=== PATIENT | male | born 1960 | race Caucasian/White ===

== ENCOUNTER → 2019-11-27 18:15 | Outpatient (BNVA) | payer MEDICARE, MEDICAID, SELFPAY | PROVIDERS: PCP Family Medicine; Visit Provider Family Medicine | DX: I10 Essential (primary) hypertension (principal); E11.9 Type 2 diabetes mellitus without complications; E78.2 Mixed hyperlipidemia; I25.10 Atherosclerotic heart disease of native coronary artery without angina pectoris; J44.9 Chronic obstructive pulmonary disease, unspecified; F33.3 Major depressive disorder, recurrent, severe with psychotic symptoms; F41.9 Anxiety disorder, unspecified | CPT/HCPCS: 80053; 80061; 83036; 85025 ==

== ENCOUNTER → 2020-06-04 18:00 | Outpatient (BNVA) | payer MEDICARE, MEDICAID, SELFPAY | PROVIDERS: PCP Family Medicine; Visit Provider Family Medicine | DX: I10 Essential (primary) hypertension (principal); E11.9 Type 2 diabetes mellitus without complications; K21.9 Gastro-esophageal reflux disease without esophagitis; F33.3 Major depressive disorder, recurrent, severe with psychotic symptoms; I25.10 Atherosclerotic heart disease of native coronary artery without angina pectoris | CPT/HCPCS: 80053; 83036 ==

== ENCOUNTER → 2020-09-26 10:20 | Outpatient (BNVA) | payer MEDICARE, MEDICAID, SELFPAY | PROVIDERS: PCP Family Medicine; Visit Provider Internal Medicine Cardiovascular Disease | DX: E11.9 Type 2 diabetes mellitus without complications (principal); E78.2 Mixed hyperlipidemia; I10 Essential (primary) hypertension; R07.9 Chest pain, unspecified; I25.10 Atherosclerotic heart disease of native coronary artery without angina pectoris | CPT/HCPCS: 80053; 80061; 82306; 83721 ==

== ENCOUNTER 2020-10-31 17:38 | Observation (INO) | payer MEDICARE, MEDICAID, SELFPAY ==
[2020-10-31] VITALS (10 sets, daily range): BP systolic 121–161; BP diastolic 70–94; PULSE 58–83; RESP 15–18; TEMP 36.3; O2SAT 92–99; BMI 25.0
--- NOTE | 2020-10-31 18:45 | XR_ITS ---
WS: [id number] PORTABLE CHEST HISTORY: chest pain COMPARISON: 10/12/2018 Lungs are clear and well expanded. No pleural effusion or pneumothorax. Cardiac size: Normal. Mediastinum/Aorta: Normal mediastinum. No osseous abnormality seen. XR/XR chest 1V portable [id number] IMPRESSION: Unremarkable portable chest.
--- NOTE | 2020-10-31 18:45 | ECG_ITS ---
[facility] Test Date: 2020-10-31 Pat Name: Julius Correa Department: Room: Gender: Male Tile Classifier: : 1960 Requested By: Ariadna Armendariz I Order Number: [id number] Garcia MD: Mandy Henning M.D. Measurements Intervals [place] Rate: 65 P: 49 OR: 109 QRS: 23 QRSD: 92 T: 43 QT: 383 QTc: 401 Interpretive Statements SINUS RHYTHM WITH SHORT OR INTERVAL Compared to ECG 10/20/2019 11:50:43 Sinus bradycardia no longer present Electronically Signed On 10-31-2020 22:50:45 CHIMNEY CONSTRUCTION SUPERVISOR by Mandy Henning M.D. [email or web address] children's hospital for [id number]
--- NOTE | 2020-10-31 18:46 | W.ED.CHESTPA ---
HPI - Chest Pain General: Chief Complaint: Chest Pain Stated Complaint: CP Time Seen by Provider: 10/31/20 17:54 Source: patient Mode of arrival: ambulatory Limitations: no limitations History of Present Illness: HPI narrative: Patient is a 60-year-old male with a history of coronary artery disease who presents to the emergency department with a 4-day history of chest pain. He denies any radiation of the pain, diaphoresis, nausea or vomiting. He denies shortness of breath. On looking through his records he saw his supervisor body assembly last month and she would like him to have a stress test as soon as possible. MD complaint: chest pain Pertinent past history: coronary artery disease Onset (ago): day(s) (4) Timing of current episode: episodic Prior episodes: Yes Onset: during rest Pain location: subxiphoid Pain radiation: none Quality: aching Relieving factors: nothing Exacerbating factors: nothing Associated symptoms: Reports abdominal pain; Deny diaphoresis, dyspnea, fever(s), leg edema, nausea, palpitations, sense of impending doom, syncope or vomiting Treatment prior to arrival: nitroglycerin Review of Systems General: Reports: 10 or more systems reviewed and unremarkable except in HPI and below Const: Denies: fever(s) or diaphoresis Eyes: Denies: change in vision or blurry vision ENMT: Denies: throat pain, enlarged tonsils, odynophagia, hoarseness, mouth pain or swelling of lips/tongue Card: Denies: palpitations or syncope Resp: Denies: dyspnea GI: Reports: abdominal pain; Denies: nausea or vomiting : Denies: flank pain, dysuria, urinary frequency, urinary urgency or urinary hesitancy Musc: Denies: neck pain, back pain or extremity swelling Skin/Breast: Denies: rash, pruritus or erythema Neuro: Denies: headache(s), numbness in extremities or weakness in extremities Endo: Denies: polyuria, polydipsia or tired all the time PFS ED PFSH: Medical History (Reviewed 10/31/20 @ 20:49 by Ariadna Armendariz MD, [facility] [place] [facility] [place] Alcohol dependence, in remission Anxiety CAD (coronary artery disease) COPD (chronic obstructive pulmonary disease) Depression Diabetes mellitus type 2 in nonobese Enrolled in chronic care management Essential hypertension GERD (gastroesophageal reflux disease) Intervertebral disc disorders with radiculopathy, lumbosacral region Major depressive disorder, recurrent, severe with psychotic symptoms Mixed hyperlipidemia Surgical History (Reviewed 10/31/20 @ 20:49 by Ariadna Armendariz MD, [facility] [place] [facility] [place] S/P appendectomy S/P coronary angioplasty Family History (Reviewed 10/31/20 @ 20:49 by Ariadna Armendariz MD, [facility] [place] [place] Other Arthritis Asthma Cancer Social History (Reviewed 10/31/20 @ 20:49 by Ariadna Armendariz MD, [facility] [place] [facility] [place] Smoking and tobacco status: former smoker Quit status (tobacco): has quit using tobacco Year quit tobacco: DEC 2017 Second hand smoke exposure: Yes Alcohol intake: never Desire information about alcohol rehabilitation?: No Counseling given: No Desire information about substance/drug rehabilitation?: No Counseling given: No Lives independently: Yes Housing: House Marital status: service: No Current occupational status: unemployed and disabled Current gender identity: Male Physical Exam Const: COMMON NORMALS: no acute distress, average body habitus, patient oriented x3, no limitations, healthy appearing, alert and well nourished HENMT: COMMON NORMALS: normocephalic, atraumatic and moist oral mucous membranes HEAD & SCALP: normocephalic and atraumatic Neck/C-Spine: COMMON NORMALS: no meningeal signs and no JVD Chest: COMMONS NORMALS: normal inspection of the chest and normal palpation of entire chest wall Resp: COMMON NORMALS: normal respiratory effort, No retractions, No use of accessory muscles, clear to auscultation bilaterally and percussion normal AUSCULTATION: clear to auscultation bilaterally PERCUSSION: percussion normal Cardio: COMMON NORMALS: no JVD, regular rate, regular rhythm, S1 normal heart sound present, S2 normal heart sound present, No gallops present (Cardio), No clicks present (Cardio), No murmurs present (Cardio), No rub (Cardio) and Peripheral pulses 2+ throughout RATE: regular rate RHYTHM: regular rhythm HEART SOUNDS: S1 normal heart sound present and S2 normal heart sound present PERIPHERAL PULSES: Peripheral pulses 2+ throughout GI: COMMON NORMALS: Normal to inspection, nondistended, normoactive bowel sounds present, Soft to palpation, non-tender, No hepatosplenomegaly present, no masses and no bruits PALPATION: Yes Soft to palpation and Yes No hepatosplenomegaly present Extremity: COMMON NORMALS: normal to inspection, full ROM, capillary refill normal, no calf tenderness and no pedal edema Neuro: COMMON NORMALS: patient oriented x3 SENSORIUM/ORIENTATION: Yes alert MENINGEAL SIGNS: Yes no meningeal signs Skin: COMMON NORMALS: no rashes or lesions noted, no wounds, turgor normal, no jaundice, no petechiae and no mottling GENERAL SKIN EXAM: no rashes or lesions noted and turgor normal Course Reevaluation(s): Reevaluation #1: Discussed his lab and imaging findings with him. Also discussed the fact that his supervisor body assembly wants him to have a stress test OSMAN. I will therefore refer to admit him to the hospital [facility]. The patient voiced understanding and is in agreement with the plan Time: 20:44 Consultations: Consultation #1: Discussed the patient with Dr. Gilmore, hospitalist and he kindly accepted the patient to his service Time: 22:15 Vital Signs: Vital signs: Vital Signs Temperature 97.3 F L 10/31/20 17:45 Pulse Rate 58 L 10/31/20 22:00 Respiratory Rate 18 10/31/20 22:00 Blood Pressure 133/83 10/31/20 22:00 Pulse Oximetry 96 10/31/20 22:00 MDM - Chest Pain MDM Narrative: Medical decision making narrative: 60-year-old male who presents to the emergency department with chest pain. Initial high-sensitivity troponin was normal at 7. However his supervisor body assembly had routine in her notes from last month that she wants him to have a stress test as soon as possible. Because of this I figured it would be prudent to admit him tonight since he is having chest pain and obtain a stress test in the morning. He was also noted to be severely hyperglycemic and he was given a dose of subcutaneous insulin as well as IV fluids. Blood glucose improved after these. Medical Records: Attestation: I reviewed the patient's medical records. Lab Data: Attestation: I reviewed the patient's lab results. Labs: Lab Results 10/31/20 10/31/20 10/31/20 Range/Units 18:00 18:00 18:00 WBC 6.3 (4.0-10.0) 10^3/ uL RBC 5.15 (4.1-5.3) 10^6/u L Hgb 16.2 (11.7-16.6) g/dL Hct 47.9 (42.0-52.0) % MCV 93.0 (80-94) fL MCH 31.5 (28.0-34.0) pg MCHC 33.8 (30.0-36.0) g/dL RDW 12.3 (12.1-15.1) % Plt Count 278 (130-400) 10^3/c mm MPV 11.1 H (7.4-10.4) fL Neut % (Auto) 60.0 % Lymph % (Auto) 27.5 % Gillespie % (Auto) 9.1 % Eos % (Auto) 1.6 % Baso % (Auto) 1.0 % Neut # (Auto) 3.77 (1.8-7.7) 10^3/u L Lymph # (Auto) 1.7 (0.8-4.8) 10^3/u L Gillespie # (Auto) 0.6 (0.2-0.9) 10^3/u L Eos # (Auto) 0.1 (0.0-0.8) 10^3/u L Baso # (Auto) 0.1 (0.0-0.1) 10^3/u L Nucleated RBC % (a uto) 0 % Nucleated RBCs # 0.0 /100WBC Sodium 131 L (136-145) mmol/L Potassium 4.4 (3.5-5.1) mmol/L Chloride 96 L (98-107) mmol/L Carbon Dioxide 24 (22-29) mmol/L Anion Gap 15.4 (5-19) BUN 20 (8-23) mg/dL Creatinine 1.2 (0.7-1.2) mg/dL GFR Calculation 61.3 L (90-130) mL/min Glucose 591 H* (65-115) mg/dL POC Glucose (70-110) mg/dL Calculated Osmolal ity 302 H (285-295) mOsm/k g Calcium 10.1 (8.5-10.5) mg/dL Total Bilirubin 0.4 (0.15-1.2) mg/dL AST 32 (0-40) U/L ALT 61 H (0-41) U/L Alkaline Phosphata se 66 (40-130) IU/L Troponin T Baselin e 7 (0-15) ng/L Troponin T 120 Min iqugmiut (0-15) ng/L Delta Troponin T (0-10) ABS# Total Protein 6.9 (6.6-8.7) g/dL Albumin 4.5 (3.5-5.2) g/dL Globulin 2.4 (1.3-4.6) g/dL Lipase 69 H (13-60) U/L 10/31/20 10/31/20 Range/Units 20:08 21:18 WBC (4.0-10.0) 10^3/ uL RBC (4.1-5.3) 10^6/u L Hgb (11.7-16.6) g/dL Hct (42.0-52.0) % MCV (80-94) fL MCH (28.0-34.0) pg MCHC (30.0-36.0) g/dL RDW (12.1-15.1) % Plt Count (130-400) 10^3/c mm MPV (7.4-10.4) fL Neut % (Auto) % Lymph % (Auto) % Gillespie % (Auto) % Eos % (Auto) % Baso % (Auto) % Neut # (Auto) (1.8-7.7) 10^3/u L Lymph # (Auto) (0.8-4.8) 10^3/u L Gillespie # (Auto) (0.2-0.9) 10^3/u L Eos # (Auto) (0.0-0.8) 10^3/u L Baso # (Auto) (0.0-0.1) 10^3/u L Nucleated RBC % (a uto) % Nucleated RBCs # /100WBC Sodium (136-145) mmol/L Potassium (3.5-5.1) mmol/L Chloride (98-107) mmol/L Carbon Dioxide (22-29) mmol/L Anion Gap (5-19) BUN (8-23) mg/dL Creatinine (0.7-1.2) mg/dL GFR Calculation (90-130) mL/min Glucose (65-115) mg/dL POC Glucose 233 (70-110) mg/dL Calculated Osmolal ity (285-295) mOsm/k g Calcium (8.5-10.5) mg/dL Total Bilirubin (0.15-1.2) mg/dL AST (0-40) U/L ALT (0-41) U/L Alkaline Phosphata se (40-130) IU/L Troponin T Baselin e (0-15) ng/L Troponin T 120 Min iqugmiut 7.44 (0-15) ng/L Delta Troponin T 0.44 (0-10) ABS# Total Protein (6.6-8.7) g/dL Albumin (3.5-5.2) g/dL Globulin (1.3-4.6) g/dL Lipase (13-60) U/L EKG Data^: EKG 1: Attestation: I personally reviewed and interpreted this EKG as follows: EKG interpretation date: 10/31/20 EKG interpretation time: 17:51 Prior EKG tracings: not available for review Interpretation: Sinus rhythm with short OH interval. Heart rate [address] changes. Normal axis. EKG 2: Attestation: I personally reviewed and interpreted this EKG as follows: EKG interpretation date: 10/31/20 EKG interpretation time: 20:20 Prior EKG tracings: available for review Interpretation: Sinus rhythm with short OH interval. Heart rate [address] changes. Normal axis. Unchanged from earlier today Discharge Plan Discharge Patient Disposition: Placed in Observation Clinical Impression: Diabetes mellitus type 2 in nonobese Chest pain Qualifiers: Chest pain type: unspecified Qualified Code(s): R07.9 - Chest pain, unspecified CAD (coronary artery disease) Qualifiers: Coronary Disease-Associated Artery/Lesion type: unspecified vessel or lesion type [place] vs. transplanted heart: [place] heart Associated angina: with unspecified angina Qualified Code(s): I25.119 - Atherosclerotic heart disease of [place] coronary artery with unspecified angina pectoris Coding Level of Care Code ED Saw Cleaner for [facility] Fwd Exam Comprehensive
[2020-10-31] MEDS: nitroglycerin 1 gm/inch oint Pkt 1 INCH TOPICAL (18:55)
[2020-10-31] MEDS: aspirin 81 mg Chew Tablet 324 MG PO (18:55)
[2020-10-31 18:57] LABS: Basophils # 0.1 10^3/uL (0.0-0.1); Eosinophils # 0.1 10^3/uL (0.0-0.8); Eosinophils % 1.6 %; Hematocrit 47.9 % (42.0-52.0); Hemoglobin 16.2 g/dL (11.7-16.6); Lymphocytes # 1.7 10^3/uL (0.8-4.8); Lymphocytes % 27.5 %; Mean Corpuscular HGB Conc 33.8 g/dL (30.0-36.0); Mean Corpuscular Hemoglobin 31.5 pg (28.0-34.0); Mean Platelet Volume 11.1 fL (7.4-10.4); Monocytes # 0.6 10^3/uL (0.2-0.9); Monocytes % 9.1 %; Neutrophils # 3.77 10^3/uL (1.8-7.7); Nucleated Red Blood Cells % 0 %; Platelet Count 278 10^3/cmm (130-400); Red Blood Count 5.15 10^6/uL (4.1-5.3); Red Cell Distribution Width 12.3 % (12.1-15.1); White Blood Count 6.3 10^3/uL (4.0-10.0)
[2020-10-31 19:07] LABS: Alanine Aminotransferase 61 U/L (0-41); Albumin Level 4.5 g/dL (3.5-5.2); Alkaline Phosphatase 66 IU/L (40-130); Aspartate Amino Transferase 32 U/L (0-40); Blood Urea Nitrogen 20 mg/dL (8-23); Calcium 10.1 mg/dL (8.5-10.5); Carbon Dioxide 24 mmol/L (22-29); Chloride 96 mmol/L (98-107); Creatinine Clr Calc Pharmacy 64.0766; Globulin 2.4 g/dL (1.3-4.6); Glomerular Filtration Rate 61.3 mL/min (90-130); Lipase 69 U/L (13-60); Osmolality Calculated 302 mOsm/kg (285-295); Sodium 131 mmol/L (136-145); Total Bilirubin 0.4 mg/dL (0.15-1.2); Total Protein 6.9 g/dL (6.6-8.7)
[2020-10-31 19:08] LABS: Anion Gap 15.4 (5-19); Potassium 4.4 mmol/L (3.5-5.1)
[2020-10-31 19:09] LABS: Troponin(5th) Baseline 7 ng/L (0-15)
[2020-10-31 19:11] LABS: Glucose 591 mg/dL (65-115)
[2020-10-31] MEDS: sodium chloride 0.9% 1,000 ML 999 ML IV (20:39)
[2020-10-31 21:05] LABS: Troponin 5 2HR 7.44 ng/L (0-15); Troponin 5 2HR Delta 0.44 ABS# (0-10)
[2020-10-31 21:21] LABS: Glucose Point of Care 233 mg/dL (70-110)
--- NOTE | 2020-10-31 22:05 | P.HP_ITS ---
Providers/Chief Complaint Primary Care Provider: Romina Schofield MD Chief Complaint: CP History of Present Illness Julius Correa is a 60 year old male who presented today with chief complaint of chest pain. Patient has past medical history of coronary disease status post RCA stent, diabetes, hypertension, dyslipidemia, has recently seen Dr. Shay for recurrent angina for which he was scheduled for stress test but did not show up for the test twice. He is stating that for last few months he has been having on and off chest discomfort without any aggravating relieving factors, he describing pressure-like chest discomfort throughout his subcostal region extending from left to right, today it was getting worse slight movements which made him worried, he did not notice any orthopnea, PND, shortness of breath, fever, nausea, vomiting, diarrhea. Diagnosis in the ER revealed nonsignificant rising delta troponin, hemodynamically stable, EKG not showing any ischemic or ectopic changes, considering risk factors he was admitted for stress test in the morning. Hyperglycemia without signs of DKA Review of Systems Const: Denies: fever(s) or chills Eyes: Denies: change in vision Card: Reports: chest pain; Denies: dyspnea on exertion or orthopnea Resp: Denies: dyspnea GI: Denies: abdominal pain : Denies: flank pain Musc: Denies: neck pain Skin/Breast: Denies: rash Neuro: Denies: headache(s) Psych: Denies: anxiety Endo: Denies: cold intolerance Alonso/Lymph: Denies: easy bruising All/Imm: Denies: urticaria Medications/Allergies Home Medications Medication Instructions Recorded Confirmed Last Taken Type albuterol sulfate 90 mcg/actuation 2 inh INHALATION Q6H 11/25/19 10/31/20 Unknown History breath activated powder inhaler,sensor lancets See Rx Instructions .ROUTE 03/23/20 10/31/20 Unknown Rx .COMPLEX #100 unknown measurement unit code: each pen needle, diabetic 31 gauge x See Rx Instructions .ROUTE 03/23/20 10/31/20 Unknown Rx 5/16 .COMPLEX #100 unknown measurement unit code: not specified Remeron 7.5 mg PO BEDTIME@2200 10/31/20 10/31/20 10/29/20 History Trilipix 135 mg PO BEDTIME@2200 10/31/20 10/31/20 10/29/20 History acarbose 100 mg PO BID@0900,2200 10/31/20 10/31/20 10/29/20 History atorvastatin 40 mg PO DAILY@0900 10/31/20 10/31/20 10/29/20 History bupropion HCl 150 mg PO DAILY@0900 10/31/20 10/31/20 10/29/20 History clopidogrel 75 mg PO DAILY@0900 10/31/20 10/31/20 10/29/20 History doxepin 10 mg PO BID@0900,0 10/31/20 10/31/20 10/29/20 History duloxetine 60 mg PO DAILY@0900 10/31/20 10/31/20 10/31/20 History hydroxyzine pamoate 25 mg PO TID@ PRN 10/31/20 10/31/20 10/29/20 History insulin glargine [Lantus U-100 55 unit SUBCUT DAILY@0910/31/20 10/31/20 10/29/20 History Insulin] isosorbide mononitrate 10 mg PO DAILY@0900 10/31/20 10/31/20 Unknown History lisinopril 5 mg PO DAILY@0900 10/31/20 10/31/20 10/29/20 History metformin 1,000 mg PO BID@0900,219910/31/20 10/31/20 10/29/20 History metoprolol tartrate 25 mg PO DAILY@0900 10/31/20 10/31/20 10/29/20 History omega-3 acid ethyl esters 1 g PO TID@10/31/20 10/31/20 10/29/20 History pantoprazole 40 mg PO DAILY@0900 10/31/20 10/31/20 Unknown History quetiapine 100 mg PO DAILY@0900 10/31/20 10/31/20 10/29/20 History quetiapine 400 mg PO BEDTIME@219910/31/20 10/31/20 10/29/20 History sitagliptin 100 mg PO BEDTIME@22010/31/20 10/31/20 10/29/20 History Allergies Allergy/AdvReac Type Severity Reaction Status Date / Time No Known Allergies Allergy Verified 10/15/20 10:10 PFSH Acute PFSH: Medical History Alcohol dependence, in remission Anxiety CAD (coronary artery disease) COPD (chronic obstructive pulmonary disease) Depression Diabetes mellitus type 2 in nonobese Enrolled in chronic care management Essential hypertension GERD (gastroesophageal reflux disease) Intervertebral disc disorders with radiculopathy, lumbosacral region Major depressive disorder, recurrent, severe with psychotic symptoms Mixed hyperlipidemia Surgical History S/P appendectomy S/P coronary angioplasty Family History Other Arthritis Asthma Cancer Social History Smoking and tobacco status: former smoker Quit status (tobacco): has quit using tobacco Year quit tobacco: DEC 2017 Second hand smoke exposure: Yes Alcohol intake: never Desire information about alcohol rehabilitation?: No Counseling given: No Desire information about substance/drug rehabilitation?: No Counseling given: No Lives independently: Yes Housing: House Marital status: service: No Current occupational status: unemployed and disabled Current gender identity: Male Vitals/I&O/Wt Last Vital Signs Temp 97.3 F L 10/31/20 17:45 Pulse 58 L 10/31/20 22:00 Resp 18 10/31/20 22:00 BP 133/83 10/31/20 22:00 Pulse Ox 96 10/31/20 22:00 Weight last 48 hrs Weight 74.843 kg Physical Exam Narrative: EXAM NARRATIVE: Very pleasant middle-age man who appears more than stated age No active chest pain currently saturating well on room air He was playing flat without any shortness of breath Does not look fluid overloaded S1, S2 no murmur appreciated Abdomen soft nontender bowel sound present Bilateral breath sounds without any adventitious rhonchi or crackles Lower extremity without edema gangrene ulcer Clinically does not look fluid overloaded Awake alert oriented x3 GCS 15 No neurological deficit EOMI, PERRLA Data : 10/31/20 18:00 10/31/20 18:00 A&P Assessment and plan (1) Unstable angina: Recurrent unstable angina No active shortness of breath orthopnea PND No active ischemic infarct change on EKG, no serial troponin Considering significant risk factors for coronary disease we will get a stress test in the morning Hold metoprolol, n.p.o. after midnight Echo in the morning Status: Acute Additional A&P Information Hyperglycemia without DKA: Check hemoglobin A1c level I would reduce his Lantus dose as he will be n.p.o. keep him on sliding scale Hypertension: Hold metoprolol continue lisinopril 5 mg daily History of coronary disease: Continue Plavix and atorvastatin Full code N.p.o. after midnight, can start diet after stress test DVT prophylaxis Lovenox Attestations Medical Necessity Statement*: Anticipating discharge in less than 48 hours currently need cardiac stress testing for ruling out coronary ischemia chest discomfort Time Spent in Patient Care: (>than 50% of time spent in counselling and/or direct pt care on unit) . 50mins Coding Level of Care Code Acute Pocket Setter Lockstitch for Tyson Sanchez Diagnoses Unstable angina I20.0
[2020-10-31 23:48] LABS: Estmated Average Glucose 315; Hemoglobin A1C 12.6 % (4.0-6.0)
[2020-11-01] VITALS (10 sets, daily range): BP systolic 102–158; BP diastolic 60–78; PULSE 56–98; RESP 16–20; TEMP 36.3–36.9; O2SAT 92–98
--- NOTE | 2020-11-01 00:12 | PC.NURSE ---
report called to shaunna harper
[2020-11-01 00:35] LABS: Troponin 5 6HR 6.72 ng/L (0-15)
[2020-11-01 00:37] LABS: Troponin 5 6HR Delta -0.28 ng/L (0-12)
--- NOTE | 2020-11-01 00:45 | USCV_ITS ---
Julius Correa Age: 60 Gender: M : 1960 Exam Date: 11/01/2020 05:39 Ordering Phys: Jesus Gilmore MD Technologist: Ryann Camara [place] [facility] [place]: [place]GINA BP: 114 / 72 HR: 57 Rhythm: Sinus Technical Quality: Adequate MEASUREMENTS (Male / Female) Normal Values 2D ECHO LV Diastolic Diameter PLAX 4.9 cm 4.2 - 5.9 / 3.9 - 5.3 cm LV Systolic Diameter PLAX 2.8 cm LV Chamber Size 3.8 cm IVS Diastolic Thickness 1.2 cm 0.6 - 1.0 / 0.6 - 0.9 cm IVS Systolic Thickness 1.3 cm LVPW Diastolic Thickness 1.0 cm 0.6 - 1.0 / 0.6 - 0.9 cm LVPW Systolic Thickness 1.4 cm RV Chamber Size 2.9 cm LVOT Diameter 2.1 cm LV Ejection Fraction 2D Teich 73.9 % LV Ejection Fraction MOD 2C 79.2 % LV Ejection Fraction 2C AL 79.7 % LA Diameter 3.3 cm LA Width 3.0 cm LA Height 3.4 cm RA Width 2.5 cm RA Height 4.1 cm Aorta at Sinotubular Diameter 3.1 cm M-MODE LV Diastolic Diameter MM 3.9 cm 4.2 - 5.9 / 3.9 - 5.3 cm LV Systolic Diameter MM 2.7 cm LV Ejection Fraction MM Teich 58.3 % IVS Diastolic Thickness MM 1.4 cm 0.6 - 1.0 / 0.6 - 0.9 cm IVS Systolic Thickness MM 1.5 cm LVPW Diastolic Thickness MM 1.0 cm 0.6 - 1.0 / 0.6 - 0.9 cm LVPW Systolic Thickness MM 1.3 cm RV Diastolic Diameter MM 1.1 cm Aortic Annulus Diameter 3.3 cm LA Ao Ratio MM 1.1 MV E Point Septal Separation 0.3 cm DOPPLER AV Peak Velocity 134.0 cm/s LVOT Peak Velocity 109.0 cm/s AV Area Cont Eq vti 2.8 cm squared AV Area Cont Eq pk 2.8 cm squared MV Area PHT 4.5 cm squared Mitral E to A Ratio 0.9 MV E' Velocity 40.5 cm/s Mitral E to MV E' Ratio 8.0 Mitral E to LV E' Lateral Ratio 7.7 Mitral E to LV E' Septal Ratio 8.5 TR Peak Velocity 165.9 cm/s TR Peak Gradient 11.0 mmHg TR Mean Velocity 131.2 cm/s TR Mean Gradient 8.4 mmHg TR Velocity Time Integral 40.4 cm TV Peak E Velocity 74.0 cm/s Right Atrial Pressure 3.0 mmHg Pulmonary Artery Systolic Pressu 14.0 mmHg PV Peak Velocity 57.0 cm/s RV Acceleration Time 0.1 s RV Ejection Time 0.4 s RV AcT/ET 0.3 FINDINGS Left Ventricle Normal left ventricular size, systolic function and wall thickness, with no regional wall motion abnormalities. Left ventricular ejection fraction is estimated at 65 %. Normal diastolic function. Right Ventricle Normal right ventricular size and systolic function. Right ventricular systolic pressure 14 mmHg. Right Atrium Normal right atrial size. Right atrial pressure estimated at 3 mmHg. Left Atrium Normal left atrial size. Mitral Valve Structurally normal mitral valve. No mitral valve stenosis. Mild mitral valve regurgitation. Aortic Valve Structurally normal trileaflet aortic valve. No aortic valve stenosis. No aortic valve regurgitation. Tricuspid Valve Structurally normal tricuspid valve. No tricuspid valve stenosis. Trace tricuspid valve regurgitation. Pulmonic Valve Structurally normal pulmonic valve. No pulmonary valve stenosis. No significant pulmonary valve regurgitation. Pericardium No pericardial effusion. Aorta Normal-sized aortic root. Normal-sized inferior vena cava with more than 50% respiratory variation. CONCLUSIONS 1. Normal left ventricular size, systolic function and wall thickness, with no regional wall motion abnormalities. Left ventricular ejection fraction is estimated at 65 %. Normal diastolic function. 2. Normal right ventricular size and systolic function. 3. No significant valvular abnormality. 4. Normal pulmonary artery pressure. 5. When compared to old study dated 12/17/2013, there may not have been any significant change. Jacqui Shay MD (Electronically Signed) Final Date: 01 November 2020 13:10 S
--- NOTE | 2020-11-01 00:45 | ECG_ITS ---
[facility] Test Date: 2020-11-01 Pat Name: Julius Correa Department: Room: 277 Gender: Male Poultry Trimmer: Maricarmen Garibay : 1960 Requested By: Jesus Gilmore Order Number: [id number] Reading MD: Jacqui Shay M.D. Interpretive Statements NAME OF STUDY: LEXISCAN SESTAMIBI STRESS TEST INDICATION: Chest Pressure PROCEDURE: At the baseline, the blood pressure was 136/69 mmHg with a heart rate of 63 bpm. The electrocardiogram showed normal sinus rhythm, normal axis with possible old anteroseptal infarct. Nonspecific ST depression. The Lexiscan was infused over a period of 20 seconds. A total of 0.4 milligrams of Lexiscan was infused. The stress phase was continued for a total of 5 minutes. Heart rate at the end of the stress phase was 68 bpm with a blood pressure 139/77 mmHg. The EKG at the peak infusion revealed sinus rhythm at 68 bpm with no significant ST-T wave changes. Sestamibi was injected 20 seconds after the Lexiscan infusion. Blood pressure at the end of the recovery phase was 144/80 mmHg with a heart rate of 69 beats per minute. CONCLUSION: 1. No significant EKG changes with the LexiScan infusion. 2. No LexiScan induced chest pain or cardiac arrhythmia. 3. Normal blood pressure and heart rate response. 4. Sestamibi/sestamibi perfusion scan pending; see separate report. Electronically Signed On 11-01-2020 13:14:53 ASSISTED LIVING NURSING DIRECTOR by Jacqui Shay M.D. [email or web address]
--- NOTE | 2020-11-01 00:45 | NMCV_ITS ---
NM gordo perf SPECT r/s* [id number] Julius Correa Age: 60 Gender: M : 1960 Exam Date: 11/01/2020 07:09 Ordering Phys: Jesus Gilmore MD Technologist: DAKSHA Bailey Exam Location: [facility] Indications: CHEST PAIN STRESS TEST Please see separate stress test report in [facility] for full findings IMAGE PROTOCOL Rest/Stress 1 Lexiscan Day Radiopharmaceutical Dose (mCi) Administration Site Administered by Rest: Tc-99m 10.9 IV DAKSHA Davison Sestamibi Stress:Tc-99m 32.9 IV DAKSHA Davison Sestamibi Rest: 01-Nov-2020 60 Discovery 630 Stress: 01-Nov-2020 30 Discovery 630 0.4mg Lexiscan. Images obtained in supine and prone position. SPECT RESULTS Technical Quality: Excellent Raw Data Analysis: Normal Image Corrections: No attenuation or motion correction applied Summed Stress Score: 3 Summed Rest Score: 2 Summed Difference Score: 1 PERFUSION FINDINGS Small size perfusion abnormality of mild severity of mid anterior and apical lateral wall on rest images with mild reversibility on supine stress images. There is improved tracer uptake in mid anterior and apical lateral sandhu on prone stress images. This is suggestive of attenuation artifact. FUNCTIONAL RESULTS (calculated via Gated SPECT) Stress Image LV EF (%): 69 Stress EDV (mL):72 TID: 0.88 Stress ESV (mL):22 FUNCTIONAL FINDINGS: The left ventricle is normal in size. Transient Ischemia Dilatation of 0.88. There is normal left ventricular systolic function. The left ventricular ejection fraction is normal with a value of 69%. There is normal left ventricular wall thickening. No regional wall motion abnormality. Normal end-diastolic and end-systolic volumes. IMPRESSIONS 1. Small sized perfusion abnormality of mild severity of mid anterior and apical lateral wall on rest images with mild reversibility on supine stress images. There is improved tracer uptake in mid anterior and apical lateral sandhu on prone stress images. 2. This may represent attenuation artifact. However small area of ischemia in left anterior descending artery territory cannot be completely ruled out. 3. Overall left ventricular systolic function is normal without regional wall motion abnormalities. 4. The left ventricular ejection fraction is normal with a value of 69%. There is normal left ventricular wall thickening. 5. No prior similar studies to compare. Jacqui Shay MD (Electronically Signed) Final Date: 01 November 2020 13:11 Amended: 01 November 2020 13:19 C
--- NOTE | 2020-11-01 00:45 | ECG_ITS ---
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 Measurements Intervals [place] Rate: 63 P: 76 OK: 137 QRS: 36 QRSD: 104 T: 51 QT: 399 QTc: 410 Interpretive Statements SINUS RHYTHM Compared to ECG 10/31/2020 20:19:56 Short OK interval no longer present Electronically Signed On 11-01-2020 18:39:08 FLEXOGRAPHIC PRESS HELPER by Mandy Henning M.D. [id number]
[2020-11-01] MEDS: sodium chloride 0.9% 1,000 ML 100 ML IV ×2 (01:30→14:54)
[2020-11-01] MEDS: enoxaparin 40 mg/0.4 mL Syringe SUBCUT (01:31)
[2020-11-01 01:34] LABS: Glucose Point of Care 417 mg/dL (70-110)
[2020-11-01] MEDS: insulin glargine 100 units/1 mL 30 UNIT SUBCUT (01:57)
[2020-11-01 05:42] LABS: Basophils # 0.1 10^3/uL (0.0-0.1); Basophils % 0.8 %; Eosinophils # 0.2 10^3/uL (0.0-0.8); Eosinophils % 2.2 %; Hematocrit 43.8 % (42.0-52.0); Lymphocytes # 2.5 10^3/uL (0.8-4.8); Lymphocytes % 33.8 %; Mean Corpuscular HGB Conc 34.2 g/dL (30.0-36.0); Mean Corpuscular Hemoglobin 31.8 pg (28.0-34.0); Monocytes # 0.6 10^3/uL (0.2-0.9); Neutrophils # 3.96 10^3/uL (1.8-7.7); Neutrophils % 54.5 %; Nucleated Red Blood Cells % 0 %; Platelet Count 250 10^3/cmm (130-400); Red Blood Count 4.71 10^6/uL (4.1-5.3); Red Cell Distribution Width 12.2 % (12.1-15.1); White Blood Count 7.3 10^3/uL (4.0-10.0)
[2020-11-01 06:06] LABS: Anion Gap 15.1 (5-19); Blood Urea Nitrogen 15 mg/dL (8-23); Carbon Dioxide 24 mmol/L (22-29); Chloride 102 mmol/L (98-107); Glomerular Filtration Rate 75.7 mL/min (90-130); Glucose 345 mg/dL (65-115); Osmolality Calculated 299 mOsm/kg (285-295); Potassium 4.1 mmol/L (3.5-5.1); Sodium 137 mmol/L (136-145)
[2020-11-01 06:40] LABS: Glucose Point of Care 288 mg/dL (70-110)
[2020-11-01] MEDS: regadenoson 0.4 Mg/5 ml Syringe IVP (07:54)
--- NOTE | 2020-11-01 09:52 | PC.CHAP ---
Pastoral Care Encounter/Spiritual Assessment Type of Contact [] Declined assistant real estate manager visit [] Patient/Family/Request visit [] Outpatient visit [] Follow-up visit [] Physician referral [] Code/Alert [x] Routine visit [] Staff referral [] Actively dying [] Patient sleeping [] Family support [] [] Out of room [] Palliative care [] [] Receiving care in room [] Pre-surgical visit [] Trauma [] Long length of stay [] ICU visit [] Other: Relational/Emotional Strength [x] Patient feels connected with others/family/visitors/staff [] Distress [] Loneliness/isolation [] Abandonment Spirituality of Patient [x] Person of Sis [] Attends Presybeterian of their Sis [] Believes in Prayer [] Reads Bible or Taoist materials [] There are Spiritual issues to be addressed Civil Attorney Interventions xx] Prayer [x] Active listening [] Non-anxious presence [] Spiritual/emotional support [] Crisis/trauma care [] Spiritual counseling [] Bereavement support [] Provided bereavement packet [] Provided Bible/devotional materials [] Provided toy/stuffed animal, coloring book to patient or family member [] Provided Communion [] Anointing/Nicolaus [] Salvation [x] Completed spiritual assessment [] Other: Impact on Illness or Injury [] Angry [] Fearful [] Anxious [] Often cries [] Exhaustion [] Unable to work [] Unable to attend sikhism [] Unable to walk/stand [] Unable to read [] Unable to drive [] Unable to eat/drink [] Unable to sleep [] Unable to be with family [] Patient intubated [] Other: Summary hps to go home today Time spent with patient 15 min
[2020-11-01] MEDS: isosorbide mononitrate 20 mg Tablet 10 MG PO (10:40)
[2020-11-01] MEDS: buPROPion XL (24 HR) 150 mg Tablet PO (10:40)
[2020-11-01] MEDS: atorvastatin 40 mg Tablet PO (10:41)
[2020-11-01] MEDS: clopidogrel 75 mg Tablet PO (10:41)
[2020-11-01] MEDS: doxepin 10 mg Capsule PO ×2 (10:41→21:46)
[2020-11-01] MEDS: pantoprazole DR 40 mg Tablet PO (10:41)
[2020-11-01] MEDS: lisinopril 5 mg Tablet PO (10:41)
[2020-11-01 10:50] LABS: Glucose Point of Care 291 mg/dL (70-110)
[2020-11-01] MEDS: acetaminophen 325 mg Tablet 650 MG PO (11:31)
--- NOTE | 2020-11-01 14:16 | P.CONIM_ITS ---
Providers/Reason For Consult Consulting Physican/Specialty*: Dr. Shay, cardiology Reason for Consult*: Chest pain, abnormal nuclear stress test Attending Physician: Jalil Chavez MD Primary Care Provider: Romina Schofield MD History of Present Illness History of Present Illness Julius Correa is a 60 year old male PMHx of CAD s/p RCA stent after abnormal stress test on 27 January 2040, poorly controlled diabetes mellitus, hypertension, dyslipidemia. He is well-known to me as an outpatient. I had scheduled him for stress test twice however he was no show for it. He is unaware of his medications and admits to difficulty in remembering things. He was admitted on 31 October with complaints of chest discomfort. He continues to have intermittent episodes of chest pain described as pressure-like in lower part of his chest and upper abdominal both on right and left side and sometimes just on the right side. He has been having these chest pains for some time but for the last 5 days they were happening more frequently and hence he decided to come to the hospital for further evaluation. He does not have any significant EKG changes or troponin elevation. He underwent Lexiscan myocardial perfusion imaging today which showed possible ischemia in mid LAD and apical lateral w alls. Normal left ventricular wall thickening with no regional wall motion abnormality and normal left ventricular ejection fraction. At the time of evaluation patient is chest pain-free but states that after his stress test he had chest discomfort that lasted for up to 10 to 15 minutes. No URI or UTI-like symptoms. No orthopnea paroxysmal nocturnal dyspnea or leg swelling. Blood pressure low normal. He does admit that he forgets to take his medications at home. He lives by himself and his daughter is 50 miles away. He seems to have poor social support and has been really forgetful. He has difficulty managing his medications. He also tends to have frequent falls at home. Review of Systems General: Reports: 10 or more systems reviewed and unremarkable except in HPI and below Const: Denies: fever(s) or chills Eyes: Denies: change in vision ENMT: Denies: throat pain or epistaxis Card: Reports: chest pain; Denies: dyspnea on exertion or orthopnea Resp: Denies: dyspnea GI: Denies: abdominal pain, hematochezia or melena : Denies: flank pain or hematuria Musc: Denies: neck pain or extremity swelling Skin/Breast: Denies: rash Neuro: Reports: numbness in extremities and frequent falls; Denies: headache(s) or Slurred speech present Psych: Reports: memory loss; Denies: anxiety or depression Endo: Denies: cold intolerance Alonso/Lymph: Denies: easy bruising All/Imm: Denies: urticaria Meds/Allergies Home Medications and Allergies Home Medications Medication Instructions Recorded Confirmed Last Taken Type albuterol sulfate 90 mcg/actuation 2 inh INHALATION Q6H 11/25/19 10/31/20 Unknown History breath activated powder inhaler,sensor lancets See Rx Instructions .ROUTE 03/23/20 10/31/20 Unknown Rx .COMPLEX #100 unknown measurement unit code: each pen needle, diabetic 31 gauge x See Rx Instructions .ROUTE 03/23/20 10/31/20 Unknown Rx 5/16 .COMPLEX #100 unknown measurement unit code: not specified Remeron 7.5 mg PO BEDTIME@2200 10/31/20 10/31/20 10/29/20 History Trilipix 135 mg PO BEDTIME@2200 10/31/20 10/31/20 10/29/20 History acarbose 100 mg PO BID@0900,0 10/31/20 10/31/20 10/29/20 History atorvastatin 40 mg PO DAILY@0900 10/31/20 10/31/20 10/29/20 History bupropion HCl 150 mg PO DAILY@0900 10/31/20 10/31/20 10/29/20 History clopidogrel 75 mg PO DAILY@0900 10/31/20 10/31/20 10/29/20 History doxepin 10 mg PO BID@0900,2200 10/31/20 10/31/20 10/29/20 History duloxetine 60 mg PO DAILY@0900 10/31/20 10/31/20 10/31/20 History hydroxyzine pamoate 25 mg PO TID@ PRN 10/31/20 10/31/20 10/29/20 History insulin glargine [Lantus U-100 55 unit SUBCUT DAILY@0900 10/31/20 10/31/20 10/29/20 History Insulin] isosorbide mononitrate 10 mg PO DAILY@0900 10/31/20 10/31/20 Unknown History lisinopril 5 mg PO DAILY@0910/31/20 10/31/20 10/29/20 History metformin 1,000 mg PO BID@899,219910/31/20 10/31/20 10/29/20 History metoprolol tartrate 25 mg PO DAILY@0910/31/20 10/31/20 10/29/20 History omega-3 acid ethyl esters 1 g PO TID@10/31/20 10/31/20 10/29/20 History pantoprazole 40 mg PO DAILY@0910/31/20 10/31/20 Unknown History quetiapine 100 mg PO DAILY@89910/31/20 10/31/20 10/29/20 History quetiapine 400 mg PO BEDTIME@219910/31/20 10/31/20 10/29/20 History sitagliptin 100 mg PO BEDTIME@219910/31/20 10/31/20 10/29/20 History Allergies Allergy/AdvReac Type Severity Reaction Status Date / Time No Known Allergies Allergy Verified 10/15/20 10:10 Current Medications Current Medications Generic Name Dose Route Start Last Admin Trade Name Freq PRN Reason Stop Dose Admin Acetaminophen 650 mg 11/01/20 10:45 11/01/20 11:31 Acetaminophen 325 Mg Tablet PO 650 mg Q4H PRN Administration MILD PAIN OR INCREASE TEMP Atorvastatin Calcium 40 mg 11/01/20 09:00 11/01/20 10:41 Atorvastatin 40 Mg Tablet PO 40 mg DAILY@0900 JACKIE Administration Bupropion HCl 150 mg 11/01/20 09:00 11/01/20 10:40 Bupropion Xl (24 Hr) 150 Mg Tablet PO 150 mg DAILY@0900 JACKIE Administration Clopidogrel Bisulfate 75 mg 11/01/20 09:00 11/01/20 10:41 Clopidogrel 75 Mg Tablet PO 75 mg DAILY@0900 JACKIE Administration Doxepin HCl 10 mg 11/01/20 09:00 11/01/20 10:41 Doxepin 10 Mg Capsule PO 10 mg BID@0900,2200 JACKIE Administration Enoxaparin Sodium 40 mg 11/01/20 01:00 11/01/20 01:31 Enoxaparin 40 Mg/0.4 Ml Syringe SUBCUT 40 mg Q24H JACKIE Administration Sodium Chloride 1,000 mls @ 100 mls/hr 11/01/20 00:45 11/01/20 01:30 Sodium Chloride 0.9% IV 100 mls/hr .Q10H JACKIE Administration Insulin Aspart 0 unit 11/01/20 08:00 11/01/20 12:31 Insulin Aspart 100 Unit/1 Ml SUBCUT 8 unit WM&BEDTIME JACKIE Administration Protocol Insulin Glargine 30 unit 11/01/20 09:00 11/01/20 10:42 Insulin Glargine 100 Units/1 Ml SUBCUT Not Given DAILY@0900 [facility] Isosorbide Mononitrate 10 mg 11/01/20 09:00 11/01/20 10:40 Isosorbide Mononitrate 20 Mg Tablet PO 10 mg DAILY@0900 [facility] Administration Lisinopril 5 mg 11/01/20 09:00 11/01/20 10:41 Lisinopril 5 Mg Tablet PO 5 mg DAILY@0900 [facility] Administration Pantoprazole Sodium 40 mg 11/01/20 09:00 11/01/20 10:[address] 40 Mg Tablet PO 40 mg DAILY@0900 [facility] Administration PFSH Acute PFSH: Medical History Alcohol dependence, in remission Anxiety CAD (coronary artery disease) COPD (chronic obstructive pulmonary disease) Depression Diabetes mellitus type 2 in nonobese Enrolled in chronic care management Essential hypertension GERD (gastroesophageal reflux disease) Intervertebral disc disorders with radiculopathy, lumbosacral region Major depressive disorder, recurrent, severe with psychotic symptoms Mixed hyperlipidemia Surgical History S/P appendectomy S/P coronary angioplasty Family History Other Arthritis Asthma Cancer Social History Smoking and tobacco status: former smoker Quit status (tobacco): has quit using tobacco Year quit tobacco: DEC 2017 Second hand smoke exposure: Yes Alcohol intake: never Desire information about alcohol rehabilitation?: No Counseling given: No Desire information about substance/drug rehabilitation?: No Counseling given: No Lives independently: Yes Housing: House Marital status: service: No Current occupational status: unemployed and disabled Current gender identity: Male Vitals/I&O/Wt Last Vital Signs Temp 97.3 F L 11/01/20 11:54 Pulse 98 11/01/20 12:47 Resp 18 11/01/20 12:47 BP 102/67 11/01/20 11:54 Pulse Ox 94 11/01/20 12:47 10/31/20 11/01/20 11/01/20 22:59 06:59 14:59 Intake Total 240 / 240 Output Total 625 / 625 Balance -625 / -625 240 / 240 Weight last 48 hrs Weight 165 lb Physical Exam Const: COMMON NORMALS: no acute distress, average body habitus, patient oriented x3, alert and well nourished GENERAL APPEARANCE: cooperative, comfortable, well kempt and well developed ORIENTATION/CONSCIOUSNESS: Yes oriented to person, Yes oriented to place and Yes oriented to time HENMT: COMMON NORMALS: normocephalic, atraumatic, hearing grossly normal bilaterally, external ears normal, Normal external nose present and oropharynx normal HEAD & SCALP: normocephalic and atraumatic FACE & SINUS: face symmetric NOSE: Normal external nose present EXTERNAL EAR: Yes external ears normal Eye: COMMON NORMALS: Equal, round and reactive pupils present, EOMs intact bilaterally and conjunctivae normal ALIGNMENT: Yes alignment normal CONJUNCTIVA: Yes conjunctivae normal SCLERA: sclerae normal PUPIL: Yes Equal, round and reactive pupils present Neck/C-Spine: COMMON NORMALS: no lymphadenopathy, supple, no JVD and Thyroid normal; negative for No carotid bruits GENERAL: Yes trachea midline THYROID: Thyroid normal Lymph: LYMPHATIC: No no lymphadenopathy noted Chest: COMMONS NORMALS: normal inspection of the chest CHEST: Yes Symmetrical chest wall rise and No tenderness Resp: COMMON NORMALS: normal respiratory effort, No use of accessory muscles and clear to auscultation bilaterally EFFORT & INSPECTION: Yes able to speak in complete sentences and No tachypneic AUSCULTATION: clear to auscultation bilaterally, no crackles, no rales, no rhonchi and no wheezes Cardio: COMMON NORMALS: no JVD, regular rate, regular rhythm, S1 normal heart sound present, S2 normal heart sound present and Peripheral pulses 2+ thr oughout; negative for No gallops present (Cardio) and negative for No clicks present (Cardio) JUGULAR VENOUS DISTENTION: no JVD PALPATION: normal PMI, no heave, no palpable S3, no palpable S4 and no thrill RATE: regular rate RHYTHM: regular rhythm HEART SOUNDS: S1 normal heart sound present, S2 normal heart sound present, no gallops and no murmurs BRUITS: no abdominal aortic bruits and no carotid bruits PERIPHERAL PULSES: Peripheral pulses 2+ throughout GI: COMMON NORMALS: Normal to inspection, nondistended, normoactive bowel sounds present, Soft to palpation, non-tender and No hepatosplenomegaly present PALPATION: Yes Soft to palpation and Yes No hepatosplenomegaly present PERCUSSION: tympanic to percussion RECTAL EXAM: Yes deferred Back/Pelvis: LUMBAR SPINE/LOWER BACK: Yes normal to inspection Neuro: COMMON NORMALS: patient oriented x3, no focal motor deficits and gait normal SENSORIUM/ORIENTATION: Yes alert, Yes oriented to person, Yes oriented to place and Yes oriented to time CRANIAL NERVES: Yes CN normal except as noted Psych: COMMON NORMALS: Normal thought process present APPEARANCE: Yes well kempt MOOD & AFFECT: Yes euthymic mood THOUGHT PROCESS: Normal thought process present THOUGHT CONTENT: Yes Normal thought content present ATTENTION/CONCENTRATION: Yes attention grossly intact MEMORY/COGNITION: Yes memory grossly intact INSIGHT: Good insight present (Psych) JUDGEMENT: Good judgement present (Psych) Skin: COMMON NORMALS: no rashes or lesions noted GENERAL SKIN EXAM: no rashes or lesions noted Data 2 Labs: Other Labs: Hemoglobin A1c of 12.6, total bilirubin 0.4, AST 32, ALT 61, alkaline phosphatase 66. Baseline troponin T of 7, troponin T at 1 6:40 0.4 and at 6 hours of 6.7. Total protein 6.9 and albumin 4.5 globulin 2.4. Lipid panel 26 September 2020 with total cholesterol 239, triglyceride 457 direct LDL 170 and HDL 23. 25 hydroxy vitamin D level of 28 Other Data: Attestation for Other Data: I personally reviewed and interpreted the following: Other data: #Lexiscan myocardial perfusion imaging 01 November 2020 CONCLUSION: 1. No significant EKG changes with the LexiScan infusion. 2. No LexiScan induced chest pain or cardiac arrhythmia. 3. Normal blood pressure and heart rate response. 4. Sestamibi/sestamibi perfusion scan pending; see separate report. IMPRESSIONS 1. Small sized perfusion abnormality of mild severity of mid anterior and apical lateral wall on rest images with mild reversibility on supine stress images. There is improved tracer uptake in mid anterior and apical lateral sandhu on prone stress images. 2. This may represent attenuation artifact. However small area of ischemia in left anterior descending artery territory cannot be completely ruled out. 3. Overall left ventricular systolic function is normal without regional wall motion abnormalities. 4. The left ventricular ejection fraction is normal with a value of 69%. There is normal left ventricular wall thickening. 5. No prior similar studies to compare. #Transthoracic echo November 03 CONCLUSIONS 1. Normal left ventricular size, systolic function and wall thickness, with no regional wall motion abnormalities. Left ventricular ejection fraction is estimated at 65 %. Normal diastolic function. 2. Normal right ventricular size and systolic function. 3. No significant valvular abnormality. 4. Normal pulmonary artery pressure. 5. When compared to old study dated 12/17/2013, there may not have been any significant change. #Echocardiogram 12/2013- CONCLUSIONS Normal LV size and ejection fraction of 65 %. No gross wall motion abnormalities. Mild mitral and trace of tricuspid valve regurgitation. Mildly thickened mitral valve. There are no intracardiac masses. There is no pericardial effusion. No previous study is available for comparison. #LMM STRESS 07/30/15 1. Myocardial perfusion imaging revealed moderate area of persistent decreased tracer uptake in the basal and mid septal regions,suggestive of myocardial scarring versus attenuation artifacts. Very small area of slightly decreased tracer uptake in the mid and apical anterior wall region, with no significant reversibility 2. Left ventricular wall motion analysis revealed no significant wall motion abnormalities 3. Left ventricular ejection fraction was estimated to be within normal limits,71%. 4. Left ventricular volume was within normal limits. 1. Normal EKG response to LexiScan infusion 2. No LexiScan induced chest pain or cardiac arrhythmia 3. Normal blood pressure and heart rate response 4. Sestamibi/sestamibi perfusion scan pending; see separate report Cardiac catheterization done on 01/26/14.-normal left main, 30-50% in mid and distal LAD, 50-60% narrowing around the takeoff of first OM branch in circumflex and some intimal irregularities in distal vessel, chronic subtotal occlusion of mid RCA (stented). - BS EMERGE MR [id number]. Diameter: 2.5 mm. Length: 15 mm. 1 inflation(s) to a max pressure of: 12 richard. - BS PROMUS NITHYA US MR STENT [id number]. 1 inflation(s) to a max pressure of: 13 richard. Moderate ostial narrowing of small caliber ramus. Good collateral flow from first septal and distal LAD to right PDA #Chest x-ray with no acute cardiopulmonary changes #Old EKG EKG showed NSR and non specific T wave abnormality. EKG from 01 November 2020 at 2:38 AM showed sinus rhythm with normal axis and possible left atrial enlargement. EKG from 31 October at 8:19 PM showed sinus rhythm with normal axis with a short IN interval at 109 ms A&P Assessment and plan (1) Chest pain: Recurrent episodes of chest pain in setting of mildly abnormal stress test. -I do not have much scope of uptitrating his antianginal medications with his blood pressure being soft. -Given his poorly controlled diabetes, I think it is prudent at this point to perform coronary angiogram to evaluate his mild to moderate LAD and circumflex lesions as well as previously placed stent. -The case was discussed with Dr. Quijano and plan is to proceed with coronary angiogram tomorrow morning. -Add aspirin 81 mg, continue Plavix, statin, low-dose isosorbide mononitrate and sublingual nitroglycerin. -Risks and benefits were discussed with the patients. Alternate management options were discussed with the patient as well. Possible complications were reviewed with the patient as well. Plan is to proceed for the procedure at the earliest. Given his poor social support and forgetfulness I believe he would also benefit from social service evaluation for home health aide/nurse visit. Status: Acute Qualifiers: Chest pain type: unspecified Qualified Code(s): R07.9 - Chest pain, unspecified (2) Diabetes mellitus type 2 in nonobese: Status: Acute (3) Mixed hyperlipidemia: Status: Acute (4) Essential hypertension: Status: Acute (5) CAD (coronary artery disease): Status: Acute Qualifiers: Associated angina: with unspecified angina Coronary Disease-Associated Artery/Lesion type: unspecified vessel or lesion type [place] vs. transplanted heart: douglas heart Qualified Code(s): I25.119 - Atherosclerotic heart disease of douglas coronary artery with unspecified angina pectoris (6) Depression: Status: Acute Qualifiers: Active/Remission status: currently active Depression Type: major depressive disorder Major depression episode severity: severe Major depression recurrence: recurrent Psychotic features: with psychotic features Qualified Code(s): F33.3 - Major depressive disorder, recurrent, severe with psychotic symptoms Additional A&P Information Forgetfulness History of frequent falls Noncompliance Former smoker Thank you for allowing me to participate in patient's care. Please feel free to call with questions or concerns. Consult Attestations Medical Necessity Statement: Needs hospital stay for management of chest pain and poorly controlled diabetes Time Spent in Patient Care: Greater than 35 minutes (>than 50% of time spent in counselling and/or direct pt care on unit) . Explaining test results, further management options including risks and benefits and alternate management options for coronary angiogram. Coding Level of Care Code New Pt Acute Provider Relations Coordinator for Chg Fwd Patient Type New History Comprehensive Exam Comprehensive Medical Decision Making High Complexity Diagnoses Chest pain R07.9 Chest pain type: unspecified Diabetes mellitus type 2 in nonobese E11.9 Mixed hyperlipidemia E78.2 Essential hypertension I10 CAD (coronary artery disease) I25.119 Associated angina: with unspecified angina Coronary Disease-Associated Artery/Lesion type: unspecified vessel or lesion type [place] vs. transplanted heart: douglas heart Depression F33.3 Active/Remission status: currently active Depression Type: major depressive disorder Major depression episode severity: severe Major depression recurrence: recurrent Psychotic features: with psychotic features Time Spent (min) 45
--- NOTE | 2020-11-01 14:35 | PC.RESP ---
Pulmonary Rehab information sent to patient.
[2020-11-01] MEDS: aspirin 81 mg Chew Tablet PO (14:54)
--- NOTE | 2020-11-01 16:28 | P.PN_ITS ---
Subjective Subjective: Interval history: Patient underwent stress test in the morning. Stress test he was complaining of chest pain which lasted about 10 to 15 minutes. Vitals/I&O/Wt Last Vital Signs Temp 97.3 F L 11/01/20 11:54 Pulse 98 11/01/20 12:47 Resp 18 11/01/20 12:47 BP 102/67 11/01/20 11:54 Pulse Ox 94 11/01/20 12:47 11/01/20 11/01/20 11/01/20 06:59 14:59 22:59 Intake Total 1240 / 1240 Output Total 625 / 625 800 / 800 Balance -625 / -625 1240 / 1240 -800 / 440 Weight last 48 hrs Weight 74.843 kg Physical Exam Const: COMMON NORMALS: patient oriented x3 HENMT: COMMON NORMALS: normocephalic and atraumatic HEAD & SCALP: normocephalic and atraumatic Chest: COMMONS NORMALS: normal inspection of the chest CHEST: Yes Symmetrical chest wall rise Resp: COMMON NORMALS: normal respiratory effort and clear to auscultation bilaterally EFFORT & INSPECTION: Yes symmetric chest movement AUSCULTATION: clear to auscultation bilaterally Cardio: COMMON NORMALS: regular rate, regular rhythm, S1 normal heart sound present, S2 normal heart sound present, No gallops present (Cardio), No murmurs present (Cardio), No rub (Cardio) and Peripheral pulses 2+ throughout RATE: regular rate RHYTHM: regular rhythm HEART SOUNDS: S1 normal heart sound present and S2 normal heart sound present PERIPHERAL PULSES: Peripheral pulses 2+ throughout GI: COMMON NORMALS: Normal to inspection, nondistended, normoactive bowel sounds present, Soft to palpation, non-tender, No hepatosplenomegaly present and no masses AUSCULTATION: Yes normoactive bowel sounds PALPATION: Yes Soft to palpation and Yes No hepatosplenomegaly present RECTAL EXAM: Yes deferred Extremity: COMMON NORMALS: no clubbing, cyanosis or edema and no pedal edema Neuro: COMMON NORMALS: patient oriented x3 Data : 11/01/20 04:10 11/01/20 04:10 A&P Assessment and plan (1) Chest pain: Patient has recurrent chest pain, which is typical of cardiac chest pain, given his significant history of coronary artery disease and prior stent, with additional risk factor which includes uncontrolled diabetes, medication noncompliance, and inability to uptitrate the antianginal medication, given borderline low blood pressure, cardiology has decided to proceed with coronary angiogram. Currently patient is n.p.o.. Continue aspirin 324 MG ORAL daily Continue Plavix 75 mg oral daily Continue Lipitor 40 mg oral daily Continue imdur 10 mg oral daily Continue lisinopril 5 mg oral day Continue sublingual nitrate as needed Status: Acute Qualifiers: Chest pain type: unspecified Qualified Code(s): R07.9 - Chest pain, unspecified (2) Diabetes mellitus type 2 in nonobese: Continue Lantus 30 units subcutaneous at night Low-dose sliding scale insulin Fingerstick glucose Status: Acute (3) Essential hypertension: Currently blood pressure is well controlled. Monitor blood pressure for now. Status: Acute (4) CAD (coronary artery disease): Status: Acute Qualifiers: Coronary Disease-Associated Artery/Lesion type: unspecified vessel or lesion type [place] vs. transplanted heart: [place] heart Associated angina: with unspecified angina Qualified Code(s): I25.119 - Atherosclerotic heart disease of [place] coronary artery with unspecified angina pectoris (5) Major depressive disorder, recurrent, severe with psychotic symptoms: Status: Acute (6) GERD (gastroesophageal reflux disease): Continue pantoprazole 40 mg p.o. daily Status: Acute Qualifiers: Esophagitis presence: without esophagitis Qualified Code(s): K21.9 - Gastro-esophageal reflux disease without esophagitis Additional A&P Information CODE STATUS: Full code DVT prophylaxis: On Lovenox Disposition: Home Anticipated discharge 11/03. Attestations Medical Necessity Statement*: She needs to be in hospital for management of chest pain and possible interventions. 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 transplanted heart: [place] heart Associated angina: with unspecified angina Major depressive disorder, recurrent, severe with psychotic symptoms F33.3 GERD (gastroesophageal reflux disease) K21.9 Esophagitis presence: without esophagitis
[2020-11-01 17:11] LABS: Glucose Point of Care 204 mg/dL (70-110)
[2020-11-01 18:52] LABS: SARS Covid-2 Antigen Negative (Negative)
[2020-11-01 20:44] LABS: Glucose Point of Care 262 mg/dL (70-110)
[2020-11-01] MEDS: dextrose 5%-sod chloride 0.45% 1,000 ML 75 ML IV (21:44)
[2020-11-01] MEDS: sitagliptin 100 mg Tablet PO (21:46)
[2020-11-01] MEDS: mirtazapine 15 mg Tablet 7.5 MG PO (21:46)
[2020-11-02] VITALS (7 sets, daily range): BP systolic 129–164; BP diastolic 74–85; PULSE 65–90; RESP 16–20; TEMP 36.4–36.7; O2SAT 92–94
[2020-11-02] MEDS: enoxaparin 40 mg/0.4 mL Syringe SUBCUT (02:06)
[2020-11-02] MEDS: diphenhydrAMINE 50 mg Capsule PO (06:37)
[2020-11-02] MEDS: sodium chloride 0.9% 1,000 ML 50 ML IV (06:38)
[2020-11-02 07:07] LABS: Glucose Point of Care 271 mg/dL (70-110)
--- NOTE | 2020-11-02 07:11 | XACV_ITS ---
Exam Room: [facility] Ht: 173 cm Wt: 75 kg BSA: 1.90 m2 Gender: Male : 1960 Exam Priority: Routine Procedure(s): Procedure Description: Diagnostic procedure Procedure Description: Left Heart Catheterization Diagnostic Cath Status: Urgent Diagnostic Findings * No significant disease noted in the Left Main, LAD, Circumflex, or RCA coronary arteries. * Coronary angiography shows right dominance. Conclusions 1. No significant disease noted in the Left Main, LAD, Circumflex, or RCA coronary arteries. Patent previously placed mid RCA stent. 2. Indication for left heart cath: 3. Persistent chest pain despite of 4. optimal medical management in a patient with history of 5. prior stents 6. .. Recommendations * Continue current medical management and risk factor modification. Diagnostic RX Recommendation: medical therapy and/or counseling Clinical Evaluation EBL: 5mL-10mL Procedural Details Procedure Consent Obtained. Current Diagnosis : Chest Pain. Pre-Procedure Time Out. Identified patient by full name and date of as verbalized by the patient/guarantor. Does the consent match the physician's order: Yes. Accurate & Complete Informed Consent: Yes. Inpatient/Outpatient History & Physical on Chart: Yes. If H&P is completed, is and addenduem needed: N/A; If yes, is the addendum complete: N/A. Visualize and Verify Site with Patient/Guarantor: N/A. Relevant Radiology Images available: Yes. Pre-op teaching completed and patient verbalized understanding. The risks, benefits, and alternatives of sedation and/or procedure were discussed by physician. The patient agrees to continue. RT Alessandro(R) was relieved by RT Hortencia as monitoring person. Admit Source: In Patient. Procedure started. Correct patient, site and procedure confirmed by cath team. PERRLA. Strong, equal hand director heart bilaterally. Lungs clear x 5 lobes. IV Site on Arrival: 20 gauge in the left anticubital. Oxygen started at 2liters/min via nasal canula. bilateral groins was prepped with chloroprep then draped in the usual sterile fashion. right radial was prepped with chloroprep then draped in the usual sterile fashion. Baseline sample Acquired. HR: 85 BPM. Physician notified. Physician arrived. Physician scrubbed in. Immediate Pre-Procedure Time Out. Correct Patient: Yes; Correct Procedure: Yes; Correct Site: Yes; Correct Patient Position: Yes; Correct Supplies: Yes; Dried Flammable Prep: Yes; Blood Products Available: N/A;. Lidocaine 1% infiltrated to the right radial. Unable to obtain radial access. MD attempting to gain access in the Femoral artery. Lidocaine 1% infiltrated to the right groin. Arterial access obtained with micropuncture set. A 5 american JL4 catheter in over wire. Multiple views taken of left coronary artery. Catheter out. A 5 american JR4 catheter in over wire. Multiple views taken of right coronary artery. Catheter out. Sheath(s) sutured into position with 2-0 silk and sterile 4x4's and Op-site applied over the site. No oozing or signs and symptoms of hematoma noted. Post Procedure: Pulses reassessed and unchanged. PERRLA. Strong, equal hand director heart bilaterally. No VTE prophylaxis required. A Suture was successful obtaining hemostatsis at the Right Femoral artery insertion site. Medication's Wasted: Nitro = 50 mg. Medication's Wasted: Heparin = 4000 units. Contrast type used: Omnipaque 300 mgI/mL, 500 mL bottle. Omnipaque 78mL. Complications: none. [facility] Clinical Fraility Score: 3: Managing Well. 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 Chest Pain Symptom Assessment: Atypical Angina. Cardiovascular Instability: No. Post-op diagnosis: no significant stenosis. Estimated blood loss: 5mL-10mL. Procedure completed. Patient transferred by bed to 1st floor. Vital chart was stopped. Access Site Site: Right Femoral artery Sheath Size: 6 Fr Hemostasis Method: Suture Hemostasis Success: Successful Procedure Medications Start: 1:56 PM Stop: 1:56 PM Medication: Versed Amount: 1 mg Route: I.V. Start: 1:56 PM Stop: 1:56 PM Medication: Fentanyl Amount: 50 mcg Route: I.V. Start: 2:08 PM Stop: 2:08 PM Medication: Versed Amount: 1 mg Route: I.V. Start: 2:08 PM Stop: 2:08 PM Medication: Fentanyl Amount: 50 mcg Route: I.V. Start: 2:22 PM Stop: 2:22 PM Medication: Versed Amount: 1 mg Route: I.V. Start: 2:31 PM Stop: 2:31 PM Medication: Versed Amount: 1 mg Route: I.V. I, the attending physician, have reviewed and verified all procedure medications. Yes, all medications given per verbal order History/Risk Factors Hypertension: Yes Dyslipidemia: Yes Peripheral Arterial Disease (PAD): No Myocardial Infarction (NC): No Obesity: No Renal Disease: No Tobacco Use: Former Prior Interventions PCI: Yes CABG: No Valve Surgery: No Date of PCI: 01/15/2014 Report Signatures Finalized by Jesus Quijano MD on 11/04/2020 07:58 PM
[2020-11-02] MEDS: albuterol 8 gm MDI 2 PUFF INHALATION (09:24)
[2020-11-02 10:38] LABS: Anion Gap 13.1 (5-19); Blood Urea Nitrogen 15 mg/dL (8-23); Calcium 9.2 mg/dL (8.5-10.5); Carbon Dioxide 23 mmol/L (22-29); Chloride 106 mmol/L (98-107); Creatinine Clr Calc Pharmacy 64.0766; Glomerular Filtration Rate 61.3 mL/min (90-130); Glucose 344 mg/dL (65-115); Osmolality Calculated 300 mOsm/kg (285-295); Potassium 4.1 mmol/L (3.5-5.1); Sodium 138 mmol/L (136-145)
[2020-11-02 10:58] LABS: Glucose Point of Care 260 mg/dL (70-110)
[2020-11-02 11:00] LABS: INR 1.02 (0.8-1.2)
--- NOTE | 2020-11-02 13:35 | PC.NURSE ---
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
--- NOTE | 2020-11-02 13:45 | P.PN_ITS ---
Subjective Subjective: Interval history: Patient underwent coronary angiogram via right femoral access today. Patent stents and no severely stenotic lesions noted. Medications: Reviewed: Yes Medication Review Details: Current Medications Acetaminophen (Acetaminophen 325 Mg Tablet) 650 mg PO Q4H PRN PRN Reason: MILD PAIN OR INCREASE TEMP Last Admin: 11/01/20 11:31 Dose: 650 mg Documented by: Al Hydrox/Mg Hydrox/Simethicone (Jbmp-Waj-Esrrtdaxs-Romi 30 Ml Udc) 30 ml PO Q15M PRN PRN Reason: INDIGESTION Albuterol Sulfate (Albuterol 8 Gm Mdi) 2 puff INHALATION Q6H.RESPIRATORY [facility] Last Admin: 11/02/20 09:24 Dose: 2 puff Documented by: Alprazolam (Alprazolam 0.25 Mg Tablet) 0.25 mg PO TID PRN PRN Reason: ANXIETY Aspirin (Aspirin 81 Mg Chew Tablet) 324 mg PO DAILY [facility] Last Admin: 11/02/20 09:20 Dose: Not Given Documented by: Atorvastatin Calcium (Atorvastatin 40 Mg Tablet) 40 mg PO DAILY@0900 [facility] Last Admin: 11/02/20 09:20 Dose: Not Given Documented by: Atropine Sulfate (Atropine 1 Mg/Ml Sdv 1 Ml) 0.5 mg IVP PRN PRN PRN Reason: Symptomatic bradycardia Bupropion HCl (Bupropion Xl (24 Hr) 150 Mg Tablet) 150 mg PO DAILY@0900 [facility] Last Admin: 11/02/20 09:20 Dose: Not Given Documented by: Clopidogrel Bisulfate (Clopidogrel 75 Mg Tablet) 75 mg PO DAILY@0900 [facility] Last Admin: 11/02/20 09:20 Dose: Not Given Documented by: Dextrose (Dextrose 50% Syringe 50 Ml) 25 ml IVP ONCE PRN; Protocol PRN Reason: hypoglycemia protocol Dextrose (Dextrose 50% Syringe 50 Ml) 50 ml IVP PRN PRN; Protocol PRN Reason: hypoglycemia protocol Doxepin HCl (Doxepin 10 Mg Capsule) 10 mg PO BID@0900,2200 [facility] Last Admin: 11/02/20 09:21 Dose: Not Given Documented by: Enoxaparin Sodium (Enoxaparin 40 Mg/0.4 Ml Syringe) 40 mg SUBCUT Q24H [facility] Last Admin: 11/02/20 02:06 Dose: 40 mg Documented by: Fentanyl (Fentanyl 50 Mcg/Ml Inj 2ml) 50 mcg IVP PRN PRN PRN Reason: PAIN Glucagon (Glucagon 1 Mg/Ml Inj 1 Ml) 1 mg IM ONCE PRN; Protocol PRN Reason: Adult Acute Hypoglycemia Prot. Dextrose (D5w) 500 mls @ 100 mls/hr IV ONCE PRN; Protocol PRN Reason: Adult Acute Hypoglycemia Prot Sodium Chloride (Sodium Chloride 0.9%) 1,000 mls @ 100 mls/hr IV .Q10H [facility] Last Admin: 11/02/20 00:01 Dose: Not Given Documented by: Sodium Chloride (Sodium Chloride 0.9%) 1,000 mls @ 50 mls/hr IV .Q20H ONE Stop: 11/03/20 01:59 Last Admin: 11/02/20 06:38 Dose: 50 mls/hr Documented by: Dextrose/Sodium Chloride (Dextrose 5%-Sod Chloride 0.45%) 1,000 mls @ 75 mls/hr IV .[id number] [facility] Last Admin: 11/02/20 09:21 Dose: Not Given Documented by: Insulin Aspart (Insulin Aspart 100 Unit/1 Ml) 0 unit SUBCUT WM&BEDTIME [facility]; Protocol Last Admin: 11/02/20 12:24 Dose: Not Given Documented by: Insulin Glargine (Insulin Glargine 100 Units/1 Ml) 30 unit SUBCUT DAILY@0900 [facility] Last Admin: 11/02/20 09:21 Dose: Not Given Documented by: Isosorbide Mononitrate (Isosorbide Mononitrate 20 Mg Tablet) 10 mg PO DAILY@0900 [facility] Last Admin: 11/02/20 09:21 Dose: Not Given Documented by: Lisinopril (Lisinopril 5 Mg Tablet) 5 mg PO DAILY@0900 [facility] Last Admin: 11/01/20 10:41 Dose: 5 mg Documented by: Magnesium Hydroxide (Magnesium Hydroxide 30 Ml Udc) 30 ml PO DAILY PRN PRN Reason: CONSTIPATION Mirtazapine (Mirtazapine 15 Mg Tablet) 7.5 mg PO BEDTIME@2200 [facility] Last Admin: 11/01/20 21:46 Dose: 7.5 mg Documented by: Naloxone HCl (Naloxone 0.4 Mg/Ml Sdv) 0.1 mg IVP Q2M PRN PRN Reason: RESPIRATORY RATE < 8/MIN Nitroglycerin (Nitroglycerin 0.4 Mg Sublingual Tablet) 0.4 mg SUBLINGUAL Q5M PRN PRN Reason: CHEST PAIN Ondansetron HCl (Ondansetron 2 Mg/Ml Sdv 2 Ml) 4 mg IVP Q2M PRN PRN Reason: NAUSEA Pantoprazole Sodium (Pantoprazole Dr 40 Mg Tablet) 40 mg PO DAILY@0900 [facility] Last Admin: 11/02/20 09:21 Dose: Not Given Documented by: Sitagliptin Phosphate (Sitagliptin 100 Mg Tablet) 100 mg PO BEDTIME@2200 [facility] Last Admin: 11/01/20 21:46 Dose: 100 mg Documented by: Temazepam (Temazepam 15 Mg Capsule) 15 mg PO BEDTIME PRN PRN Reason: INSOMNIA Vitals/I&O/Wt Last Vital Signs Temp 97.6 F 11/02/20 11:37 Pulse 83 11/02/20 11:37 Resp 16 11/02/20 11:37 BP 129/77 11/02/20 11:37 Pulse Ox 93 11/02/20 11:37 11/01/20 11/02/20 11/02/20 22:59 06:59 14:59 Intake Total 240 / 1480 400 / 1880 Output Total 800 / 800 625 / 1425 950 / 950 Balance -560 / 680 -225 / 455 -950 / -950 Weight last 48 hrs Weight 165 lb Physical Exam Const: COMMON NORMALS: no acute distress, average body habitus, patient oriented x3, alert and well nourished GENERAL APPEARANCE: cooperative, comfortable, well kempt and well developed ORIENTATION/CONSCIOUSNESS: Yes oriented to person, Yes oriented to place and Yes oriented to time HENMT: COMMON NORMALS: normocephalic, atraumatic, hearing grossly normal bilaterally, external ears normal and oropharynx normal HEAD & SCALP: normocephalic and atraumatic FACE & SINUS: face symmetric EXTERNAL EAR: Yes external ears normal Eye: COMMON NORMALS: Equal, round and reactive pupils present, EOMs intact bilaterally and conjunctivae normal ALIGNMENT: Yes alignment normal CONJUNCTIVA: Yes conjunctivae normal SCLERA: sclerae normal PUPIL: Yes Equal, round and reactive pupils present Neck/C-Spine: COMMON NORMALS: no lymphadenopathy, supple, no JVD and Thyroid normal; negative for No carotid bruits GENERAL: Yes trachea midline THYROID: Thyroid normal Lymph: LYMPHATIC: No no lymphadenopathy noted Chest: COMMONS NORMALS: normal inspection of the chest CHEST: Yes Symmetrical chest wall rise and No tenderness Resp: COMMON NORMALS: normal respiratory effort, No use of accessory muscles and clear to auscultation bilaterally AUSCULTATION: clear to auscultation bilaterally, no crackles, no rales, no rhonchi and no wheezes Cardio: COMMON NORMALS: no JVD, regular rate, regular rhythm, S1 normal heart sound present, S2 normal heart sound present and Peripheral pulses 2+ throu ghout; negative for No gallops present (Cardio) and negative for No clicks present (Cardio) JUGULAR VENOUS DISTENTION: no JVD PALPATION: normal PMI, no heave, no palpable S3, no palpable S4 and no thrill RATE: regular rate RHYTHM: regular rhythm HEART SOUNDS: S1 normal heart sound present, S2 normal heart sound present, no gallops and no murmurs BRUITS: no abdominal aortic bruits and no carotid bruits PERIPHERAL PULSES: Peripheral pulses 2+ throughout GI: COMMON NORMALS: Normal to inspection, nondistended, normoactive bowel sounds present, Soft to palpation, non-tender and No hepatosplenomegaly present PALPATION: Yes Soft to palpation and Yes No hepatosplenomegaly present PERCUSSION: tympanic to percussion RECTAL EXAM: Yes deferred Neuro: COMMON NORMALS: patient oriented x3, no focal motor deficits and gait normal SENSORIUM/ORIENTATION: Yes alert, Yes oriented to person, Yes oriented to place and Yes oriented to time CRANIAL NERVES: Yes CN normal except as noted Psych: COMMON NORMALS: Normal thought process present APPEARANCE: Yes well kempt MOOD & AFFECT: Yes euthymic mood THOUGHT PROCESS: Normal thought process present THOUGHT CONTENT: Yes Normal thought content present ATTENTION/CONCENTRATION: Yes attention grossly intact MEMORY/COGNITION: Yes memory grossly intact INSIGHT: Good insight present (Psych) JUDGEMENT: Good judgement present (Psych) Skin: COMMON NORMALS: no rashes or lesions noted GENERAL SKIN EXAM: no rashes or lesions noted Data : 11/01/20 04:10 11/02/20 09:39 A&P Assessment and plan (1) Chest pain: Recurrent episodes of chest pain in setting of mildly abnormal stress test. -I do not have much scope of uptitrating his antianginal medications with his blood pressure being soft. -Given his poorly controlled diabetes, I think it is prudent at this point to perform coronary angiogram to evaluate his mild to moderate LAD and circumflex lesions as well as previously placed stent. -The case was discussed with Dr. Quijano and she had coronary angiogram this morning. - continue ASA,Plavix, statin, low-dose isosorbide mononitrate and sublingual nitroglycerin. -No stenotic lesions on coronary angiogram Given his poor social support and forgetfulness I believe he would also benefit from social service evaluation for home health aide/nurse visit. Status: Acute Qualifiers: Chest pain type: unspecified Qualified Code(s): R07.9 - Chest pain, unspecified (2) Diabetes mellitus type 2 in nonobese: Status: Acute (3) Mixed hyperlipidemia: Status: Acute (4) Essential hypertension: Status: Acute (5) CAD (coronary artery disease): Status: Acute Qualifiers: Coronary Disease-Associated Artery/Lesion type: unspecified vessel or lesion type [place] vs. transplanted heart: [place] heart Associated angina: with unspecified angina Qualified Code(s): I25.119 - Atherosclerotic heart disease of [place] coronary artery with unspecified angina pectoris (6) Depression: Status: Acute Qualifiers: Depression Type: major depressive disorder Major depression recurrence: recurrent Active/Remission status: currently active Major depression episode severity: severe Psychotic features: with psychotic features Qualified Code(s): F33.3 - Major depressive disorder, recurrent, severe with psychotic symptoms Additional A&P Information Forgetfulness History of frequent falls Noncompliance Former smoker Thank you for allowing me to participate in patient's care. Please feel free to call with questions or concerns. Attestations Medical Necessity Statement*: Patient needs to be in hospital for the management of post cath care. 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 transplanted heart: [place] heart Associated angina: with unspecified angina Depression F33.3 Depression Type: major depressive disorder Major depression recurrence: recurrent Active/Remission status: currently active Major depression episode severity: severe Psychotic features: with psychotic features
--- NOTE | 2020-11-02 14:03 | W.PM.OPSUD ---
Surgery/Procedure H&P Update DATE OF PROCEDURE: November 02, 2020 DATE H&P PERFORMED: 11/01/20 H&P UPDATE INFORMATION: I have examined patient prior to procedure, No changes to prior documentation, Changes to prior documentation as noted here and H&P to be scanned into chart PREOP DIAGNOSIS: Worsening of chest pain suspicious of angina PATIENT REASSESSED PRIOR TO SEDATION, WITH NO CHANGE NOTED: Yes PHYSICAL EXAM: alert, oriented x 3 and clear to auscultation bilaterally AIRWAY EVAL/ANESTHESIA PLAN: ASA II, Risks, benefits & alternatives of sedation and/or procedure discussed and Patient agrees to continue as planned
--- NOTE | 2020-11-02 14:09 | PC.NURSE ---
Report I called rachel Vanegas RN in [facility]. All belongings were taken to the patients new room of 105.
--- NOTE | 2020-11-02 15:24 | P.PN_ITS ---
Subjective Subjective: Interval history: S/p coronary angiogram. Post-cath patient is doing fine. Diet has been resumed. We will continue to monitor the ACCESS femoral site. Currently he is not complaining of any chest pain. Vitals and labs have remained stable. Medications: Reviewed: Yes Vitals/I&O/Wt Last Vital Signs Temp 97.6 F 11/02/20 11:37 Pulse 83 11/02/20 11:37 Resp 16 11/02/20 11:37 BP 129/77 11/02/20 11:37 Pulse Ox 93 11/02/20 11:37 11/02/20 11/02/20 11/02/20 06:59 14:59 22:59 Intake Total 400 / 1880 Output Total 625 / 1425 950 / 950 Balance -225 / 455 -950 / -950 Weight last 48 hrs Weight 74.843 kg Physical Exam Const: COMMON NORMALS: patient oriented x3 HENMT: COMMON NORMALS: normocephalic and atraumatic HEAD & SCALP: normocephalic and atraumatic Chest: COMMONS NORMALS: normal inspection of the chest CHEST: Yes Symmetrical chest wall rise Resp: COMMON NORMALS: normal respiratory effort, No retractions and clear to auscultation bilaterally EFFORT & INSPECTION: Yes symmetric chest movement AUSCULTATION: clear to auscultation bilaterally Cardio: COMMON NORMALS: regular rate, regular rhythm, S1 normal heart sound present, S2 normal heart sound present, No gallops present (Cardio), No murmurs present (Cardio), No rub (Cardio) and Peripheral pulses 2+ throughout RATE: regular rate RHYTHM: regular rhythm HEART SOUNDS: S1 normal heart sound present and S2 normal heart sound present PERIPHERAL PULSES: Peripheral pulses 2+ throughout GI: COMMON NORMALS: Normal to inspection, nondistended, normoactive bowel sounds present, Soft to palpation, non-tender, No hepatosplenomegaly present and no masses AUSCULTATION: Yes normoactive bowel sounds PALPATION: Yes Soft to palpation and Yes No hepatosplenomegaly present RECTAL EXAM: Yes deferred Extremity: COMMON NORMALS: no clubbing, cyanosis or edema and no pedal edema Neuro: COMMON NORMALS: patient oriented x3 Data : 11/01/20 04:10 11/02/20 09:39 A&P Assessment and plan (1) Chest pain: Patient has recurrent chest pain, which is typical of cardiac chest pain, given his significant history of coronary artery disease and prior stent, with additional risk factor which includes uncontrolled diabetes, medication noncompliance, and inability to uptitrate the antianginal medication, given borderline low blood pressure, cardiology has decided to proceed with coronary angiogram. Continue aspirin 324 MG ORAL daily Continue Plavix 75 mg oral daily Continue Lipitor 40 mg oral daily Continue imdur 10 mg oral daily Continue lisinopril 5 mg oral day Continue sublingual nitrate as needed Status: Acute Qualifiers: Chest pain type: unspecified Qualified Code(s): R07.9 - Chest pain, unspecified (2) Diabetes mellitus type 2 in nonobese: Continue Lantus 30 units subcutaneous at night Low-dose sliding scale insulin Fingerstick glucose Status: Acute (3) Essential hypertension: Currently blood pressure is well controlled. Monitor blood pressure for now. Status: Acute (4) CAD (coronary artery disease): Status: Acute Qualifiers: Coronary Disease-Associated Artery/Lesion type: unspecified vessel or lesion type [place] vs. transplanted heart: [place] heart Associated angina: with unspecified angina Qualified Code(s): I25.119 - Atherosclerotic heart disease of [place] coronary artery with unspecified angina pectoris (5) Major depressive disorder, recurrent, severe with psychotic symptoms: Status: Acute (6) GERD (gastroesophageal reflux disease): Continue pantoprazole 40 mg p.o. daily Status: Acute Qualifiers: Esophagitis presence: without esophagitis Qualified Code(s): K21.9 - Gastro-esophageal reflux disease without esophagitis Additional A&P Information Atypical chest pain: We will have to rule out other etiology of noncardiac chest pain.Coronary angiogram: Has failed to show any significant obstructive coronary artery disease. Will need outpatient work-up for noncardiac chest pain. CODE STATUS: Full code DVT prophylaxis: On Lovenox Disposition: Home Anticipated discharge 11/03. Attestations Medical Necessity Statement*: Patient needs to be in hospital for the management of post cath care. 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 transplanted heart: [place] heart Associated angina: with unspecified angina Major depressive disorder, recurrent, severe with psychotic symptoms F33.3 GERD (gastroesophageal reflux disease) K21.9 Esophagitis presence: without esophagitis
[2020-11-02 16:59] LABS: Glucose Point of Care 207 mg/dL (70-110)
[2020-11-02 20:30] LABS: Glucose Point of Care 301 mg/dL (70-110)
--- NOTE | 2020-11-02 22:11 | PC.NURSE ---
PT IS RESTING IN BED. PT DENIES PAIN AT THIS TIME. SITE TO RIGHT GROIN IS C/D/I. NO HEMATOMA PRESENT. PEDAL PULSE IS PALPABLE. DEV RN DAYSHIFT PULLED SHEATH AT 1600. PT TOLERATED WELL. WILL CONTINUE TO MONITOR.
[2020-11-03 00:03] VITALS: BP 162/85; PULSE 66; RESP 21
--- NOTE | 2020-11-03 00:20 | PC.NURSE ---
PT AMBULATED TO BATHROOM AND BACK. SITE IS C/D/I. NO HEMATOMA PRESENT. PT EDUCATED ABOUT REPORTABLE SIGN/SYMPTOMS. WILL CONTINUE TO MONITOR.
[2020-11-03 04:05] VITALS: BP 147/89; PULSE 67; RESP 20; TEMP 36.5; O2SAT 95
--- NOTE | 2020-11-03 05:04 | PC.NURSE ---
PT HAD AN UNEVENTFUL NIGHT. DRESSING C/D/I. PT DENIES PAIN. PT STATES THE HE IS READY TO GO HOME. WILL CONTINUE TO MONITOR.
[2020-11-03 05:44] VITALS: PULSE 60
[2020-11-03 06:34] LABS: Glucose Point of Care 228 mg/dL (70-110)
[2020-11-03 07:30] VITALS: BP 146/83; PULSE 65; RESP 21; TEMP 36.1; O2SAT 98
--- NOTE | 2020-11-03 07:40 | PC.RESP ---
Medication on hold, unable to administer at this time.
--- NOTE | 2020-11-03 08:08 | P.PN_ITS ---
Subjective Subjective: Interval history: He denies any complaints. He is ready to go home. Medications: Reviewed: Yes Medication Review Details: Current Medications Acetaminophen (Acetaminophen 325 Mg Tablet) 650 mg PO Q4H PRN PRN Reason: MILD PAIN OR INCREASE TEMP Last Admin: 11/01/20 11:31 Dose: 650 mg Documented by: Al Hydrox/Mg Hydrox/Simethicone (Tzht-Aak-Bhasdmxcl-Romi 30 Ml Udc) 30 ml PO Q15M PRN PRN Reason: INDIGESTION Albuterol Sulfate (Albuterol 8 Gm Mdi) 2 puff INHALATION Q6H.RESPIRATORY [facility] Last Admin: 11/02/20 09:24 Dose: 2 puff Documented by: Alprazolam (Alprazolam 0.25 Mg Tablet) 0.25 mg PO TID PRN PRN Reason: ANXIETY Aspirin (Aspirin 81 Mg Chew Tablet) 324 mg PO DAILY [facility] Last Admin: 11/02/20 09:20 Dose: Not Given Documented by: Atorvastatin Calcium (Atorvastatin 40 Mg Tablet) 40 mg PO DAILY@0900 [facility] Last Admin: 11/02/20 09:20 Dose: Not Given Documented by: Atropine Sulfate (Atropine 1 Mg/Ml Sdv 1 Ml) 0.5 mg IVP PRN PRN PRN Reason: Symptomatic bradycardia Bupropion HCl (Bupropion Xl (24 Hr) 150 Mg Tablet) 150 mg PO DAILY@0900 [facility] Last Admin: 11/02/20 09:20 Dose: Not Given Documented by: Clopidogrel Bisulfate (Clopidogrel 75 Mg Tablet) 75 mg PO DAILY@0900 [facility] Last Admin: 11/02/20 09:20 Dose: Not Given Documented by: Dextrose (Dextrose 50% Syringe 50 Ml) 25 ml IVP ONCE PRN; Protocol PRN Reason: hypoglycemia protocol Dextrose (Dextrose 50% Syringe 50 Ml) 50 ml IVP PRN PRN; Protocol PRN Reason: hypoglycemia protocol Doxepin HCl (Doxepin 10 Mg Capsule) 10 mg PO BID@0900,2200 [facility] Last Admin: 11/02/20 09:21 Dose: Not Given Documented by: Enoxaparin Sodium (Enoxaparin 40 Mg/0.4 Ml Syringe) 40 mg SUBCUT Q24H [facility] Last Admin: 11/02/20 02:06 Dose: 40 mg Documented by: Fentanyl (Fentanyl 50 Mcg/Ml Inj 2ml) 50 mcg IVP PRN PRN PRN Reason: PAIN Glucagon (Glucagon 1 Mg/Ml Inj 1 Ml) 1 mg IM ONCE PRN; Protocol PRN Reason: Adult Acute Hypoglycemia Prot. Dextrose (D5w) 500 mls @ 100 mls/hr IV ONCE PRN; Protocol PRN Reason: Adult Acute Hypoglycemia Prot Sodium Chloride (Sodium Chloride 0.9%) 1,000 mls @ 100 mls/hr IV .Q10H [facility] Last Admin: 11/02/20 00:01 Dose: Not Given Documented by: Dextrose/Sodium Chloride (Dextrose 5%-Sod Chloride 0.45%) 1,000 mls @ 75 mls/hr IV .[id number] [facility] Last Admin: 11/02/20 09:21 Dose: Not Given Documented by: Insulin Aspart (Insulin Aspart 100 Unit/1 Ml) 0 unit SUBCUT WM&BEDTIME [facility]; Protocol Last Admin: 11/02/20 12:24 Dose: Not Given Documented by: Insulin Glargine (Insulin Glargine 100 Units/1 Ml) 30 unit SUBCUT DAILY@0900 [facility] Last Admin: 11/02/20 09:21 Dose: Not Given Documented by: Isosorbide Mononitrate (Isosorbide Mononitrate 20 Mg Tablet) 10 mg PO DAILY@0900 [facility] Last Admin: 11/02/20 09:21 Dose: Not Given Documented by: Lisinopril (Lisinopril 5 Mg Tablet) 5 mg PO DAILY@0900 [facility] Last Admin: 11/03/20 09:26 Dose: 5 mg Documented by: Magnesium Hydroxide (Magnesium Hydroxide 30 Ml Udc) 30 ml PO DAILY PRN PRN Reason: CONSTIPATION Mirtazapine (Mirtazapine 15 Mg Tablet) 7.5 mg PO BEDTIME@2200 [facility] Last Admin: 11/01/20 21:46 Dose: 7.5 mg Documented by: Naloxone HCl (Naloxone 0.4 Mg/Ml Sdv) 0.1 mg IVP Q2M PRN PRN Reason: RESPIRATORY RATE < 8/MIN Nitroglycerin (Nitroglycerin 0.4 Mg Sublingual Tablet) 0.4 mg SUBLINGUAL Q5M PRN PRN Reason: CHEST PAIN Ondansetron HCl (Ondansetron 2 Mg/Ml Sdv 2 Ml) 4 mg IVP Q2M PRN PRN Reason: NAUSEA Pantoprazole Sodium (Pantoprazole Dr 40 Mg Tablet) 40 mg PO DAILY@0900 [facility] Last Admin: 11/02/20 09:21 Dose: Not Given Documented by: Sitagliptin Phosphate (Sitagliptin 100 Mg Tablet) 100 mg PO BEDTIME@2200 [facility] Last Admin: 11/01/20 21:46 Dose: 100 mg Documented by: Temazepam (Temazepam 15 Mg Capsule) 15 mg PO BEDTIME PRN PRN Reason: INSOMNIA Vitals/I&O/Wt Last Vital Signs Temp 97.0 F L 11/03/20 07:30 Pulse 65 11/03/20 07:30 Resp 21 H 11/03/20 07:30 BP 146/83 11/03/20 07:30 Pulse Ox 98 11/03/20 07:30 11/02/20 11/03/20 11/03/20 22:59 06:59 14:59 Intake Total 360 / 360 Output Total 400 / 1350 Balance -40 / -990 Physical Exam Const: COMMON NORMALS: no acute distress, average body habitus, patient oriented x3, alert and well nourished GENERAL APPEARANCE: cooperative, comfortable, well kempt and well developed ORIENTATION/CONSCIOUSNESS: Yes oriented to person, Yes oriented to place and Yes oriented to time HENMT: COMMON NORMALS: normocephalic, atraumatic, hearing grossly normal bilaterally and external ears normal HEAD & SCALP: normocephalic and atraumatic FACE & SINUS: face symmetric EXTERNAL EAR: Yes external ears normal Eye: COMMON NORMALS: Equal, round and reactive pupils present, EOMs intact bilaterally and conjunctivae normal ALIGNMENT: Yes alignment normal CONJUNCTIVA: Yes conjunctivae normal SCLERA: sclerae normal PUPIL: Yes Equal, round and reactive pupils present Neck/C-Spine: COMMON NORMALS: no lymphadenopathy, supple, no JVD and Thyroid normal; negative for No carotid bruits GENERAL: Yes trachea midline THYROID: Thyroid normal Lymph: LYMPHATIC: No no lymphadenopathy noted Chest: COMMONS NORMALS: normal inspection of the chest CHEST: Yes Symmetrical chest wall rise and No tenderness Resp: COMMON NORMALS: normal respiratory effort, No use of accessory muscles and clear to auscultation bilaterally AUSCULTATION: clear to auscultation bilaterally, no crackles, no rales, no rhonchi and no wheezes Cardio: COMMON NORMALS: no JVD, regular rate, regular rhythm, S1 normal heart sound present, S2 normal heart sound present and Peripheral pulses 2+ throughout; negative for No gallops present (Cardio) and negative for No clicks present (Cardio) JUGULAR VENOUS DISTENTION: no JVD PALPATION: normal PMI, no heave, no palpable S3, no palpable S4 and no thrill RATE: regular rate RHYTHM: regular rhythm HEART SOUNDS: S1 normal heart sound present, S2 normal heart sound present, no gallops and no murmurs BRUITS: no abdominal aortic bruits and no carotid bruits PERIPHERAL PULSES: Peripheral pulses 2+ throughout Extremity: COMMON NORMALS: no clubbing, cyanosis or edema NARRATIVE EXTREMITY EXAM: Right femoral access site without any bruising or hematoma. Right radial access site with mild bruising. Neuro: COMMON NORMALS: patient oriented x3, no focal motor deficits and gait normal SENSORIUM/ORIENTATION: Yes alert, Yes oriented to person, Yes oriented to place and Yes oriented to time CRANIAL NERVES: Yes CN normal except as noted Psych: COMMON NORMALS: Normal thought process present APPEARANCE: Yes well kempt MOOD & AFFECT: Yes euthymic mood THOUGHT PROCESS: Normal thought process present THOUGHT CONTENT: Yes Normal thought content present ATT ENTION/CONCENTRATION: Yes attention grossly intact MEMORY/COGNITION: Yes memory grossly intact INSIGHT: Good insight present (Psych) JUDGEMENT: Good judgement present (Psych) Skin: COMMON NORMALS: no rashes or lesions noted GENERAL SKIN EXAM: no rashes or lesions noted Data : 11/03/20 08:45 11/03/20 08:45 A&P Assessment and plan (1) Chest pain: Recurrent episodes of chest pain in setting of mildly abnormal stress test. -I do not have much scope of uptitrating his antianginal medications with his blood pressure being soft. -Given his poorly controlled diabetes, I think it is prudent at this point to perform coronary angiogram to evaluate his mild to moderate LAD and circumflex lesions as well as previously placed stent. -The case was discussed with Dr. Quijano and she had coronary angiogram this morning. - continue ASA,Plavix, statin, low-dose isosorbide mononitrate and sublingual n itroglycerin. -No stenotic lesions on coronary angiogram Given his poor social support and forgetfulness I believe he would also benefit from social service evaluation for home health aide/nurse visit. -stable to be discharged gome. -increase ISMN to 10 mg BID. -Follow up with Ms. Roy in 1 week and with me in [place] in 4-6 weeks. -Do not lift anything more than 10 lbs for 1 week. Keep the site dry and clean Take medications as prescribed and follow up as scheduled. Status: Acute Qualifiers: Chest pain type: unspecified Qualified Code(s): R07.9 - Chest pain, unspecified (2) Diabetes mellitus type 2 in nonobese: Status: Acute (3) Mixed hyperlipidemia: Status: Acute (4) Essential hypertension: Status: Acute (5) CAD (coronary artery disease): Status: Acute Qualifiers: Associated angina: with unspecified angina Coronary Disease-Associated Artery/Lesion type: unspecified vessel or lesion type [place] vs. transplanted heart: [place] heart Qualified Code(s): I25.119 - Atherosclerotic heart disease of [place] coronary artery with unspecified angina pectoris (6) Depression: Status: Acute Qualifiers: Active/Remission status: currently active Depression Type: major depressive disorder Major depression episode severity: severe Major depression recurrence: recurrent Psychotic features: with psychotic features Qualified Code(s): F33.3 - Major depressive disorder, recurrent, severe with psychotic symptoms Additional A&P Information Forgetfulness History of frequent falls Noncompliance Former smoker Thank you for allowing me to participate in patient's care. Please feel free to call with questions or concerns. Attestations Medical Necessity Statement*: Stable to be discahrged home. Time Spent in Patient Care: Greater than 35 minutes (>than 50% of time spent in counselling and/or direct pt care on unit) . Coding Level of Care Code Acute Spot Worker for [facility] Fwd Exam Comprehensive Diagnoses Chest pain R07.9 Chest pain type: unspecified Diabetes mellitus type 2 in nonobese E11.9 Mixed hyperlipidemia E78.2 Essential hypertension I10 CAD (coronary artery disease) I25.119 Associated angina: with unspecified angina Coronary Disease-Associated Artery/Lesion type: unspecified vessel or lesion type [place] vs. transplanted heart: [place] heart Depression F33.3 Active/Remission status: currently active Depression Type: major depressive disorder Major depression episode severity: severe Major depression recurrence: recurrent Psychotic features: with psychotic features Time Spent (min) 30
[2020-11-03] MEDS: lisinopril 5 mg Tablet PO (09:26)
[2020-11-03 09:40] LABS: Basophils # 0.1 10^3/uL (0.0-0.1); Basophils % 0.8 %; Eosinophils # 0.2 10^3/uL (0.0-0.8); Eosinophils % 2.8 %; Hemoglobin 16.3 g/dL (11.7-16.6); Lymphocytes # 1.6 10^3/uL (0.8-4.8); Lymphocytes % 21.3 %; Mean Corpuscular Hemoglobin 31.8 pg (28.0-34.0); Mean Corpuscular Volume 93.6 fL (80-94); Mean Platelet Volume 10.5 fL (7.4-10.4); Monocytes # 0.7 10^3/uL (0.2-0.9); Neutrophils # 4.86 10^3/uL (1.8-7.7); Neutrophils % 65.6 %; Nucleated Red Blood Cells % 0 %; Platelet Count 257 10^3/cmm (130-400); Red Blood Count 5.13 10^6/uL (4.1-5.3); Red Cell Distribution Width 12.5 % (12.1-15.1); White Blood Count 7.4 10^3/uL (4.0-10.0)
[2020-11-03 09:48] LABS: Anion Gap 16.1 (5-19); Blood Urea Nitrogen 16 mg/dL (8-23); Calcium 9.2 mg/dL (8.5-10.5); Carbon Dioxide 21 mmol/L (22-29); Chloride 103 mmol/L (98-107); Glomerular Filtration Rate 75.7 mL/min (90-130); Glucose 375 mg/dL (65-115); Osmolality Calculated 299 mOsm/kg (285-295); Potassium 4.1 mmol/L (3.5-5.1); Sodium 136 mmol/L (136-145)
--- NOTE | 2020-11-03 10:51 | PM.DCS ---
Discharge Providers Date of Admission: 11/01/20 00:45 Date of Discharge: November 03, 2020 Attending Provider at Admission: Jesus Gilmore MD Attending Provider at Discharge: Jalil Chavez MD Primary Care Provider: Romina Schofield MD Diagnoses at Discharge Discharge Diagnosis (1) Chest pain: Status: Resolved Qualifiers: Chest pain type: unspecified Qualified Code(s): R07.9 - Chest pain, unspecified (2) Diabetes mellitus type 2 in nonobese: Status: Chronic (3) Mixed hyperlipidemia: Status: Chronic (4) Essential hypertension: Status: Chronic (5) CAD (coronary artery disease): Status: Chronic Qualifiers: Associated angina: with unspecified angina Coronary Disease-Associated Artery/Lesion type: unspecified vessel or lesion type [place] vs. transplanted heart: zuni heart Qualified Code(s): I25.119 - Atherosclerotic heart disease of zuni coronary artery with unspecified angina pectoris (6) Depression: Status: Acute Qualifiers: Active/Remission status: currently active Depression Type: major depressive disorder Major depression episode severity: severe Major depression recurrence: recurrent Psychotic features: with psychotic features Qualified Code(s): F33.3 - Major depressive disorder, recurrent, severe with psychotic symptoms Reason for Visit Reason for Visit: CP Hospital Course Hospital Course 60-year-old male past medical history of hypertension diabetes dyslipidemia,CAD status post stent to RCA, came in with chief complaint of on and off chest discomfort without any aggravating relieving factors, he described it as pressure-like chest discomfort throughout his subcostal region extending from left to right, going on for the past few months.He has recently seen Dr. Shay for recurrent angina for which he was scheduled for stress test but did not show up for the test twice.During this hospital stay he was evaluated for recurrent chest pain, in the setting of prior coronary artery disease. ER work up revealed nonsignificant rising delta troponin, EKG not showing any ischemic or ectopic changes. He underwent stress test as well as CAG. Stress test : Small sized perfusion abnormality of mild severity of mid anterior and apical lateral wall on rest images with mild reversibility on supine stress images.There is improved tracer uptake in mid anterior and apical lateral sandhu on prone stress images. This may represent attenuation artifact. However small area of ischemia in left anterior descending artery territory cannot be completely ruled out. Overall left ventricular systolic function is normal without regional wall motion abnormalities.The left ventricular ejection fraction is normal with a value of 69%. There is normal left ventricular wall thickening. CAG: Prelim coronary angiogram report: Patent RCA stent, no severely stenotic lesion in any other coronary arteries. 2D Echo : Normal left ventricular size, systolic function and wall thickness, with no regional wall motion abnormalities. Left ventricular ejection fraction is estimated at 65 %. Normal diastolic function. Normal right ventricular size and systolic function. No significant valvular abnormality. Normal pulmonary artery pressure.When compared to old study dated 12/17/2013, there may not have been any significant change. We have increased his IMDUR From 10 mg oral daily to 10 mg oral q12 h daily. He will continue to follow cardiology as an Outpatient, will as he also will continue to follow his PCP as outpatient to work him up for any other possible causes of non cardiac chest pain. Patient was discharged in stable condition. Physical Exam Const: COMMON NORMALS: patient oriented x3 HENMT: COMMON NORMALS: normocephalic and atraumatic HEAD & SCALP: normocephalic and atraumatic Chest: CHEST: Yes Symmetrical chest wall rise Resp: COMMON NORMALS: normal respiratory effort and clear to auscultation bilaterally EFFORT & INSPECTION: Yes symmetric chest movement AUSCULTATION: clear to auscultation bilaterally Cardio: COMMON NORMALS: regular rate, regular rhythm, S1 normal heart sound present, S2 normal heart sound present, No gallops present (Cardio), No murmurs present (Cardio), No rub (Cardio) and Peripheral pulses 2+ throughout RATE: regular rate RHYTHM: regular rhythm HEART SOUNDS: S1 normal heart sound present and S2 normal heart sound present PERIPHERAL PULSES: Peripheral pulses 2+ throughout GI: COMMON NORMALS: Normal to inspection, nondistended, normoactive bowel sounds present, Soft to palpation, non-tender, No hepatosplenomegaly present and no masses AUSCULTATION: Yes normoactive bowel sounds PALPATION: Yes Soft to palpation and Yes No hepatosplenomegaly present RECTAL EXAM: Yes deferred Extremity: COMMON NORMALS: no clubbing, cyanosis or edema and no pedal edema Neuro: COMMON NORMALS: patient oriented x3 Discharge Data Data Completed and Pending: Completed Studies During Hospitalization Category Date Time Status Sestamibi Stress Test Request Routi ne Exams 11/01/20 00:45 Completed XR chest 1V sveta ble [id number] Stat Exams 12/17/20 18:45 Completed NM gordo perf SPECT r/s* [id number] Routin e Nuc Med 11/01/20 00:45 Completed CV echo complete* [id number] Routine Ultrasound 11/01/20 00:45 Completed Pending at discharge Category Date Time 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 Routin e Exams 11/02/20 07:11 Taken Labs from last 24 hours 11/03/20 11/03/20 11/03/20 08:45 08:45 06:19 WBC 7.4 RBC 5.13 Hgb 16.3 Hct 48.0 MCV 93.6 MCH 31.8 MCHC 34.0 RDW 12.5 Plt Count 257 MPV 10.5 H Neut % (Auto) 65.6 Lymph % (Auto) 21.3 Traverse % (Auto) 9.0 Eos % (Auto) 2.8 Baso % (Auto) 0.8 Neut # (Auto) 4.86 Lymph # (Auto) 1.6 Traverse # (Auto) 0.7 Eos # (Auto) 0.2 Baso # (Auto) 0.1 Nucleated RBC % (a uto) 0 Nucleated RBCs # 0.0 PT INR Sodium 136 Potassium 4.1 Chloride 103 Carbon Dioxide 21 L Anion Gap 16.1 BUN 16 Creatinine 1.0 GFR Calculation 75.7 L Glucose 375 H POC Glucose 228 H Calculated Osmolal ity 299 H Calcium 9.2 11/02/20 11/02/20 11/02/20 20:24 16:41 10:49 WBC RBC Hgb Hct MCV MCH MCHC RDW Plt Count MPV Neut % (Auto) Lymph % (Auto) Traverse % (Auto) Eos % (Auto) Baso % (Auto) Neut # (Auto) Lymph # (Auto) Traverse # (Auto) Eos # (Auto) Baso # (Auto) Nucleated RBC % (a uto) Nucleated RBCs # PT INR Sodium Potassium Chloride Carbon Dioxide Anion Gap BUN Creatinine GFR Calculation Glucose POC Glucose 301 H 207 H 260 H Calculated Osmolal ity Calcium 11/02/20 11/02/20 09:39 09:39 WBC RBC Hgb Hct MCV MCH MCHC RDW Plt Count MPV Neut % (Auto) Lymph % (Auto) Traverse % (Auto) Eos % (Auto) Baso % (Auto) Neut # (Auto) Lymph # (Auto) Traverse # (Auto) Eos # (Auto) Baso # (Auto) Nucleated RBC % (a uto) Nucleated RBCs # PT 13.70 INR 1.02 Sodium Potassium Chloride Carbon Dioxide Anion Gap BUN Creatinine GFR Calculation 61.3 L Glucose 344 H POC Glucose Calculated Osmolal ity 300 H Calcium Vitals: Last Vital Signs Temp 97.0 F L 11/03/20 07:30 Pulse 65 11/03/20 07:30 Resp 21 H 11/03/20 07:30 BP 146/83 11/03/20 07:30 Pulse Ox 98 11/03/20 07:30 Discharge Plan Discharge Patient Disposition: Home Condition: Stable Prescriptions: Continued albuterol sulfate 90 mcg/actuation aero powdr breath act w/sensor 2 inh INHALATION Q6H RF: 0 pen needle, diabetic [TechLITE Pen Needle] 31 gauge x 5/16 needle See Rx Instructions .ROUTE .COMPLEX Qty: 100 RF: 12 lancets [Accu-Chek Softclix Lancets] Misc See Rx Instructions .ROUTE .COMPLEX Qty: 100 RF: 0 doxepin 10 mg capsule 10 mg PO BID@899,2199 RF: 0 acarbose 100 mg tablet 100 mg PO BID@899,2199 RF: 0 metoprolol tartrate 25 mg tablet 25 mg PO DAILY@899 RF: 0 omega-3 acid ethyl esters 1 gram capsule 1 g PO TID@ RF: 0 atorvastatin 40 mg tablet 40 mg PO DAILY@899 RF: 0 Lantus U-100 Insulin 100 unit/mL solution 55 unit SUBCUT DAILY@899 RF: 0 clopidogrel 75 mg tablet 75 mg PO DAILY@899 RF: 0 quetiapine 100 mg tablet 100 mg PO DAILY@899 RF: 0 pantoprazole 40 mg tablet,delayed release (DR/EC) 40 mg PO DAILY@09 RF: 0 metformin 1,000 mg tablet 1,000 mg PO BID@899,2199 RF: 0 lisinopril 5 mg tablet 5 mg PO DAILY@899 RF: 0 Remeron 15 mg tablet 7.5 mg PO BEDTIME@2199 RF: 0 hydroxyzine pamoate 25 mg capsule 25 mg PO TID@ PRN (Reason: itching, allergies, anxiety, or insomnia) RF: 0 bupropion HCl 150 mg tablet extended release 24 hr 150 mg PO DAILY@09 RF: 0 duloxetine 60 mg capsule,delayed release(DR/EC) 60 mg PO DAILY@0900 RF: 0 quetiapine 400 mg tablet 400 mg PO BEDTIME@2200 RF: 0 sitagliptin 100 mg tablet 100 mg PO BEDTIME@2200 RF: 0 Trilipix 135 mg capsule,delayed release(DR/EC) 135 mg PO BEDTIME@2200 RF: 0 Changed isosorbide mononitrate 10 mg tablet 10 mg PO Q12H Qty: 0 RF: 0 Discharge Orders: Discharge Order (Routine); Ordered 11/03/20 Ordered By: Jalil Chavez Referrals: [facility] [place] [facility] ([facility]) [Outside] (Your information has been sent to [facility] [place] [facility] to help with getting In Home Services setup for you. If you have any questions call Eusebio at this number provided. ) Val Roy FNP [Nurse Practitioner] - 1 week ([facility] will be calling to schedule a post procedure followup to be seen in approximately 1 week. If you don't hear from them by Wednesday, please give them a call. Thank you) Jacqui Shay MD [Physician] - 6 Weeks (At [place]) Romina Schofield MD [Primary Care Provider] - ([facility] will be calling to schedule a hospital followup with Dr. Schofield. If you don't hear from them by Wednesday, please give them a call. Thank you) Discharge Diet: Diabetic Discharge Activity: Resume usual activity Patient Instructions: Diabetes and Diet, Hypertension, Post Angiogram Home Care Instructions Discharge Attestations Time Spent in Discharge Care*: greater than 30 min Specific Discharge Activities: educating patient, discussing with pcp/other providers, discussing with correctional casework specialist/social workers/dc planners, documenting/other paperwork and evaluating patient/reviewing data Status at Discharge: Cognitive status at discharge: cognitively intact, Behavioral status at discharge: cooperative, Functional status at discharge: independent ambulation Overall status at discharge: patient is back to baseline Quality Metrics Clinical Quality Measures During this hospital stay, did patient experience: None Coding Level of Care Code Acute [employer]ater for [facility] Fwd Exam Detailed Diagnoses Chest pain R07.9 Chest pain type: unspecified Diabetes mellitus type 2 in nonobese E11.9 Mixed hyperlipidemia E78.2 Essential hypertension I10 CAD (coronary artery disease) I25.119 Associated angina: with unspecified angina Coronary Disease-Associated Artery/Lesion type: unspecified vessel or lesion type [place] vs. transplanted heart: zuni heart Depression F33.3 Active/Remission status: currently active Depression Type: major depressive disorder Major depression episode severity: severe Major depression recurrence: recurrent Psychotic features: with psychotic features
[2020-11-03 11:51] LABS: Glucose Point of Care 339 mg/dL (70-110)
[2020-11-03 12:27] VITALS: BP 147/84; PULSE 83; RESP 20; O2SAT 97
[2020-11-03 12:29] VITALS: BP 147/84; PULSE 83; RESP 20; O2SAT 97
--- NOTE | 2020-11-03 12:53 | PC.NURSE ---
Patient discharge home to be followed by home health; patient provided with discharge instructions and follow up care. patient verbalized understanding of all instructions including post procedure restrictions. IV discontinued cath intact min bleeding noted. patient assisted to wheel chair with all belongings and discharge instructions in hand; accompanied patient to private vehicle patient alert oriented and in stable condition upon departure.
== END 2020-11-03 12:50 | disposition home or self-care (01) ==
LOC: ER 22:40 → MEDSURG 11-01 00:28 → CSU 11-02 14:14
PROVIDERS: Internal Medicine Cardiovascular Disease; Admitting Provider Internal Medicine; Emergency Provider Family Medicine; PCP Family Medicine; Visit Provider Internal Medicine
DX: I25.119 Atherosclerotic heart disease of native coronary artery with unspecified angina pectoris (principal); E11.9 Type 2 diabetes mellitus without complications; I10 Essential (primary) hypertension; J44.9 Chronic obstructive pulmonary disease, unspecified; Z79.4 Long term (current) use of insulin; E78.2 Mixed hyperlipidemia; Z87.891 Personal history of nicotine dependence; R07.9 Chest pain, unspecified; F33.3 Major depressive disorder, recurrent, severe with psychotic symptoms; Z91.81 History of falling; Z91.19 Patient's noncompliance with other medical treatment and regimen; Z95.5 Presence of coronary angioplasty implant and graft
CPT/HCPCS: 12345; 36415; 36416; 71045; 78452; 80048; 80053; 82962; 83036; 83690; 84484; 85025; 85610; 87426; 93005; 93017; 93306; 93454; 94640; 96361; 96372; 96374; 96375; 99283; 99285; A9500; C1769; C1887; C1894; G0378; J1644; J1650; J1815 ×2; J2250; J2785; J3010; J3490; J3535; J7030; J7799; Q0163; Q9967

== ENCOUNTER → 2020-11-13 15:19 | Outpatient (BNVA) | payer MEDICARE, MEDICAID, SELFPAY | PROVIDERS: PCP Family Medicine; Visit Provider Nurse Practitioner Family | DX: I25.119 Atherosclerotic heart disease of native coronary artery with unspecified angina pectoris (principal) | CPT/HCPCS: 80048 ==

== ENCOUNTER → 2021-07-09 14:20 | Outpatient (BNVA) | payer MEDICARE, MEDICAID, SELFPAY | PROVIDERS: PCP Family Medicine; Visit Provider Family Medicine | DX: E78.2 Mixed hyperlipidemia (principal); E11.9 Type 2 diabetes mellitus without complications; I10 Essential (primary) hypertension; J44.9 Chronic obstructive pulmonary disease, unspecified | CPT/HCPCS: 80053; 80061; 83036; 85025 ==

== ENCOUNTER 2021-07-24 20:00 | Outpatient (CLI) | payer MEDICARE, MEDICAID, SELFPAY | END 2021-07-25 09:34 | disposition home or self-care (01) | LOC: SLEEP 07-31 14:06 | PROVIDERS: PCP Family Medicine; Visit Provider Registered Nurse | DX: G47.10 Hypersomnia, unspecified (principal); R06.83 Snoring; R53.83 Other fatigue; G47.33 Obstructive sleep apnea (adult) (pediatric) | CPT/HCPCS: 95810 ==

== ENCOUNTER → 2021-09-25 09:47 | Outpatient (BNVA) | payer MEDICARE, MEDICAID, SELFPAY | PROVIDERS: PCP Family Medicine; Visit Provider Emergency Medicine | DX: Z20.822 Contact with and (suspected) exposure to COVID-19 (principal); R68.89 Other general symptoms and signs | CPT/HCPCS: 87400; 87635 ==

== ENCOUNTER 2021-09-29 15:00 | Inpatient (IN) | payer MEDICARE, MEDICAID, SELFPAY ==
--- NOTE | 2021-09-29 15:04 | W.ED.COVID ---
HPI - COVID General: Chief Complaint: COVID symptoms Stated Complaint: low O2 in 70's during infusion Time Seen by Provider: 09/29/21 15:02 History of Present Illness: HPI Narrative: 61-year-old male presents emergency room complaining of low O2 sats. He was diagnosed with coronavirus on 09/25/2020 when he came back today for monoclonal antibody infusion. While in the infusion center his saturations decreased to 70% he was referred to the ER. MD complaint: known COVID positive Prior covid testing: yes, results known Prior testing date: 09/25/21 COVID 19 common symptoms: positive fever(s), chills, cough, non-productive cough, dyspnea, fatigue, body aches, loss of sense of smell and/or taste, throat pain, nasal congestion and diarrhea; negative nausea, vomiting or chest tightness COVID 19 other sytmptoms: positive requiring oxygen; negative chest pain Onset (ago): day(s) Severity: moderate Pertinent comorbid conditions: diabetes, hypertension and heart disease Treatment prior to arrival: acetaminophen COVID Results: SARS-CoV-2 Antigen (Rapid) Negative (Negative) 11/01/20 18:13 11/01/20 Nasal/Oral Coronavirus 2019 PCR Detected H 09/25/21 09:47 09/25/21 Review of Systems Const: Reports: fever(s), chills, body aches and fatigue ENMT: Reports: throat pain and nasal congestion Card: Denies: chest pain, edema, dyspnea on exertion or orthopnea Resp: Reports: dyspnea and non-productive cough GI: Reports: diarrhea; Denies: nausea or vomiting : Denies: flank pain, dysuria, urinary frequency or urinary urgency Skin/Breast: Denies: rash or pruritus PFSH ED PFSH: Medical History Alcohol dependence, in remission Anxiety CAD (coronary artery disease) Chest pain COPD (chronic obstructive pulmonary disease) Diabetes mellitus type 2 in nonobese Enrolled in chronic care management Essential hypertension GERD (gastroesophageal reflux disease) Hypersomnia Intervertebral disc disorders with radiculopathy, lumbosacral region Major depressive disorder, recurrent, severe with psychotic symptoms Mixed hyperlipidemia Psychiatric care Unstable angina Surgical History S/P appendectomy S/P coronary angioplasty Family History Other Arthritis Asthma Cancer Social History Smoking and tobacco status: former smoker Quit status (tobacco): has quit using tobacco Year quit tobacco: DEC 2017 Second hand smoke exposure: Yes Alcohol intake: never Desire information about alcohol rehabilitation?: No Counseling given: No Desire information about substance/drug rehabilitation?: No Counseling given: No Lives independently: Yes Housing: House Marital status: service: No Current occupational status: unemployed and disabled Current gender identity: Male Physical Exam Const: COMMON NORMALS: no acute distress GENERAL APPEARANCE: cooperative and comfortable ORIENTATION/CONSCIOUSNESS: Yes awake, Yes oriented to person, Yes oriented to place and Yes oriented to time HENMT: COMMON NORMALS: normocephalic and atraumatic HEAD & SCALP: normocephalic and atraumatic Neck/C-Spine: COMMON NORMALS: no JVD Resp: AUSCULTATION: rhonchi and wheezes Cardio: COMMON NORMALS: no JVD, regular rate, regular rhythm and No murmurs present (Cardio) RATE: regular rate RHYTHM: regular rhythm GI: COMMON NORMALS: Soft to palpation and No hepatosplenomegaly present AUSCULTATION: Yes normoactive bowel sounds PALPATION: Yes Soft to palpation, No Tenderness to palpation present (GI), No Guarding due to palpation present (GI) and Yes No hepatosplenomegaly present Extremity: COMMON NORMALS: normal to inspection, capillary refill normal, no clubbing, cyanosis or edema, no calf tenderness and no pedal edema Neuro: SENSORIUM/ORIENTATION: Yes oriented to person, Yes oriented to place and Yes oriented to time Skin: COMMON NORMALS: no rashes or lesions noted GENERAL SKIN EXAM: no rashes or lesions noted Course Vital Signs: Vital signs: Vital Signs Temperature 97.8 F 10/02/21 04:00 Pulse Rate 82 10/02/21 04:30 Respiratory Rate 20 H 10/01/21 17:11 Blood Pressure 120/69 10/02/21 04:30 Pulse Oximetry 97 10/02/21 04:30 MDM - COVID MDM Narrative: Medical decision making narrative: Labs and imaging reviewed. Patient is developed significant COVID-19 pneumonitis given his other comorbidities will require admission. Remdesivir and dexamethasone initiated discussed the hospitalist orders written. Lab Data: Labs: Lab Results 09/29/21 09/29/21 09/29/21 15:13 15:13 15:30 D-Dimer 0.65 ug/mIFEU H u g/mIFEU (0-0.59) Specimen Type Arterial Sample Site Brachial, right ABG pH 7.41 (7.35-7.45) ABG pCO2 36.0 mmHg mmHg (35-45) ABG pO2 68.5 mmHg L mmHg (80.0-100.0) ABG HCO3 22.6 mmol/L mmol/ L (22-26) ABG Base Excess -1.5 mmol/L mmol/ L (-2.0-2.0) Roger Test N/a Hematocrit 52.5 % H % (42-52) O2 Delivery Device Nc O2 Liters/Min 6.0 % % FiO2 44.0 % % Community Relations Specialist ID Gd Sodium 130 mmol/L L mmol /L (136-145) Potassium 4.9 mmol/L mmol/L (3.5-5.1) Chloride 95 mmol/L L mmol/ L (98-107) Carbon Dioxide 18 mmol/L L mmol/ L (22-29) Anion Gap 21.9 H (5-19) BUN 25 mg/dL H mg/dL (8-23) Creatinine 1.0 mg/dL mg/dL (0.7-1.2) GFR Calculation 75.5 mL/min L mL/ min (90-130) Glucose 248 mg/dL H mg/dL (65-115) Calculated Osmolal ity 283 mOsm/kg L mOs m/kg (285-295) Calcium 8.1 mg/dL L mg/dL (8.5-10.5) Total Bilirubin 0.7 mg/dL mg/dL (0.15-1.2) AST 26 U/L U/L (0-40) ALT 17 U/L U/L (0-41) Alkaline Phosphata se 49 IU/L IU/L (40-130) Creatine Kinase 47 U/L U/L (39-308) C-Reactive Protein 104.1 mg/L H mg/L (0.0-4.9) Total Protein 7.2 g/dL g/dL (6.6-8.7) Albumin 3.9 g/dL g/dL (3.5-5.2) Globulin 3.3 g/dL g/dL (1.3-4.6) Procalcitonin 0.07 ng/mL ng/mL (0-0.5) COVID Results: SARS-CoV-2 Antigen (Rapid) Negative (Negative) 11/01/20 18:13 11/01/20 Nasal/Oral Coronavirus 2019 PCR Detected H 09/25/21 09:47 09/25/21 Discharge Plan Discharge Patient Disposition: Admitted As Inpatient Admit Provider: Jesus Gilmore Clinical Impression: COVID-19, COPD exacerbation, Diabetes mellitus type 2 in nonobese, CAD (coronary artery disease), Essential hypertension, COPD (chronic obstructive pulmonary disease) Condition: Stable Coding Level of Care Code ED [employer] for [employer] Fwd Exam Comprehensive
[2021-09-29 15:05] VITALS: BP 144/83; PULSE 89; RESP 24; TEMP 37.2; O2SAT 93; BMI 24.7
--- NOTE | 2021-09-29 15:15 | XR_ITS ---
WS: [id number] Exam: XR chest 1V portable [id number] Date/Time of Exam: 09/29/2021 3:22 PM Reason For Exam: COVID Comparison 10/31/2020. The lungs are fully inflated and clear. Normal cardiomediastinal silhouette. No pleural effusions. Re gional bony elements are intact. XR/XR chest 1V portable [id number] IMPRESSION: 1. No acute cardiopulmonary finding.
[2021-09-29 15:46] VITALS: O2SAT 95
[2021-09-29 15:46] LABS: ABG PH Result 7.41 (7.35-7.45); Arterial Blood Gas Hematocrit 52.5 % (42-52); Base Excess ABG -1.5 mmol/L (-2.0-2.0); Blood Gas Operator Identificat GD; Blood Gas Sample Site Brachial, right; Blood Gas Sample Type Arterial; HCO3 ABG 22.6 mmol/L (22-26); Oxygen Device NC; PO2 ABG 68.5 mmHg (80.0-100.0)
[2021-09-29 15:47] LABS: Alanine Aminotransferase 17 U/L (0-41); Albumin Level 3.9 g/dL (3.5-5.2); Alkaline Phosphatase 49 IU/L (40-130); Anion Gap 21.9 (5-19); Aspartate Amino Transferase 26 U/L (0-40); Blood Urea Nitrogen 25 mg/dL (8-23); C Reactive Protein 104.1 mg/L (0.0-4.9); Calcium 8.1 mg/dL (8.5-10.5); Carbon Dioxide 18 mmol/L (22-29); Chloride 95 mmol/L (98-107); Creatine Phosphokinase 47 U/L (39-308); Globulin 3.3 g/dL (1.3-4.6); Glomerular Filtration Rate 75.5 mL/min (90-130); Glucose 248 mg/dL (65-115); Osmolality Calculated 283 mOsm/kg (285-295); Potassium 4.9 mmol/L (3.5-5.1); Sodium 130 mmol/L (136-145); Total Bilirubin 0.7 mg/dL (0.15-1.2); Total Protein 7.2 g/dL (6.6-8.7)
[2021-09-29 15:48] VITALS: BP 144/83; PULSE 86; O2SAT 96
[2021-09-29 15:48] LABS: D Dimer 0.65 ug/mIFEU (0-0.59)
[2021-09-29] MEDS: dexamethasone 4 mg/mL INJ 6 MG IVP (15:50)
[2021-09-29 15:54] LABS: Procalcitonin 0.07 ng/mL (0-0.5)
[2021-09-29] MEDS: remdesivir 200 MG in sodium chloride 0.9% (100 ml) 60 ML 100 MG IV (15:56)
[2021-09-29 15:58] VITALS: BP 144/83; PULSE 86; O2SAT 93
--- NOTE | 2021-09-29 17:59 | P.HP_ITS ---
Providers/Chief Complaint Primary Care Provider: Romina Schofield MD Chief Complaint: low O2 in 70's during infusion History of Present Illness Julius Correa is a 61 year old male with history of COPD, does not use oxygen on daily basis presented today with worsening shortness of breath and hypoxia during monoclonal antibody infusion today. Patient is stating that his symptoms started roughly 7 to 8 days ago with shortness of breath, chills fatigue and lethargy, he does not smoke or drink alcohol. Today he was at [facility] his O2 saturation was down to 77% on room air. He was sent to the ER for further evaluation. He was given remdesivir and Decadron. Sodium 130 CRP 104, is also requirement went up from 6 L to 12 L, nonrebreather mask, will give him 1 dose of Actemra, requested D-dimer which was 0.6 less likely to have any thromboembolic phenomenon Patient main complaint was fatigue and lethargy. He did not experience any chest pain, productive cough, fever. Review of Systems Const: Reports: chills, body aches and fatigue Eyes: Denies: change in vision ENMT: Denies: throat pain Card: Reports: dyspnea on exertion Resp: Reports: dyspnea GI: Denies: abdominal pain : Denies: flank pain Musc: Denies: neck pain Skin/Breast: Denies: rash Neuro: Denies: headache(s) Psych: Denies: anxiety Endo: Denies: polyuria Alonso/Lymph: Denies: easy bruising All/Imm: Denies: urticaria Medications/Allergies Home Medications Medication Instructions Recorded Confirmed Last Taken Type hydroxyzine pamoate 25 mg PO TID@ PRN 10/31/20 09/29/21 10/29/20 History fenofibric acid (choline) 135 mg 135 mg PO DAILY 30 Days #30 cap 05/02/21 09/29/21 Unknown Rx capsule,delayed release metoprolol tartrate 25 mg tablet 12.5 mg PO BID 30 Days #30 tab 05/02/21 09/29/21 Unknown Rx aripiprazole 400 mg intramuscular 400 mg IM Q28D #1 ea 06/25/21 09/29/21 Unknown Rx suspension,extended release albuterol sulfate 90 mcg/actuation 2 puff INHALATION Q6H PRN #18 g 08/03/21 09/29/21 Unknown Rx aerosol inhaler atorvastatin 40 mg tablet 40 mg PO DAILY 30 Days #30 tab 08/03/21 09/29/21 Unknown Rx blood sugar diagnostic #100 ea 08/03/21 09/29/21 Unknown Rx clopidogrel 75 mg tablet 75 mg PO DAILY 30 Days #30 tab 08/03/21 09/29/21 Unknown Rx insulin glargine 100 unit/mL 55 unit SUBCUT DAILY 30 Days #20 ml 08/03/21 09/29/21 Unknown Rx subcutaneous solution lancets See Rx Instructions .ROUTE 08/03/21 09/29/21 Unknown Rx .COMPLEX #100 unknown measurement unit code: each lisinopril 5 mg tablet 5 mg PO DAILY 30 Days #30 tab 08/03/21 09/29/21 Unknown Rx loratadine 10 mg tablet 10 mg PO DAILY PRN 30 Days #30 tab 08/03/21 09/29/21 Unknown Rx metformin 1,000 mg tablet See Rx Instructions .ROUTE 08/03/21 09/29/21 Unknown Rx .COMPLEX #30 tab pantoprazole 40 mg tablet,delayed 40 mg PO DAILY 30 Days #30 tab 08/03/21 09/29/21 Unknown Rx release pen needle, diabetic 31 gauge x See Rx Instructions .ROUTE 08/03/21 09/29/21 Unknown Rx 5/16 .COMPLEX #100 unknown measurement unit code: not specified sitagliptin 100 mg tablet 100 mg PO DAILY 30 Days #30 tab 08/03/21 09/29/21 Unknown Rx acarbose 100 mg tablet 100 mg PO BID 30 Days #60 tab 08/05/21 09/29/21 Unknown Rx omega-3 acid ethyl esters 1 gram See Rx Instructions .ROUTE 08/05/21 09/29/21 Unknown Rx capsule .COMPLEX #90 cap bupropion HCl 300 mg 24 hr tablet, 300 mg PO QAM #30 tab 08/07/21 09/29/21 Unknown Rx extended release duloxetine 30 mg capsule,delayed 30 mg PO DAILY #30 cap 08/07/21 09/29/21 Unknown Rx release duloxetine 60 mg capsule,delayed 60 mg PO DAILY@0900 #30 cap 08/07/21 09/29/21 Unknown Rx release quetiapine 100 mg tablet See Rx Instructions .ROUTE 08/07/21 09/29/21 Unknown Rx .COMPLEX #90 tab quetiapine 400 mg tablet 400 mg PO BEDTIME@2200 #30 tab 08/07/21 09/29/21 Unknown Rx blood glucose control, low #1 ea 08/11/21 09/29/21 Unknown Rx blood-glucose meter #1 ea 08/11/21 09/29/21 Unknown Rx isosorbide mononitrate 10 mg tablet 10 mg PO .COMPLEX #60 tab 08/28/21 09/29/21 Unknown Rx azithromycin 250 mg tablet See Rx Instructions PO .COMPLEX #6 09/25/21 09/29/21 Unknown Rx tab shcqjfkaimxinmq-pjoindxthmfmuof-OF 5 ml PO Q6H PRN #118 ml 09/25/21 09/29/21 Unknown Rx 2 mg-30 mg-10 mg/5 mL oral syrup dexamethasone 2 mg tablet 6 mg PO DAILY 5 Days #15 tab 09/25/21 09/29/21 Unknown Rx Allergies Allergy/AdvReac Type Severity Reaction Status Date / Time No Known Allergies Allergy Verified 09/25/21 11:22 PFSH Acute PFSH: Medical History Alcohol dependence, in remission Anxiety CAD (coronary artery disease) Chest pain COPD (chronic obstructive pulmonary disease) Diabetes mellitus type 2 in nonobese Enrolled in chronic care management Essential hypertension GERD (gastroesophageal reflux disease) Hypersomnia Intervertebral disc disorders with radiculopathy, lumbosacral region Major depressive disorder, recurrent, severe with psychotic symptoms Mixed hyperlipidemia Psychiatric care Unstable angina Surgical History S/P appendectomy S/P coronary angioplasty Family History Other Arthritis Asthma Cancer Social History Smoking and tobacco status: former smoker Quit status (tobacco): has quit using tobacco Year quit tobacco: DEC 2017 Second hand smoke exposure: Yes Alcohol intake: never Desire information about alcohol rehabilitation?: No Counseling given: No Desire information about substance/drug rehabilitation?: No Counseling given: No Lives independently: Yes Housing: House Marital status: service: No Current occupational status: unemployed and disabled Current gender identity: Male Vitals/I&O/Wt Last Vital Signs Temp 98.9 F 09/29/21 15:05 Pulse 86 09/29/21 15:58 Resp 24 H 09/29/21 15:05 BP 144/83 09/29/21 15:58 Pulse Ox 93 09/29/21 15:58 Weight last 48 hrs Weight 73.936 kg Physical Exam Narrative: EXAM NARRATIVE: elderly male Does not look fluid overloaded Euvolemic Cooperative and pleasant during my evaluation 12 L nonrebreather mask Heart rate 80-90 sinus rhythm S1, S2 Abdomen soft Bilateral breath sounds with rhonchi at the bases No acute use of accessory respiratory muscles Nonfocal neuro exam Awake alert into x3 GCS 15 Data : 09/29/21 15:13 A&P Assessment and plan (1) Acute respiratory failure with hypoxia: Status: Acute (2) COPD exacerbation: Status: Acute (3) COVID-19: Status: Acute (4) Anxiety: Status: Acute (5) GERD (gastroesophageal reflux disease): Status: Acute Qualifiers: Esophagitis presence: without esophagitis Qualified Code(s): K21.9 - Gastro-esophageal reflux disease without esophagitis (6) Major depressive disorder, recurrent, severe with psychotic symptoms: Status: Acute Additional A&P Information COVID-19 infection Acute hypoxia AFebrile, requiring 12L NRB, high CRP will give Actemra dose Start remdesivir and Decadron Start multivitamins Check inflammatory markers every 48 hours Procalcitonin 0.07 His symptoms started roughly 7 to 8 days ago, tested +09/25 In case of worsening of hyponatremia might benefit from gentle fluid hydration Cardiac consistent carb diet type 2 diabetes sliding scale with Lantus DVT prophylaxis will keep him on Eliquis for now Full code Attestations Medical Necessity Statement*: More than 2 midnights anticipated because of COVID-19 Time Spent in Patient Care: Greater than 35 minutes Coding Level of Care Code Acute Instrument Lens Generator for [facility] Fwd Diagnoses Acute respiratory failure with hypoxia J96.01 COPD exacerbation J44.1 COVID-19 U07.1 Anxiety F41.9 GERD (gastroesophageal reflux disease) K21.9 Esophagitis presence: without esophagitis Major depressive disorder, recurrent, severe with psychotic symptoms F33.3
[2021-09-29 18:29] VITALS: BP 133/87; PULSE 92; O2SAT 92
[2021-09-29 19:15] VITALS: BP 141/75; PULSE 95; O2SAT 91
[2021-09-29 21:09] LABS: Glucose Point of Care 268 mg/dL (70-110)
[2021-09-29] MEDS: acetaminophen 325 mg Tablet 650 MG PO (22:31)
[2021-09-29] MEDS: quetiapine 300 mg Tablet PO (22:31)
[2021-09-29] MEDS: apixaban 5 mg Tablet 2.5 MG PO (22:32)
[2021-09-29] MEDS: metoprolol tartrate 25 mg Tablet 12.5 MG PO (22:35)
[2021-09-30] VITALS (12 sets, daily range): BP systolic 86–116; BP diastolic 49–76; PULSE 57–69; RESP 16–24; TEMP 36.3–37.1; O2SAT 84–98
[2021-09-30] MEDS: quetiapine 100 mg Tablet 400 MG PO ×2 (01:54→20:30)
[2021-09-30 06:16] LABS: Hematocrit 48.4 % (42.0-52.0); Hemoglobin 16.2 g/dL (11.7-16.6); Lymphocytes # 0.5 10^3/uL (0.8-4.8); Lymphocytes % 11.2 %; Mean Corpuscular HGB Conc 33.5 g/dL (30.0-36.0); Mean Corpuscular Volume 92.5 fl (80-94); Monocytes # 0.4 10^3/uL (0.2-0.9); Monocytes % 8.4 %; Neutrophils # 3.69 10^3/uL (1.8-7.7); Neutrophils % 79.8 %; Nucleated Red Blood Cells % 0 %; Platelet Count 146 10^3/cmm (130-400); Red Blood Count 5.23 10^6/uL (4.1-5.3); Red Cell Distribution Width 13.2 % (12.1-15.1); White Blood Count 4.6 10^3/uL (4.0-10.0)
[2021-09-30 06:29] LABS: D Dimer 0.35 ug/mIFEU (0-0.59)
[2021-09-30 06:41] LABS: Alanine Aminotransferase 15 U/L (0-41); Albumin Level 3.6 g/dL (3.5-5.2); Alkaline Phosphatase 44 IU/L (40-130); Anion Gap 18.9 (5-19); Aspartate Amino Transferase 23 U/L (0-40); Blood Urea Nitrogen 30 mg/dL (8-23); C Reactive Protein 107.3 mg/L (0.0-4.9); Calcium 8.6 mg/dL (8.5-10.5); Carbon Dioxide 23 mmol/L (22-29); Chloride 97 mmol/L (98-107); Creatine Phosphokinase 36 U/L (39-308); Globulin 3.2 g/dL (1.3-4.6); Glomerular Filtration Rate 61.1 mL/min (90-130); Glucose 200 mg/dL (65-115); Lactate Dehydrogenase 482 U/L (135-225); Magnesium 2.4 mg/dL (1.7-2.3); Osmolality Calculated 290 mOsm/kg (285-295); Potassium 4.9 mmol/L (3.5-5.1); Procalcitonin 0.07 ng/mL (0-0.5); Sodium 134 mmol/L (136-145); Total Bilirubin 0.6 mg/dL (0.15-1.2); Total Protein 6.8 g/dL (6.6-8.7)
[2021-09-30 06:55] LABS: Glucose Point of Care 194 mg/dL (70-110)
[2021-09-30] MEDS: buPROPion XL (24 HR) 300 mg Tablet PO (06:57)
[2021-09-30 08:03] LABS: Lactic Sepsis W/Reflex 1.8 mmol/L (0.5-2.2)
[2021-09-30] MEDS: ascorbic acid 500 mg Tablet 1000 MG PO ×2 (08:52→17:21)
[2021-09-30] MEDS: duloxetine 60 mg Capsule PO (08:52)
[2021-09-30] MEDS: quetiapine 100 mg Tablet 200 MG PO (08:55)
[2021-09-30] MEDS: insulin glargine 100 units/1 mL 50 UNIT SUBCUT (08:55)
[2021-09-30] MEDS: apixaban 5 mg Tablet 2.5 MG PO ×2 (08:57→20:30)
[2021-09-30] MEDS: zinc gluconate 50 mg Tablet PO (08:57)
[2021-09-30] MEDS: clopidogrel 75 mg Tablet PO (08:57)
[2021-09-30] MEDS: pantoprazole DR 40 mg Tablet PO (08:58)
[2021-09-30] MEDS: metoprolol tartrate 25 mg Tablet 12.5 MG PO (08:58)
[2021-09-30] MEDS: insulin lispro 100 unit/1 mL SUBCUT ×3 (08:59→17:21)
[2021-09-30] MEDS: lisinopril 10 mg Tablet PO (08:59)
[2021-09-30] MEDS: SODIUM CHLORIDE 0.9% IV (10:01)
[2021-09-30] MEDS: TOCILIZUMAB IV (10:01)
--- NOTE | 2021-09-30 11:31 | PM.PN ---
Subjective Subjective: Interval history: Patient was seen and examined this morning he was off oxygen eating breakfast He is endorsing feeling better Brother updated Afebrile CRP above 100 we will give him 1 dose of Actemra Vitals/I&O/Wt Last Vital Signs Temp 97.6 F 09/30/21 07:58 Pulse 57 L 09/30/21 07:58 Resp 16 09/30/21 07:58 BP 97/63 09/30/21 07:58 Pulse Ox 94 09/30/21 07:58 09/29/21 09/30/21 09/30/21 22:59 06:59 14:59 Intake Total 180 / 180 120 / 120 Output Total 200 / 200 Balance 180 / 180 -200 / -20 120 / 120 Weight last 48 hrs Weight 68.039 kg Weight 73.936 kg Physical Exam Narrative: EXAM NARRATIVE: Afebrile Patient was eating breakfast when entered the room Endorsing better S1, S2 Bilateral breath sounds with mild rhonchi Abdomen soft EOMI, PERRLA Nonfocal neuro exam Data : 09/30/21 05:54 09/30/21 05:54 Micro: Microbiology 09/30/21 05:54 Blood Culture - Preliminary Blood SPECIMEN COLLECTED A&P Assessment and plan (1) COVID-19: Status: Acute (2) COPD exacerbation: Status: Acute (3) Acute respiratory failure with hypoxia: Status: Acute Additional A&P Information COVID-19 pneumonia Continue multivitamins Continue IV Decadron and remdesivir Give 1 dose of Actemra 09/30 Afebrile CRP above 100 Wean off oxygen Full code Consistent carb diet with sliding scale Hypotension: We will give 500 mL bolus hold metoprolol and lisinopril DVT 2.5 mg twice daily, Attestations Medical Necessity Statement*: Anticipating discharge in next 48 hours Time Spent in Patient Care: less than 15 minutes Coding Level of Care Code 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
[2021-09-30] MEDS: lactated ringers 500 ML 999 ML IV (12:08)
[2021-09-30 12:12] LABS: Glucose Point of Care 233 mg/dL (70-110)
[2021-09-30] MEDS: dexamethasone 10 mg/mL INJ 6 MG IVP (15:04)
[2021-09-30 16:53] LABS: Glucose Point of Care 175 mg/dL (70-110)
[2021-09-30] MEDS: lactated ringers 1,000 ML 999 ML IV (17:21)
[2021-09-30] MEDS: remdesivir 100 MG in sodium chloride 0.9% (100 ml) 80 ML IV (17:22)
[2021-09-30 17:36] LABS: ABG PCO2 40.6 mmHg (35-45); ABG PH Result 7.41 (7.35-7.45); Alveolar-Arterial Oxygen Gradi 6.2 mmHg (5-10); Arterial Blood Gas Hematocrit 47.4 % (42-52); Blood Gas Operator Identificat AMH; Blood Gas Sample Site Brachial, right; Blood Gas Sample Type Arterial; Carboxyhemoglobin 0.7 %THgb (0.4-20.1); HCO3 ABG 25.7 mmol/L (22-26); HGB O2 Sat 83.2 % (95-100); Ionized Calcium Level - ABG 1.3 mmol/L (1.1-1.4); Methemoglobin 0.9 % (0.4-1.5); Oxygen Device NC; Oxygen Saturation ABG 84.6; PO2 ABG 51.3 mmHg (80.0-100.0); Potassium Level - ABG 4.6 mmol/L (3.5-5.0); Total Hemoglobin 15.5 g/dL (14-18)
[2021-09-30] MEDS: midodrine 5 mg TABLET 10 MG PO (18:03)
[2021-09-30] MEDS: acetaminophen 325 mg Tablet 650 MG PO (18:05)
[2021-09-30 18:18] LABS: Thyroid Stimulating Hormone 1.32 uIU/mL (0.27-4.20)
[2021-09-30 19:23] LABS: Cortisol Random 3.83 ug/dL (2.47-19.5)
[2021-09-30] MEDS: quetiapine 300 mg Tablet PO (20:30)
[2021-09-30 20:52] LABS: Glucose Point of Care 252 mg/dL (70-110)
[2021-10-01] VITALS (19 sets, daily range): BP systolic 94–136; BP diastolic 52–95; PULSE 54–78; RESP 18–20; TEMP 36.4–36.9; O2SAT 87–100
[2021-10-01] MEDS: buPROPion XL (24 HR) 300 mg Tablet PO (05:43)
[2021-10-01 06:25] LABS: Basophils % 0.2 %; Hematocrit 45.8 % (42.0-52.0); Hemoglobin 15.3 g/dL (11.7-16.6); Lymphocytes # 0.6 10^3/uL (0.8-4.8); Mean Corpuscular HGB Conc 33.4 g/dL (30.0-36.0); Mean Corpuscular Volume 92.7 fl (80-94); Mean Platelet Volume 10.4 fL (7.4-10.4); Monocytes # 0.3 10^3/uL (0.2-0.9); Monocytes % 7.3 %; Neutrophils # 3.59 10^3/uL (1.8-7.7); Neutrophils % 79.1 %; Nucleated Red Blood Cells % 0 %; Platelet Count 156 10^3/cmm (130-400); Red Blood Count 4.94 10^6/uL (4.1-5.3); Red Cell Distribution Width 13.2 % (12.1-15.1); White Blood Count 4.5 10^3/uL (4.0-10.0)
[2021-10-01 06:31] LABS: Glucose Point of Care 154 mg/dL (70-110)
[2021-10-01 06:40] LABS: Anion Gap 18.4 (5-19); Blood Urea Nitrogen 29 mg/dL (8-23); C Reactive Protein 52.7 mg/L (0.0-4.9); Calcium 8.5 mg/dL (8.5-10.5); Carbon Dioxide 21 mmol/L (22-29); Chloride 98 mmol/L (98-107); Glomerular Filtration Rate 85.2 mL/min (90-130); Glucose 168 mg/dL (65-115); Osmolality Calculated 286 mOsm/kg (285-295); Potassium 4.4 mmol/L (3.5-5.1); Sodium 133 mmol/L (136-145)
[2021-10-01] MEDS: clopidogrel 75 mg Tablet PO (08:37)
[2021-10-01] MEDS: insulin glargine 100 units/1 mL 50 UNIT SUBCUT (08:37)
[2021-10-01] MEDS: apixaban 5 mg Tablet 2.5 MG PO ×2 (08:37→20:18)
[2021-10-01] MEDS: insulin lispro 100 unit/1 mL SUBCUT ×3 (08:37→17:11)
[2021-10-01] MEDS: pantoprazole DR 40 mg Tablet PO (08:37)
[2021-10-01] MEDS: ascorbic acid 500 mg Tablet 1000 MG PO ×2 (08:37→17:11)
[2021-10-01] MEDS: duloxetine 60 mg Capsule PO (08:37)
[2021-10-01] MEDS: zinc gluconate 50 mg Tablet PO (08:37)
[2021-10-01] MEDS: acetaminophen 325 mg Tablet 650 MG PO (09:22)
[2021-10-01 09:50] LABS: ABG PCO2 37.1 mmHg (35-45); ABG PH Result 7.42 (7.35-7.45); Base Excess ABG -0.2 mmol/L (-2.0-2.0); Blood Gas Operator Identificat AMH; Blood Gas Sample Site Brachial, right; Blood Gas Sample Type Arterial; Oxygen Device NC; PO2 ABG 46.7 mmHg (80.0-100.0)
[2021-10-01 11:36] LABS: Glucose Point of Care 194 mg/dL (70-110)
--- NOTE | 2021-10-01 12:15 | P.PN_ITS ---
Subjective Subjective: Interval history: Patient was seen and examined this morning currently he is on heated high flow 50 L, 80% patient does not complain about any shortness of breath or chest pain, he stating that he is not a complainer, I have asked his nurse to keep an eye on him in case of any worsening we should transfer him to ICU for closer monitoring Brother was updated Patient was also given option to do FaceTime with his brother, he declined at this point Repeat ABG showing worsening of hypoxia PO2 46, FiO2 80%, 50 L Vitals/I&O/Wt Last Vital Signs Temp 97.8 F 10/01/21 08:00 Pulse 68 10/01/21 08:22 Resp 20 H 10/01/21 08:22 BP 107/59 10/01/21 08:00 Pulse Ox 92 10/01/21 08:22 09/30/21 10/01/21 10/01/21 22:59 06:59 14:59 Intake Total 1460 / 2067 530 / 2597 400 / 400 Output Total 600 / 600 Balance 1460 / 2067 530 / 2597 -200 / -200 Weight last 48 hrs Weight 68.039 kg Weight 73.936 kg Physical Exam Narrative: EXAM NARRATIVE: Patient was in his bed No acute respite distress however PO2 seems worsening Heated high flow S1, S2 Abdomen soft He ate his breakfast this morning Awake alert 20x3 GCS 15 Does have conversational dyspnea Dry cough Bilateral breath sounds with rhonchi at the bases Data : 10/01/21 05:50 10/01/21 05:50 Micro: Microbiology 09/30/21 05:54 Blood Culture - Preliminary Blood NEGATIVE TO DATE 09/30/21 13:00 Blood Culture - Preliminary Blood SPECIMEN COLLECTED A&P Assessment and plan (1) COVID-19: Status: Acute (2) COPD exacerbation: Status: Acute (3) Acute respiratory failure with hypoxia: Status: Acute (4) Hypotension: Status: Acute (5) COPD (chronic obstructive pulmonary disease): Status: Acute Qualifiers: COPD type: chronic bronchitis Chronic bronchitis type: simple Qualified Code(s): J41.0 - Simple chronic bronchitis (6) Diabetes mellitus type 2 in nonobese: Status: Acute (7) Essential hypertension: Status: Acute (8) Alcohol dependence, in remission: Status: Acute Additional A&P Information Worsening hypoxia related to COVID-19 Currently on heated high flow We will transfer him to ICU Required 1 L bolus yesterday for hypotension D-dimer unremarkable, does not look fluid overloaded no signs of cardiogenic shock, slightly dehydrated on clinical exam PE less likely, not septic at this point He was given lisinopril at the time of admission, vasoplegic shock? COPD exacerbation related to COVID-19 Type 2 diabetes: We will use higher intensity of sliding scale, hemoglobin A1c 7.8, will add Lantus Full code Consistent carb diet DVT prophylaxis currently on Eliquis Attestations Medical Necessity Statement*: Transfer to ICU Time Spent in Patient Care: 16 - 35 minutes Coding Level of Care Code Acute Asset Management Analyst for [facility] Fwd Diagnoses COVID-19 U07.1 COPD exacerbation J44.1 Acute respiratory failure with hypoxia J96.01 Hypotension I95.9 COPD (chronic obstructive pulmonary disease) J41.0 COPD type: chronic bronchitis Chronic bronchitis type: simple Diabetes mellitus type 2 in nonobese E11.9 Essential hypertension I10 Alcohol dependence, in remission F10.21
[2021-10-01 12:25] LABS: Glucose Point of Care 196 mg/dL (70-110)
[2021-10-01 14:36] LABS: ABG PCO2 35.6 mmHg (35-45); ABG PH Result 7.44 (7.35-7.45); Arterial Blood Gas Hematocrit 47.3 % (42-52); Base Excess ABG 0.1 mmol/L (-2.0-2.0); Blood Gas Operator Identificat AMH; Blood Gas Sample Site Brachial, right; Blood Gas Sample Type Arterial; HCO3 ABG 23.9 mmol/L (22-26); Oxygen Device NC; PO2 ABG 59.6 mmHg (80.0-100.0)
[2021-10-01] MEDS: dexamethasone 10 mg/mL INJ 6 MG IVP (16:18)
[2021-10-01] MEDS: remdesivir 100 MG in sodium chloride 0.9% (100 ml) 80 ML IV (17:11)
[2021-10-01 17:43] LABS: Glucose Point of Care 176 mg/dL (70-110)
[2021-10-01] MEDS: quetiapine 300 mg Tablet PO (20:18)
[2021-10-01 21:47] LABS: Glucose Point of Care 245 mg/dL (70-110)
[2021-10-02] VITALS (37 sets, daily range): BP systolic 98–143; BP diastolic 58–81; PULSE 62–87; RESP 17–35; TEMP 36.4–37.1; O2SAT 88–100
[2021-10-02 04:57] LABS: ABG PCO2 38.4 mmHg (35-45); ABG PH Result 7.41 (7.35-7.45); Arterial Blood Gas Hematocrit 49.7 % (42-52); Blood Gas Allen Test Pos; Blood Gas Sample Type Arterial; HCO3 ABG 24.4 mmol/L (22-26)
[2021-10-02 04:58] LABS: Blood Gas Sample Site Radial, left; Oxygen Device HAG
[2021-10-02 05:28] LABS: Hematocrit 46.7 % (42.0-52.0); Hemoglobin 15.7 g/dL (11.7-16.6); Lymphocytes # 0.5 10^3/uL (0.8-4.8); Lymphocytes % 11.6 %; Mean Corpuscular HGB Conc 33.6 g/dL (30.0-36.0); Mean Corpuscular Hemoglobin 31.3 pg (28.0-34.0); Mean Corpuscular Volume 93.2 fl (80-94); Mean Platelet Volume 10.3 fL (7.4-10.4); Monocytes # 0.3 10^3/uL (0.2-0.9); Monocytes % 6.4 %; Neutrophils # 3.55 10^3/uL (1.8-7.7); Neutrophils % 81.1 %; Nucleated Red Blood Cells % 0 %; Platelet Count 168 10^3/cmm (130-400); Red Blood Count 5.01 10^6/uL (4.1-5.3); Red Cell Distribution Width 13.2 % (12.1-15.1); White Blood Count 4.4 10^3/uL (4.0-10.0)
[2021-10-02 05:54] LABS: Anion Gap 17.5 (5-19); Blood Urea Nitrogen 24 mg/dL (8-23); Calcium 8.4 mg/dL (8.5-10.5); Carbon Dioxide 24 mmol/L (22-29); Chloride 97 mmol/L (98-107); Glomerular Filtration Rate 75.5 mL/min (90-130); Glucose 182 mg/dL (65-115); Osmolality Calculated 287 mOsm/kg (285-295); Potassium 4.5 mmol/L (3.5-5.1); Sodium 134 mmol/L (136-145)
[2021-10-02] MEDS: buPROPion XL (24 HR) 300 mg Tablet PO (06:31)
[2021-10-02 07:41] LABS: Glucose Point of Care 160 mg/dL (70-110)
[2021-10-02] MEDS: apixaban 5 mg Tablet 2.5 MG PO ×2 (08:11→21:45)
[2021-10-02] MEDS: zinc gluconate 50 mg Tablet PO (08:12)
[2021-10-02] MEDS: duloxetine 60 mg Capsule PO (08:12)
[2021-10-02] MEDS: ascorbic acid 500 mg Tablet 1000 MG PO ×2 (08:12→17:17)
[2021-10-02] MEDS: pantoprazole DR 40 mg Tablet PO (08:12)
[2021-10-02] MEDS: clopidogrel 75 mg Tablet PO (08:12)
[2021-10-02] MEDS: insulin glargine 100 units/1 mL 50 UNIT SUBCUT (08:13)
[2021-10-02] MEDS: insulin lispro 100 unit/1 mL SUBCUT ×3 (08:13→17:17)
--- NOTE | 2021-10-02 11:09 | PC.SOCIAL ---
IMM update IMM updated with patient. Verbalized an understanding. Initialled, dated ,timed, and placed in chart.
[2021-10-02 11:31] LABS: Glucose Point of Care 157 mg/dL (70-110)
--- NOTE | 2021-10-02 13:23 | PM.PN ---
Subjective Subjective: Interval history: Patient was seen and examined this morning, he was saturating well on 50 L 85%, asked respiratory therapist to wean his oxygen down, patient is endorsing feeling better as well he was eating breakfast Very pleasant and cooperative during my evaluation Afebrile no worsening of leukocytosis, Transfer to [facility]SU Vitals/I&O/Wt Last Vital Signs Temp 97.5 F L 10/02/21 12:00 Pulse 74 10/02/21 12:00 Resp 26 H 10/02/21 12:00 BP 137/80 10/02/21 12:00 Pulse Ox 93 10/02/21 12:00 10/01/21 10/02/21 10/02/21 22:59 06:59 14:59 Intake Total 460 / 1100 611 / 611 Output Total 900 / 1500 Balance 460 / 500 -900 / -400 611 / 611 Weight last 48 hrs Weight 67.217 kg Physical Exam Narrative: EXAM NARRATIVE: Patient was eating breakfast On heated high flow 50 L 85% Saturating well S1, S2 variable Abdomen soft Looks euvolemic No abdominal pain Bilateral breath sound without adventitious rhonchi crackles or wheezing Nonfocal neuro exam Awake alert oriented x3 GCS 15 Data : 10/02/21 05:07 10/02/21 05:07 Micro: Microbiology 09/30/21 13:00 Blood Culture - Preliminary Blood NEGATIVE TO DATE A&P Assessment and plan (1) Hypotension: Status: Acute (2) COVID-19: Status: Acute (3) COPD exacerbation: Status: Acute (4) Acute respiratory failure with hypoxia: Status: Acute (5) Diabetes mellitus type 2 in nonobese: Status: Acute (6) Essential hypertension: Status: Acute (7) COPD (chronic obstructive pulmonary disease): Status: Acute (8) Alcohol dependence, in remission: Status: Acute Additional A&P Information Hypotension Patient hypotension improved with fluid resuscitation He does not have any signs of sepsis, septic shock, cardiogenic shock or autonomic dysfunction D-dimer unremarkable Patient looks euvolemic blood pressure is better now current blood pressure 137/80 mmHg Hold antihypertensive regimen for now Persistent hypoxia related to COVID-19 Currently on heated high flow plan to wean him off oxygen on heated high flow 85% down to 70% today repeat blood gas in the morning Afebrile no worsening of leukocytosis We will repeat inflammatory markers In case of worsening hypoxia would repeat D-dimer We will look for LTAC/select patient is agreeable Eating well Adequate urine output No signs of bacterial pneumonia, afebrile no worse leukocytosis Status post Actemra Finish IV steroids and remdesivir regimen Type 2 diabetes: Euglycemic COPD exacerbation acute secondary to COVID-19 Full code Consistent carbohydrate diet DVT prophylaxis: Jeff Thomason Medical Necessity Statement*: Transfer out of ICU to CSU screening for LTAC Time Spent in Patient Care: less than 15 minutes Coding Level of Care Code Acute Supervisor Model Making for [facility] Fwd Diagnoses Hypotension I95.9 COVID-19 U07.1 COPD exacerbation J44.1 Acute respiratory failure with hypoxia J96.01 Diabetes mellitus type 2 in nonobese E11.9 Essential hypertension I10 COPD (chronic obstructive pulmonary disease) J44.9 Alcohol dependence, in remission F10.21
--- NOTE | 2021-10-02 14:25 | PC.NURSE ---
Patient up to chair around 1400. Patient gets up to commode with minimum assist.
--- NOTE | 2021-10-02 14:37 | PC.NURSE ---
Patient ambulated around bed. Patient oxygen went from 99% to 94%. After a couple minutes the oxygen went back to 99%. Patient stated that he felt a bit out of breath. Patient ambulated independently with nurse beside the patient.
[2021-10-02] MEDS: dexamethasone 10 mg/mL INJ 6 MG IVP (15:31)
[2021-10-02 17:14] LABS: Glucose Point of Care 160 mg/dL (70-110)
--- NOTE | 2021-10-02 18:04 | PC.NURSE ---
Transfer Note Patient transferred to [place] [id number] from ICU 10 via wheelchair. Report given to Cally. Patient oriented to environment and equipment. Covering service notified. Orders reviewed. Family notified. Patient ambulated around room today. Patient did incentive spectrometry and flutter valve. Patient states that he does not like the food provided. Patient ate around 25% of dinner. Nurse offered a sandwich and patient refused. Nurse brought pudding and jello for patient to eat. Patient was up in chair toady.
[2021-10-02] MEDS: remdesivir 100 MG in sodium chloride 0.9% (100 ml) 80 ML IV (18:55)
[2021-10-02 20:46] LABS: Glucose Point of Care 246 mg/dL (70-110)
[2021-10-02] MEDS: quetiapine 300 mg Tablet PO (21:45)
[2021-10-03] VITALS (10 sets, daily range): BP systolic 112–136; BP diastolic 62–78; PULSE 70–96; RESP 17–24; TEMP 36.6–36.8; O2SAT 88–95
[2021-10-03 05:38] LABS: ABG PCO2 35.8 mmHg (35-45); ABG PH Result 7.46 (7.35-7.45); Arterial Blood Gas Hematocrit 50.9 % (42-52); Base Excess ABG 1.9 mmol/L (-2.0-2.0); Blood Gas Allen Test Pos; Blood Gas Sample Type Arterial; HCO3 ABG 25.5 mmol/L (22-26); PO2 ABG 53.2 mmHg (80.0-100.0)
[2021-10-03 05:39] LABS: Blood Gas Sample Site Radial, left; Oxygen Device CAG
[2021-10-03] MEDS: buPROPion XL (24 HR) 300 mg Tablet PO (06:09)
[2021-10-03 06:30] LABS: Glucose Point of Care 150 mg/dL (70-110)
[2021-10-03 07:24] LABS: Procalcitonin 0.03 ng/mL (0-0.5)
[2021-10-03 07:35] LABS: C Reactive Protein 12.2 mg/L (0.0-4.9)
[2021-10-03] MEDS: ascorbic acid 500 mg Tablet 1000 MG PO ×2 (08:30→17:17)
[2021-10-03] MEDS: apixaban 5 mg Tablet 2.5 MG PO ×2 (08:30→21:19)
[2021-10-03] MEDS: clopidogrel 75 mg Tablet PO (08:30)
[2021-10-03] MEDS: duloxetine 60 mg Capsule PO (08:30)
[2021-10-03] MEDS: insulin lispro 100 unit/1 mL SUBCUT ×3 (08:30→17:17)
[2021-10-03] MEDS: insulin glargine 100 units/1 mL 50 UNIT SUBCUT (08:30)
[2021-10-03] MEDS: zinc gluconate 50 mg Tablet PO (08:31)
[2021-10-03] MEDS: pantoprazole DR 40 mg Tablet PO (08:31)
--- NOTE | 2021-10-03 11:26 | P.PN_ITS ---
Subjective Subjective: Interval history: ABG reviewed This morning ABG reviewed, inflammatory markers trending down Afebrile Heated high flow 65% 45 L patient is endorsing dry cough and dyspnea on exertion Nurse at the bedside Screening for LTAC Vitals/I&O/Wt Last Vital Signs Temp 98.3 F 10/03/21 11:08 Pulse 87 10/03/21 11:08 Resp 17 10/03/21 11:08 BP 115/72 10/03/21 11:08 Pulse Ox 94 10/03/21 11:08 10/02/21 10/03/21 10/03/21 22:59 06:59 14:59 Intake Total 520 / 1131 120 / 120 Output Total 480 / 480 800 / 1280 Balance 40 / 651 -800 / -149 120 / 120 Weight last 48 hrs Weight 67.217 kg Physical Exam Narrative: EXAM NARRATIVE: Patient was sitting in his breakfast tray at the bedside EOMI, PERRLA Nonfocal neuro exam S1, S2 Bilateral breath sound without adventitious rhonchi or crackles Abdomen soft Bowel sound present Legs without edema Patient does experience dry cough on deep breathing Data : 10/02/21 05:07 10/02/21 05:07 A&P Assessment and plan (1) COVID-19: Status: Acute (2) Hypotension: Status: Acute (3) COPD exacerbation: Status: Acute (4) Acute respiratory failure with hypoxia: Status: Acute (5) CAD (coronary artery disease): Status: Acute (6) Diabetes mellitus type 2 in nonobese: Status: Acute (7) Essential hypertension: Status: Acute Additional A&P Information Hypotension: Improved with fluid resuscitation COVID-19 related persistent hypoxia: Currently on heated high flow PO2 53 patient is currently on 65% 45 L Encourage patient to prone Continue IV steroids and remdesivir Status post Actemra Inflammatory markers trending down Screen for LTAC Dry cough, shortness of breath and dyspnea on minimal activity Encourage patient to get out of bed and use a walker COPD exacerbation due to COVID-19 Type 2 diabetes: Blood sugar within normal range Consistent carb diet Full code DVT prophylaxis currently on Eliquis Attestations Medical Necessity Statement*: Continue medical management Time Spent in Patient Care: less than 15 minutes Coding Level of Care Code Acute Manufacturers Representative for [facility] Fwd Diagnoses COVID-19 U07.1 Hypotension I95.9 COPD exacerbation J44.1 Acute respiratory failure with hypoxia J96.01 CAD (coronary artery disease) I25.10 Diabetes mellitus type 2 in nonobese E11.9 Essential hypertension I10
[2021-10-03 11:55] LABS: Glucose Point of Care 152 mg/dL (70-110)
--- NOTE | 2021-10-03 13:20 | PC.CHAP ---
Pastoral Care Encounter/Spiritual Assessment Type of Contact [] Declined finish mixer visit [] Patient/Family/Request visit [] Outpatient visit [xx] Follow-up visit [] Physician referral [] Code/Alert [] Routine visit [] Staff referral [] Actively dying [] Patient sleeping [] Family support [] [] Out of room [] Palliative care [] [] Receiving care in room [] Pre-surgical visit [] Trauma [xx] Long length of stay [] ICU visit [xx] Other: ISOLATION Relational/Emotional Strength [] Patient feels connected with others/family/visitors/staff [] Distress [] Loneliness/isolation [] Abandonment Spirituality of Patient [] Person of Sis [] Attends Hoahaoism of their Sis [] Believes in Prayer [] Reads Bible or Pentecostalism materials [] There are Spiritual issues to be addressed Composition Mixer Interventions [] Prayer [] Active listening [] Non-anxious presence [] Spiritual/emotional support [] Crisis/trauma care [] Spiritual counseling [] Bereavement support [] Provided bereavement packet [] Provided Bible/devotional materials [] Provided toy/stuffed animal, coloring book to patient or family member [] Provided Communion [] Anointing/[place] [] Salvation [] Completed spiritual assessment [] Other: Impact on Illness or Injury [] Angry [] Fearful [] Anxious [] Often cries [] Exhaustion [] Unable to work [] Unable to attend hinduism [] Unable to walk/stand [] Unable to read [] Unable to drive [] Unable to eat/drink [] Unable to sleep [] Unable to be with family [] Patient intubated [] Other: Summary Time spent with patient
[2021-10-03] MEDS: dexamethasone 10 mg/mL INJ 6 MG IVP (16:02)
[2021-10-03 16:51] LABS: Glucose Point of Care 146 mg/dL (70-110)
[2021-10-03] MEDS: remdesivir 100 MG in sodium chloride 0.9% (100 ml) 80 ML IV (17:17)
[2021-10-03] MEDS: quetiapine 300 mg Tablet PO (21:19)
[2021-10-03 21:30] LABS: Glucose Point of Care 252 mg/dL (70-110)
[2021-10-04] VITALS (12 sets, daily range): BP systolic 118–134; BP diastolic 62–79; PULSE 17–92; RESP 16–20; TEMP 36.4–36.9; O2SAT 87–94
[2021-10-04] MEDS: buPROPion XL (24 HR) 300 mg Tablet PO (05:16)
[2021-10-04 05:18] LABS: ABG PCO2 32.6 mmHg (35-45); Arterial Blood Gas Hematocrit 52.5 % (42-52); Base Excess ABG 2.7 mmol/L (-2.0-2.0); Blood Gas Allen Test Pos; Blood Gas Sample Type Arterial; HCO3 ABG 25.2 mmol/L (22-26); PO2 ABG 41.7 mmHg (80.0-100.0)
[2021-10-04 05:19] LABS: Blood Gas Sample Site Radial, left; Oxygen Device CAG
[2021-10-04 06:58] LABS: Glucose Point of Care 107 mg/dL (70-110)
[2021-10-04] MEDS: ascorbic acid 500 mg Tablet 1000 MG PO ×2 (08:48→18:32)
[2021-10-04] MEDS: duloxetine 60 mg Capsule PO (08:48)
[2021-10-04] MEDS: clopidogrel 75 mg Tablet PO (08:48)
[2021-10-04] MEDS: zinc gluconate 50 mg Tablet PO (08:48)
[2021-10-04] MEDS: pantoprazole DR 40 mg Tablet PO (08:48)
[2021-10-04] MEDS: acetaminophen 325 mg Tablet 650 MG PO (08:59)
--- NOTE | 2021-10-04 10:19 | PC.SOCIAL ---
IMM update IMM updated with patient. Verbalized an understanding. Initialled, dated ,timed, and placed in chart.
[2021-10-04] MEDS: apixaban 5 mg Tablet 2.5 MG PO ×2 (10:20→22:06)
[2021-10-04] MEDS: insulin glargine 100 units/1 mL 50 UNIT SUBCUT (10:23)
[2021-10-04 11:04] LABS: Glucose Point of Care 394 mg/dL (70-110)
[2021-10-04 11:50] LABS: ABG PCO2 34.1 mmHg (35-45); ABG PH Result 7.45 (7.35-7.45); Arterial Blood Gas Hematocrit 52.8 % (42-52); Base Excess ABG 0.3 mmol/L (-2.0-2.0); Blood Gas Allen Test Pos; Blood Gas Sample Site Radial, right; Blood Gas Sample Type Arterial; HCO3 ABG 23.6 mmol/L (22-26); Oxygen Device HAG; PO2 ABG 48.2 mmHg (80.0-100.0)
[2021-10-04] MEDS: insulin lispro 100 unit/1 mL SUBCUT ×2 (12:02→18:32)
--- NOTE | 2021-10-04 15:24 | PM.PN ---
Subjective Subjective: Interval history: And examined this morning, for persistent hypoxia I have asked respiratory therapist to increase perivascular settings, repeat blood gas did show persistent hypoxia, increase heated high flow settings to 55 L and 80% Patient does not endorse any chest pain or diarrhea, he does feel short of breath on ambulation experiencing dry cough agreeable to go to LTAC He was counseled on prone positioning Vitals/I&O/Wt Last Vital Signs Temp 98.4 F 10/04/21 11:07 Pulse 81 10/04/21 11:07 Resp 20 H 10/04/21 11:07 BP 122/72 10/04/21 11:07 Pulse Ox 90 10/04/21 11:07 10/04/21 10/04/21 10/04/21 06:59 14:59 22:59 Intake Total 240 / 1060 360 / 360 Balance 240 / 1060 360 / 360 Physical Exam Narrative: EXAM NARRATIVE: Patient laying in his bed Saturating 90% on 70% 50 L, heated high flow settings increased No active chest pain S1, S2 Clinical looks dehydrated EOMI, PERRLA Nonfocal neuro exam Bilateral breath sound without crackles rhonchi or crepitations Soft abdomen Low extremity no edema Data : 10/02/21 05:07 10/02/21 05:07 A&P Assessment and plan (1) Hypotension: Status: Acute (2) COVID-19: Status: Acute (3) Acute respiratory failure with hypoxia: Status: Acute (4) Diabetes mellitus type 2 in nonobese: Status: Acute (5) CAD (coronary artery disease): Status: Acute (6) GERD (gastroesophageal reflux disease): Status: Acute Qualifiers: Esophagitis presence: without esophagitis Qualified Code(s): K21.9 - Gastro-esophageal reflux disease without esophagitis (7) COPD exacerbation: Status: Acute Additional A&P Information Persistent hypoxia related to COVID-19 pneumonia Increase heated high flow settings to 55 L and 80% Persistent hypoxia Continue IV Decadron and remdesivir Status post Actemra Patient is getting screened for LTAC placement No signs of active bacterial pneumonia We will repeat procalcitonin and D-dimer Full code Consistent carb diet DVT prophylaxis: Jeff Thomason Medical Necessity Statement*: Continue medical management Time Spent in Patient Care: 16 - 35 minutes Coding Level of Care Code Acute Technical Sales Support Manager for [facility] Fwd Diagnoses Hypotension I95.9 COVID-19 U07.1 Acute respiratory failure with hypoxia J96.01 Diabetes mellitus type 2 in nonobese E11.9 CAD (coronary artery disease) I25.10 GERD (gastroesophageal reflux disease) K21.9 Esophagitis presence: without esophagitis COPD exacerbation J44.1
--- NOTE | 2021-10-04 15:31 | XRR_ITS ---
PROCEDURE INFORMATION: Exam: XR Chest Exam date and time: 10/04/2021 3:31 PM Age: 61 years old Clinical indication: Shortness of breath; Patient HX: Covid+; Additional info: Hypoxia TECHNIQUE: Imaging protocol: XR of the chest. Views: 1 view. COMPARISON: CR (CHEST, ) 09/29/2021 3:26 PM FINDINGS: Lungs: Ground-glass opacities are improved in the left lung base but increased in the left upper lobe. Mild chronic interstitial changes in both lungs. Pleural spaces: Unremarkable. No pleural effusion. No pneumothorax. Heart/Mediastinum: Unremarkable. No cardiomegaly. Bones/joints: Unremarkable. XR/XR chest 1V portable [id number] IMPRESSION: Increased ground-glass opacity in the left upper lobe, suspicious for pneumonia. Radiation Dose CTDIVOL = (mGy): DLP = (mGy-cm)
[2021-10-04] MEDS: dexamethasone 10 mg/mL INJ 6 MG IVP (15:56)
[2021-10-04 17:14] LABS: Glucose Point of Care 149 mg/dL (70-110)
--- NOTE | 2021-10-04 19:01 | PC.NURSE ---
Report to Brittney COCHRAN at this time.
[2021-10-04 21:17] LABS: Glucose Point of Care 248 mg/dL (70-110)
[2021-10-04] MEDS: quetiapine 300 mg Tablet PO (22:06)
[2021-10-05] VITALS (30 sets, daily range): BP systolic 108–146; BP diastolic 69–92; PULSE 75–105; RESP 15–27; TEMP 36–36.9; O2SAT 88–95
[2021-10-05 03:24] LABS: ABG PH Result 7.46 (7.35-7.45); Arterial Blood Gas Hematocrit 54.1 % (42-52); Base Excess ABG 1.5 mmol/L (-2.0-2.0); Blood Gas Allen Test Pos; Blood Gas Sample Site Radial, left; Blood Gas Sample Type Arterial; HCO3 ABG 24.9 mmol/L (22-26); Oxygen Device VENTURI; PO2 ABG 45.6 mmHg (80.0-100.0)
[2021-10-05] MEDS: buPROPion XL (24 HR) 300 mg Tablet PO (05:08)
[2021-10-05 06:20] LABS: Basophils % 0.5 %; Eosinophils # 0.1 10^3/uL (0.0-0.8); Eosinophils % 1.4 %; Hematocrit 49.9 % (42.0-52.0); Lymphocytes # 0.4 10^3/uL (0.8-4.8); Lymphocytes % 6.9 %; Mean Corpuscular HGB Conc 34.1 g/dL (30.0-36.0); Mean Corpuscular Hemoglobin 30.8 pg (28.0-34.0); Mean Corpuscular Volume 90.4 fl (80-94); Monocytes # 0.2 10^3/uL (0.2-0.9); Monocytes % 2.7 %; Neutrophils # 5.01 10^3/uL (1.8-7.7); Neutrophils % 85.9 %; Nucleated Red Blood Cells % 0 %; Platelet Count 233 10^3/cmm (130-400); Red Blood Count 5.52 10^6/uL (4.1-5.3); Red Cell Distribution Width 13.2 % (12.1-15.1); White Blood Count 5.8 10^3/uL (4.0-10.0)
[2021-10-05 07:08] LABS: Glucose Point of Care 139 mg/dL (70-110)
[2021-10-05 07:14] LABS: D Dimer 2.52 ug/mIFEU (0-0.59)
[2021-10-05 08:31] LABS: Anion Gap 15.3 (5-19); Blood Urea Nitrogen 16 mg/dL (8-23); C Reactive Protein 3.7 mg/L (0.0-4.9); Calcium 8.7 mg/dL (8.5-10.5); Carbon Dioxide 25 mmol/L (22-29); Chloride 97 mmol/L (98-107); Glomerular Filtration Rate 97.6 mL/min (90-130); Glucose 137 mg/dL (65-115); Osmolality Calculated 279 mOsm/kg (285-295); Potassium 4.3 mmol/L (3.5-5.1); Sodium 133 mmol/L (136-145)
--- NOTE | 2021-10-05 08:32 | USCV_ITS ---
Julius Correa Age: 61 Gender: M : 1960 Exam Date: 10/05/2021 09:15 Ordering Phys: Jesus Gilmore MD Technologist: Abigail Irvin [place] [facility] [place] Indication: DVT PROCEDURES: Comparison: none available. Venous duplex imaging was performed in bilateral lower extremities. The following venous structures were evaluated: common femoral vein, profunda vein, proximal portion of the greater saphenous vein, superficial femoral vein, and the popliteal vein. In addition, the posterior tibial and peroneal trunk were evaluated. Grayscale and doppler images were obtained. Reflux maneuvers were performed with patient in the standing position. FINDINGS: No evidence of DVT seen in any vessel visualized at this time. The veins were found to be easily compressible with spontaneous blood flow. Non pulsatile flow pattern. CONCLUSIONS No evidence of DVT in the above-mentioned identifiable veins. Dr Mandy Henning MD [facility] (Electronically Signed) Final Date: 05 October 2021 14:10 S
[2021-10-05] MEDS: duloxetine 60 mg Capsule PO (08:36)
[2021-10-05] MEDS: ascorbic acid 500 mg Tablet 1000 MG PO ×2 (08:36→17:39)
[2021-10-05] MEDS: clopidogrel 75 mg Tablet PO (08:36)
[2021-10-05] MEDS: zinc gluconate 50 mg Tablet PO (08:36)
[2021-10-05] MEDS: pantoprazole DR 40 mg Tablet PO (08:36)
[2021-10-05] MEDS: apixaban 5 mg Tablet 2.5 MG PO (08:36)
[2021-10-05] MEDS: insulin glargine 100 units/1 mL 55 UNIT SUBCUT (08:37)
[2021-10-05 08:38] LABS: Procalcitonin 0.06 ng/mL (0-0.5)
[2021-10-05 11:21] LABS: Glucose Point of Care 295 mg/dL (70-110)
[2021-10-05] MEDS: insulin lispro 100 unit/1 mL SUBCUT ×2 (12:56→17:39)
[2021-10-05] MEDS: morphine 4 mg/mL SDV 1 mL 2 MG IVP ×3 (12:56→23:10)
[2021-10-05] MEDS: levoFLOXacin 750 mg Tablet PO (12:57)
--- NOTE | 2021-10-05 13:43 | P.PN_ITS ---
Subjective Subjective: Interval history: Patient was seen and examined, he became more hypoxic and short of breath overnight, this morning persistent hypoxia requested CTA secondary to increasing D-dimer, will add empirical coverage for bacterial pneumonia We will start BiPAP, I will repeat blood gas after 2 to 3 hours on BiPAP In case of worsening he should be transferred to ICU, nurse and RT updated High risk for intubation Status post Actemra, I would not repeat Actemra dose as literature supports more superimposed infection with second dose Vitals/I&O/Wt Last Vital Signs Temp 98.4 F 10/05/21 07:44 Pulse 103 H 10/05/21 13:25 Resp 26 H 10/05/21 12:56 BP 123/85 10/05/21 11:23 Pulse Ox 93 10/05/21 13:25 10/04/21 10/05/21 10/05/21 22:59 06:59 14:59 Intake Total 480 / 1080 120 / 1200 120 / 120 Output Total 250 / 250 Balance 230 / 830 120 / 950 120 / 120 Physical Exam Narrative: EXAM NARRATIVE: Patient was in his bed saturating 89% on 55 L, I have increased FiO2 to 100% for CTA chest We will use BiPAP afterwards EOMI, PERRLA Fatigue and lethargic Bilateral breath sound no active rhonchi or crackles S1, S2 EOMI, PERRLA Nonfocal neuro exam Looks dehydrated Data : 10/05/21 06:03 10/05/21 06:03 Micro: Microbiology 09/30/21 13:00 Blood Culture - Final Blood NO GROWTH AFTER 5 DAYS 10/04/21 20:00 Legionella Urinary Antigen - Final Urine,Voided Bacterial Antigens - Final 09/30/21 05:54 Blood Culture - Final Blood NO GROWTH AFTER 5 DAYS A&P Assessment and plan (1) Hypotension: Status: Acute (2) COVID-19: Status: Acute (3) COPD exacerbation: Status: Acute (4) Acute respiratory failure with hypoxia: Status: Acute (5) GERD (gastroesophageal reflux disease): Status: Acute Qualifiers: Esophagitis presence: without esophagitis Qualified Code(s): K21.9 - Gastro-esophageal reflux disease without esophagitis (6) Alcohol dependence, in remission: Status: Acute (7) Anxiety: Status: Acute (8) Diabetes mellitus type 2 in nonobese: Status: Acute (9) Essential hypertension: Status: Acute (10) Major depressive disorder, recurrent, severe with psychotic symptoms: Status: Acute Additional A&P Information Hypotension: Improved with IV fluid hydration At that time remarkable, no signs of cardiogenic or sepsis shock, blood pressure improved with IV fluid hydration His p.o. intake has decreased Persistent hypoxia COVID-19 Worsening hypoxia Transitioned from nasal cannula to heated high flow Status post Actemra Start BiPAP therapy repeat blood gas in few hours In case of further worsening he should be transferred to ICU High risk for intubation Brother updated Requested CTA chest today, venous Dopplers for high D-dimer I have increased his FiO2 to 100% and 55 L not to get CTA and after CTA he will be put on BiPAP Started on empirical bacterial pneumonia coverage procalcitonin unremarkable, check MRSA PCR, urine antigens Panic attacks: Would use morphine, put fan in the room Xanax for as needed basis Polycythemia secondary to dehydration We will give him a small bolus of 250 cc Clinically looks dehydrated Consistent carb diet Full code Currently on Eliquis for DVT prophylaxis Attestations Medical Necessity Statement*: High risk for intubation Time Spent in Patient Care: 16 - 35 minutes Coding Level of Care Code Acute 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
[2021-10-05] MEDS: dexamethasone 10 mg/mL INJ 6 MG IVP (14:14)
[2021-10-05 15:18] LABS: ABG PCO2 37.3 mmHg (35-45); ABG PH Result 7.42 (7.35-7.45); Arterial Blood Gas Hematocrit 56.2 % (42-52); Base Excess ABG 0.1 mmol/L (-2.0-2.0); Blood Gas Operator Identificat AMH; Blood Gas Sample Site Brachial, left; Blood Gas Sample Type Arterial; Carboxyhemoglobin 0.6 %THgb (0.4-20.1); HCO3 ABG 24.3 mmol/L (22-26); HGB O2 Sat 84.8 % (95-100); Ionized Calcium Level - ABG 1.2 mmol/L (1.1-1.4); Methemoglobin 0.7 % (0.4-1.5); Oxygen Device BIPAP; Oxygen Saturation ABG 85.9; Potassium Level - ABG 4.5 mmol/L (3.5-5.0); Total Hemoglobin 18.3 g/dL (14-18)
[2021-10-05 17:23] LABS: Glucose Point of Care 175 mg/dL (70-110)
--- NOTE | 2021-10-05 17:37 | P.MISC_ITS ---
Miscellaneous Note Note: Patient was examined multiple times today At the time of my evaluation in the evening around 5 PM he was not using his respiratory sensory muscles, he was watching television He was saturating 95% on BiPAP settings 14 and 8 tidal volume above 900 respiratory rate 25-[address] Ibrahim Plan is to transfer him to ICU Keep him on BiPAP settings 12 and 6 to decrease tidal volume to avoid volume trauma Keep him on Precedex in case of any worsening threshold is low for intubation [employer] Tech will see him tomorrow morning before his clinic Repeat x-ray in the morning At this point patient is not using his respiratory accessory muscles He saturating 95% on BiPAP settings 12/6 FiO2 100%, respiratory 25-30, minute ventilation down to 700-800 with decrease in IPAP Brother updated Patient does not want to get in touch with his daughter at all(he did not give me permission to talk with his daughter)
--- NOTE | 2021-10-05 17:59 | PC.NURSE ---
Patient transferred to ICU at this time. Throughout shift patient went from heated high flow 55L/100%. Patient then placed on Bipap /8 at 100%. Anxiety noted throughout shift, patient notified of anxiety. Morphine 2mg given x2.
[2021-10-05] MEDS: dexmedetomidine 400 MCG in sodium chloride 0.9% (100 ml) 100 ML IV (18:14)
--- NOTE | 2021-10-05 18:22 | PC.NURSE ---
Shift Note Frequent safety and comfort rounds continue. Orders and/or nursing care completed as indicated. Patient monitored for response to intervention and treatment(s). Report received from Elizabeth at 1724. Patient transferred by bed from Med Surg to ICU 9 around 1750. Patient had Precedex running at 0.169 mcg/kg/hr. Patient oriented to room. Patient expressed anxiety and asked frequent questions about anxiety medications being given on time when he feels anxiety. Nurse explained that the patient had Precedex running in his IV for anxiety. The nurse gave the patient the call light. Patient in bed and refused the television to be turned on.
--- NOTE | 2021-10-05 19:05 | CTR_ITS ---
PROCEDURE INFORMATION: Exam: CTA Chest With Contrast Exam date and time: 10/05/2021 7:05 PM Age: 61 years old Clinical indication: Dyspnea; Patient HX: Covid+ w hypoxia; Additional info: Covid hypoxia TECHNIQUE: Imaging protocol: Computed tomographic angiography of the chest with contrast. 3D rendering (Not supervised by radiologist): MIP and/or 3D reconstructed images were created by the technologist. Radiation optimization: All CT scans at this facility use at least one of these dose optimization techniques: automated exposure control; mA and/or kV adjustment per patient size (includes targeted exams where dose is matched to clinical indication); or iterative reconstruction. Contrast material: OMNI 350; Contrast volume: 72 ml; Contrast route: INTRAVENOUS (IV); COMPARISON: CT chest w con* [id number] 10/12/2018 2:46 PM RADIATION DOSE METRICS: Total DLP (mGy-cm): 563.44 FINDINGS: Pulmonary arteries: There is no pulmonary embolus. Aorta: Unremarkable. No aortic aneurysm. No aortic dissection. Lungs: There are severe emphysematous changes. There is diffuse ground-glass/airspace density, which may represent pneumonia, pulmonary edema, or inflammatory pneumonitis such as ARDS. Pleural spaces: Unremarkable. No pneumothorax. No pleural effusion. Heart: The heart is enlarged. Lymph nodes: There is mediastinal adenopathy including the 1.8 cm short axis subcarinal lymph node. There is a 1.4 cm short axis left hilar lymph node and a 1.2 cm short axis right hilar lymph node. Diaphragm: A small hiatal hernia is present. Liver: Several liver cysts are noted. Spleen: There is a large smoothly marginated calcification in the spleen compatible with old granulomatous changes or calcified cyst. Adrenal glands: The adrenal glands are normal. Bones/joints: Unremarkable. No acute fracture. Soft tissues: Unremarkable. CT/CT angio chest PE protcl [id number] IMPRESSION: 1. There is no pulmonary embolus. 2. There is diffuse ground-glass/airspace density, which may represent pneumonia, pulmonary edema, or inflammatory pneumonitis such as ARDS. Radiation Dose CTDIVOL = (mGy): DLP = 563.44 (mGy-cm)
[2021-10-05] MEDS: budesonide 0.5 mg/2 mL Neb 0.25 MG INHALATION (19:42)
[2021-10-05] MEDS: iohexol 350 mg/mL 100 mL Btl IV (20:01)
[2021-10-05] MEDS: apixaban 5 mg Tablet PO (21:19)
[2021-10-06] VITALS (52 sets, daily range): BP systolic 80–139; BP diastolic 54–82; PULSE 53–92; RESP 10–27; TEMP 35.6–37.1; O2SAT 71–99; BMI 22.7
[2021-10-06 03:22] LABS: ABG PCO2 40.2 mmHg (35-45); ABG PH Result 7.41 (7.35-7.45); Base Excess ABG 0.6 mmol/L (-2.0-2.0); Blood Gas Allen Test Pos; Blood Gas Sample Site Radial, left; Blood Gas Sample Type Arterial; HCO3 ABG 25.3 mmol/L (22-26); Oxygen Device BIPAP; PO2 ABG 58.6 mmHg (80.0-100.0)
--- NOTE | 2021-10-06 04:00 | XRR_ITS ---
PROCEDURE INFORMATION: Exam: XR Chest Exam date and time: 10/06/2021 4:00 AM Age: 61 years old Clinical indication: Dyspnea; Additional info: Bipap covid TECHNIQUE: Imaging protocol: XR of the chest. Views: 1 view. COMPARISON: CR XR chest 1V portable [id number] 10/04/2021 3:57 PM FINDINGS: Lungs: Persistently increased interstitial markings, left greater than right, which can be seen with pulmonary edema or pneumonia. Pleural spaces: Unremarkable. No pleural effusion. No pneumothorax. Heart/Mediastinum: Stable cardiomediastinal silhouette. Bones/joints: Unremarkable. XR/XR chest 1V portable [id number] IMPRESSION: Nonspecific imaging findings, which can be seen with pulmonary edema or pneumonia. Clinical correlation is recommended. Radiation Dose CTDIVOL = (mGy): DLP = (mGy-cm)
[2021-10-06 05:04] LABS: Basophils % 0.4 %; Eosinophils # 0.1 10^3/uL (0.0-0.8); Eosinophils % 2.3 %; Hematocrit 50.3 % (42.0-52.0); Hemoglobin 17.2 g/dL (11.7-16.6); Lymphocytes # 0.5 10^3/uL (0.8-4.8); Lymphocytes % 9.3 %; Mean Corpuscular HGB Conc 34.2 g/dL (30.0-36.0); Mean Corpuscular Hemoglobin 31.7 pg (28.0-34.0); Mean Corpuscular Volume 92.6 fl (80-94); Mean Platelet Volume 10.4 fL (7.4-10.4); Monocytes # 0.2 10^3/uL (0.2-0.9); Monocytes % 3.7 %; Neutrophils # 3.84 10^3/uL (1.8-7.7); Neutrophils % 79.5 %; Nucleated Red Blood Cells % 0 %; Platelet Count 281 10^3/cmm (130-400); Red Blood Count 5.43 10^6/uL (4.1-5.3); Red Cell Distribution Width 13.5 % (12.1-15.1); White Blood Count 4.8 10^3/uL (4.0-10.0)
[2021-10-06 05:20] LABS: D Dimer 3.27 ug/mIFEU (0-0.59)
[2021-10-06] MEDS: levoFLOXacin 750 mg Tablet PO (05:36)
[2021-10-06] MEDS: dexmedetomidine 400 MCG in sodium chloride 0.9% (100 ml) 100 ML 8.74 MCG IV (05:36)
[2021-10-06 05:37] LABS: Procalcitonin 0.05 ng/mL (0-0.5)
--- NOTE | 2021-10-06 05:44 | PC.NURSE ---
Shift Note Frequent safety and comfort rounds continue. Orders and/or nursing care completed as indicated. Patient monitored for response to intervention and treatment(s). Education provided includes Precedex. Patient verbalizes understanding of teaching. Patient is alert and oriented x4, no wounds or skin issues noted at this time. He has difficulty urinating using urinal and also reported anxiety throughout the shift. Precedex drip titrated per protocol. Patient remains on BIPAP 100% FiO2. Will continue to monitor.
[2021-10-06 05:50] LABS: Anion Gap 17.8 (5-19); Blood Urea Nitrogen 20 mg/dL (8-23); C Reactive Protein 4.4 mg/L (0.0-4.9); Calcium 8.6 mg/dL (8.5-10.5); Carbon Dioxide 25 mmol/L (22-29); Chloride 97 mmol/L (98-107); Glomerular Filtration Rate 85.2 mL/min (90-130); Glucose 110 mg/dL (65-115); Lactate Dehydrogenase 672 U/L (135-225); Osmolality Calculated 283 mOsm/kg (285-295); Potassium 4.8 mmol/L (3.5-5.1); Sodium 135 mmol/L (136-145)
[2021-10-06 07:52] LABS: Glucose Point of Care 121 mg/dL (70-110)
[2021-10-06] MEDS: budesonide 0.5 mg/2 mL Neb 0.25 MG INHALATION ×2 (07:58→19:57)
[2021-10-06] MEDS: ascorbic acid 500 mg Tablet 1000 MG PO ×2 (08:38→17:39)
[2021-10-06] MEDS: pantoprazole DR 40 mg Tablet PO (08:38)
[2021-10-06] MEDS: zinc gluconate 50 mg Tablet PO (08:38)
[2021-10-06] MEDS: apixaban 5 mg Tablet PO (08:38)
[2021-10-06] MEDS: insulin glargine 100 units/1 mL 55 UNIT SUBCUT (08:55)
--- NOTE | 2021-10-06 08:57 | P.CONIM_ITS ---
Providers/Reason For Consult Consulting Physician/Specialty*: Gaudencio Ibrahim MD / Pulmonary Critical Care Medicine Reason for Consult*: Acute hypoxic respiratory failure secondary to COVID 19 pneumonia Requesting Physician: Jesus Gilmore MD Attending Physician: Jesus Gilmore MD Primary Care Provider: Romina Schofield MD History of Present Illness History of Present Illness Julius Correa is a 61 year old male with past medical history of ex-smoker with COPD, CAD, diabetes, dyslipidemia, GERD, hypertension does not use oxygen on a daily basis, came to ER on 09/29/2021 for hypoxia during monoclonal antibody infusion. His Covid PCR + 09/25/2021. Patient is stating that his symptoms started roughly 7 to 8 days prior to admission with shortness of breath, chills fatigue and lethargy, he does not smoke or drink alcohol. Patient was admitted for acute hypoxia secondary to ARDS due to COVID-19 pneumonia-during his hospitalization he received remdesivir and Decadron since admission, 1 dose Actemra but his oxygen requirements have steadily kept increasing. Yesterday he was placed on BiPAP 12/8 and FiO2 100% and saturating 93%. He was transferred to ICU for close monitoring given increasing oxygen requirements. Pulmonary critical care consulted for the same reason -Patient seen at bedside today - Sitting out of bed to chair on BiPAP 12/8 FiO2 90% and saturating 100% -Denied any complaints and does not appear to be in respiratory distress -Other labs and imaging reviewed Review of Systems General: Reports: 10 or more systems reviewed and unremarkable except in HPI and below Meds/Allergies Home Medications and Allergies Home Medications Medication Instructions Recorded Confirmed Last Taken Type hydroxyzine pamoate 25 mg PO TID@ PRN 10/31/20 09/30/21 10/29/20 History metoprolol tartrate 25 mg tablet 12.5 mg PO BID 30 Days #30 tab 05/02/21 09/30/21 Unknown Rx aripiprazole 400 mg intramuscular 400 mg IM Q28D #1 ea 06/25/21 09/30/21 Unknown Rx suspension,extended release albuterol sulfate 90 mcg/actuation 2 puff INHALATION Q6H PRN #18 g 08/03/21 09/30/21 Unknown Rx aerosol inhaler atorvastatin 40 mg tablet 40 mg PO DAILY 30 Days #30 tab 08/03/21 09/30/21 Unknown Rx blood sugar diagnostic #100 ea 08/03/21 09/30/21 Unknown Rx clopidogrel 75 mg tablet 75 mg PO DAILY 30 Days #30 tab 08/03/21 09/30/21 Unknown Rx insulin glargine 100 unit/mL 55 unit SUBCUT DAILY 30 Days #20 ml 08/03/21 09/30/21 Unknown Rx subcutaneous solution lisinopril 5 mg tablet 5 mg PO DAILY 30 Days #30 tab 08/03/21 09/30/21 Unknown Rx loratadine 10 mg tablet 10 mg PO DAILY PRN 30 Days #30 tab 08/03/21 09/30/21 Unknown Rx metformin 1,000 mg tablet See Rx Instructions .ROUTE 08/03/21 09/30/21 Unknown Rx .COMPLEX #30 tab pantoprazole 40 mg tablet,delayed 40 mg PO DAILY 30 Days #30 tab 08/03/21 09/30/21 Unknown Rx release sitagliptin 100 mg tablet 100 mg PO DAILY 30 Days #30 tab 08/03/21 09/30/21 Unknown Rx acarbose 100 mg tablet 100 mg PO BID 30 Days #60 tab 08/05/21 09/30/21 Unknown Rx omega-3 acid ethyl esters 1 gram See Rx Instructions .ROUTE 08/05/21 09/30/21 Unknown Rx capsule .COMPLEX #90 cap bupropion HCl 300 mg 24 hr tablet, 300 mg PO QAM #30 tab 08/07/21 09/30/21 Unknown Rx extended release duloxetine 30 mg capsule,delayed 30 mg PO DAILY #30 cap 08/07/21 09/30/21 Unknown Rx release duloxetine 60 mg capsule,delayed 60 mg PO DAILY@0900 #30 cap 08/07/21 09/30/21 Unknown Rx release quetiapine 100 mg tablet See Rx Instructions .ROUTE 08/07/21 09/30/21 Unknown Rx .COMPLEX #90 tab quetiapine 400 mg tablet 400 mg PO BEDTIME@2200 #30 tab 08/07/21 09/30/21 Unknown Rx blood glucose control, low #1 ea 08/11/21 09/30/21 Unknown Rx blood-glucose meter #1 ea 08/11/21 09/30/21 Unknown Rx isosorbide mononitrate 10 mg tablet 10 mg PO .COMPLEX #60 tab 08/28/21 09/30/21 Unknown Rx twlzowbfdesxohe-lpldlqjtkxarhen-HI 5 ml PO Q6H PRN #118 ml 09/25/21 09/30/21 Unknown Rx 2 mg-30 mg-10 mg/5 mL oral syrup aripiprazole [Abilify] 5 mg PO DAILY 09/30/21 09/30/21 Unknown History mirtazapine 7.5 mg PO DAILY 09/30/21 09/30/21 Unknown History Allergies Allergy/AdvReac Type Severity Reaction Status Date / Time No Known Allergies Allergy Verified 09/25/21 11:22 Current Medications Current Medications Generic Name Dose Route Start Last Admin Trade Name Freq PRN Reason Stop Dose Admin Acetaminophen 650 mg 09/29/21 20:29 10/04/21 08:59 Acetaminophen 325 Mg Tablet PO 650 mg Q6H PRN Administration Mild/Mod Pain Or Temp >/= 101 Apixaban 5 mg 10/05/21 21:00 10/06/21 08:38 Apixaban 5 Mg Tablet PO 5 mg BID@0900,2100 JACKIE Administration Ascorbic Acid 1,000 mg 09/30/21 09:00 10/06/21 08:38 Ascorbic Acid 500 Mg Tablet PO 1,000 mg BID JACKIE Administration Baricitinib 4 mg 10/05/21 18:30 10/05/21 19:20 Baricitinib 2 Mg Tablet PO 10/18/21 18:31 4 mg Q24H JACKIE Administration Budesonide 0.25 mg 10/05/21 19:25 10/06/21 07:58 Budesonide 0.5 Mg/2 Ml Neb INHALATION 0.25 mg BID.RESPIRATORY JACKIE Administration Clopidogrel Bisulfate 75 mg 09/30/21 09:00 10/05/21 08:36 Clopidogrel 75 Mg Tablet PO 75 mg DAILY JACKIE Administration Dexamethasone 6 mg 09/30/21 15:00 10/05/21 14:14 Dexamethasone 10 Mg/Ml Inj IVP 6 mg Q24H JACKIE Administration Duloxetine HCl 60 mg 09/30/21 09:00 10/05/21 08:36 Duloxetine 60 Mg Capsule PO 60 mg DAILY@0900 JACKIE Administration Dexmedetomidine HCl 400 mcg/ 104 mls @ 0 mls/hr 10/05/21 17:15 10/06/21 07:07 Sodium Chloride IV 0.7 mcg/kg/hr .Q0M JACKIE 12.23 mls/hr Titration Protocol Per Protocol Insulin Glargine 55 unit 10/05/21 09:00 10/05/21 08:37 Insulin Glargine 100 Units/1 Ml SUBCUT 55 unit DAILY JACKIE Administration Insulin Human Lispro 0 unit 10/01/21 18:00 10/06/21 07:51 Insulin Lispro 100 Unit/1 Ml SUBCUT Not Given TIDWM [facility] Protocol Levofloxacin 750 mg 10/05/21 08:35 10/06/21 05:36 Levofloxacin 750 Mg Tablet PO 750 mg DAILY@0600 JACKIE Administration Protocol Lisinopril 10 mg 09/30/21 09:00 09/30/21 08:59 Lisinopril 10 Mg Tablet PO 10 mg DAILY JACKIE Administration Metoprolol Tartrate 12.5 mg 09/29/21 21:00 09/30/21 08:58 Metoprolol Tartrate 25 Mg Tablet PO 12.5 mg BID@0900,2100 JACKIE Administration Morphine Sulfate 2 mg 10/05/21 14:14 10/05/21 23:10 Morphine 4 Mg/Ml Sdv 1 Ml IVP 2 mg Q4H PRN Administration SEVERE PAIN Pantoprazole Sodium 40 mg 09/30/21 09:00 10/06/21 08:[address] 40 Mg Tablet PO 40 mg DAILY JACKIE Administration Quetiapine Fumarate 300 mg 09/29/21 21:00 10/04/21 22:06 Quetiapine 300 Mg Tablet PO 300 mg BEDTIME JACKIE Administration Zinc Gluconate 50 mg 09/30/21 09:00 10/06/21 08:38 Zinc Gluconate 50 Mg Tablet PO 50 mg DAILY JACKIE Administration PFSH Acute PFSH: Medical History Alcohol dependence, in remission Anxiety CAD (coronary artery disease) Chest pain COPD (chronic obstructive pulmonary disease) Diabetes mellitus type 2 in nonobese Enrolled in chronic care management Essential hypertension GERD (gastroesophageal reflux disease) Hypersomnia Intervertebral disc disorders with radiculopathy, lumbosacral region Major depressive disorder, recurrent, severe with psychotic symptoms Mixed hyperlipidemia Psychiatric care Unstable angina Surgical History S/P appendectomy S/P coronary angioplasty Family History Other Arthritis Asthma Cancer Social History Smoking and tobacco status: former smoker Quit status (tobacco): has quit using tobacco Year quit tobacco: DEC 2017 Second hand smoke exposure: Yes Alcohol intake: never Desire information about alcohol rehabilitation?: No Counseling given: No Desire information about substance/drug rehabilitation?: No Counseling given: No Lives independently: Yes Housing: House Marital status: service: No Current occupational status: unemployed and disabled Current gender identity: Male Vitals/I&O/Wt Last Vital Signs Temp 98.7 F 10/06/21 07:30 Pulse 65 10/06/21 08:17 Resp 24 H 10/06/21 08:17 BP 104/75 10/06/21 08:00 Pulse Ox 98 10/06/21 08:17 10/05/21 10/06/21 10/06/21 22:59 06:59 14:59 Intake Total 18.502 / 138.502 185.498 / 324.000 13.256 / 13.256 Balance 18.502 / 138.502 185.498 / 324.000 13.256 / 13.256 Weight last 48 hrs Weight 149 lb 6 oz Physical Exam Narrative: EXAM NARRATIVE: General: alert, sitting comfortably in chair and watching television, on BiPAP HEENT: conj clear, EOMI, PERRL, mmm, Neck: supple, no meningismus Heme: no cervical LAP Pulmonary: CTAB, no wheezing, rhonchi, crackles Cardiovascular: rrr, nl s1s2, no mrg Abdomen: soft, nt, nd, no r/g, bs+ Extremities: pulses +, no edema, no c/c : no CVA tenderness Skin: intact, no rash MSK: no back or neck pain Neurologic: grossly intact Data Labs: Other Labs: Laboratory Results WBC 4.8 10^3/uL (4.0- 10.0) 10/06/21 04:09 RBC 5.43 10^6/uL (4.1 -5.3) H 10/06/21 04:09 Hgb 17.2 g/dL (11.7-1 6.6) H 10/06/21 04:09 Hct 50.3 % (42.0-52.0 ) 10/06/21 04:09 MCV 92.6 fl (80-94) 10/06/21 04:09 MCH 31.7 pg (28.0-34. 0) 10/06/21 04:09 MCHC 34.2 g/dL (30.0-3 6.0) 10/06/21 04:09 RDW 13.5 % (12.1-15.1 ) 10/06/21 04:09 Plt Count 281 10^3/cmm (130 -400) 10/06/21 04:09 MPV 10.4 fL (7.4-10.4 ) 10/06/21 04:09 Neut % (Auto) 79.5 % 10/06/21 04:09 Lymph % (Auto) 9.3 % 10/06/21 04:09 [place] % (Auto) 3.7 % 10/06/21 04:09 Eos % (Auto) 2.3 % 10/06/21 04:09 Baso % (Auto) 0.4 % 10/06/21 04:09 Neut # (Auto) 3.84 10^3/uL (1.8 -7.7) 10/06/21 04:09 Lymph # (Auto) 0.5 10^3/uL (0.8- 4.8) L 10/06/21 04:09 [place] # (Auto) 0.2 10^3/uL (0.2- 0.9) 10/06/21 04:09 Eos # (Auto) 0.1 10^3/uL (0.0- 0.8) 10/06/21 04:09 Baso # (Auto) 0.0 10^3/uL (0.0- 0.1) 10/06/21 04:09 Nucleated RBC % (a uto) 0 % 10/06/21 04:09 Nucleated RBCs # 0.0 /100WBC 10/06/21 04:09 D-Dimer 3.27 ug/mIFEU (0- 0.59) H 10/06/21 04:09 Specimen Type Arterial 10/06/21 03:20 Sample Site Radial, left 10/06/21 03:20 ABG pH 7.41 (7.35-7.45) 10/06/21 03:20 ABG pCO2 40.2 mmHg (35-45) 10/06/21 03:20 ABG pO2 58.6 mmHg (80.0-1 00.0) L 10/06/21 03:20 ABG HCO3 25.3 mmol/L (22-2 6) 10/06/21 03:20 ABG O2 Saturation 85.9 10/05/21 15:05 ABG Base Excess 0.6 mmol/L (-2.0- 2.0) 10/06/21 03:20 Roger Test Pos 10/06/21 03:20 A-a O2 Gradient 80.0 mmHg (5-10) H 10/05/21 15:05 Hematocrit 54.0 % (42-52) H 10/06/21 03:20 Hgb O2 Saturation 84.8 % (95-100) L 10/05/21 15:05 Carboxyhemoglobin 0.6 %THgb (0.4-20 .1) 10/05/21 15:05 Methemoglobin 0.7 % (0.4-1.5) 10/05/21 15:05 Total Hemoglobin 18.3 g/dL (14-18) H 10/05/21 15:05 Sodium 131.0 mmol/L (131 -143) 10/05/21 15:05 Potassium 4.5 mmol/L (3.5-5 .0) 10/05/21 15:05 Glucose 213.0 mg/dL (70-1 15) H 10/05/21 15:05 Ionized Calcium 1.2 mmol/L (1.1-1 .4) 10/05/21 15:05 O2 Delivery Device Bipap 10/06/21 03:20 O2 Liters/Min 55.0 % 10/05/21 03:13 FiO2 100.0 % 10/06/21 03:20 On Site Property Manager ID [email or web address] 10/06/21 03:20 Sodium 135 mmol/L (136-1 45) L 10/06/21 04:09 Potassium 4.8 mmol/L (3.5-5 .1) 10/06/21 04:09 Chloride 97 mmol/L (98-107 ) L 10/06/21 04:09 Carbon Dioxide 25 mmol/L (22-29) 10/06/21 04:09 Anion Gap 17.8 (5-19) 10/06/21 04:09 BUN 20 mg/dL (8-23) 10/06/21 04:09 Creatinine 0.9 mg/dL (0.7-1. 2) 10/06/21 04:09 GFR Calculation 85.2 mL/min (90-1 30) L 10/06/21 04:09 Glucose 110 mg/dL (65-115 ) 10/06/21 04:09 POC Glucose 121 mg/dL (70-110 ) H 10/06/21 07:49 Calculated Osmolal ity 283 mOsm/kg (285- 295) L 10/06/21 04:09 Lactic Acid 1.8 mmol/L (0.5-2 .2) 09/30/21 05:55 Calcium 8.6 mg/dL (8.5-10 .5) 10/06/21 04:09 Magnesium 2.4 mg/dL (1.7-2. 3) H 09/30/21 05:54 Total Bilirubin 0.6 mg/dL (0.15-1 .2) 09/30/21 05:54 AST 23 U/L (0-40) 09/30/21 05:54 ALT 15 U/L (0-41) 09/30/21 05:54 Alkaline Phosphata se 44 IU/L (40-130) 09/30/21 05:54 Lactate Dehydrogen ase 672 U/L (135-225) H 10/06/21 04:09 Creatine Kinase 36 U/L (39-308) L 09/30/21 05:54 C-Reactive Protein 4.4 mg/L (0.0-4.9 ) 10/06/21 04:09 Total Protein 6.8 g/dL (6.6-8.7 ) 09/30/21 05:54 Albumin 3.6 g/dL (3.5-5.2 ) 09/30/21 05:54 Globulin 3.2 g/dL (1.3-4.6 ) 09/30/21 05:54 Procalcitonin 0.05 ng/mL (0-0.5 ) 10/06/21 04:09 TSH 1.32 uIU/mL (0.27 -4.20) 09/30/21 05:55 Random Cortisol 3.83 ug/dL (2.47- 19.5) 09/30/21 05:55 Impressions Chest CTA 10/05/21 19:05 IMPRESSION: 1. There is no pulmonary embolus. 2. There is diffuse ground-glass/airspace density, which may represent pneumonia, pulmonary edema, or inflammatory pneumonitis such as ARDS. Radiation Dose CTDIVOL = (mGy): DLP = 563.44 (mGy-cm) Chest X-Ray 10/06/21 04:00 IMPRESSION: Nonspecific imaging findings, which can be seen with pulmonary edema or pneumonia. Clinical correlation is recommended. Radiation Dose CTDIVOL = (mGy): DLP = (mGy-cm) Micro: Micro: Microbiology 09/30/21 13:00 Blood Culture - Fi nal Blood NO GROWTH AFTER 5 DAYS 10/04/21 20:00 Legionella Urinary Antigen - Final Urine,Voided Bacterial Antigens - Final 09/30/21 05:54 Blood Culture - Fi nal Blood NO GROWTH AFTER 5 DAYS A&P Assessment and plan (1) Acute respiratory failure with hypoxia: Status: Acute (2) ARDS (adult respiratory distress syndrome): Status: Acute (3) COVID-19: Status: Acute (4) COPD (chronic obstructive pulmonary disease): Status: Acute Qualifiers: COPD type: emphysema Emphysema type: centrilobular Qualified Code(s): J43.2 - Centrilobular emphysema (5) Diabetes mellitus type 2 in nonobese: Status: Acute (6) Essential hypertension: Status: Acute #Acute hypoxic respiratory failure secondary to ARDS due to COVID-19 pneumonia #Underlying COPD emphysema #[id number] 2017 #History of CAD #Diabetes controlled #Hypertension-controlled -Alert oriented and answers all questions-does not appear to be in respiratory distress -COVID-19 PCR + 09/25/2021-symptoms started 09/20/2021 -S/p 1 dose Actemra, completed 5-day course of remdesivir -Currently on dexamethasone 6 mg IVP daily started 09/29/2021 -Also started on baricitinib yesterday 10/05/2021 -Currently on BiPAP 10/22 FiO2 90% and saturating 100% on monitor; ABG with the settings today morning 7.4 //25 -Titrated down FiO2 to 80% and informed RT to change to high flow nasal cannula today and monitor -CTA 10/05/2021: Showed no evidence of PE. Diffuse GGO/airspace density -Venous Doppler 10/05/2021: No evidence of DVT -LDH 672, CRP 4.4, D-dimer 3. 2 7, procalcitonin 0.05 -Urine bacterial antigens and Legionella urine antigen-negative, blood cultures negative so far -We will send for MRSA PCR -Currently on levofloxacin 750 mg p.o. daily -Held metoprolol/lisinopril in view of hypotension during early part of hospitalization -Not sure why Plavix was held-we will recommend to continue -Currently patient on Lantus 55 units daily and lispro scale-sugars controlled -Currently on pantoprazole 40 mg p.o. daily for GERD -DVT prophylaxis: apixaban 5 mg p.o. twice daily-we will change to Heparin sc -Full code -Guarded prognosis -Need close monitoring in ICU for possible respiratory failure and low threshold for intubation-patient understands the risk and would want to avoid intubation if possible; but agrees if needed Recommendations conveyed to hospitalist, RN, RT taking care of the patient Consult Attestations Medical Necessity Statement: Acute hypoxic respiratory failure-need close ICU monitoring for possible respiratory failure and low threshold for intubation Time Spent in Patient Care: Greater than 35 minutes (>than 50% of time spent in counselling and/or direct pt care on unit) . Critical Care Time: The high probability of a clinically significant, sudden or life threatening deterioration of the patient's [pulmonary, endocrine] system(s) required my full and direct attention, intervention and personal management. The critical care time is as shown. This time is in addition to time spent performing any reported procedures but includes the following: [x] Data and vital sign review and interpretation [x] Patient assessment, examination and intervention [x] Documentation [x] Medication orders and management Critical Care Time (min): 45 Coding Level of Care Code New Pt Acute Cabin Furnishings Installer for Chg Fwd Patient Type New History Comprehensive Exam Comprehensive Medical Decision Making High Complexity Diagnoses Acute respiratory failure with hypoxia J96.01 ARDS (adult respiratory distress syndrome) J80 COVID-19 U07.1 COPD (chronic obstructive pulmonary disease) J43.2 COPD type: emphysema Emphysema type: centrilobular Diabetes mellitus type 2 in nonobese E11.9 Essential hypertension I10 Time Spent (min) 45
--- NOTE | 2021-10-06 09:27 | PC.CHAP ---
Pastoral Care Encounter/Spiritual Assessment Type of Contact [] Declined hadoop engineer visit [] Patient/Family/Request visit [] Outpatient visit [] Follow-up visit [] Physician referral [] Code/Alert [x] Routine visit [] Staff referral [] Actively dying [] Patient sleeping [] Family support [] [] Out of room [] Palliative care [] [] Receiving care in room [] Pre-surgical visit [] Trauma [] Long length of stay [x]ICU visit [x] Other: setting up Relational/Emotional Strength [] Patient feels connected with others/family/visitors/staff [] Distress [] Loneliness/isolation [] Abandonment Spirituality of Patient [] Person of Sis [] Attends Holiness of their Sis [] Believes in Prayer [] Reads Bible or Rastafarian materials [] There are Spiritual issues to be addressed Soil And Plant Scientist Interventions [x] Prayer [] Active listening [] Non-anxious presence [] Spiritual/emotional support [] Crisis/trauma care [] Spiritual counseling [] Bereavement support [] Provided bereavement packet [] Provided Bible/devotional materials [] Provided toy/stuffed animal, coloring book to patient or family member [] Provided Communion [] Anointing/[place] [] Salvation [x] Completed spiritual assessment [] Other: Impact on Illness or Injury [] Angry [] Fearful [] Anxious [] Often cries [] Exhaustion [] Unable to work [] Unable to attend episcopal [] Unable to walk/stand [] Unable to read [] Unable to drive [] Unable to eat/drink [] Unable to sleep [] Unable to be with family [] Patient intubated [] Other: Summary Time spent with patient
[2021-10-06 11:23] LABS: Glucose Point of Care 194 mg/dL (70-110)
--- NOTE | 2021-10-06 11:24 | PC.SOCIAL ---
IMM Update pg 2 of IMM updated and reviewed w/ patient. Copy provided.
[2021-10-06] MEDS: insulin lispro 100 unit/1 mL SUBCUT (11:37)
[2021-10-06] MEDS: heparin 5,000 unit/mL INJ 1 mL 5000 UNIT SUBCUT ×2 (11:52→19:35)
[2021-10-06] MEDS: ALPRAZolam 0.5 mg Tablet PO ×3 (12:14→23:34)
[2021-10-06] MEDS: acetaminophen 325 mg Tablet 650 MG PO (12:18)
[2021-10-06] MEDS: dexmedetomidine 400 MCG in sodium chloride 0.9% (100 ml) 100 ML 12.23 MCG IV ×2 (14:04→20:45)
[2021-10-06] MEDS: dexamethasone 10 mg/mL INJ 6 MG IVP (14:57)
--- NOTE | 2021-10-06 15:45 | PC.NURSE ---
1535 Patient able to speak with his brother via ICU I pad. Family phoned and given updates on condition and current plan of care via telephone, prior to I pad visit, verbalized understanding and did not have further questions at this time.
--- NOTE | 2021-10-06 15:53 | P.PN_ITS ---
Subjective Subjective: Interval history: Seen this AM. Patient appears very comfortable. He does not offer any complaints but does state that he feels a little better compared to yesterday. Vitals/I&O/Wt Last Vital Signs Temp 98.7 F 10/06/21 07:30 Pulse 53 L 10/06/21 14:00 Resp 18 10/06/21 12:01 BP 112/75 10/06/21 12:01 Pulse Ox 93 10/06/21 13:33 10/06/21 10/06/21 10/06/21 06:59 14:59 22:59 Intake Total 185.498 / 324.000 818.255 / 818.255 Balance 185.498 / 324.000 818.255 / 818.255 Weight last 48 hrs Weight 67.755 kg Physical Exam Narrative: EXAM NARRATIVE: General: alert, sitting comfortably in chair on high flow. Pulmonary: CTAB, no wheezing, rhonchi, crackles Cardiovascular: rrr, nl s1s2, no mrg Abdomen: soft, nt, nd, no r/g, bs+ Extremities: pulses +, no edema, no c/c : no CVA tenderness Skin: intact, no rash MSK: no back or neck pain Neurologic: grossly intact Urinary Catheter Management^: Paul: Cath Placed During This Visit: yes Urinary Catheter Date of Insertion: 10/06/21 Urinary Catheter Time of Insertion: 13:33 Data : 10/06/21 04:09 10/06/21 04:09 Micro: Microbiology 09/30/21 13:00 Blood Culture - Final Blood NO GROWTH AFTER 5 DAYS A&P Additional A&P Information #Acute hypoxic respiratory failure secondary to ARDS due to COVID-19 pneumonia #Underlying COPD emphysema #[id number] 2017 #History of CAD #Diabetes controlled #Hypertension-controlled -Alert oriented and answers all questions-does not appear to be in respiratory distress -COVID-19 PCR + 09/25/2021-symptoms started 09/20/2021 -S/p 1 dose Actemra, completed 5-day course of remdesivir -Currently on dexamethasone 6 mg IVP daily started 09/29/2021 -Start on baricitinib yesterday 10/05/2021 -Currently on BiPAP 10/22 FiO2 90% and saturating 100% on monitor; ABG with the settings today morning 7.4 1/40// -Titrated down FiO2 to 80% and informed RT to change to high flow nasal cannula today and monitor -CTA 10/05/2021: Showed no evidence of PE. Diffuse GGO/airspace density -Venous Doppler 10/05/2021: No evidence of DVT -LDH 672, CRP 4.4, D-dimer 3. 2 7, procalcitonin 0.05 -Urine bacterial antigens and Legionella urine antigen-negative, blood cultures negative so far -We will send for MRSA PCR -Currently on levofloxacin 750 mg p.o. daily -Held metoprolol/lisinopril in view of hypotension during early part of hospitalization -Continue plavix. -Currently patient on Lantus 55 units daily and lispro scale-sugars controlled -Currently on pantoprazole 40 mg p.o. daily for GERD Panic attacks: Would use morphine, put fan in the room Xanax for as needed basis Polycythemia secondary to dehydration We will give him a small bolus of 250 cc Clinically looks dehydrated Consistent carb diet Full code DVT PPX: heparin sub c Attestations Medical Necessity Statement*: > 48 hour stay. Keep in ICU for now for pending respiratory failure/worsening. Coding Level of Care Code Acute Chemical Unit Operator for Tyson Sanchez
[2021-10-06 17:35] LABS: Glucose Point of Care 84 mg/dL (70-110)
--- NOTE | 2021-10-06 18:17 | PC.NURSE ---
Shift Note Frequent safety and comfort rounds continue. Orders and/or nursing care completed as indicated. Patient monitored for response to intervention and treatment(s). Education provided includes medication education at administration, oxygen education, breathing techniques, current care plan, importance of ambulating, IS and flutter valve use. Patient verbalized understanding. Patient chief complaint this shift is of anxiety, relieved by TID PRN xanax. Patient has remained in the low 90% oxygen saturation and drops to the low 80's with exertion. Patient also reports feeling urgency to urinate despite Paul catheter. He transferred with minimal assistance to bedside chair and remained for approximately four hours, before requesting to return to bed. Family, Brother, updated at 0920 and again at 1530 when he used PAYMEY on the ICU Ipad. Precedix at 1.0. HHF 80%
[2021-10-07] VITALS (57 sets, daily range): BP systolic 93–155; BP diastolic 59–118; PULSE 55–74; RESP 16–32; TEMP 36.6–37.1; O2SAT 77–96; BMI 23.0
[2021-10-07] MEDS: dexmedetomidine 400 MCG in sodium chloride 0.9% (100 ml) 100 ML 17.48 MCG IV ×3 (03:20→17:30)
[2021-10-07 04:45] LABS: Basophils % 0.4 %; Eosinophils # 0.2 10^3/uL (0.0-0.8); Hematocrit 49.1 % (42.0-52.0); Lymphocytes # 0.8 10^3/uL (0.8-4.8); Lymphocytes % 11.9 %; Mean Corpuscular HGB Conc 34.6 g/dL (30.0-36.0); Mean Corpuscular Hemoglobin 31.1 pg (28.0-34.0); Mean Corpuscular Volume 89.8 fl (80-94); Mean Platelet Volume 10.1 fL (7.4-10.4); Monocytes # 0.2 10^3/uL (0.2-0.9); Monocytes % 3.4 %; Neutrophils # 5.26 10^3/uL (1.8-7.7); Neutrophils % 78.2 %; Nucleated Red Blood Cells % 0 %; Platelet Count 352 10^3/cmm (130-400); Red Blood Count 5.47 10^6/uL (4.1-5.3); Red Cell Distribution Width 13.2 % (12.1-15.1); White Blood Count 6.7 10^3/uL (4.0-10.0)
[2021-10-07] MEDS: heparin 5,000 unit/mL INJ 1 mL 5000 UNIT SUBCUT ×3 (04:55→20:20)
[2021-10-07] MEDS: levoFLOXacin 750 mg Tablet PO (04:56)
[2021-10-07 05:25] LABS: Anion Gap 16.3 (5-19); Blood Urea Nitrogen 27 mg/dL (8-23); Calcium 8.3 mg/dL (8.5-10.5); Carbon Dioxide 25 mmol/L (22-29); Chloride 97 mmol/L (98-107); Glomerular Filtration Rate 85.2 mL/min (90-130); Glucose 41 mg/dL (65-115); Osmolality Calculated 280 mOsm/kg (285-295); Potassium 4.3 mmol/L (3.5-5.1); Sodium 134 mmol/L (136-145)
[2021-10-07 05:33] LABS: Alveolar-Arterial Oxygen Gradi 59.4 mmHg (5-10); Arterial Blood Gas Hematocrit 53.8 % (42-52); Base Excess ABG 0.7 mmol/L (-2.0-2.0); Blood Gas Allen Test Pos; Blood Gas Operator Identificat JB; Blood Gas Sample Site Radial, right; Blood Gas Sample Type Arterial; Carboxyhemoglobin 0.6 %THgb (0.4-20.1); HCO3 ABG 25.8 mmol/L (22-26); HGB O2 Sat 90.9 % (95-100); Ionized Calcium Level - ABG 1.2 mmol/L (1.1-1.4); Methemoglobin 0.7 % (0.4-1.5); Oxygen Device BIPAP; Oxygen Saturation ABG 92.1; PO2 ABG 65.6 mmHg (80.0-100.0); Potassium Level - ABG 4.2 mmol/L (3.5-5.0); Total Hemoglobin 17.5 g/dL (14-18)
[2021-10-07 06:34] LABS: Glucose Point of Care 58 mg/dL (70-110)
--- NOTE | 2021-10-07 06:48 | PC.NURSE ---
Shift Note Frequent safety and comfort rounds continue. Orders and/or nursing care completed as indicated. Patient monitored for response to intervention and treatment(s). Education provided includes Precedex. Patient verbalizes understanding of teaching. Paul catheter drained 380 mls of dark yellow urine overnight. Patient is alert/oriented x4 and has no wounds or skin issues noted at this time. He was on BIPAP 80% FiO2 overnight and then transferred to [facility] 50L and 80% FiO2 this morning. Will continue to monitor.
[2021-10-07 07:16] LABS: Glucose Point of Care 109 mg/dL (70-110)
[2021-10-07] MEDS: zinc gluconate 50 mg Tablet PO (07:53)
[2021-10-07] MEDS: pantoprazole DR 40 mg Tablet PO (07:53)
[2021-10-07] MEDS: ascorbic acid 500 mg Tablet 1000 MG PO ×2 (07:53→18:23)
[2021-10-07] MEDS: ALPRAZolam 0.5 mg Tablet PO ×2 (07:53→13:42)
[2021-10-07] MEDS: clopidogrel 75 mg Tablet PO (07:53)
[2021-10-07] MEDS: insulin glargine 100 units/1 mL 55 UNIT SUBCUT (07:54)
[2021-10-07] MEDS: budesonide 0.5 mg/2 mL Neb 0.25 MG INHALATION ×2 (08:51→19:46)
[2021-10-07 11:20] LABS: Glucose Point of Care 64 mg/dL (70-110)
[2021-10-07] MEDS: morphine 4 mg/mL SDV 1 mL 2 MG IVP (14:35)
[2021-10-07] MEDS: dexamethasone 10 mg/mL INJ 6 MG IVP (14:52)
--- NOTE | 2021-10-07 15:53 | PM.PN ---
Subjective Subjective: Interval history: Seen this morning. Patient states he feels a lot better compared to before. He is on 80% FiO2. He feels better subjectively. He does does not like the feeling of the high flow but states he is willing to wear it. Vitals/I&O/Wt Last Vital Signs Temp 97.9 F 10/07/21 04:00 Pulse 61 10/07/21 15:09 Resp 22 H 10/07/21 14:35 BP 104/75 10/07/21 12:00 Pulse Ox 89 L 10/07/21 14:35 10/07/21 10/07/21 10/07/21 06:59 14:59 22:59 Intake Total 187.837 / 1606.255 652.935 / 652.935 Output Total 380 / 1230 350 / 350 Balance -192.163 / 376.255 652.935 / 652.935 -350 / 302.935 Weight last 48 hrs Weight 68.719 kg Weight 67.755 kg Physical Exam Narrative: EXAM NARRATIVE: General: alert, sitting comfortably in chair on high flow. Pulmonary: CTAB, no wheezing, rhonchi, crackles Cardiovascular: rrr, nl s1s2, no mrg Abdomen: soft, nt, nd, no r/g, bs+ Extremities: pulses +, no edema, no c/c Urinary Catheter Management^: Paul: Cath Placed During This Visit: yes Reason for Continuing Indwelling Catheter: Accurate Measurement of Urinary Output in Critically Ill Patients Urinary Catheter Date of Insertion: 10/06/21 Urinary Catheter Time of Insertion: 13:33 Data : 10/07/21 03:58 10/07/21 03:58 A&P Assessment and plan (1) Hypotension: Status: Acute (2) COVID-19: Status: Acute (3) COPD exacerbation: Status: Acute (4) Acute respiratory failure with hypoxia: Status: Acute (5) GERD (gastroesophageal reflux disease): Status: Acute Qualifiers: Esophagitis presence: without esophagitis Qualified Code(s): K21.9 - Gastro-esophageal reflux disease without esophagitis (6) Alcohol dependence, in remission: Status: Acute (7) Anxiety: Status: Acute (8) Diabetes mellitus type 2 in nonobese: Status: Acute (9) Essential hypertension: Status: Acute (10) Major depressive disorder, recurrent, severe with psychotic symptoms: Status: Acute Additional A&P Information #Acute hypoxic respiratory failure secondary to ARDS due to COVID-19 pneumonia #Underlying COPD emphysema #[id number] 2017 #History of CAD #Diabetes controlled #Hypertension-controlled -Alert oriented and answers all questions-does not appear to be in respiratory distress -COVID-19 PCR + 09/25/2021-symptoms started 09/20/2021 -S/p 1 dose Actemra, completed 5-day course of remdesivir -Currently on dexamethasone 6 mg IVP daily started 09/29/2021 -Start on baricitinib yesterday 10/05/2021 -Currently on BiPAP 10/22 FiO2 90% and saturating 100% on monitor; ABG with the settings today morning 7.4 / -Titrated down FiO2 to 80% and informed RT to change to high flow nasal cannula today and monitor -CTA 10/05/2021: Showed no evidence of PE. Diffuse GGO/airspace density -Venous Doppler 10/05/2021: No evidence of DVT -LDH 672, CRP 4.4, D-dimer 3. 2 7, procalcitonin 0.05 -Urine bacterial antigens and Legionella urine antigen-negative, blood cultures negative so far -We will send for MRSA PCR -Currently on levofloxacin 750 mg p.o. daily -Held metoprolol/lisinopril in view of hypotension during early part of hospitalization -Continue plavix. -Currently patient on Lantus 55 units daily and lispro scale-sugars controlled -Currently on pantoprazole 40 mg p.o. daily for GERD -Continue current management for now. Titrate down FiO2. Will consider sending to LTAC once FiO2 requirements come down. Discussed with Dr. Coulter, continue to monitor in ICU for now. Panic attacks: Would use morphine, put fan in the room Xanax for as needed basis Polycythemia secondary to dehydration Patient got to 50 cc fluid bolus. Still polycythemic. He is able to drink by mouth. I have encouraged him to drink more fluids. Consistent carb diet Full code DVT PPX: heparin sub c Attestations Medical Necessity Statement*: > 48 hours Coding Level of Care Code Acute Strategic Account Executive for Chg Fwd Diagnoses Hypotension I95.9 COVID-19 U07.1 COPD exacerbation J44.1 Acute respiratory failure with hypoxia J96.01 GERD (gastroesophageal reflux disease) K21.9 Esophagitis presence: without esophagitis Alcohol dependence, in remission F10.21 Anxiety F41.9 Diabetes mellitus type 2 in nonobese E11.9 Essential hypertension I10 Major depressive disorder, recurrent, severe with psychotic symptoms F33.3
[2021-10-07 17:17] LABS: Glucose Point of Care 68 mg/dL (70-110)
[2021-10-07] MEDS: ALPRAZolam 0.5 mg Tablet 0.75 MG PO ×2 (18:24→23:30)
--- NOTE | 2021-10-07 19:11 | PC.NURSE ---
Patient found at 78%, on heated high flow, patient tachypnic but does not have labored breaths or using accessory muscles. Patient also placed on nonrebreather at 15L over heated high flow. Respiratory informed and will place on bipap
[2021-10-07 21:36] LABS: Glucose Point of Care 108 mg/dL (70-110)
[2021-10-08] VITALS (62 sets, daily range): BP systolic 80–190; BP diastolic 53–104; PULSE 47–123; RESP 17–57; TEMP 36.5–37.7; O2SAT 72–99
[2021-10-08] MEDS: dexmedetomidine 400 MCG in sodium chloride 0.9% (100 ml) 100 ML 17.48 MCG IV ×2 (00:54→07:39)
[2021-10-08] MEDS: morphine 4 mg/mL SDV 1 mL 2 MG IVP ×2 (03:55→04:26)
[2021-10-08] MEDS: heparin 5,000 unit/mL INJ 1 mL 5000 UNIT SUBCUT ×3 (03:55→20:03)
[2021-10-08 04:14] LABS: Basophils % 0.6 %; Eosinophils # 0.2 10^3/uL (0.0-0.8); Eosinophils % 4.5 %; Hematocrit 49.9 % (42.0-52.0); Hemoglobin 16.7 g/dL (11.7-16.6); Lymphocytes # 0.2 10^3/uL (0.8-4.8); Lymphocytes % 6.2 %; Mean Corpuscular HGB Conc 33.5 g/dL (30.0-36.0); Mean Corpuscular Hemoglobin 31.5 pg (28.0-34.0); Mean Corpuscular Volume 94.2 fl (80-94); Mean Platelet Volume 9.9 fL (7.4-10.4); Monocytes # 0.1 10^3/uL (0.2-0.9); Monocytes % 2.8 %; Neutrophils # 3.02 10^3/uL (1.8-7.7); Neutrophils % 84.8 %; Nucleated Red Blood Cells % 0 %; Platelet Count 250 10^3/cmm (130-400); Red Cell Distribution Width 13.6 % (12.1-15.1); White Blood Count 3.6 10^3/uL (4.0-10.0)
[2021-10-08 04:36] LABS: Anion Gap 14.9 (5-19); Blood Urea Nitrogen 20 mg/dL (8-23); Calcium 7.8 mg/dL (8.5-10.5); Carbon Dioxide 25 mmol/L (22-29); Chloride 94 mmol/L (98-107); Creatinine Clr Calc Pharmacy 81.4294; Glomerular Filtration Rate 85.2 mL/min (90-130); Glucose 53 mg/dL (65-115); Magnesium 2.2 mg/dL (1.7-2.3); Osmolality Calculated 268 mOsm/kg (285-295); Potassium 4.9 mmol/L (3.5-5.1); Sodium 129 mmol/L (136-145)
[2021-10-08] MEDS: levoFLOXacin 750 mg Tablet PO (05:52)
--- NOTE | 2021-10-08 06:20 | NUR.SHIFT ---
Shift Summary: Patient oxygen sat drop mid 70-low 80s with activity. Patient tolerated bipap overnight, back on heated high flow this AM 40L/100% with nonrebreather 15L sat 85-87%. Patient has nonlabored breathing at this time. No signs of distress at this time.
--- NOTE | 2021-10-08 06:23 | NUR.SHIFT ---
Shift Summary: On arrival patient oxygen level 77%, immediately added 15L NRB over heated high flow. Respiratory placed patient on bipap at 90% FiO2. Patient did well for a couple of hours, see charting for when we increased to 95% FiO2. Patient tolerated bipap with PRNs administered per MD orders and precedex gtt. Patient currently on bipap at 95% FiO2, nonlabored breathing. No signs of distress at this time.
[2021-10-08] MEDS: zinc gluconate 50 mg Tablet PO (07:36)
[2021-10-08] MEDS: ascorbic acid 500 mg Tablet 1000 MG PO ×2 (07:36→17:54)
[2021-10-08] MEDS: pantoprazole DR 40 mg Tablet PO (07:36)
[2021-10-08] MEDS: clopidogrel 75 mg Tablet PO (07:36)
[2021-10-08] MEDS: ALPRAZolam 0.5 mg Tablet 0.75 MG PO (07:39)
[2021-10-08] MEDS: budesonide 0.5 mg/2 mL Neb 0.25 MG INHALATION ×2 (08:08→21:14)
--- NOTE | 2021-10-08 08:22 | PM.PN ---
Subjective Subjective: Interval history: Seen this morning in presence of ground water technician. Patient appears quite anxious and states is getting harder and harder. He is on 100% FiO2. He states he is worried about his anxiety. He is worried that he is not getting better. Discussion was done with patient on possibility of potential intubation. Vitals/I&O/Wt Last Vital Signs Temp 97.7 F 10/08/21 12:00 Pulse 109 H 10/08/21 14:00 Resp 20 H 10/08/21 15:58 BP 100/75 10/08/21 12:00 Pulse Ox 92 10/08/21 15:58 10/08/21 10/08/21 10/08/21 06:59 14:59 22:59 Intake Total 448 / 1804.935 345.481 / 345.481 54.002 / 399.483 Output Total 550 / 1500 Balance -102 / 304.935 345.481 / 345.481 54.002 / 399.483 Weight last 48 hrs Weight 31.865 kg Weight 68.719 kg Physical Exam Narrative: EXAM NARRATIVE: General: alert, sitting comfortably in chair on high flow. 100% FiO2, saturating 80%. Appears anxious. Pulmonary: CTAB, no wheezing, rhonchi, crackles Cardiovascular: rrr, nl s1s2, no mrg Abdomen: soft, nt, nd, no r/g, bs+ Extremities: pulses +, no edema, no c/c Paul catheter in place. Urinary Catheter Management^: Paul: Cath Placed During This Visit: yes Reason for Continuing Indwelling Catheter: Accurate Measurement of Urinary Output in Critically Ill Patients Urinary Catheter Date of Insertion: 10/06/21 Urinary Catheter Time of Insertion: 13:33 Data : 10/08/21 03:35 10/08/21 03:35 Micro: Microbiology 10/06/21 12:00 MRSA Culture - Final Nose A&P Assessment and plan (1) Hypotension: Status: Acute (2) COVID-19: Status: Acute (3) COPD exacerbation: Status: Acute (4) Acute respiratory failure with hypoxia: Status: Acute (5) GERD (gastroesophageal reflux disease): Status: Acute Qualifiers: Esophagitis presence: without esophagitis Qualified Code(s): K21.9 - Gastro-esophageal reflux disease without esophagitis (6) Alcohol dependence, in remission: Status: Acute (7) Anxiety: Status: Acute (8) Diabetes mellitus type 2 in nonobese: Status: Acute (9) Essential hypertension: Status: Acute (10) Major depressive disorder, recurrent, severe with psychotic symptoms: Status: Acute Additional A&P Information #Acute hypoxic respiratory failure secondary to ARDS due to COVID-19 pneumonia #Underlying COPD emphysema #[id number] 2017 #History of CAD #Diabetes controlled #Hypertension-controlled -Alert oriented and answers all questions-does not appear to be in respiratory distress -COVID-19 PCR + 09/25/2021-symptoms started 09/20/2021 -S/p 1 dose Actemra, completed 5-day course of remdesivir -Currently on dexamethasone 6 mg IVP daily started 09/29/2021 -Start on baricitinib yesterday 10/05/2021 -Currently on BiPAP 10/22 FiO2 90% and saturating 100% on monitor; ABG with the settings today morning 7.4 / -Titrated down FiO2 to 80% and informed RT to change to high flow nasal cannula today and monitor -CTA 10/05/2021: Showed no evidence of PE. Diffuse GGO/airspace density -Venous Doppler 10/05/2021: No evidence of DVT -LDH 672, CRP 4.4, D-dimer 3. 2 7, procalcitonin 0.05 -Urine bacterial antigens and Legionella urine antigen-negative, blood cultures negative so far -We will send for MRSA PCR -Currently on levofloxacin 750 mg p.o. daily -Held metoprolol/lisinopril in view of hypotension during early part of hospitalization -Continue plavix. -Currently patient on Lantus 55 units daily and lispro scale-sugars controlled -Currently on pantoprazole 40 mg p.o. daily for GERD -Continue current management for now. Titrate down FiO2. Will consider sending to LTAC once FiO2 requirements come down. Discussed with Dr. Coulter, continue to monitor in ICU for now. Patient saturating 80 to 85% 100% FiO2. We will place him back on the BiPAP. If he does not improve by the afternoon plan will be to intubate the patient, paralyzed and start proning sessions. We will continue to monitor for now. Patient's brother Mr. Correa also updated over the phone with the plan. Panic attacks: Would use morphine, put fan in the room We have increased dose of Xanax to be scheduled 3 times daily. Polycythemia secondary to dehydration Patient got to 50 cc fluid bolus. Still polycythemic. He is able to drink by mouth. I have encouraged him to drink more fluids. Consistent carb diet Full code DVT PPX: heparin sub c Attestations Medical Necessity Statement*: Greater than 48 hours anticipated. 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
--- NOTE | 2021-10-08 09:45 | PM.PN ---
Subjective Subjective: Interval history: -Patient seen at bedside today morning -Patient was saturating low 80s on high flow nasal cannula 50 L 100% -He also complained that his breathing is getting difficult -Decision was made to intubate, paralyze and prone -Accordingly patient was intubated, sedated, paralyzed and prone him for first session today -Other labs and imaging reviewed Medications: Reviewed: Yes Vitals/I&O/Wt Last Vital Signs Temp 98.3 F 10/08/21 07:29 Pulse 84 10/08/21 08:17 Resp 24 H 10/08/21 08:17 BP 115/65 10/08/21 07:24 Pulse Ox 90 10/08/21 08:17 10/07/21 10/08/21 10/08/21 22:59 06:59 14:59 Intake Total 600 / 1356.935 448 / 1804.935 Output Total 950 / 950 550 / 1500 Balance -350 / 406.935 -102 / 304.935 Weight last 48 hrs Weight 70 lb 4 oz Weight 151 lb 8 oz Physical Exam Narrative: EXAM NARRATIVE: PHYSICAL EXAM: General: lying in bed, sedated and intubated. HEENT:NCAT, PERRLA, EOMI Neck: Supple Lungs: Mild diffuse crackles Heart: s1/s2, RRR Abd: soft, NT, ND, BS + Normoactive Extremities: No edema CREDIT COLLECTIONS SPECIALIST: sedated and limited CREDIT COLLECTIONS SPECIALIST exam possible. SKIN: no rash LDA: # CVC: Right IJ 12/08/2020 Urinary Catheter Management^: Paul: Cath Placed During This Visit: yes Reason for Continuing Indwelling Catheter: Accurate Measurement of Urinary Output in Critically Ill Patients Urinary Catheter Date of Insertion: 10/06/21 Urinary Catheter Time of Insertion: 13:33 Data : 10/08/21 03:35 10/08/21 03:35 Other Labs: Laboratory Results WBC 3.6 10^3/uL (4.0-10.0) L 10/08/21 03:35 RBC 5.30 10^6/uL (4.1-5.3) 10/08/21 03:35 Hgb 16.7 g/dL (11.7-16.6) H 10/08/21 03:35 Hct 49.9 % (42.0-52.0) 10/08/21 03:35 MCV 94.2 fl (80-94) H 10/08/21 03:35 MCH 31.5 pg (28.0-34.0) 10/08/21 03:35 MCHC 33.5 g/dL (30.0-36.0) 10/08/21 03:35 RDW 13.6 % (12.1-15.1) 10/08/21 03:35 Plt Count 250 10^3/cmm (130-400) 10/08/21 03:35 MPV 9.9 fL (7.4-10.4) 10/08/21 03:35 Neut % (Auto) 84.8 % 10/08/21 03:35 Lymph % (Auto) 6.2 % 10/08/21 03:35 [place] % (Auto) 2.8 % 10/08/21 03:35 Eos % (Auto) 4.5 % 10/08/21 03:35 Baso % (Auto) 0.6 % 10/08/21 03:35 Neut # (Auto) 3.02 10^3/uL (1.8-7.7) 10/08/21 03:35 Lymph # (Auto) 0.2 10^3/uL (0.8-4.8) L 10/08/21 03:35 [place] # (Auto) 0.1 10^3/uL (0.2-0.9) L 10/08/21 03:35 Eos # (Auto) 0.2 10^3/uL (0.0-0.8) 10/08/21 03:35 Baso # (Auto) 0.0 10^3/uL (0.0-0.1) 10/08/21 03:35 Nucleated RBC % (auto) 0 % 10/08/21 03:35 Nucleated RBCs # 0.0 /100WBC 10/08/21 03:35 D-Dimer 3.27 ug/mIFEU (0-0.59) H 10/06/21 04:09 Specimen Type Arterial 10/08/21 13:43 Sample Site Radial, left 10/08/21 13:43 ABG pH 7.29 (7.35-7.45) L 10/08/21 13:43 ABG pCO2 49.3 mmHg (35-45) H 10/08/21 13:43 ABG pO2 34.8 mmHg (80.0-100.0) L* 10/08/21 13:43 ABG HCO3 23.6 mmol/L (22-26) 10/08/21 13:43 ABG O2 Saturation 57.7 10/08/21 13:43 ABG Base Excess -3.7 mmol/L (-2.0-2.0) L 10/08/21 13:43 Roger Test Pos 10/08/21 13:43 A-a O2 Gradient 80.4 mmHg (5-10) H 10/08/21 13:43 Hematocrit 57.3 % (42-52) H 10/08/21 13:43 Hgb O2 Saturation 56.8 % (95-100) L 10/08/21 13:43 Carboxyhemoglobin 0.9 %THgb (0.4-20.1) 10/08/21 13:43 Methemoglobin 0.8 % (0.4-1.5) 10/08/21 13:43 Total Hemoglobin 18.7 g/dL (14-18) H 10/08/21 13:43 Sodium 128.0 mmol/L (131-143) L 10/08/21 13:43 Potassium 4.7 mmol/L (3.5-5.0) 10/08/21 13:43 Glucose 128.0 mg/dL (70-115) H 10/08/21 13:43 Ionized Calcium 1.1 mmol/L (1.1-1.4) 10/08/21 13:43 O2 Delivery Device Vent 10/08/21 13:43 O2 Liters/Min 50.0 % 10/08/21 10:00 FiO2 100.0 % 10/08/21 13:43 Tidal Volume 0.45 10/08/21 13:43 PEEP 12.0 cmH20 10/08/21 13:43 Educational Program Assistant ID Bdd 10/08/21 13:43 Sodium 129 mmol/L (136-145) L 10/08/21 03:35 Potassium 4.9 mmol/L (3.5-5.1) 10/08/21 03:35 Chloride 94 mmol/L (98-107) L 10/08/21 03:35 Carbon Dioxide 25 mmol/L (22-29) 10/08/21 03:35 Anion Gap 14.9 (5-19) 10/08/21 03:35 BUN 20 mg/dL (8-23) 10/08/21 03:35 Creatinine 0.9 mg/dL (0.7-1.2) 10/08/21 03:35 GFR Calculation 85.2 mL/min (90-130) L 10/08/21 03:35 Glucose 53 mg/dL (65-115) L 10/08/21 03:35 POC Glucose 131 mg/dL (70-110) H 10/08/21 17:58 Calculated Osmolality 268 mOsm/kg (285-295) L 10/08/21 03:35 Lactic Acid 1.8 mmol/L (0.5-2.2) 09/30/21 05:55 Calcium 7.8 mg/dL (8.5-10.5) L 10/08/21 03:35 Magnesium 2.2 mg/dL (1.7-2.3) 10/08/21 03:35 Total Bilirubin 0.6 mg/dL (0.15-1.2) 09/30/21 05:54 AST 23 U/L (0-40) 09/30/21 05:54 ALT 15 U/L (0-41) 09/30/21 05:54 Alkaline Phosphatase 44 IU/L (40-130) 09/30/21 05:54 Lactate Dehydrogenase 672 U/L (135-225) H 10/06/21 04:09 Creatine Kinase 36 U/L (39-308) L 09/30/21 05:54 C-Reactive Protein 4.4 mg/L (0.0-4.9) 10/06/21 04:09 Total Protein 6.8 g/dL (6.6-8.7) 09/30/21 05:54 Albumin 3.6 g/dL (3.5-5.2) 09/30/21 05:54 Globulin 3.2 g/dL (1.3-4.6) 09/30/21 05:54 Procalcitonin 0.05 ng/mL (0-0.5) 10/06/21 04:09 TSH 1.32 uIU/mL (0.27-4.20) 09/30/21 05:55 Random Cortisol 3.83 ug/dL (2.47-19.5) 09/30/21 05:55 Impressions Chest CTA 10/05/21 19:05 IMPRESSION: 1. There is no pulmonary embolus. 2. There is diffuse ground-glass/airspace density, which may represent pneumonia, pulmonary edema, or inflammatory pneumonitis such as ARDS. Radiation Dose CTDIVOL = (mGy): DLP = 563.44 (mGy-cm) Chest X-Ray 10/08/21 14:25 IMPRESSION: 1. Bilateral lower lobe parenchymal densities possible pneumonia. 2. Endotracheal tube is above the matthew. 3. Right central line is in the right atrium 4. NG tube is in the stomach. Radiation Dose CTDIVOL = (mGy): DLP = (mGy-cm) Micro: Microbiology 10/06/21 12:00 MRSA Culture - Final Nose A&P Assessment and plan (1) Acute respiratory failure with hypoxia: Status: Acute (2) ARDS (adult respiratory distress syndrome): Status: Acute (3) COVID-19: Status: Acute (4) COPD (chronic obstructive pulmonary disease): Status: Acute Qualifiers: COPD type: emphysema Emphysema type: centrilobular Qualified Code(s): J43.2 - Centrilobular emphysema (5) Diabetes mellitus type 2 in nonobese: Status: Acute (6) Essential hypertension: Status: Acute #Acute hypoxic respiratory failure secondary to ARDS due to COVID-19 pneumonia #Underlying COPD emphysema #[id number] 2017 #History of CAD #Diabetes #Hypertension-controlled -COVID-19 PCR + 09/25/2021-symptoms started 09/20/2021 -S/p 1 dose Actemra, completed 5-day course of remdesivir -Currently on dexamethasone 6 mg IVP daily started 09/29/2021 -Patient is desaturating even on 100% HFNC/BiPAP-intubated and connected ventilator -Plan is to continue sedation, paralysis and prone -Follow ARDS lung protective protocol-low volume high PEEP strategies -Currently on pressure control mode with PIP 32/ PEEP 12/ FIO2 80% - When pt is not proned taper off Paralytic and versed and minimize sedation with fentanyl and propofol to maintain RASS - 2. -Monitor ABG and saturations; Levo drip to keep MAP > 65% -CTA 10/05/2021: Showed no evidence of PE. Diffuse GGO/airspace density -Venous Doppler 10/05/2021: No evidence of DVT -LDH 672, CRP 4.4, D-dimer 3. 2 7, procalcitonin 0.05 -Urine bacterial antigens and Legionella urine antigen-negative, MRSA nares negative blood cultures negative so far -Currently on levofloxacin -Held metoprolol/lisinopril in view of hypotension requiring pressors - Monitor I & O; maintain net negative or even - Lasix PRN if pt is volume overloaded. - patient was on Lantus 55 units daily and lispro scale-had low blood sugars - reduced lantus to 30 daily and continue scale and close sugar monitoring -Pantoprazole 40 mg p.o. daily for GERD and stress ulcer ppx -DVT prophylaxis: Heparin sc -Full code -Guarded prognosis -Diet: Start on Tube feeding Glucerna/Pulmicort with max goal 30 cc/hr when pt is NOT proned -Need close monitoring in ICU for respiratory failure requiring mech ventilator - will do 1 - 2 proing sessions and assess his oxygen requirements while follow ARDS net lung protective strategies- hospitalist updated NOK Recommendations conveyed to hospitalist, RN, RT taking care of the patient Care team is aware that I won't to available as I will be out of station for next 4 days; Attestations Medical Necessity Statement*: Acute hypoxic respiratory failure secondary to ARDS due to COVID-19 requiring ventilation and close monitoring in ICU Time Spent in Patient Care: Greater than 35 minutes (>than 50% of time spent in counselling and/or direct pt care on unit). 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
--- NOTE | 2021-10-08 10:02 | PC.CHAP ---
Pastoral Care Encounter/Spiritual Assessment Type of Contact [] Declined sew on operator visit [] Patient/Family/Request visit [] Outpatient visit [] Follow-up visit [] Physician referral [] Code/Alert [x] Routine visit [] Staff referral [] Actively dying [] Patient sleeping [] Family support [] [] Out of room [] Palliative care [] [x] Receiving care in room [] Pre-surgical visit [] Trauma [] Long length of stay [x] ICU visit [x] Other:patient setting up in chair... Relational/Emotional Strength [] Patient feels connected with others/family/visitors/staff [] Distress [] Loneliness/isolation [] Abandonment Spirituality of Patient [] Person of Sis [] Attends Baptist of their Sis [] Believes in Prayer [] Reads Bible or Episcopalian materials [] There are Spiritual issues to be addressed Hoop Flaring Machine Operator Interventions [x] Prayer [] Active listening [] Non-anxious presence [] Spiritual/emotional support [] Crisis/trauma care [] Spiritual counseling [] Bereavement support [] Provided bereavement packet [] Provided Bible/devotional materials [] Provided toy/stuffed animal, coloring book to patient or family member [] Provided Communion [] Anointing/[place] [] Salvation [x] Completed spiritual assessment [] Other: Impact on Illness or Injury [] Angry [] Fearful [] Anxious [] Often cries [] Exhaustion [] Unable to work [] Unable to attend rastafarian [] Unable to walk/stand [] Unable to read [] Unable to drive [] Unable to eat/drink [] Unable to sleep [] Unable to be with family [] Patient intubated [] Other: Summary Time spent with patient
[2021-10-08 10:08] LABS: ABG PCO2 29.3 mmHg (35-45); ABG PH Result 7.44 (7.35-7.45); Base Excess ABG -2.4 mmol/L (-2.0-2.0); Blood Gas Allen Test Pos; Blood Gas Operator Identificat BD; Blood Gas Sample Site Radial, left; Blood Gas Sample Type Arterial; Oxygen Device NC; PO2 ABG 39.2 mmHg (80.0-100.0)
[2021-10-08] MEDS: LORazepam 2 mg/mL INJ 1 mL 1 MG IVP (10:40)
[2021-10-08] MEDS: fentaNYL 50 mcg/mL INJ 2mL IVP (11:13)
[2021-10-08] MEDS: rocuronium 10 mg/mL INJ 5mL 50 MG IVP (11:23)
[2021-10-08] MEDS: midazolam 1 mg/mL INJ 2 mL 2 MG IVP (11:23)
--- NOTE | 2021-10-08 11:45 | XRR_ITS ---
PROCEDURE INFORMATION: Exam: XR Chest Exam date and time: 10/08/2021 11:45 AM Age: 61 years old Clinical indication: Device placement; Ett placement (vent status); Additional info: Intubation TECHNIQUE: Imaging protocol: XR of the chest. Views: 1 view. COMPARISON: CR (CHEST, ) 10/06/2021 6:02 AM FINDINGS: Tubes, catheters and devices: Endotracheal tube 5 cm above the matthew. NG tube extends into the stomach are are Lungs: Low lung volumes. Bilateral lower lobe interstitial congestion increased on the right side. Pleural spaces: Unremarkable. No pleural effusion. No pneumothorax. Heart/Mediastinum: Unremarkable. No cardiomegaly. Bones/joints: Unremarkable. XR/XR chest 1V portable [id number] IMPRESSION: 1. Interstitial congestion bilateral lower lobes 2. NG tube is in the stomach. 3. Endotracheal tube is above the matthew Radiation Dose CTDIVOL = (mGy): DLP = (mGy-cm)
[2021-10-08] MEDS: propofol 1,000 MG/100 ML INJ 3.82 MG IV (12:06)
[2021-10-08 12:18] LABS: Glucose Point of Care 82 mg/dL (70-110)
--- NOTE | 2021-10-08 13:30 | PC.SOCIAL ---
IMM update IMM not updated as patient is intubated and isn't accepted to dc in the next 24-48 hours.
[2021-10-08] MEDS: cisatracurium 100 MG in sodium chloride 0.9% 50 ML IV (13:40)
[2021-10-08 13:54] LABS: ABG PCO2 49.3 mmHg (35-45); ABG PH Result 7.29 (7.35-7.45); Alveolar-Arterial Oxygen Gradi 80.4 mmHg (5-10); Arterial Blood Gas Hematocrit 57.3 % (42-52); Base Excess ABG -3.7 mmol/L (-2.0-2.0); Blood Gas Allen Test Pos; Blood Gas Sample Site Radial, left; Blood Gas Sample Type Arterial; Blood Gas Tidal Volume 0.45; Carboxyhemoglobin 0.9 %THgb (0.4-20.1); HCO3 ABG 23.6 mmol/L (22-26); HGB O2 Sat 56.8 % (95-100); Ionized Calcium Level - ABG 1.1 mmol/L (1.1-1.4); Methemoglobin 0.8 % (0.4-1.5); Oxygen Device VENT; Oxygen Saturation ABG 57.7; PO2 ABG 34.8 mmHg (80.0-100.0); Potassium Level - ABG 4.7 mmol/L (3.5-5.0); Total Hemoglobin 18.7 g/dL (14-18)
--- NOTE | 2021-10-08 14:25 | XRR_ITS ---
PROCEDURE INFORMATION: Exam: XR Chest Exam date and time: 10/08/2021 2:25 PM Age: 61 years old Clinical indication: Device placement; Other: Central line placement TECHNIQUE: Imaging protocol: XR of the chest. Views: 1 view. COMPARISON: CR XR chest 1V portable [id number] 10/08/2021 11:51 AM FINDINGS: Tubes, catheters and devices: Endotracheal tube is 5.6 cm above the matthew. NG tube extends into the stomach. A right central line extends into the right atrium Lungs: Bilateral lower lobe interstitial densities are noted possible similar to prior Pleural spaces: Unremarkable. No pleural effusion. No pneumothorax. Heart/Mediastinum: Unremarkable. No cardiomegaly. Bones/joints: Unremarkable. XR/XR chest 1V portable [id number] IMPRESSION: 1. Bilateral lower lobe parenchymal densities possible pneumonia. 2. Endotracheal tube is above the matthew. 3. Right central line is in the right atrium 4. NG tube is in the stomach. Radiation Dose CTDIVOL = (mGy): DLP = (mGy-cm)
[2021-10-08] MEDS: propofol 1,000 MG/100 ML INJ 9.56 MG IV (15:24)
[2021-10-08] MEDS: dexamethasone 10 mg/mL INJ 6 MG IVP (15:47)
[2021-10-08 18:00] LABS: Glucose Point of Care 131 mg/dL (70-110)
--- NOTE | 2021-10-08 18:47 | PM.ACPR ---
Procedure/Consent Time out: Time Out Performed: Yes Consent: Consent for Procedure: Consent obtained from other (indicate) (verbal consent from patient ), Emergency procedure, Risks & Benefits reviewed and Agrees to proceed with procedure Procedure Narrative: Endotracheal Intubation Procedure Note Indication for endotracheal intubation: Acute hypoxic respiratory failure secondary to ARDS due to COVID-19 pneumonia Time of the procedure: 1145 Consent: There was not time to obtain consent. The patient was in immediate danger, and required the procedure emergently. Sedation: Fentanyl 50 mcg , Versed 2 mg, Etomidate 10 mg Paralytic: Rocuronium 50 mg Equipment: Glidoscope blade 3 View: Grade 1 Cricoid Pressure: No Number of attempts: 1 ETT location confirmed by direct visulization, ET fogging, Capnometer, bilateral breath sounds, Chest x ray Gaudencio DatarMD Pulm/Critical Care Medicine Acute Procedures Epistaxis Control: Time out performed: Yes
--- NOTE | 2021-10-08 19:00 | PM.ACPR ---
Procedure/Consent Time out: Time Out Performed: Yes Consent: Consent for Procedure: Emergency procedure Procedure Narrative: Procedure time: 1400 Procedure: Ultrasound-guided identification of the right internal jugular vein and placement of Central venous line Indication: Multiple medications including paralytics & pressosr as patient is intubated and plan is to prone for acute hypoxemic respiratory failure Bookmaker'S Clerk(s): Gaudencio Ibrahim MD Consent: Emergent Yes Time out called. [place] precautions applied. Site: Right internal jugular vein Catheter:7 Fr 20cm, Triple Lumen Sutured at: 18 cm Anesthesia: 5 cc 1% lidocaine without epinephrine Description: Area prepped with chlorhexidine and draped in a universal sterile manner. The vessel anatomy and patency was examined by ultrasound probe which was covered with sterile probe cover. The needle was inserted into the vessel under ultrasound guidance, after venous blood aspirated the guidewire was inserted through the needle and kept in situ while the needle was removed. Placement of guidewire in the vein and in relation to the adjacent artery was verified by ultrasound. Catheter was then advanced over the guidewire after dilation and guidewire successfully removed.The catheter was sutured to the skin and sterile dressing with chlorhexidine patch placed. Number of attempts:2 Dilator applied: 1, number of Dilations: 1 Placement Verified by: Blood draw from all ports and Ultrasound exam and Chest Xray EBL: 5-10 cc Complications: None Ultrasound guidance used: Yes. Acute Procedures Epistaxis Control: Time out performed: Yes
[2021-10-08] MEDS: propofol 1,000 MG/100 ML INJ 7.65 MG IV (19:21)
[2021-10-08 21:38] LABS: Glucose Point of Care 211 mg/dL (70-110)
[2021-10-08 21:39] LABS: Glucose Point of Care 107 mg/dL (70-110)
[2021-10-09] VITALS (106 sets, daily range): BP systolic 74–143; BP diastolic 49–82; PULSE 64–115; RESP 20; TEMP 36.4–37.1; O2SAT 73–99
[2021-10-09] MEDS: propofol 1,000 MG/100 ML INJ 7.65 MG IV ×2 (01:49→06:51)
[2021-10-09 04:08] LABS: Basophils % 0.3 %; Eosinophils # 0.1 10^3/uL (0.0-0.8); Eosinophils % 0.9 %; Hematocrit 51.6 % (42.0-52.0); Hemoglobin 17.3 g/dL (11.7-16.6); Lymphocytes # 0.2 10^3/uL (0.8-4.8); Lymphocytes % 1.8 %; Mean Corpuscular HGB Conc 33.5 g/dL (30.0-36.0); Mean Corpuscular Hemoglobin 30.9 pg (28.0-34.0); Mean Corpuscular Volume 92.3 fl (80-94); Mean Platelet Volume 10.3 fL (7.4-10.4); Monocytes # 0.2 10^3/uL (0.2-0.9); Monocytes % 2.6 %; Neutrophils # 8.13 10^3/uL (1.8-7.7); Neutrophils % 93.7 %; Nucleated Red Blood Cells % 0 %; Platelet Count 298 10^3/cmm (130-400); Red Blood Count 5.59 10^6/uL (4.1-5.3); Red Cell Distribution Width 13.5 % (12.1-15.1); White Blood Count 8.7 10^3/uL (4.0-10.0)
[2021-10-09] MEDS: heparin 5,000 unit/mL INJ 1 mL 5000 UNIT SUBCUT ×3 (04:21→20:04)
[2021-10-09 04:47] LABS: Anion Gap 19.5 (5-19); Blood Urea Nitrogen 19 mg/dL (8-23); Calcium 7.5 mg/dL (8.5-10.5); Carbon Dioxide 18 mmol/L (22-29); Chloride 94 mmol/L (98-107); Creatinine Clr Calc Pharmacy 92.3358; Glomerular Filtration Rate 97.6 mL/min (90-130); Glucose 222 mg/dL (65-115); Magnesium 2.2 mg/dL (1.7-2.3); Osmolality Calculated 271 mOsm/kg (285-295); Potassium 5.5 mmol/L (3.5-5.1); Sodium 126 mmol/L (136-145)
[2021-10-09 05:49] LABS: ABG PCO2 45.1 mmHg (35-45); ABG PH Result 7.32 (7.35-7.45); Arterial Blood Gas Hematocrit 55.5 % (42-52); Base Excess ABG -3.1 mmol/L (-2.0-2.0); Blood Gas Operator Identificat JB; Blood Gas Sample Site Brachial, left; Blood Gas Sample Type Arterial; HCO3 ABG 23.3 mmol/L (22-26); Oxygen Device VENT
[2021-10-09 05:50] LABS: Blood Gas Tidal Volume 0.45
--- NOTE | 2021-10-09 06:14 | NUR.SHIFT ---
Shift Summary: Patient tolerating prone position and vent titrated to 65%. Able to titrate levophed to 4mcg/min. Q2 turns, oral care, BIS, and TOF performed. TOF 4/4 at 3. BIS 30-40s through the night. Patient to be supined at 0800. No signs of distress at this time.
[2021-10-09] MEDS: cisatracurium 100 MG in sodium chloride 0.9% 50 ML IV (06:51)
[2021-10-09 07:41] LABS: Glucose Point of Care 156 mg/dL (70-110)
[2021-10-09] MEDS: pantoprazole DR 40 mg Tablet PO (07:41)
[2021-10-09] MEDS: zinc gluconate 50 mg Tablet PO (07:41)
[2021-10-09] MEDS: ascorbic acid 500 mg Tablet 1000 MG PO ×2 (07:41→17:18)
[2021-10-09] MEDS: insulin lispro 100 unit/1 mL SUBCUT ×3 (07:42→17:18)
[2021-10-09] MEDS: clopidogrel 75 mg Tablet PO (07:42)
[2021-10-09] MEDS: budesonide 0.5 mg/2 mL Neb 0.25 MG INHALATION ×2 (08:11→20:17)
[2021-10-09 08:31] LABS: Urine Creatinine 114 mg/dL (39-259)
[2021-10-09 08:42] LABS: Urine Random Sodium 13 mmol/L
[2021-10-09 09:36] LABS: Blood Urea Nitrogen 18 mg/dL (8-23); Calcium 7.8 mg/dL (8.5-10.5); Carbon Dioxide 20 mmol/L (22-29); Chloride 94 mmol/L (98-107); Chol HDL Ratio 2.56 mg/dL (1.0-5.00); Cholesterol 82 mg/dL (0-200); Glomerular Filtration Rate 113.9 mL/min (90-130); Glucose 152 mg/dL (65-115); HDL Cholesterol 32 mg/dL (60-100); LDL Cholesterol Calculated 14 mg/dL (50-129); LDL HDL Ratio 0.44 RATIO (0.00-3.22); Osmolality Calculated 269 mOsm/kg (285-295); Sodium 127 mmol/L (136-145); Thyroid Stimulating Hormone 0.42 uIU/mL (0.27-4.20); Triglycerides 180 mg/dL (0-150)
[2021-10-09 09:37] LABS: Cortisol Random 5.35 ug/dL (2.47-19.5)
--- NOTE | 2021-10-09 10:12 | PC.NURSE ---
Supine: Patient supine at 1000. Uneventful, assisted by four RN's and 1RT.
[2021-10-09 11:12] LABS: Glucose Point of Care 155 mg/dL (70-110)
[2021-10-09] MEDS: levoFLOXacin 750 mg Tablet PO (11:51)
[2021-10-09] MEDS: insulin glargine 100 units/1 mL 30 UNIT SUBCUT (11:53)
--- NOTE | 2021-10-09 12:10 | PM.PN ---
Subjective Subjective: Interval history: Seen this morning. Patient intubated paralyzed sedated and proned ABG this a.m. 7.3 . Hyponatremic this morning sodium 126, potassium 5.5. Will repeat test Vitals/I&O/Wt Last Vital Signs Temp 97.6 F 10/09/21 07:45 Pulse 67 10/09/21 08:25 Resp 20 H 10/09/21 11:27 BP 104/64 10/09/21 08:00 Pulse Ox 95 10/09/21 11:27 10/08/21 10/09/21 10/09/21 22:59 06:59 14:59 Intake Total 344.623 / 690.104 587.044 / 1277.148 Output Total 550 / 550 Balance 344.623 / 690.104 37.044 / 727.148 Weight last 48 hrs Weight 66.423 kg Weight 70.08 kg Physical Exam Narrative: EXAM NARRATIVE: General: Proned Pulmonary: CTAB, no wheezing, rhonchi, crackles Cardiovascular: proned Abdomen: proned Extremities: no edema, Paul catheter in place. Urinary Catheter Management^: Paul: Cath Placed During This Visit: yes Reason for Continuing Indwelling Catheter: Accurate Measurement of Urinary Output in Critically Ill Patients Urinary Catheter Date of Insertion: 10/06/21 Urinary Catheter Time of Insertion: 13:33 Data : 10/09/21 03:00 10/09/21 08:15 A&P Assessment and plan (1) Hypotension: Status: Acute (2) COVID-19: Status: Acute (3) COPD exacerbation: Status: Acute (4) Acute respiratory failure with hypoxia: Status: Acute (5) GERD (gastroesophageal reflux disease): Status: Acute Qualifiers: Esophagitis presence: without esophagitis Qualified Code(s): K21.9 - Gastro-esophageal reflux disease without esophagitis (6) Alcohol dependence, in remission: Status: Acute (7) Anxiety: Status: Acute (8) Diabetes mellitus type 2 in nonobese: Status: Acute (9) Essential hypertension: Status: Acute (10) Major depressive disorder, recurrent, severe with psychotic symptoms: Status: Acute Additional A&P Information #Vent dependent Acute hypoxic respiratory failure secondary to ARDS due to COVID-19 pneumonia #Underlying COPD emphysema #[id number] 2017 #History of CAD #Diabetes controlled #Hypertension-controlled - 10/06 - Alert oriented and answers all questions-does not appear to be in respiratory distress -COVID-19 PCR + 09/25/2021-symptoms started 09/20/2021 -S/p 1 dose Actemra, completed 5-day course of remdesivir -Currently on dexamethasone 6 mg IVP daily started 09/29/2021 -Start on baricitinib yesterday 10/05/2021 -Currently on BiPAP 10/22 FiO2 90% and saturating 100% on monitor; ABG with the settings today morning 7.4 / -Titrated down FiO2 to 80% and informed RT to change to high flow nasal cannula today and monitor -CTA 10/05/2021: Showed no evidence of PE. Diffuse GGO/airspace density -Venous Doppler 10/05/2021: No evidence of DVT -LDH 672, CRP 4.4, D-dimer 3. 2 7, procalcitonin 0.05 -Urine bacterial antigens and Legionella urine antigen-negative, blood cultures negative so far -We will send for MRSA PCR -Currently on levofloxacin 750 mg IV daily -Held metoprolol/lisinopril in view of hypotension during early part of hospitalization -Continue plavix. -Currently patient on Lantus 55 units daily at home and lispro scale-sugars controlled. Lantus was cut down to half due to pt not eating very much. WIll go back to higher dose once tube feeds start -Currently on pantoprazole 40 mg p.o. daily for GERD -Patient intubated, sedated and proned 10/08. Will continue with proning sessions -When supine, will start feeds at 30 cc/hr. Stop feeds 2 hours prior to restarting feeds #Hyponatremia - check urine sodium serum, urine osmolality, cortisol, tsh - will switch drips to NS (currently in D5) - will monitor if still low, will consider fludracortisone 0.5 Tube feeds when supine Full code DVT PPX: heparin sub c Brother updated over phone regarding intubation status. Attestations Medical Necessity Statement*: > 48 hr stay Coding Level of Care Code Acute Quality Assurance Manager for Chg Fwd Diagnoses Hypotension I95.9 COVID-19 U07.1 COPD exacerbation J44.1 Acute respiratory failure with hypoxia J96.01 GERD (gastroesophageal reflux disease) K21.9 Esophagitis presence: without esophagitis Alcohol dependence, in remission F10.21 Anxiety F41.9 Diabetes mellitus type 2 in nonobese E11.9 Essential hypertension I10 Major depressive disorder, recurrent, severe with psychotic symptoms F33.3
[2021-10-09] MEDS: propofol 1,000 MG/100 ML INJ 5.74 MG IV (12:32)
[2021-10-09] MEDS: hydrocortisone 100 mg/2 mL SDV 50 MG IVP ×2 (12:50→20:04)
--- NOTE | 2021-10-09 14:02 | PC.NUTR ---
Consult received. Will copy recommendations from assessment done this morning: When medically appropriate, recommend consideration of TF Glucerna 1.2 starting at 10 mls/hr and increase as tolerated to goal rate of 50 mls/hr, with FW flushes 100 ml Q6H or per MD discretion to optimize nutritional status of Pt while intubated and sedated.
[2021-10-09] MEDS: ipratropium-albuterol 3 mL Neb INHALATION ×2 (14:09→20:17)
--- NOTE | 2021-10-09 15:04 | XRR_ITS ---
PROCEDURE INFORMATION: Exam: XR Chest Exam date and time: 10/09/2021 3:04 PM Age: 61 years old Clinical indication: Device placement; Ett placement (vent status); Additional info: Desat TECHNIQUE: Imaging protocol: XR of the chest. Views: 1 view. COMPARISON: CR XR chest 1V portable [id number] 10/08/2021 2:30 PM FINDINGS: Tubes, catheters and devices: Endotracheal tube noted 5.5 cm above the matthew. Enteric tube terminates in the stomach. Right central line terminates at the proximal right atrium. Lungs: Ill-defined consolidative and interstitial opacities centered at the mid and lower lung again noted, similar in appearance to prior study. Pleural spaces: No evident pleural effusion. No pneumothorax. Heart/Mediastinum: Unremarkable. No cardiomegaly. Bones/joints: Unremarkable. XR/XR chest 1V portable [id number] IMPRESSION: 1. Lines and tubes in proper positioning. 2. Similar appearance of ill-defined consolidative and interstitial opacities centered at the mid and lower lungs. Radiation Dose CTDIVOL = (mGy): DLP = (mGy-cm)
--- NOTE | 2021-10-09 16:03 | PC.NURSE ---
1227 Glucerna tube feed started at 30ml/hr no free water flushes, per providers orders. 1604 tube feeding stopped 2 hrs before planned prone, per providers orders.
[2021-10-09 17:18] LABS: Glucose Point of Care 200 mg/dL (70-110)
[2021-10-09] MEDS: propofol 1,000 MG/100 ML INJ 9.56 MG IV (17:42)
--- NOTE | 2021-10-09 17:48 | PC.NURSE ---
1740 patient proned uneventfully. Assisted by 4 RN's and 1 RT.
--- NOTE | 2021-10-09 17:58 | PC.NURSE ---
Shift Note Frequent safety and comfort rounds continue. Orders and/or nursing care completed as indicated. Patient monitored for response to intervention and treatment(s). Education provided includes ventilator support, medications at administration, current plan of care. Patient intubated, sedated, paralyzed, unable to demonstrate understanding. Current rate of drips: Fentanyl 100mcg/hr Levophed 6 mcg/hr Propofol 40mcg/kg/min Nimbex 1.5 mcg/kg/hr Versed 3 mg/hr Patient supined at 1000 and proned at 1740. Only notable event this shift at approximately 1500 after titrating sedation to only Fentanyl at 75mcg/hr and Propofol at 35 mcg/kg/min, patient oxygen saturation dropped into the 70's, map dropped to low 50's. levophed increased to 8. Sedation and paralytic restarted and titrated to current rates. RT made adjustments to vent and elevation of bed. Chest xray obtained. Patient oxygenation returned to mid 80's to low 90's within hour. Current vent settings: VC-AC Fio2 60 VT 450 RR 20 PEEP 12
[2021-10-09 21:13] LABS: Glucose Point of Care 174 mg/dL (70-110)
--- NOTE | 2021-10-09 21:51 | PC.NURSE ---
Dr. Blanca was notified at 2129 that heparin was administered IV instead of subcutaneous. All necessary personnel notified including the patient's brother, Odin Correa. Dr. Blanca gave orders to monitor for bleeding precautions. He confirmed that he would put in an order for PTT lab to be drawn.
[2021-10-10] VITALS (107 sets, daily range): BP systolic 71–119; BP diastolic 44–77; PULSE 62–110; RESP 20–25; TEMP 36.5–37.2; O2SAT 80–97; BMI 22.6
[2021-10-10] MEDS: propofol 1,000 MG/100 ML INJ 7.65 MG IV (01:11)
[2021-10-10] MEDS: ipratropium-albuterol 3 mL Neb INHALATION ×4 (02:58→20:00)
[2021-10-10] MEDS: cisatracurium 100 MG in sodium chloride 0.9% 50 ML IV (04:02)
[2021-10-10 04:07] LABS: Partial Thromboplastin Time 75.6 SECONDS (23.9-36.7)
--- NOTE | 2021-10-10 04:15 | PC.NURSE ---
PTT this morning was 75.6, I cleared it with Dr. Blanca to go ahead and hold the dose of Heparin this morning.
[2021-10-10] MEDS: hydrocortisone 100 mg/2 mL SDV 50 MG IVP ×3 (05:25→20:47)
[2021-10-10] MEDS: propofol 1,000 MG/100 ML INJ 8.6 MG IV ×3 (05:50→23:53)
--- NOTE | 2021-10-10 07:10 | PC.NURSE ---
Patient had a high PTT this morning, therefore the 0400 Heparin dose was held. The levophed drip was titrated down from 6 mcg/min to 3 mcg/min. The versed drip was taken off and the propofol drip was titrated up one time from 40 to 45 mcg. The patient's vitals remained within normal parameters the entire shift. During the shift, Ken with respiratory assisted us with rotating the patient while in the proned position several times.
--- NOTE | 2021-10-10 07:45 | PC.NURSE ---
Assessment: Pt's feet are very cold and mottling noted. No mottling noted elsewhere on his body.
[2021-10-10] MEDS: budesonide 0.5 mg/2 mL Neb 0.25 MG INHALATION ×2 (07:51→19:59)
[2021-10-10 09:02] LABS: Glucose Point of Care 130 mg/dL (70-110)
[2021-10-10 09:07] LABS: Basophils % 0.2 %; Eosinophils # 0.2 10^3/uL (0.0-0.8); Eosinophils % 2.3 %; Hematocrit 47.3 % (42.0-52.0); Hemoglobin 15.9 g/dL (11.7-16.6); Lymphocytes # 0.3 10^3/uL (0.8-4.8); Lymphocytes % 3.5 %; Mean Corpuscular HGB Conc 33.6 g/dL (30.0-36.0); Mean Corpuscular Hemoglobin 31.5 pg (28.0-34.0); Mean Corpuscular Volume 93.8 fl (80-94); Mean Platelet Volume 10.1 fL (7.4-10.4); Monocytes # 0.2 10^3/uL (0.2-0.9); Neutrophils # 7.85 10^3/uL (1.8-7.7); Neutrophils % 91.1 %; Nucleated Red Blood Cells % 0 %; Platelet Count 230 10^3/cmm (130-400); Red Blood Count 5.04 10^6/uL (4.1-5.3); White Blood Count 8.6 10^3/uL (4.0-10.0)
[2021-10-10] MEDS: insulin glargine 100 units/1 mL 30 UNIT SUBCUT (09:25)
[2021-10-10] MEDS: clopidogrel 75 mg Tablet PO (09:25)
[2021-10-10] MEDS: ascorbic acid 500 mg Tablet 1000 MG PO ×2 (09:25→17:01)
[2021-10-10] MEDS: pantoprazole 40 mg SDV IVP (09:25)
[2021-10-10] MEDS: zinc gluconate 50 mg Tablet PO (09:25)
[2021-10-10 09:29] LABS: Partial Thromboplastin Time 45.7 SECONDS (23.9-36.7)
[2021-10-10 09:33] LABS: Alanine Aminotransferase 15 U/L (0-41); Albumin Level 2.9 g/dL (3.5-5.2); Alkaline Phosphatase 66 IU/L (40-130); Anion Gap 17.2 (5-19); Aspartate Amino Transferase 18 U/L (0-40); Blood Urea Nitrogen 18 mg/dL (8-23); Calcium 7.9 mg/dL (8.5-10.5); Carbon Dioxide 23 mmol/L (22-29); Chloride 93 mmol/L (98-107); Globulin 2.2 g/dL (1.3-4.6); Glomerular Filtration Rate 97.6 mL/min (90-130); Glucose 177 mg/dL (65-115); Magnesium 2.3 mg/dL (1.7-2.3); Osmolality Calculated 272 mOsm/kg (285-295); Potassium 5.2 mmol/L (3.5-5.1); Sodium 128 mmol/L (136-145); Total Bilirubin 0.4 mg/dL (0.15-1.2); Total Protein 5.1 g/dL (6.6-8.7)
[2021-10-10 09:40] LABS: Procalcitonin 0.06 ng/mL (0-0.5)
--- NOTE | 2021-10-10 09:45 | PC.NURSE ---
Addendum entered by Betsey Vlilalobos RN 10/10/21 16:18: Tube feeding restarted at 30ml/hr as ordered. Original Note: Pt repositioned supine from Prone. Nimbex rate. reduced. Fentanyl and Propofol rate reduced. B/P decreased , so LEvophed increased. Will continue to monitor.
--- NOTE | 2021-10-10 09:55 | PC.NURSE ---
Nimbex off. Fentanyl and Propofol further decreased
--- NOTE | 2021-10-10 10:53 | PC.SOCIAL ---
IMM Update pg 2 of IMM updated and reviewed w/ patients brothroger Newby via telephone.
[2021-10-10] MEDS: propofol 1,000 MG/100 ML INJ 3.82 MG IV (12:26)
[2021-10-10 12:32] LABS: Glucose Point of Care 181 mg/dL (70-110)
[2021-10-10] MEDS: levoFLOXacin 750 mg Tablet PO (12:50)
[2021-10-10] MEDS: insulin lispro 100 unit/1 mL SUBCUT ×2 (12:50→18:10)
[2021-10-10] MEDS: heparin 5,000 unit/mL INJ 1 mL 5000 UNIT SUBCUT ×2 (12:50→20:47)
--- NOTE | 2021-10-10 15:30 | PC.NURSE ---
Tube feeding stopped 2 hours prior to proning as ordered. Fentanyl gtt and Propofol increased. Monitoring BIS so paralytic can be restarted.
--- NOTE | 2021-10-10 15:51 | PM.PN ---
Subjective Subjective: Interval history: Seen this a.m. Patient is proned. This is a second cycle of proning. Currently paralyzed. No acute events overnight. Nursing staff did report a little bit of mottling over the Achilles tendon area of both feet. Urine output 685 mL overnight. Vitals/I&O/Wt Last Vital Signs Temp 97.9 F 10/10/21 12:45 Pulse 102 H 10/10/21 14:24 Resp 20 H 10/10/21 14:19 BP 108/70 10/10/21 13:15 Pulse Ox 90 10/10/21 14:19 10/10/21 10/10/21 10/10/21 06:59 14:59 22:59 Intake Total 439.216 / 979.121 168.833 / 168.833 Output Total 435 / 1085 Balance 4.216 / -105.879 168.833 / 168.833 Weight last 48 hrs Weight 67.5 kg Weight 66.423 kg Physical Exam Narrative: EXAM NARRATIVE: General: Proned Pulmonary: CTAB, no wheezing, rhonchi, crackles Cardiovascular: proned Abdomen: proned Extremities: no edema, Paul catheter in place. VENT settings: VC-AC 450/20/12/55 Drips: nimbex levophed 2 propofol 6.6 fentanyl 5 precedex 1 Lines: Right IJ central Urinary Catheter Management^: Paul: Cath Placed During This Visit: yes Reason for Continuing Indwelling Catheter: Accurate Measurement of Urinary Output in Critically Ill Patients Urinary Catheter Date of Insertion: 10/06/21 Urinary Catheter Time of Insertion: 13:33 Data : 10/10/21 08:46 10/10/21 08:46 Other data: AB.32/45.1/76/23.3 A&P Assessment and plan (1) Hypotension: Status: Acute (2) COVID-19: Status: Acute (3) COPD exacerbation: Status: Acute (4) Acute respiratory failure with hypoxia: Status: Acute (5) GERD (gastroesophageal reflux disease): Status: Acute Qualifiers: Esophagitis presence: without esophagitis Qualified Code(s): K21.9 - Gastro-esophageal reflux disease without esophagitis (6) Alcohol dependence, in remission: Status: Acute (7) Anxiety: Status: Acute (8) Diabetes mellitus type 2 in nonobese: Status: Acute (9) Essential hypertension: Status: Acute (10) Major depressive disorder, recurrent, severe with psychotic symptoms: Status: Acute Additional A&P Information #Vent dependent Acute hypoxic respiratory failure secondary to ARDS due to COVID-19 pneumonia #Underlying COPD emphysema #[id number] 2017 #History of CAD #Diabetes controlled #Hypertension-controlled - 10/06 - Alert oriented and answers all questions-does not appear to be in respiratory distress -COVID-19 PCR + 09/25/2021-symptoms started 09/20/2021 -S/p 1 dose Actemra, completed 5-day course of remdesivir -Currently on dexamethasone 6 mg IVP daily started 09/29/2021 -Start on baricitinib yesterday 10/05/2021 -Currently on BiPAP 10/22 FiO2 90% and saturating 100% on monitor; ABG with the settings today morning 7.4 -Titrated down FiO2 to 80% and informed RT to change to high flow nasal cannula today and monitor -CTA 10/05/2021: Showed no evidence of PE. Diffuse GGO/airspace density -Venous Doppler 10/05/2021: No evidence of DVT -LDH 672, CRP 4.4, D-dimer 3. 2 7, procalcitonin 0.05 -Urine bacterial antigens and Legionella urine antigen-negative, blood cultures negative so far -We will send for MRSA PCR -Currently on levofloxacin 750 mg IV daily empiric coverage -Held metoprolol/lisinopril in view of hypotension during early part of hospitalization -Continue plavix. -Currently patient on Lantus 55 units daily at home and lispro scale-sugars controlled. Lantus was cut down to half due to pt not eating very much. WIll go back to higher dose once tube feeds start -Currently on pantoprazole 40 mg p.o. daily for GERD -Patient intubated, sedated and proned 10/08. Will continue with proning sessions -When supine, will start feeds at 30 cc/hr. Stop feeds 2 hours prior to restarting feeds Patient has had 2 proning sessions so far. We will proceed with her third session today. #Hyponatremia, suspect adrenal insufficiency Random cortisol 5.35, TSH 0.42, urine osmolality pending, urine sodium 13 - will monitor Stop dexamethasone 10/09. Started patient on hydrocortisone 50 every 8 hours. Sodium improved to 128 today. Potassium 5.2. Will repeat BMP in evening. Tube feeds when supine Full code DVT PPX: heparin sub c Attestations Medical Necessity Statement*: intubated Coding Level of Care Code Acute Epidemiology Internship for Chg Fwd Diagnoses Hypotension I95.9 COVID-19 U07.1 COPD exacerbation J44.1 Acute respiratory failure with hypoxia J96.01 GERD (gastroesophageal reflux disease) K21.9 Esophagitis presence: without esophagitis Alcohol dependence, in remission F10.21 Anxiety F41.9 Diabetes mellitus type 2 in nonobese E11.9 Essential hypertension I10 Major depressive disorder, recurrent, severe with psychotic symptoms F33.3
--- NOTE | 2021-10-10 16:00 | PC.NURSE ---
Central line dressing change done. [place] Contour Shield dressing applied.
--- NOTE | 2021-10-10 17:30 | PC.NURSE ---
Pt placed in prone position. Fentanyl, Versed, Propofol and NImbex titrated for effect prior to repositioning. TOF, left eye brow, setting of 3, 4/4.
[2021-10-10 17:40] LABS: Glucose Point of Care 163 mg/dL (70-110)
--- NOTE | 2021-10-10 19:00 | PC.NURSE ---
Shift Note: Pt remains sedated and intubated. B/P and oxygenation labile after turning pt supine and then proning him again in the evening. Levophed titrated to improve MAP. at ened of shift pt on Levophed at 5 mcg/min, Fentanyl at 90 mcg/min, Propofol at 45mcg/kg/min and Nimbex at 1.3 mcg/kg/min. Pt compliant with vent. Diafficulty obtaining TOF. Urine output reduced today at 280ml. Frequent safety and comfort rounds continue. Orders and/or nursing care completed as indicated. Patient monitored for response to intervention and treatment(s). Education provided includes Levophed, insulin, proning. Patient unable to respond to teaching. Will continue to monitor.
--- NOTE | 2021-10-10 19:16 | PC.NURSE ---
BIS TOF 0800 29 0/4 right eye brow 0900 32 0/4 right eyebrow, unable to assess on left, pt compliant with vent 1000 45 4/4 left eyebrow, setting of 3, Nimbex off. 1100 45 Nimbex off. 1200 52 1300 56 1400 64 1500 70 1600 77 1700 70 1800 33 4/4, setting of 3 left eyebrow. pt compliant with vent. Nimbex restarted at 1715 1900 45
--- NOTE | 2021-10-10 21:23 | PC.NURSE ---
I spoke with Dr. Chavez on the phone at 2121. He gave me orders to go up from 4 mg to 6 mg on the Versed, decrease the propofol slowly. There were no further orders given.
[2021-10-10 21:43] LABS: Glucose Point of Care 177 mg/dL (70-110)
[2021-10-11] VITALS (110 sets, daily range): BP systolic 84–128; BP diastolic 47–84; PULSE 59–103; RESP 20–25; TEMP 36.6–37.2; O2SAT 84–98; BMI 22.1
[2021-10-11] MEDS: cisatracurium 100 MG in sodium chloride 0.9% 50 ML IV ×2 (01:21→23:39)
[2021-10-11] MEDS: ipratropium-albuterol 3 mL Neb INHALATION ×4 (03:23→20:05)
[2021-10-11] MEDS: heparin 5,000 unit/mL INJ 1 mL 5000 UNIT SUBCUT ×3 (04:47→20:58)
[2021-10-11] MEDS: propofol 1,000 MG/100 ML INJ 9.56 MG IV ×3 (04:47→21:33)
[2021-10-11] MEDS: hydrocortisone 100 mg/2 mL SDV 50 MG IVP ×3 (04:47→20:58)
[2021-10-11 04:48] LABS: ABG PH Result 7.35 (7.35-7.45); Alveolar-Arterial Oxygen Gradi 35.8 mmHg (5-10); Arterial Blood Gas Hematocrit 55.7 % (42-52); Base Excess ABG 0.8 mmol/L (-2.0-2.0); Blood Gas Allen Test Pos; Blood Gas Operator Identificat JB; Blood Gas Sample Site Radial, right; Blood Gas Sample Type Arterial; Blood Gas Tidal Volume 0.45; Carboxyhemoglobin 0.6 %THgb (0.4-20.1); HCO3 ABG 27.6 mmol/L (22-26); HGB O2 Sat 95.6 % (95-100); Ionized Calcium Level - ABG 1.1 mmol/L (1.1-1.4); Methemoglobin 0.9 % (0.4-1.5); Oxygen Device VENT; Oxygen Saturation ABG 97.1; PO2 ABG 90.9 mmHg (80.0-100.0); Potassium Level - ABG 5.3 mmol/L (3.5-5.0); Total Hemoglobin 18.2 g/dL (14-18)
[2021-10-11 05:43] LABS: Basophils % 0.4 %; Eosinophils # 0.2 10^3/uL (0.0-0.8); Eosinophils % 1.9 %; Hematocrit 44.9 % (42.0-52.0); Hemoglobin 14.9 g/dL (11.7-16.6); Lymphocytes # 0.4 10^3/uL (0.8-4.8); Lymphocytes % 3.7 %; Mean Corpuscular HGB Conc 33.2 g/dL (30.0-36.0); Mean Corpuscular Volume 93.5 fl (80-94); Mean Platelet Volume 10.6 fL (7.4-10.4); Monocytes # 0.3 10^3/uL (0.2-0.9); Monocytes % 2.4 %; Neutrophils # 10.12 10^3/uL (1.8-7.7); Neutrophils % 90.3 %; Nucleated Red Blood Cells % 0 %; Platelet Count 296 10^3/cmm (130-400); Red Cell Distribution Width 14.1 % (12.1-15.1); White Blood Count 11.2 10^3/uL (4.0-10.0)
[2021-10-11 06:10] LABS: Anion Gap 16.4 (5-19); Blood Urea Nitrogen 23 mg/dL (8-23); Calcium 8.1 mg/dL (8.5-10.5); Carbon Dioxide 25 mmol/L (22-29); Chloride 93 mmol/L (98-107); Glomerular Filtration Rate 85.2 mL/min (90-130); Glucose 210 mg/dL (65-115); Magnesium 2.5 mg/dL (1.7-2.3); Osmolality Calculated 278 mOsm/kg (285-295); Potassium 5.4 mmol/L (3.5-5.1); Sodium 129 mmol/L (136-145)
[2021-10-11 07:39] LABS: Glucose Point of Care 206 mg/dL (70-110)
--- NOTE | 2021-10-11 08:00 | PC.NURSE ---
Assessment: Pt's feet remains very cold and mottled, as yesterday. No change in the mottling.
[2021-10-11] MEDS: budesonide 0.5 mg/2 mL Neb 0.25 MG INHALATION ×2 (08:30→20:05)
[2021-10-11] MEDS: clopidogrel 75 mg Tablet PO (08:47)
[2021-10-11] MEDS: ascorbic acid 500 mg Tablet 1000 MG PO ×2 (08:47→17:43)
[2021-10-11] MEDS: insulin lispro 100 unit/1 mL SUBCUT ×3 (08:47→17:42)
[2021-10-11] MEDS: zinc gluconate 50 mg Tablet PO (08:47)
[2021-10-11] MEDS: pantoprazole 40 mg SDV IVP (09:02)
[2021-10-11] MEDS: sodium polystyrene sulfonate 15 gm/60 mL Btl PO (09:02)
[2021-10-11] MEDS: insulin glargine 100 units/1 mL 30 UNIT SUBCUT (09:02)
[2021-10-11] MEDS: propofol 1,000 MG/100 ML INJ 5.74 MG IV (10:15)
--- NOTE | 2021-10-11 10:16 | PC.NURSE ---
Midazolam gtt wasted. 11.559 ml. Witnessed by RAFA Landaverde RN.
--- NOTE | 2021-10-11 11:00 | PC.NURSE ---
BIS TOF 0700 38 08 35 0/4, hertz 4, Nimbex gtt reduced to 1.3mcg/kg/min. 09 42 Pt compliant with vent 1000 38 Nimbex off, Pt now supine. Sedation gtts decreased, see JAN 1540 80
--- NOTE | 2021-10-11 12:01 | PC.NUTR ---
For TF, recommend consideration of Glucerna bolus feeding instead of trickle feed. When proning session ended and patient is supine, wait one hour and infuse bolus feed of 237 ml of Glucerna. Wait 2-3 hours and as tolerated, infuse second bolus feed of 237 ml of Glucerna before the 2 hour cutoff point prior to the next proning session. ICU nurses thought it would be less waste of tubing and the product, easier to keep track of, make Pt feel more full and would provide more nutrition. 2 containers of Glucerna would provide 440 kcals and 20 grams protein, versus 180 kcals and 9 grams of protein from the typical 150 mls Glucerna 1.2 TF.
[2021-10-11 12:06] LABS: Glucose Point of Care 208 mg/dL (70-110)
[2021-10-11] MEDS: levoFLOXacin 750 mg Tablet PO (12:18)
--- NOTE | 2021-10-11 15:08 | PM.PN ---
Subjective Subjective: Interval history: Patient was just made supine this a.m. when I seen him. Lungs clear to auscultation anteriorly. Diminished breath sounds at bases, still has not had a bowel movement. Sodium 129 today. Potassium 5.4. He has been given 1 dose of Kayexalate. Patient has completed 3 proning sessions at this point. Patient did require Levophed yesterday evening increased dose which was decreased overnight and now his back to requiring higher dose this morning. He is also increased to 80% FiO2 while supine today. Vitals/I&O/Wt Last Vital Signs Temp 97.9 F 10/11/21 08:30 Pulse 101 H 10/11/21 14:29 Resp 20 H 10/11/21 14:22 BP 112/71 10/11/21 10:15 Pulse Ox 93 10/11/21 14:22 10/11/21 10/11/21 10/11/21 06:59 14:59 22:59 Intake Total 397.604 / 1446.496 470.831 / 470.831 Output Total 590 / 870 Balance -192.396 / 576.496 470.831 / 470.831 Weight last 48 hrs Weight 66.1 kg Weight 67.5 kg Physical Exam Narrative: EXAM NARRATIVE: General: Supine, intubated on the ventilator Pulmonary: CTAB, no wheezing, rhonchi, crackles Cardiovascular: Normal S1-S2, regular rate rhythm, no gross murmurs. Abdomen: Soft, nondistended, bowel sounds present all 4 quadrants Extremities: no edema, does have slight mottling of Achilles tendon area. Same as prior day, has not progressed. Paul catheter in place. VENT settings: VC-AC 450/20/12/80 Drips: nimbex levophed propofol fentanyl precedex Lines: Right IJ central Urinary Catheter Management^: Paul: Cath Placed During This Visit: yes Reason for Continuing Indwelling Catheter: Accurate Measurement of Urinary Output in Critically Ill Patients Urinary Catheter Date of Insertion: 10/06/21 Urinary Catheter Time of Insertion: 13:33 Data : 10/11/21 04:30 10/11/21 04:30 A&P Assessment and plan (1) Hypotension: Status: Acute (2) COVID-19: Status: Acute (3) COPD exacerbation: Status: Acute (4) Acute respiratory failure with hypoxia: Status: Acute (5) GERD (gastroesophageal reflux disease): Status: Acute Qualifiers: Esophagitis presence: without esophagitis Qualified Code(s): K21.9 - Gastro-esophageal reflux disease without esophagitis (6) Alcohol dependence, in remission: Status: Acute (7) Anxiety: Status: Acute (8) Diabetes mellitus type 2 in nonobese: Status: Acute (9) Essential hypertension: Status: Acute (10) Major depressive disorder, recurrent, severe with psychotic symptoms: Status: Acute Additional A&P Information #Vent dependent Acute hypoxic respiratory failure secondary to ARDS due to COVID-19 pneumonia #Underlying COPD emphysema #[id number] 2017 #History of CAD #Diabetes controlled #Hypertension-controlled - 10/06 - Alert oriented and answers all questions-does not appear to be in respiratory distress -COVID-19 PCR + 09/25/2021-symptoms started 09/20/2021 -S/p 1 dose Actemra, completed 5-day course of remdesivir -Currently on dexamethasone 6 mg IVP daily started 09/29/2021 -Start on baricitinib yesterday 10/05/2021 -Currently on BiPAP 10/22 FiO2 90% and saturating 100% on monitor; ABG with the settings today morning 7.4 // -Titrated down FiO2 to 80% and informed RT to change to high flow nasal cannula today and monitor -CTA 10/05/2021: Showed no evidence of PE. Diffuse GGO/airspace density -Venous Doppler 10/05/2021: No evidence of DVT -LDH 672, CRP 4.4, D-dimer 3. 2 7, procalcitonin 0.05 -Urine bacterial antigens and Legionella urine antigen-negative, blood cultures negative so far -We will send for MRSA PCR -Currently on levofloxacin 750 mg IV daily empiric coverage -Held metoprolol/lisinopril in view of hypotension during early part of hospitalization -Continue plavix. -Currently patient on Lantus 55 units daily at home and lispro scale-sugars controlled. Lantus was cut down to half due to pt not eating very much. WIll go back to higher dose once tube feeds start -Currently on pantoprazole 40 mg p.o. daily for GERD -Patient intubated, sedated and proned 10/08. Will continue with proning sessions -When supine, will start feeds at 30 cc/hr. Stop feeds 2 hours prior to restarting feeds Completed 3 proning sessions. Discussed with Dr. Luna over the phone. We will proceed with fourth proning session today. #Hyponatremia, suspect adrenal insufficiency Random cortisol 5.35, TSH 0.42, urine osmolality pending, urine sodium 13 - will monitor Stop dexamethasone 10/09. Started patient on hydrocortisone 50 every 8 hours. Sodium improved to 129 today. Potassium 5.4. Gave 1x dose kayexalate. Will repeat BMP in evening. Tube feeds when supine Full code DVT PPX: heparin sub c Attestations Medical Necessity Statement*: intubated Coding Level of Care Code Acute Delivery Driver/Customer Service for Chg Fwd Diagnoses Hypotension I95.9 COVID-19 U07.1 COPD exacerbation J44.1 Acute respiratory failure with hypoxia J96.01 GERD (gastroesophageal reflux disease) K21.9 Esophagitis presence: without esophagitis Alcohol dependence, in remission F10.21 Anxiety F41.9 Diabetes mellitus type 2 in nonobese E11.9 Essential hypertension I10 Major depressive disorder, recurrent, severe with psychotic symptoms F33.3
--- NOTE | 2021-10-11 17:00 | PC.NURSE ---
BIS 67 TOF 3/4. Hertz 4. left eyebrow. Fentanyl and Propofol titrated for effect. Nimbex titrated for effect
--- NOTE | 2021-10-11 17:20 | PC.NURSE ---
Pt proned. Pt complinat with vent. Tolerating well. BIS now 45.
[2021-10-11 17:51] LABS: Glucose Point of Care 229 mg/dL (70-110)
--- NOTE | 2021-10-11 18:00 | PC.NURSE ---
This nurse called pt's brother Odin Correa to update him on his brother's progress. While on phone, daughter, Katiana Correa came in unit. There was some confusion about whom to speak to about pt's condition per his wishes. brother, Odin stated he did not know why he would not want daughter to know so gave permission ot speak with her. Spoke with Katiana Fofana about pt's progress, proning and sedation, tube feedings, oxygenation and labs. She verbalized understanding. Spoke with her about the confusion on contacts, she was very pleasant and understanding. Her phone number [phone], now wrote on face sheet. This nurse then called allison Newby back and finished updating his on pt's care. Odin nor Katiana Fofana had any further questions after update.
[2021-10-11 19:04] LABS: Anion Gap 15.4 (5-19); Blood Urea Nitrogen 28 mg/dL (8-23); Calcium 8.2 mg/dL (8.5-10.5); Carbon Dioxide 25 mmol/L (22-29); Chloride 94 mmol/L (98-107); Glomerular Filtration Rate 85.2 mL/min (90-130); Glucose 186 mg/dL (65-115); Osmolality Calculated 278 mOsm/kg (285-295); Potassium 5.4 mmol/L (3.5-5.1); Sodium 129 mmol/L (136-145)
--- NOTE | 2021-10-11 19:14 | PC.NURSE ---
Shift Note: Pt remains sedated and on vent. He started his fifth proning session this evening. He is on Fentanyl at 100mcg/min, Propofol at 50 mcg/kg/min and Nimbex at 1.5mcg/kg/min for paralyzing and sedation. Levophed gtt is now at 2mcg/min. He has maintained a MAP greater than 70 throughout this shift. Prior to turning from from this am and to prone this evening, FIO2 bumped up to 100%, Pt tolerating turning much better today. He maintained his oxygenation 90% or greater. Blood sugars higher this shift than yesterday, he is on a sliding scale and a set long acting dose. His potassium was higher today at 5.4. Kayexalate ordered and admin per OG. Pt received tube feeding at 30ml/hr while not proned. No Bm noted this shift. Urine output improved today, 450 ml of clear yellow urine. Frequent safety and comfort rounds continue. Orders and/or nursing care completed as indicated. Patient monitored for response to intervention and treatment(s). Education provided includes proning, Nimbex, tube feeding, and sedation medication.. Patient and/or dental detail representative : pt unable to understanding at this time. Brother, via telephone and daughter in person, on unit, verbalized understanding of pt's progress and plan of care. Will continue to monitor.
[2021-10-11 22:42] LABS: Glucose Point of Care 167 mg/dL (70-110)
[2021-10-12] VITALS (71 sets, daily range): BP systolic 89–155; BP diastolic 55–91; PULSE 60–119; RESP 20–26; TEMP 36.5–36.9; O2SAT 90–100; BMI 23.1
--- NOTE | 2021-10-12 01:00 | PC.NURSE ---
Pt repositioned to supine from prone. Nimbex off. Fentanyl and Propofol decreased. Pt tolerated very well, O2 sats stayed above 95%.
[2021-10-12] MEDS: propofol 1,000 MG/100 ML INJ 9.56 MG IV ×2 (01:38→20:18)
[2021-10-12] MEDS: ipratropium-albuterol 3 mL Neb INHALATION ×4 (03:04→20:00)
[2021-10-12 03:48] LABS: Basophils % 0.4 %; Eosinophils # 0.5 10^3/uL (0.0-0.8); Eosinophils % 4.6 %; Hematocrit 40.8 % (42.0-52.0); Hemoglobin 13.6 g/dL (11.7-16.6); Lymphocytes # 0.6 10^3/uL (0.8-4.8); Lymphocytes % 5.5 %; Mean Corpuscular HGB Conc 33.3 g/dL (30.0-36.0); Mean Corpuscular Hemoglobin 31.7 pg (28.0-34.0); Mean Corpuscular Volume 95.1 fl (80-94); Mean Platelet Volume 10.4 fL (7.4-10.4); Monocytes # 0.5 10^3/uL (0.2-0.9); Monocytes % 4.9 %; Neutrophils # 8.75 10^3/uL (1.8-7.7); Neutrophils % 81.8 %; Nucleated Red Blood Cells % 0 %; Platelet Count 245 10^3/cmm (130-400); Red Blood Count 4.29 10^6/uL (4.1-5.3); Red Cell Distribution Width 14.6 % (12.1-15.1); White Blood Count 10.7 10^3/uL (4.0-10.0)
[2021-10-12 04:11] LABS: Anion Gap 16.5 (5-19); Blood Urea Nitrogen 28 mg/dL (8-23); Calcium 7.4 mg/dL (8.5-10.5); Carbon Dioxide 24 mmol/L (22-29); Chloride 95 mmol/L (98-107); Glomerular Filtration Rate 97.6 mL/min (90-130); Glucose 128 mg/dL (65-115); Magnesium 2.4 mg/dL (1.7-2.3); Osmolality Calculated 277 mOsm/kg (285-295); Potassium 5.5 mmol/L (3.5-5.1); Sodium 130 mmol/L (136-145)
[2021-10-12] MEDS: hydrocortisone 100 mg/2 mL SDV 50 MG IVP ×2 (05:57→13:48)
[2021-10-12] MEDS: heparin 5,000 unit/mL INJ 1 mL 5000 UNIT SUBCUT ×3 (05:57→20:18)
[2021-10-12] MEDS: propofol 1,000 MG/100 ML INJ 7.65 MG IV ×2 (06:29→13:49)
--- NOTE | 2021-10-12 07:04 | PC.NURSE ---
The levophed drip was titrated off, sedation titrated down and the patient held ventilator synchrony during the entire shift while being paralyzed and proned. Urine output was 530 mL for the shift.
--- NOTE | 2021-10-12 07:30 | PC.NURSE ---
BIS 38 TOF 0/4, Hertz 5 left eye brow, Reduce Nimbex from 2mcg/kg/min to 1.5 mcg/kg/min, Reduced Fentanyl to 90 mcg/min.
--- NOTE | 2021-10-12 07:40 | PC.NURSE ---
Assessment: This morning pt's feet warm with no mottling noted. Pressure area, stage I noted on pt;s left ear, redness and swollen.
[2021-10-12] MEDS: calcium gluconate 0.1 gm/mL 10% SDV 10mL 1 GM IVP (08:46)
[2021-10-12] MEDS: dextrose 50% syringe 50 mL IVP (08:47)
[2021-10-12] MEDS: sodium polystyrene sulfonate 15 gm/60 mL Btl PO (08:47)
[2021-10-12] MEDS: insulin regular-human 10 UNIT in SYRINGE 1 EACH IVP (08:47)
[2021-10-12] MEDS: insulin lispro 100 unit/1 mL SUBCUT ×3 (08:47→17:52)
[2021-10-12] MEDS: insulin glargine 100 units/1 mL 30 UNIT SUBCUT (08:47)
[2021-10-12] MEDS: zinc gluconate 50 mg Tablet PO (08:48)
[2021-10-12] MEDS: pantoprazole 40 mg SDV IVP (08:48)
[2021-10-12] MEDS: clopidogrel 75 mg Tablet PO (08:48)
[2021-10-12] MEDS: ascorbic acid 500 mg Tablet 1000 MG PO ×2 (08:48→17:52)
[2021-10-12] MEDS: budesonide 0.5 mg/2 mL Neb 0.25 MG INHALATION ×2 (08:50→20:00)
--- NOTE | 2021-10-12 08:55 | PC.SOCIAL ---
IMM Not Updated Pg. 2of IMM Not updated, as patient intubated and not expected to discharge within the next 48 hours.
[2021-10-12 11:55] LABS: Glucose Point of Care 172 mg/dL (70-110)
[2021-10-12 11:55] LABS: Glucose Point of Care 283 mg/dL (70-110)
[2021-10-12] MEDS: levoFLOXacin 750 mg Tablet PO (12:11)
--- NOTE | 2021-10-12 12:50 | P.PN_ITS ---
Subjective Subjective: Interval history: Seen this morning. Patient was prone. Left earlobe slightly edematous. He is intubated. He has been able to be weaned off of the Levophed completely. Plan is to switch him to supine position today. Hyperkalemia noted. He will be given insulin dextrose Kayexalate and calcium gluconate. Has not had a bowel movement yet. He has been given 2 doses of Kayexalate at this point. Vitals/I&O/Wt Last Vital Signs Temp 97.7 F 10/12/21 07:45 Pulse 93 10/12/21 11:00 Resp 23 H 10/12/21 11:19 BP 104/71 10/12/21 11:00 Pulse Ox 94 10/12/21 11:19 10/11/21 10/12/21 10/12/21 22:59 06:59 14:59 Intake Total 299.489 / 770.320 281.801 / 1052.121 160 / 160 Output Total 190 / 460 530 / 990 370 / 370 Balance 109.489 / 310.320 -248.199 / 62.121 -210 / -210 Weight last 48 hrs Weight 68.8 kg Weight 66.1 kg Physical Exam Narrative: EXAM NARRATIVE: General: Proned Left earlobe slightly edematous. Pulmonary: CTAB, no wheezing, rhonchi, crackles Cardiovascular: proned Abdomen: proned Extremities: no edema, Achilles tendon mottling has improved. Paul catheter in place. VENT settings: VC-AC 450/20/12/60 Drips: nimbex propofol fentanyl precedex Lines: Right IJ central Urinary Catheter Management^: Paul: Cath Placed During This Visit: yes Reason for Continuing Indwelling Catheter: Accurate Measurement of Urinary Output in Critically Ill Patients Urinary Catheter Date of Insertion: 10/06/21 Urinary Catheter Time of Insertion: 13:33 Data : 10/12/21 02:58 10/12/21 02:58 Micro: Microbiology 10/11/21 13:30 Gram Stain - Final Sputum - Expectorated Sputum Sputum Culture - Preliminary Yeast A&P Assessment and plan (1) Hypotension: Status: Acute (2) COVID-19: Status: Acute (3) COPD exacerbation: Status: Acute (4) Acute respiratory failure with hypoxia: Status: Acute (5) GERD (gastroesophageal reflux disease): Status: Acute Qualifiers: Esophagitis presence: without esophagitis Qualified Code(s): K21.9 - Gastro-esophageal reflux disease without esophagitis (6) Alcohol dependence, in remission: Status: Acute (7) Anxiety: Status: Acute (8) Diabetes mellitus type 2 in nonobese: Status: Acute (9) Essential hypertension: Status: Acute (10) Major depressive disorder, recurrent, severe with psychotic symptoms: Status: Acute Additional A&P Information #Vent dependent Acute hypoxic respiratory failure secondary to ARDS due to COVID-19 pneumonia #Underlying COPD emphysema #[id number] 2017 #History of CAD #Diabetes controlled #Hypertension-controlled - 10/06 - Alert oriented and answers all questions-does not appear to be in respiratory distress -COVID-19 PCR + 09/25/2021-symptoms started 09/20/2021 -S/p 1 dose Actemra, completed 5-day course of remdesivir -Currently on dexamethasone 6 mg IVP daily started 09/29/2021 -Start on baricitinib yesterday 10/05/2021 -Was tried on on BiPAP 10/22 FiO2 90% and saturating 100% on monitor; ABG with the settings today morning 7.4 //. -Titrated down FiO2 to 80% and informed RT to change to high flow nasal cannula today and monitor. -Patient did not do well on BiPAP and therefore was intubated 10/08/2021 -CTA 10/05/2021: Showed no evidence of PE. Diffuse GGO/airspace density -Venous Doppler 10/05/2021: No evidence of DVT -LDH 672, CRP 4.4, D-dimer 3. 2 7, procalcitonin 0.05 -Urine bacterial antigens and Legionella urine antigen-negative, blood cultures negative so far -MRSA nares PCR negative. -Currently on levofloxacin 750 mg IV daily empiric coverage -Held metoprolol/lisinopril in view of hypotension during early part of hospitalization -Continue plavix. -Currently patient on Lantus 55 units daily at home and lispro scale-sugars controlled. Now on tube feeding. Glucose well controlled. Now on Lantus 30 units daily. -Currently on pantoprazole 40 mg p.o. daily for GERD -Patient intubated, sedated and proned 10/08. Will continue with proning sessions -When supine, will start feeds at 30 cc/hr. Stop feeds 2 hours prior to restarting feeds Completed 3 proning sessions. Currently in fourth proning session. He will be made supine today. We will assess how he does on the ventilator after being supine and make further management decision. Will restart beta suzy lose dose 12.5 BID. Pt getting tachycardic. Will check for d-dimer today. #Hyponatremia, suspect adrenal insufficiency Random cortisol 5.35, TSH 0.42, urine osmolality pending, urine sodium 13 - will monitor Stop dexamethasone 10/09. Started patient on hydrocortisone 50 every 8 hours. Sodium improved to 130 today. Potassium 5.5. Gave Kayexalate 15 g x 2, insulin, dextrose, calcium gluconate. Tube feeds when supine Full code DVT PPX: heparin sub c Attestations Medical Necessity Statement*: Intubated. Coding Level of Care Code Acute Small Machine Bindery Operator for g Fwd Diagnoses Hypotension I95.9 COVID-19 U07.1 COPD exacerbation J44.1 Acute respiratory failure with hypoxia J96.01 GERD (gastroesophageal reflux disease) K21.9 Esophagitis presence: without esophagitis Alcohol dependence, in remission F10.21 Anxiety F41.9 Diabetes mellitus type 2 in nonobese E11.9 Essential hypertension I10 Major depressive disorder, recurrent, severe with psychotic symptoms F33.3
[2021-10-12] MEDS: lactulose oral liq 20 gm/30 mL UDC PO (13:48)
--- NOTE | 2021-10-12 14:00 | PC.NURSE ---
Pt opening eyes to voice. He is crowing yes around ETT when his name is called. He does not move his extremities yet.
[2021-10-12 14:19] LABS: D Dimer 1.99 ug/mIFEU (0-0.59)
[2021-10-12 15:14] LABS: Blood Urea Nitrogen 25 mg/dL (8-23); Calcium 8.2 mg/dL (8.5-10.5); Carbon Dioxide 25 mmol/L (22-29); Chloride 93 mmol/L (98-107); Glomerular Filtration Rate 113.9 mL/min (90-130); Glucose 205 mg/dL (65-115); Osmolality Calculated 278 mOsm/kg (285-295); Sodium 129 mmol/L (136-145)
[2021-10-12 15:24] LABS: Anion Gap 16.2 (5-19); Potassium 5.2 mmol/L (3.5-5.1)
[2021-10-12 17:36] LABS: Glucose Point of Care 212 mg/dL (70-110)
--- NOTE | 2021-10-12 18:00 | PC.NURSE ---
Tube feeding stopped. Sedation increased : Fentanyl to 150mcg/min and Propofol to 50mcg/kg/min in preparation for proning. BIS at 73. Will continue to monitor.
--- NOTE | 2021-10-12 18:35 | PC.NURSE ---
Shift Note: Pt remains intubated and sedated. Proning correction this note: he has finished his third round not the fifth as previously noted. Pt neurologically intact; he tried to talk around the vent, he did move his left arm. His extremities are weak. A new pressure ulcer noted this morning on his left ear, Stage I. Fentanyl and Propofol infusing, see MAR. Pt's potassium level high this am, received Calcium Gluconate, regular insulin,dextrose Iv and Kayexalate per OG to correct it. He also received Lactulose today. Flatulence noted this evening but so far no BM. Urine output has improved today, 670ml. Frequent safety and comfort rounds continue. Orders and/or nursing care completed as indicated. Patient monitored for response to intervention and treatment(s). Education provided includes medications, plan of care and another round of proning. Patient sedated unable to understand fully at this point. Will continue to monitor.
[2021-10-12] MEDS: artificial tears Op Oint 3.5 gm 1 APPLIC EYE-BOTH (19:58)
[2021-10-12] MEDS: cisatracurium 100 MG in sodium chloride 0.9% 50 ML IV (19:58)
[2021-10-13] VITALS (47 sets, daily range): BP systolic 74–189; BP diastolic 51–96; PULSE 48–112; RESP 20–26; TEMP 36.2–36.4; O2SAT 85–99
[2021-10-13] MEDS: propofol 1,000 MG/100 ML INJ 9.56 MG IV (00:47)
[2021-10-13] MEDS: ipratropium-albuterol 3 mL Neb INHALATION ×4 (03:05→20:17)
[2021-10-13 03:23] LABS: ABG PH Result 7.44 (7.35-7.45); Arterial Blood Gas Hematocrit 42.6 % (42-52); Base Excess ABG 8.1 mmol/L (-2.0-2.0); Blood Gas Allen Test Pos; Blood Gas Sample Type Arterial; Carboxyhemoglobin 0.8 %THgb (0.4-20.1); HCO3 ABG 33.8 mmol/L (22-26); HGB O2 Sat 89.8 % (95-100); Ionized Calcium Level - ABG 1.2 mmol/L (1.1-1.4); Oxygen Saturation ABG 91.4; PO2 ABG 60.4 mmHg (80.0-100.0); Potassium Level - ABG 3.9 mmol/L (3.5-5.0); Total Hemoglobin 13.9 g/dL (14-18)
[2021-10-13 03:24] LABS: Alveolar-Arterial Oxygen Gradi 30.8 mmHg (5-10); Blood Gas Sample Site Radial, left; Blood Gas Tidal Volume 0.45; Oxygen Device VENT
[2021-10-13 04:05] LABS: Basophils # 0.1 10^3/uL (0.0-0.1); Basophils % 0.5 %; Eosinophils # 0.5 10^3/uL (0.0-0.8); Eosinophils % 4.1 %; Hematocrit 42.1 % (42.0-52.0); Hemoglobin 13.9 g/dL (11.7-16.6); Lymphocytes # 1.3 10^3/uL (0.8-4.8); Lymphocytes % 10.4 %; Mean Corpuscular Hemoglobin 30.9 pg (28.0-34.0); Mean Corpuscular Volume 93.6 fl (80-94); Monocytes # 0.7 10^3/uL (0.2-0.9); Monocytes % 6.2 %; Neutrophils # 8.94 10^3/uL (1.8-7.7); Neutrophils % 74.7 %; Nucleated Red Blood Cells % 0 %; Platelet Count 242 10^3/cmm (130-400); Red Cell Distribution Width 14.5 % (12.1-15.1)
[2021-10-13 04:26] LABS: Anion Gap 10.8 (5-19); Blood Urea Nitrogen 22 mg/dL (8-23); Carbon Dioxide 31 mmol/L (22-29); Chloride 98 mmol/L (98-107); Glomerular Filtration Rate 136.1 mL/min (90-130); Glucose 85 mg/dL (65-115); Magnesium 2.3 mg/dL (1.7-2.3); Osmolality Calculated 285 mOsm/kg (285-295); Potassium 3.8 mmol/L (3.5-5.1); Sodium 136 mmol/L (136-145)
[2021-10-13] MEDS: heparin 5,000 unit/mL INJ 1 mL 5000 UNIT SUBCUT ×3 (05:04→21:29)
[2021-10-13] MEDS: propofol 1,000 MG/100 ML INJ 8.6 MG IV ×2 (05:16→10:34)
--- NOTE | 2021-10-13 07:35 | PC.NURSE ---
BIS 38, TOF not recording. PT compliant with vent. See MAR for gtt adjustments.
[2021-10-13 07:40] LABS: Glucose Point of Care 164 mg/dL (70-110)
--- NOTE | 2021-10-13 07:58 | XRR_ITS ---
PROCEDURE INFORMATION: Exam: XR Chest Exam date and time: 10/13/2021 7:58 AM Age: 61 years old Clinical indication: Hypoxia in 70s during infusion. Patient unable to give history TECHNIQUE: Imaging protocol: XR of the chest. Views: 1 view. COMPARISON: CR (CHEST, ) 10/09/2021 3:05 PM FINDINGS: Tubes, catheters and devices: Endotracheal tube with tip approximately 5.5 cm above the matthew. Nasogastric tube projects into the abdomen. Its tip is not included on the current study. Right central venous access device with tip likely at the SVC/right atrial junction; the distal aspect of this line is not well seen. Lungs: Hazy and interstitial opacities are again noted that are most prominent at the lung bases. The appearance is similar to prior. Pleural spaces: No pleural effusion.. No pneumothorax. Heart/Mediastinum: No gross evidence of pneumomediastinum. Bones/joints: No gross fracture. XR/XR chest 1V portable [id number] IMPRESSION: 1. Hazy and interstitial opacities are again noted that are most prominent at the lung bases. The appearance is similar to prior. 2. Lines and tubes as above. Radiation Dose CTDIVOL = (mGy): DLP = (mGy-cm)
[2021-10-13] MEDS: budesonide 0.5 mg/2 mL Neb 0.25 MG INHALATION ×2 (08:30→20:17)
[2021-10-13] MEDS: insulin lispro 100 unit/1 mL SUBCUT ×2 (09:05→18:21)
[2021-10-13] MEDS: cisatracurium 100 MG in sodium chloride 0.9% 50 ML IV (09:08)
[2021-10-13] MEDS: pantoprazole 40 mg SDV IVP (09:09)
[2021-10-13] MEDS: insulin glargine 100 units/1 mL 30 UNIT SUBCUT (09:09)
[2021-10-13] MEDS: clopidogrel 75 mg Tablet PO (09:09)
[2021-10-13] MEDS: ascorbic acid 500 mg Tablet 1000 MG PO ×2 (09:09→18:20)
[2021-10-13] MEDS: zinc gluconate 50 mg Tablet PO (09:09)
--- NOTE | 2021-10-13 09:10 | PC.NURSE ---
Left ear: blisters broke, scab forming.
--- NOTE | 2021-10-13 09:52 | PC.CHAP ---
Pastoral Care Encounter/Spiritual Assessment Type of Contact [] Declined relief cook visit [] Patient/Family/Request visit [] Outpatient visit [] Follow-up visit [] Physician referral [] Code/Alert [x] Routine visit [] Staff referral [] Actively dying [] Patient sleeping [] Family support [] [] Out of room [] Palliative care [] [x] Receiving care in room [] Pre-surgical visit [] Trauma [] Long length of stay [x] ICU visit [x] Other: isolated Relational/Emotional Strength [] Patient feels connected with others/family/visitors/staff [] Distress [] Loneliness/isolation [] Abandonment Spirituality of Patient [] Person of Sis [] Attends Zoroastrianism of their Sis [] Believes in Prayer [] Reads Bible or Rastafari materials [] There are Spiritual issues to be addressed Heat Treater Interventions [x] Prayer [] Active listening [] Non-anxious presence [] Spiritual/emotional support [] Crisis/trauma care [] Spiritual counseling [] Bereavement support [] Provided bereavement packet [] Provided Bible/devotional materials [] Provided toy/stuffed animal, coloring book to patient or family member [] Provided Communion [] Anointing/[place] [] Salvation [x] Completed spiritual assessment [] Other: Impact on Illness or Injury [] Angry [] Fearful [] Anxious [] Often cries [] Exhaustion [] Unable to work [] Unable to attend episcopalian [] Unable to walk/stand [] Unable to read [] Unable to drive [] Unable to eat/drink [] Unable to sleep [] Unable to be with family [] Patient intubated [] Other: Summary Time spent with patient
--- NOTE | 2021-10-13 12:00 | PC.NURSE ---
Addendum entered by Betsey Villalobos RN 10/13/21 19:16: Pt swam /repositioned while proned through the morning. Original Note: BIS this morning ranged from 38-72. Pt compliant with vent. He is still proned. Fentanyl, propofol increased, Versed started. All gtt adjusted repeatedly for effect of BIS , B/P and heart rate. His heart rate did drop to 45 bpm, at that point, Versed stopped.
[2021-10-13 12:08] LABS: Glucose Point of Care 124 mg/dL (70-110)
[2021-10-13] MEDS: levoFLOXacin 750 mg Tablet PO (12:20)
[2021-10-13] MEDS: hydrocortisone 100 mg/2 mL SDV 50 MG IVP (12:21)
[2021-10-13] MEDS: lactulose oral liq 20 gm/30 mL UDC PO (12:21)
[2021-10-13 12:27] LABS: Osmolality Urine 772 mOsm/kg (50-1200)
--- NOTE | 2021-10-13 14:30 | PC.NURSE ---
Pt repositioned from prone to supine. Nimbex turned off. Fentanyl and Propofol decreased to check neuro responses.
[2021-10-13 15:28] LABS: Osmolality Serum 274 mOsm/kg (278-305)
--- NOTE | 2021-10-13 16:45 | PC.NURSE ---
Pt opening eyes on command, moving his arms. Restraints restarted as his hands were up by ETT. Sedation increased for pt's comfort. Will continue to monitor.
[2021-10-13 17:03] LABS: Glucose Point of Care 182 mg/dL (70-110)
--- NOTE | 2021-10-13 17:29 | P.PN_ITS ---
Subjective Subjective: Interval history: Positive fluid balance Afebrile Leukocytosis not worsening PaO2 60 on FiO2 50% while proned, Supine FiO2 60%, Discontinued paralytics Hypertensive we will give antihypertensive and add opioids Vitals/I&O/Wt Last Vital Signs Temp 97.5 F L 10/13/21 17:00 Pulse 110 H 10/13/21 17:00 Resp 20 H 10/13/21 17:00 BP 147/96 10/13/21 17:00 Pulse Ox 90 10/13/21 17:00 10/13/21 10/13/21 10/13/21 06:59 14:59 22:59 Intake Total 281.353 / 1346.490 432.397 / 432.397 164.882 / 597.279 Output Total 350 / 1020 500 / 500 Balance -68.647 / 326.490 432.397 / 432.397 -335.118 / 97.279 Weight last 48 hrs Weight 68.8 kg Physical Exam Narrative: EXAM NARRATIVE: Patient was proned FiO2 50% Left ear pressure ulcer Right-sided central line Paul catheter draining concentrated urine Endotracheal tube size 8 On propofol at 50 and fentanyl 190, Paralytics at the bedside Bilateral assisted breath sounds No rhonchi wheezing No pressure ulcer on extremities Neuro exam limited Urinary Catheter Management^: Paul: Cath Placed During This Visit: yes Reason for Continuing Indwelling Catheter: Accurate Measurement of Urinary Output in Critically Ill Patients Urinary Catheter Date of Insertion: 10/06/21 Urinary Catheter Time of Insertion: 13:33 Data : 10/13/21 03:45 10/13/21 03:45 Micro: Microbiology 10/11/21 13:30 Gram Stain - Final Sputum - Expectorated Sputum Sputum Culture - Preliminary Yeast A&P Assessment and plan (1) ARDS (adult respiratory distress syndrome): Status: Acute (2) Adrenal insufficiency: Status: Acute (3) COVID-19: Status: Acute (4) COPD exacerbation: Status: Acute (5) Acute respiratory failure with hypoxia: Status: Acute Additional A&P Information COVID-19 Patient was initially on nasal cannula and transition to heated high flow, failed BiPAP and then got intubated on 10/08 Status post 4 cycles of proning Responsive to proning, FiO2 comes down to 50% during proning currently at supine FiO2 60% Repeat D-dimer, initial CTA ruled out PE Status post Actemra, steroids and remdesivir Currently getting steroids for adrenal insufficiency No signs of pneumonia he is getting Levaquin empirical treatment Plan to send him to the LTAC for tracheostomy and PEG tube placement, brother has been updated Plan discussed with Dr. Van Discontinue paralytics Keep him on sedatives, will add Versed For hypertension added amlodipine and opioids, continue metoprolol, metoprolol dose increased today his heart rate was in sinus rhythm heart rate fluctuating between 70 to 80s, For adrenal insufficiency he did receive stress dose steroids: Transition to maintenance regimen of hydrocortisone 10 mg in the a.m. 5 mg at lunch For positive fluid balance we will give 1 dose of low-dose Lasix today Hyponatremia improved Hyperkalemia: Improved with Kayexalate Full code Guarded prognosis for severe ARDS DVT prophylaxis: Heparin Tube feed Glucerna optimized to 30 cc/h Attestations Medical Necessity Statement*: Continue ICU management Screening for LTAC Time Spent in Patient Care: 16 - 35 minutes Coding Level of Care Code Acute Forestry Patrolman for Tyson Sanchez Diagnoses ARDS (adult respiratory distress syndrome) J80 Adrenal insufficiency E27.40 COVID-19 U07.1 COPD exacerbation J44.1 Acute respiratory failure with hypoxia J96.01
[2021-10-13] MEDS: amlodipine 10 mg Tablet NG-TUBE (18:20)
[2021-10-13] MEDS: propofol 1,000 MG/100 ML INJ 7.65 MG IV ×2 (18:21→23:50)
--- NOTE | 2021-10-13 19:27 | PC.NURSE ---
Shift Note: Pt remains sedated and intubated. He completed his fourth proning session. Fentanyl, Versed and Propofol infusing. His B/P was more labile today, SBP 85 to 170's. His heart rate 45-115 today. FIO2 at 60% at end of day shift. He is moving around more today. Urine output of 500ml. Lactulose administered again today, no BM results thus far Frequent safety and comfort rounds continue. Orders and/or nursing care completed as indicated. Patient monitored for response to intervention and treatment(s). Education provided includesPRoning, medications including amlodipine, plan of care. Patient on sedation medication, unable to fully comprehend at this time.. Will continue to monitor.
--- NOTE | 2021-10-13 19:33 | PC.NURSE ---
Odin Correa called to give update.Pt finished fourth proning. He is on 60% of oxygen now. he was pn 70-80% yesterday. He is moving around more. He actually needs medications for HTN. The Drs are aware of his antidepressants and pysch meds,when they think he is ready to restart them the Drs will order them. If pt continues on this path, termite renewal inspector care facility for rehab may be considered. There is one in [place] call [facility]. If the physicians think that would help him you/family will be contacted. You/family will continue to be included in his future plan of care.
--- NOTE | 2021-10-13 20:55 | PM.PN ---
Subjective Subjective: Interval history: -Patient seen in prone positioning today -He will be improved sometime today afternoon-we will complete 4 sessions only -Currently requiring 50% FiO2 on ventilator - Plan is to prone and taper off sedation, tomorrow will assess and do awakening trial followed by breathing trial -Other labs and imaging reviewed Medications: Reviewed: Yes Vitals/I&O/Wt Last Vital Signs Temp 97.5 F L 10/13/21 17:00 Pulse 101 H 10/13/21 20:18 Resp 25 H 10/13/21 20:18 BP 147/96 10/13/21 17:00 Pulse Ox 89 L 10/13/21 20:18 10/13/21 10/13/21 10/13/21 06:59 14:59 22:59 Intake Total 281.353 / 1346.490 447.296 / 447.296 185.327 / 632.623 Output Total 350 / 1020 500 / 500 Balance -68.647 / 326.490 447.296 / 447.296 -314.673 / 132.623 Weight last 48 hrs Weight 151 lb 10.848 oz Physical Exam Narrative: EXAM NARRATIVE: General: Lying in bed, sedated and intubated, proned. HEENT:NCAT, PERRLA, EOMI Neck: Supple Lungs: Mild diffuse crackles Heart: s1/s2, RRR Abd: soft, NT, ND, BS + Normoactive Extremities: No edema DEMO EVENT SPECIALIST: sedated and limited DEMO EVENT SPECIALIST exam possible. SKIN: no rash LDA: # CVC: Right IJ 12/08/2020 Urinary Catheter Management^: Paul: Cath Placed During This Visit: yes Reason for Continuing Indwelling Catheter: Accurate Measurement of Urinary Output in Critically Ill Patients Urinary Catheter Date of Insertion: 10/06/21 Urinary Catheter Time of Insertion: 13:33 Data : 10/13/21 03:45 10/13/21 03:45 Other Labs: Laboratory Results WBC 12.0 10^3/uL (4.0-10.0) H 10/13/21 03:45 RBC 4.50 10^6/uL (4.1-5.3) 10/13/21 03:45 Hgb 13.9 g/dL (11.7-16.6) 10/13/21 03:45 Hct 42.1 % (42.0-52.0) 10/13/21 03:45 MCV 93.6 fl (80-94) 10/13/21 03:45 MCH 30.9 pg (28.0-34.0) 10/13/21 03:45 MCHC 33.0 g/dL (30.0-36.0) 10/13/21 03:45 RDW 14.5 % (12.1-15.1) 10/13/21 03:45 Plt Count 242 10^3/cmm (130-400) 10/13/21 03:45 MPV 10.0 fL (7.4-10.4) 10/13/21 03:45 Neut % (Auto) 74.7 % 10/13/21 03:45 Lymph % (Auto) 10.4 % 10/13/21 03:45 [place] % (Auto) 6.2 % 10/13/21 03:45 Eos % (Auto) 4.1 % 10/13/21 03:45 Baso % (Auto) 0.5 % 10/13/21 03:45 Neut # (Auto) 8.94 10^3/uL (1.8-7.7) H 10/13/21 03:45 Lymph # (Auto) 1.3 10^3/uL (0.8-4.8) 10/13/21 03:45 [place] # (Auto) 0.7 10^3/uL (0.2-0.9) 10/13/21 03:45 Eos # (Auto) 0.5 10^3/uL (0.0-0.8) 10/13/21 03:45 Baso # (Auto) 0.1 10^3/uL (0.0-0.1) 10/13/21 03:45 Nucleated RBC % (auto) 0 % 10/13/21 03:45 Nucleated RBCs # 0.0 /100WBC 10/13/21 03:45 APTT 45.7 SECONDS (23.9-36.7) H 10/10/21 08:46 D-Dimer 1.99 ug/mIFEU (0-0.59) H 10/12/21 13:57 Specimen Type Arterial 10/13/21 03:20 Sample Site Radial, left 10/13/21 03:20 ABG pH 7.44 (7.35-7.45) 10/13/21 03:20 ABG pCO2 50.0 mmHg (35-45) H 10/13/21 03:20 ABG pO2 60.4 mmHg (80.0-100.0) L 10/13/21 03:20 ABG HCO3 33.8 mmol/L (22-26) H 10/13/21 03:20 ABG O2 Saturation 91.4 10/13/21 03:20 ABG Base Excess 8.1 mmol/L (-2.0-2.0) H 10/13/21 03:20 Roger Test Pos 10/13/21 03:20 A-a O2 Gradient 30.8 mmHg (5-10) H 10/13/21 03:20 Hematocrit 42.6 % (42-52) 10/13/21 03:20 Hgb O2 Saturation 89.8 % (95-100) L 10/13/21 03:20 Carboxyhemoglobin 0.8 %THgb (0.4-20.1) 10/13/21 03:20 Methemoglobin 1.0 % (0.4-1.5) 10/13/21 03:20 Total Hemoglobin 13.9 g/dL (14-18) L 10/13/21 03:20 Sodium 134.0 mmol/L (131-143) 10/13/21 03:20 Potassium 3.9 mmol/L (3.5-5.0) 10/13/21 03:20 Glucose 90.0 mg/dL (70-115) 10/13/21 03:20 Ionized Calcium 1.2 mmol/L (1.1-1.4) 10/13/21 03:20 O2 Delivery Device Vent 10/13/21 03:20 O2 Liters/Min 50.0 % 10/08/21 10:00 FiO2 50.0 % 10/13/21 03:20 Tidal Volume 0.45 10/13/21 03:20 PEEP 12.0 cmH20 10/13/21 03:20 Hospitality Ambassador ID [email or web address] 10/13/21 03:20 Sodium 136 mmol/L (136-145) 10/13/21 03:45 Potassium 3.8 mmol/L (3.5-5.1) 10/13/21 03:45 Chloride 98 mmol/L (98-107) 10/13/21 03:45 Carbon Dioxide 31 mmol/L (22-29) H 10/13/21 03:45 Anion Gap 10.8 (5-19) 10/13/21 03:45 BUN 22 mg/dL (8-23) 10/13/21 03:45 Creatinine 0.6 mg/dL (0.7-1.2) L 10/13/21 03:45 GFR Calculation 136.1 mL/min (90-130) H 10/13/21 03:45 Glucose 85 mg/dL (65-115) 10/13/21 03:45 POC Glucose 182 mg/dL (70-110) H 10/13/21 16:59 Serum Osmolality 274 mOsm/kg (278-305) L 10/09/21 08:15 Calculated Osmolality 285 mOsm/kg (285-295) 10/13/21 03:45 Lactic Acid 1.8 mmol/L (0.5-2.2) 09/30/21 05:55 Calcium 8.0 mg/dL (8.5-10.5) L 10/13/21 03:45 Magnesium 2.3 mg/dL (1.7-2.3) 10/13/21 03:45 Total Bilirubin 0.4 mg/dL (0.15-1.2) 10/10/21 08:46 AST 18 U/L (0-40) 10/10/21 08:46 ALT 15 U/L (0-41) 10/10/21 08:46 Alkaline Phosphatase 66 IU/L (40-130) 10/10/21 08:46 Lactate Dehydrogenase 672 U/L (135-225) H 10/06/21 04:09 Creatine Kinase 36 U/L (39-308) L 09/30/21 05:54 C-Reactive Protein 4.4 mg/L (0.0-4.9) 10/06/21 04:09 Total Protein 5.1 g/dL (6.6-8.7) L 10/10/21 08:46 Albumin 2.9 g/dL (3.5-5.2) L 10/10/21 08:46 Globulin 2.2 g/dL (1.3-4.6) 10/10/21 08:46 Triglycerides 180 mg/dL (0-150) H 10/09/21 08:15 Cholesterol 82 mg/dL (0-200) 10/09/21 08:15 LDL Cholesterol, Calc 14 mg/dL (50-129) L 10/09/21 08:15 HDL Cholesterol 32 mg/dL (60-100) L 10/09/21 08:15 LDL/HDL Ratio 0.44 RATIO (0.00-3.22) 10/09/21 08:15 Cholesterol/HDL Ratio 2.56 mg/dL (1.0-5.00) 10/09/21 08:15 Procalcitonin 0.06 ng/mL (0-0.5) 10/10/21 08:46 TSH 0.42 uIU/mL (0.27-4.20) 10/09/21 08:15 Random Cortisol 5.35 ug/dL (2.47-19.5) 10/09/21 08:15 Urine Osmolality 772 mOsm/kg (50-1200) 10/09/21 08:05 Ur Random Sodium 13 mmol/L 10/09/21 08:05 Urine Creatinine 114 mg/dL (39-259) 10/09/21 08:05 Impressions Chest CTA 10/05/21 19:05 IMPRESSION: 1. There is no pulmonary embolus. 2. There is diffuse ground-glass/airspace density, which may represent pneumonia, pulmonary edema, or inflammatory pneumonitis such as ARDS. Radiation Dose CTDIVOL = (mGy): DLP = 563.44 (mGy-cm) Chest X-Ray 10/13/21 07:58 IMPRESSION: 1. Hazy and interstitial opacities are again noted that are most prominent at the lung bases. The appearance is similar to prior. 2. Lines and tubes as above. Radiation Dose CTDIVOL = (mGy): DLP = (mGy-cm) Micro: Microbiology 10/11/21 13:30 Gram Stain - Final Sputum - Expectorated Sputum Sputum Culture - Preliminary Yeast A&P Assessment and plan (1) Acute respiratory failure with hypoxia: Status: Acute (2) ARDS (adult respiratory distress syndrome): Status: Acute (3) COVID-19: Status: Acute (4) COPD (chronic obstructive pulmonary disease): Status: Acute Qualifiers: COPD type: emphysema Emphysema type: centrilobular Qualified Code(s): J43.2 - Centrilobular emphysema (5) Diabetes mellitus type 2 in nonobese: Status: Acute (6) Essential hypertension: Status: Acute #Acute hypoxic respiratory failure secondary to ARDS due to COVID-19 pneumonia #Underlying COPD emphysema #[id number] #History of CAD #Diabetes #Hypertension-controlled -COVID-19 PCR + 09/25/2021-symptoms started 09/20/2021 -S/p 1 dose Actemra, completed 5-day course of remdesivir -Currently on dexamethasone 6 mg IVP daily started 09/29/2021 -Patient is desaturating even on 100% HFNC/BiPAP-intubated and connected ventilator -Patient to complete 4 sessions of proning by today -Follow ARDS lung protective protocol-low volume high PEEP strategies -ABG today morning 7.4 4/50/60/33/91% on on AC VC 450/50%/12 - When pt is not proned taper off Paralytic and versed and minimize sedation with fentanyl and propofol to maintain RASS - 2. -Sputum culture positive for yeast-identification pending -Monitor ABG and saturations; Levo drip to keep MAP > 65% -CTA 10/05/2021: Showed no evidence of PE. Diffuse GGO/airspace density -Venous Doppler 10/05/2021: No evidence of DVT -LDH 672, CRP 4.4, D-dimer 3. 2 7, procalcitonin 0.05 -Urine bacterial antigens and Legionella urine antigen-negative, MRSA nares negative blood cultures negative so far -Currently on levofloxacin-day 5-discontinue after total 7 days -Off pressors and currently metoprolol 20 5G p.o. twice daily and amlodipine 10 mg p.o. daily - Monitor I & O; total +5.7 L since admission, maintain net negative or even - Lasix PRN if pt is volume overloaded. -At some point patient has hyponatremia, hyperkalemia, random cortisol 5 despite being on dexamethasone-started on hydrocortisone 50 q. 6-currently electrolytes corrected and recommended to transition IV hydrocortisone to p.o. hydrocortisone -Patient currently on Lantus 30 mg at bedtime and continue scale and close sugar monitoring -Pantoprazole 40 mg p.o. daily for GERD and stress ulcer ppx -DVT prophylaxis: Heparin sc -Full code -Guarded prognosis -Diet: Start on Tube feeding Glucerna/Pulmicort with max goal 30 cc/hr when pt is NOT proned -Need close monitoring in ICU for respiratory failure requiring mech ventilator -completed 4 proning sessions and currently still requiring 60% FiO2-patient would benefit from trach and PEG as it will take a long time for patient to recover hospitalist updated NOK Recommendations conveyed to hospitalist, RN, RT taking care of the patient Attestations Medical Necessity Statement*: Acute hypoxic respiratory failure secondary to ARDS due to COVID-19 requiring ventilation and close monitoring in ICU Time Spent in Patient Care: Greater than 35 minutes (>than 50% of time spent in counselling and/or direct pt care on unit). Critical Care Time: The high probability of a clinically significant, sudden or life threatening deterioration of the patient's [pulmonary, endocrine] system(s) required my full and direct attention, intervention and personal management. The critical care time is as shown. This time is in addition to time spent performing any reported procedures but includes the following: [x] Data and vital sign review and interpretation [x] Patient assessment, examination and intervention [x] Documentation [x] Medication orders and management Critical Care Time (min): 45 Coding Level of Care Code Established Pt Acute Family Living Educator for Chg Fwd Patient Type Established History Comprehensive Exam Comprehensive Medical Decision Making High Complexity Diagnoses Acute respiratory failure with hypoxia J96.01 ARDS (adult respiratory distress syndrome) J80 COVID-19 U07.1 COPD (chronic obstructive pulmonary disease) J43.2 COPD type: emphysema Emphysema type: centrilobular Diabetes mellitus type 2 in nonobese E11.9 Essential hypertension I10 Time Spent (min) 45
[2021-10-13] MEDS: metoprolol tartrate 25 mg Tablet PO (21:29)
[2021-10-14] VITALS (68 sets, daily range): BP systolic 81–151; BP diastolic 42–84; PULSE 52–86; RESP 20–24; TEMP 36.5–37.1; O2SAT 80–99; BMI 20.9
[2021-10-14] MEDS: lactulose oral liq 20 gm/30 mL UDC PO ×2 (01:32→12:02)
[2021-10-14 02:52] LABS: Basophils % 0.4 %; Eosinophils # 0.4 10^3/uL (0.0-0.8); Eosinophils % 3.7 %; Hematocrit 36.9 % (42.0-52.0); Hemoglobin 13.1 g/dL (11.7-16.6); Lymphocytes # 0.8 10^3/uL (0.8-4.8); Lymphocytes % 7.9 %; Mean Corpuscular HGB Conc 35.5 g/dL (30.0-36.0); Mean Corpuscular Hemoglobin 31.9 pg (28.0-34.0); Mean Corpuscular Volume 89.8 fl (80-94); Monocytes # 0.4 10^3/uL (0.2-0.9); Monocytes % 3.9 %; Neutrophils # 7.64 10^3/uL (1.8-7.7); Neutrophils % 80.3 %; Nucleated Red Blood Cells % 0 %; Platelet Count 209 10^3/cmm (130-400); Red Blood Count 4.11 10^6/uL (4.1-5.3); Red Cell Distribution Width 14.2 % (12.1-15.1); White Blood Count 9.5 10^3/uL (4.0-10.0)
[2021-10-14 03:17] LABS: Anion Gap 15.7 (5-19); Blood Urea Nitrogen 19 mg/dL (8-23); C Reactive Protein 3.3 mg/L (0.0-4.9); Calcium 7.8 mg/dL (8.5-10.5); Carbon Dioxide 26 mmol/L (22-29); Chloride 97 mmol/L (98-107); Glomerular Filtration Rate 136.1 mL/min (90-130); Glucose 71 mg/dL (65-115); Osmolality Calculated 281 mOsm/kg (285-295); Potassium 3.7 mmol/L (3.5-5.1); Sodium 135 mmol/L (136-145)
[2021-10-14] MEDS: ipratropium-albuterol 3 mL Neb INHALATION ×4 (03:30→21:20)
[2021-10-14 03:43] LABS: ABG PCO2 44.7 mmHg (35-45); ABG PH Result 7.47 (7.35-7.45); Arterial Blood Gas Hematocrit 40.6 % (42-52); Base Excess ABG 8.1 mmol/L (-2.0-2.0); Blood Gas Allen Test Pos; Blood Gas Sample Site Radial, right; Blood Gas Sample Type Arterial; Blood Gas Tidal Volume 0.45; HCO3 ABG 32.8 mmol/L (22-26); Oxygen Device VENT; PO2 ABG 46.3 mmHg (80.0-100.0)
[2021-10-14] MEDS: propofol 1,000 MG/100 ML INJ 7.65 MG IV (03:57)
[2021-10-14] MEDS: heparin 5,000 unit/mL INJ 1 mL 5000 UNIT SUBCUT (03:58)
--- NOTE | 2021-10-14 06:29 | PC.NURSE ---
Nurse Note: Pt ok for majority of shift. Starting fighting vent around 0400 this morning . Whenever sedation increased, BP decreased. OK again when backed off of sedation. Placed call to Dr. Baugh and received ok to start patient on Levophed if patient's MAP remained less than 65 today. WIll pass on to dayshift in report and will continue to monitor now.
[2021-10-14 07:19] LABS: Glucose Point of Care 68 mg/dL (70-110)
--- NOTE | 2021-10-14 07:33 | CT_ITS ---
WS: [id number] CTA OF THE CHEST WITH PULMONARY EMBOLISM PROTOCOL TECHNIQUE: High-resolution contrast enhanced CTA of the chest with coronal and sagittal reformatted i mages with pulmonary embolism protocol. MIP images are also reviewed. CLINICAL INFORMATION: HYPOXIA COMPARISON: CT October 05, 2021 DLP: 556.[address] scans at [facility] use at least one of these dose optimization techniques: automated e xposure control; mA and/or kV adjustment per patient size (includes targeted exams where dose is matc hed to clinical indication); or iterative reconstruction. FINDINGS: Advanced chronic emphysematous changes. Diffuse hazy groundglass infiltrates throughout both lungs si milar to the previous examination. Interstitial thickening is slightly progressed compared to previou s with more developing airspace consolidation in the lung bases. No significant pleural fluid. Endotracheal tube tip above the matthew. Enteric tube with tip in the distal stomach near the duodenum . Proximal main pulmonary arteries are normal. Normal segmental and subsegmental pulmonary arteries. No evidence of pulmonary embolus. No suspicious filling defects. No axillary lymphadenopathy. Enlarged mediastinal lymph nodes. Slight slightly enlarged hilar lymph n odes likely reactive. Splenic granulomas. Adrenal glands are normal. Multiple hepatic cysts. Normal upper abdominal aorta. Mild spondylitic changes thoracic spine. CT/CT angio chest PE protcl [id number] IMPRESSION: 1. Main pulmonary arteries are normal. No evidence of pulmonary embolus. 2. Diffuse hazy groundglass infiltrates throughout both lungs with progressed interstitial thickening. More developing airspace consolidation in the lung bas es today. Findings likely due to COVID 19 Pneumonia/ARDS.
[2021-10-14] MEDS: dextrose 50% syringe 50 mL IVP (07:53)
[2021-10-14] MEDS: sennosides-docusate Tablet 2 TAB PO (07:54)
[2021-10-14] MEDS: ascorbic acid 500 mg Tablet 1000 MG PO ×2 (07:54→17:38)
[2021-10-14] MEDS: clopidogrel 75 mg Tablet PO (07:54)
[2021-10-14] MEDS: amlodipine 10 mg Tablet NG-TUBE (07:54)
[2021-10-14] MEDS: apixaban 5 mg Tablet PO (07:54)
[2021-10-14] MEDS: metoprolol tartrate 25 mg Tablet PO (07:55)
[2021-10-14] MEDS: pantoprazole 40 mg SDV IVP (07:55)
[2021-10-14] MEDS: zinc gluconate 50 mg Tablet PO (07:55)
[2021-10-14] MEDS: budesonide 0.5 mg/2 mL Neb 0.25 MG INHALATION ×2 (08:05→21:20)
[2021-10-14] MEDS: hydrocortisone 10 mg Tablet PO (08:12)
[2021-10-14] MEDS: propofol 1,000 MG/100 ML INJ 9.56 MG IV ×3 (10:00→18:36)
[2021-10-14] MEDS: iohexol 350 mg/mL 100 mL Btl IV (10:12)
[2021-10-14 11:49] LABS: Glucose Point of Care 138 mg/dL (70-110)
[2021-10-14 11:49] LABS: Glucose Point of Care 176 mg/dL (70-110)
[2021-10-14] MEDS: levoFLOXacin 750 mg Tablet PO (12:02)
[2021-10-14] MEDS: hydrocortisone 10 mg Tablet 5 MG PO (12:03)
[2021-10-14] MEDS: sodium chloride 0.9% 250 ML IV (12:28)
[2021-10-14] MEDS: hydrocortisone 100 mg/2 mL SDV IVP (12:28)
--- NOTE | 2021-10-14 14:21 | PC.SOCIAL ---
IMM Update IMM updated & discussed with pt's brother Odin. Copy left at bedside for patient and family.
--- NOTE | 2021-10-14 15:22 | XRR_ITS ---
PROCEDURE INFORMATION: Exam: XR Chest Exam date and time: 10/14/2021 3:22 PM Age: 61 years old Clinical indication: Screening exam; Other screening; Additional info: R/O pneumo TECHNIQUE: Imaging protocol: XR of the chest. Views: 1 view. COMPARISON: CR XR chest 1V portable [id number] 10/13/2021 2:49 PM FINDINGS: Tubes, catheters and devices: There is a right IJ catheter, endotracheal tube and nasogastric tube. Lungs: Unremarkable. No consolidation. Pleural spaces: Unremarkable. No pleural effusion. No pneumothorax. Heart/Mediastinum: Unremarkable. No cardiomegaly. Bones/joints: Unremarkable. XR/XR chest 1V portable [id number] IMPRESSION: There are no acute concerning abnormalities. Radiation Dose CTDIVOL = (mGy): DLP = (mGy-cm)
--- NOTE | 2021-10-14 15:29 | PC.NURSE ---
Pt o2 sat down, required increased sedation. aware of changes. CXR ordered to r/o pneumo d/t RT concern. Awaiting CXR. VSS. Will monitor.
--- NOTE | 2021-10-14 16:23 | PM.PN ---
Subjective Subjective: Interval history: -susannah 400ml Fluid balance This morning he is requiring vasopressors Levophed running at 4 Propofol at 50, fentanyl at 100, Versed at 4 FiO2 has been weaned down from 70% to 65 after increasing sedation I we will switch him back to IV steroids as he was hypoglycemic and hypotensive this morning, discontinue p.o. steroids CTA ruled out PE no continue Eliquis 2.5 twice daily A small bolus of 250 cc given this morning No bowel movement yet X-ray was repeated to rule out pneumothorax when his hypoxia worsened Vitals/I&O/Wt Last Vital Signs Temp 97.7 F 10/14/21 12:00 Pulse 65 10/14/21 16:00 Resp 24 H 10/14/21 15:10 BP 104/64 10/14/21 16:00 Pulse Ox 96 10/14/21 16:00 10/14/21 10/14/21 10/14/21 06:59 14:59 22:59 Intake Total 84.743 / 795.471 568.627 / 568.627 323.216 / 891.843 Output Total 350 / 1050 600 / 600 Balance -265.257 / -254.529 568.627 / 568.627 -276.784 / 291.843 Weight last 48 hrs Weight 62.3 kg Physical Exam Narrative: EXAM NARRATIVE: Glucerna at bedside running at 30 cc/h Clinically looks dry Left ear blister noted, ear cartilage with hemorrhagic blister noted as well Right-sided central line Paul catheter draining concentrated urine Bilateral assisted breath sounds, FiO2 65 Abdomen soft bowel sounds present Neuro exam limited Intubated and sedated Urinary Catheter Management^: Paul: Cath Placed During This Visit: yes Reason for Continuing Indwelling Catheter: Accurate Measurement of Urinary Output in Critically Ill Patients Urinary Catheter Date of Insertion: 10/06/21 Urinary Catheter Time of Insertion: 13:33 Data : 10/14/21 01:55 10/14/21 01:55 A&P Assessment and plan (1) Adrenal insufficiency: Status: Acute (2) ARDS (adult respiratory distress syndrome): Status: Acute (3) Hypotension: Status: Acute (4) COVID-19: Status: Acute (5) COPD exacerbation: Status: Acute (6) Acute respiratory failure with hypoxia: Status: Acute (7) Diabetes mellitus type 2 in nonobese: Status: Acute (8) COPD (chronic obstructive pulmonary disease): Status: Acute Qualifiers: COPD type: emphysema Emphysema type: centrilobular Qualified Code(s): J43.2 - Centrilobular emphysema (9) Anxiety: Status: Acute Additional A&P Information Persistent hypoxia Covid ARDS Requiring vasopressors today Adrenal insufficiency, switch to IV steroids Hypoglycemia and hypotension: Given D50 1 amp today Glucerna at 30 cc/h He was also given 250 cc one-time bolus Repeat x-ray to rule out pneumothorax for worsening hypoxia CTA rule out PE Status post Actemra, remdesivir Hyponatremia and hyperkalemia improved after IV steroids Constipation: Continue bowel regimen, will do enema today Bowel sounds present Plan to send him to LTAC for tracheostomy and PEG tube placement Guarded prognosis Full code DVT prophylaxis Eliquis 2.5 twice daily Tube feeds running at 30 cc/h Attestations Medical Necessity Statement*: LTAC Placement, guarded prognosis Time Spent in Patient Care: 16 - 35 minutes Coding Level of Care Code Acute Desktop Technician for Chg Fwd Diagnoses Adrenal insufficiency E27.40 ARDS (adult respiratory distress syndrome) J80 Hypotension I95.9 COVID-19 U07.1 COPD exacerbation J44.1 Acute respiratory failure with hypoxia J96.01 Diabetes mellitus type 2 in nonobese E11.9 COPD (chronic obstructive pulmonary disease) J43.2 COPD type: emphysema Emphysema type: centrilobular Anxiety F41.9
[2021-10-14 17:30] LABS: Glucose Point of Care 260 mg/dL (70-110)
[2021-10-14] MEDS: insulin lispro 100 unit/1 mL SUBCUT (17:38)
--- NOTE | 2021-10-14 18:14 | PC.NURSE ---
Shift Note Frequent safety and comfort rounds continue. Orders and/or nursing care completed as indicated. Patient monitored for response to intervention and treatment(s). Education provided includes treatment plan, medications and possible transfer to LTAC. Family verbalizes understanding. VSS at this time. Sedation infusing per orders. Levophed infusing per orders. ETT in place, Fio2 60%, Vt 450, peep 12, AC 20. Will continue to monitor.
--- NOTE | 2021-10-14 19:06 | P.PN_ITS ---
Subjective Subjective: Interval history: -Patient seen today morning at the bedside -Clinically unchanged-still requiring 60% FiO2 on ventilator -CTA today did not show any evidence of pulmonary embolus. Diffuse hazy groundglass infiltrates throughout both lungs with progressed interstitial thickening. More developing airspace consolidation in the lung bases today. Findings likely due to COVID 19 Pneumonia/ARDS. -Other labs and imaging reviewed Medications: Reviewed: Yes Vitals/I&O/Wt Last Vital Signs Temp 97.7 F 10/14/21 12:00 Pulse 65 10/14/21 16:00 Resp 24 H 10/14/21 17:21 BP 104/64 10/14/21 16:00 Pulse Ox 91 10/14/21 17:21 10/14/21 10/14/21 10/14/21 06:59 14:59 22:59 Intake Total 84.743 / 795.471 568.627 / 568.627 370.447 / 939.074 Output Total 350 / 1050 600 / 600 Balance -265.257 / -254.529 568.627 / 568.627 -229.553 / 339.074 Weight last 48 hrs Weight 137 lb 5.568 oz Physical Exam Narrative: EXAM NARRATIVE: General: Lying in bed, sedated and intubated, HEENT:NCAT, PERRLA, EOMI Neck: Supple Lungs: Mild diffuse crackles Heart: s1/s2, RRR Abd: soft, NT, ND, BS + Normoactive Extremities: No edema PATENT CHEMIST: sedated and limited PATENT CHEMIST exam possible. SKIN: no rash LDA: # CVC: Right IJ 12/08/2020 Urinary Catheter Management^: Paul: Cath Placed During This Visit: yes Reason for Continuing Indwelling Catheter: Accurate Measurement of Urinary Output in Critically Ill Patients Urinary Catheter Date of Insertion: 10/06/21 Urinary Catheter Time of Insertion: 13:33 Data : 10/14/21 01:55 10/14/21 01:55 Other Labs: Laboratory Results WBC 9.5 10^3/uL (4.0-10.0) 10/14/21 01:55 RBC 4.11 10^6/uL (4.1-5.3) 10/14/21 01:55 Hgb 13.1 g/dL (11.7-16.6) 10/14/21 01:55 Hct 36.9 % (42.0-52.0) L 10/14/21 01:55 MCV 89.8 fl (80-94) 10/14/21 01:55 MCH 31.9 pg (28.0-34.0) 10/14/21 01:55 MCHC 35.5 g/dL (30.0-36.0) D 10/14/21 01:55 RDW 14.2 % (12.1-15.1) 10/14/21 01:55 Plt Count 209 10^3/cmm (130-400) 10/14/21 01:55 MPV 10.0 fL (7.4-10.4) 10/14/21 01:55 Neut % (Auto) 80.3 % 10/14/21 01:55 Lymph % (Auto) 7.9 % 10/14/21 01:55 [place] % (Auto) 3.9 % 10/14/21 01:55 Eos % (Auto) 3.7 % 10/14/21 01:55 Baso % (Auto) 0.4 % 10/14/21 01:55 Neut # (Auto) 7.64 10^3/uL (1.8-7.7) 10/14/21 01:55 Lymph # (Auto) 0.8 10^3/uL (0.8-4.8) 10/14/21 01:55 [place] # (Auto) 0.4 10^3/uL (0.2-0.9) 10/14/21 01:55 Eos # (Auto) 0.4 10^3/uL (0.0-0.8) 10/14/21 01:55 Baso # (Auto) 0.0 10^3/uL (0.0-0.1) 10/14/21 01:55 Nucleated RBC % (auto) 0 % 10/14/21 01:55 Nucleated RBCs # 0.0 /100WBC 10/14/21 01:55 APTT 45.7 SECONDS (23.9-36.7) H 10/10/21 08:46 D-Dimer 1.70 ug/mIFEU (0-0.59) H 10/14/21 01:55 Specimen Type Arterial 10/14/21 03:40 Sample Site Radial, right 10/14/21 03:40 ABG pH 7.47 (7.35-7.45) H 10/14/21 03:40 ABG pCO2 44.7 mmHg (35-45) 10/14/21 03:40 ABG pO2 46.3 mmHg (80.0-100.0) L 10/14/21 03:40 ABG HCO3 32.8 mmol/L (22-26) H 10/14/21 03:40 ABG O2 Saturation 91.4 10/13/21 03:20 ABG Base Excess 8.1 mmol/L (-2.0-2.0) H 10/14/21 03:40 Roger Test Pos 10/14/21 03:40 A-a O2 Gradient 30.8 mmHg (5-10) H 10/13/21 03:20 Hematocrit 40.6 % (42-52) L 10/14/21 03:40 Hgb O2 Saturation 89.8 % (95-100) L 10/13/21 03:20 Carboxyhemoglobin 0.8 %THgb (0.4-20.1) 10/13/21 03:20 Methemoglobin 1.0 % (0.4-1.5) 10/13/21 03:20 Total Hemoglobin 13.9 g/dL (14-18) L 10/13/21 03:20 Sodium 134.0 mmol/L (131-143) 10/13/21 03:20 Potassium 3.9 mmol/L (3.5-5.0) 10/13/21 03:20 Glucose 90.0 mg/dL (70-115) 10/13/21 03:20 Ionized Calcium 1.2 mmol/L (1.1-1.4) 10/13/21 03:20 O2 Delivery Device Vent 10/14/21 03:40 O2 Liters/Min 50.0 % 10/08/21 10:00 FiO2 60.0 % 10/14/21 03:40 Tidal Volume 0.45 10/14/21 03:40 PEEP 12.0 cmH20 10/14/21 03:40 Patient Access Specialist ID [email or web address] 10/14/21 03:40 Sodium 135 mmol/L (136-145) L 10/14/21 01:55 Potassium 3.7 mmol/L (3.5-5.1) 10/14/21 01:55 Chloride 97 mmol/L (98-107) L 10/14/21 01:55 Carbon Dioxide 26 mmol/L (22-29) 10/14/21 01:55 Anion Gap 15.7 (5-19) 10/14/21 01:55 BUN 19 mg/dL (8-23) 10/14/21 01:55 Creatinine 0.6 mg/dL (0.7-1.2) L 10/14/21 01:55 GFR Calculation 136.1 mL/min (90-130) H 10/14/21 01:55 Glucose 71 mg/dL (65-115) 10/14/21 01:55 POC Glucose 260 mg/dL (70-110) H 10/14/21 17:27 Serum Osmolality 274 mOsm/kg (278-305) L 10/09/21 08:15 Calculated Osmolality 281 mOsm/kg (285-295) L 10/14/21 01:55 Lactic Acid 1.8 mmol/L (0.5-2.2) 09/30/21 05:55 Calcium 7.8 mg/dL (8.5-10.5) L 10/14/21 01:55 Magnesium 2.3 mg/dL (1.7-2.3) 10/13/21 03:45 Total Bilirubin 0.4 mg/dL (0.15-1.2) 10/10/21 08:46 AST 18 U/L (0-40) 10/10/21 08:46 ALT 15 U/L (0-41) 10/10/21 08:46 Alkaline Phosphatase 66 IU/L (40-130) 10/10/21 08:46 Lactate Dehydrogenase 672 U/L (135-225) H 10/06/21 04:09 Creatine Kinase 36 U/L (39-308) L 09/30/21 05:54 C-Reactive Protein 3.3 mg/L (0.0-4.9) 10/14/21 01:55 Total Protein 5.1 g/dL (6.6-8.7) L 10/10/21 08:46 Albumin 2.9 g/dL (3.5-5.2) L 10/10/21 08:46 Globulin 2.2 g/dL (1.3-4.6) 10/10/21 08:46 Triglycerides 180 mg/dL (0-150) H 10/09/21 08:15 Cholesterol 82 mg/dL (0-200) 10/09/21 08:15 LDL Cholesterol, Calc 14 mg/dL (50-129) L 10/09/21 08:15 HDL Cholesterol 32 mg/dL (60-100) L 10/09/21 08:15 LDL/HDL Ratio 0.44 RATIO (0.00-3.22) 10/09/21 08:15 Cholesterol/HDL Ratio 2.56 mg/dL (1.0-5.00) 10/09/21 08:15 Procalcitonin 0.06 ng/mL (0-0.5) 10/10/21 08:46 TSH 0.42 uIU/mL (0.27-4.20) 10/09/21 08:15 Random Cortisol 5.35 ug/dL (2.47-19.5) 10/09/21 08:15 Urine Osmolality 772 mOsm/kg (50-1200) 10/09/21 08:05 Ur Random Sodium 13 mmol/L 10/09/21 08:05 Urine Creatinine 114 mg/dL (39-259) 10/09/21 08:05 Impressions Chest CTA 10/14/21 07:33 IMPRESSION: 1. Main pulmonary arteries are normal. No evidence of pulmonary embolus. 2. Diffuse hazy groundglass infiltrates throughout both lungs with progressed interstitial thickening. More developing airspace consolidation in the lung bases today. Findings likely due to COVID 19 Pneumonia/ARDS. Chest X-Ray 10/14/21 15:22 IMPRESSION: There are no acute concerning abnormalities. Radiation Dose CTDIVOL = (mGy): DLP = (mGy-cm) A&P Assessment and plan (1) Acute respiratory failure with hypoxia: Status: Acute (2) ARDS (adult respiratory distress syndrome): Status: Acute (3) COVID-19: Status: Acute (4) COPD (chronic obstructive pulmonary disease): Status: Acute Qualifiers: COPD type: emphysema Emphysema type: centrilobular Qualified Code(s): J43.2 - Centrilobular emphysema (5) Diabetes mellitus type 2 in nonobese: Status: Acute (6) Essential hypertension: Status: Acute #Acute hypoxic respiratory failure secondary to ARDS due to COVID-19 pneumonia #Underlying COPD emphysema #[id number] 2018 #History of CAD #Diabetes #Hypertension-controlled -COVID-19 PCR + 09/25/2021-symptoms started 09/20/2021 -S/p 1 dose Actemra, completed 5-day course of remdesivir -Intubated on 10 07-; completed 4 sessions of proning -Follow ARDS lung protective protocol-low volume high PEEP strategies -ABG today morning 7.4 7/44/46/32/91 on on AC VC 450/60%/12 -minimize sedation with fentanyl and propofol to maintain RASS - 2. -Sputum culture positive for yeast-identification pending -Monitor ABG and saturations; Levo drip to keep MAP > 65% -CTA 10/05/2021: Showed no evidence of PE. Diffuse GGO/airspace density --CTA 10/14/2021:-1 did not show any evidence of pulmonary embolus. Diffuse hazy groundglass infiltrates throughout both lungs with progressed interstitial thickening. More developing airspace consolidation in the lung bases today. Findings likely due to COVID 19 Pneumonia/ARDS. -Venous Doppler 10/05/2021: No evidence of DVT -LDH 672, CRP 4.4, D-dimer 3. 2 7, procalcitonin 0.05 -Urine bacterial antigens and Legionella urine antigen-negative, MRSA nares negative blood cultures negative so far -Currently on levofloxacin- -discontinue after total 7 days -Off pressors and currently metoprolol 25 mg p.o. twice daily and amlodipine 10 mg p.o. daily - Monitor I & O; total +5.7 L since admission, maintain net negative or even - Lasix PRN if pt is volume overloaded. -At some point patient has hyponatremia, hyperkalemia, random cortisol 5 while on dexamethasone ; -started on hydrocortisone 100 q. 12hr -Patient currently on Lantus 30 mg at bedtime and continue scale and close sugar monitoring -Pantoprazole 40 mg p.o. daily for GERD and stress ulcer ppx -DVT prophylaxis: Heparin sc -Full code -Guarded prognosis -Diet: Tube feeding Glucerna with max goal 30 cc/hr -Need close monitoring in ICU for respiratory failure requiring mech ventilator -completed 4 proning sessions and currently still requiring 60% FiO2-patient would benefit from trach and PEG as it will take a long time for patient to recover hospitalist updated NOK Recommendations conveyed to hospitalist, RN, RT taking care of the patient Attestations Medical Necessity Statement*: Acute hypoxic respiratory failure secondary to ARDS due to COVID-19 requiring ventilation and close monitoring in ICU Time Spent in Patient Care: Greater than 35 minutes (>than 50% of time spent in counselling and/or direct pt care on unit) . Critical Care Time: The high probability of a clinically significant, sudden or life threatening deterioration of the patient's [pulmonary, endocrine] system(s) required my full and direct attention, intervention and personal management. The critical care time is as shown. This time is in addition to time spent performing any reported procedures but includes the following: [x] Data and vital sign review and interpretation [x] Patient assessment, examination and intervention [x] Documentation [x] Medication orders and management Critical Care Time (min): 45 Coding Level of Care Code Established Pt Acute Clinical Services Director for Chg Fwd Patient Type Established History Comprehensive Exam Comprehensive Medical Decision Making High Complexity Diagnoses Acute respiratory failure with hypoxia J96.01 ARDS (adult respiratory distress syndrome) J80 COVID-19 U07.1 COPD (chronic obstructive pulmonary disease) J43.2 COPD type: emphysema Emphysema type: centrilobular Diabetes mellitus type 2 in nonobese E11.9 Essential hypertension I10 Time Spent (min) 45
[2021-10-14] MEDS: apixaban 5 mg Tablet 2.5 MG PO (20:57)
[2021-10-14 21:10] LABS: Glucose Point of Care 252 mg/dL (70-110)
[2021-10-15] VITALS (84 sets, daily range): BP systolic 84–123; BP diastolic 50–68; PULSE 50–74; RESP 20–25; TEMP 36.4–37.1; O2SAT 80–99
[2021-10-15] MEDS: hydrocortisone 100 mg/2 mL SDV IVP ×2 (00:13→12:01)
[2021-10-15] MEDS: lactulose oral liq 20 gm/30 mL UDC PO ×2 (00:13→12:01)
[2021-10-15] MEDS: propofol 1,000 MG/100 ML INJ 9.56 MG IV ×6 (00:17→23:31)
[2021-10-15] MEDS: ipratropium-albuterol 3 mL Neb INHALATION ×3 (02:15→14:20)
[2021-10-15 05:09] LABS: ABG PCO2 53.8 mmHg (35-45); ABG PH Result 7.37 (7.35-7.45); Arterial Blood Gas Hematocrit 49.5 % (42-52); Base Excess ABG 4.3 mmol/L (-2.0-2.0); Blood Gas Allen Test Pos; Blood Gas Sample Type Arterial; HCO3 ABG 31.2 mmol/L (22-26)
[2021-10-15 05:11] LABS: Blood Gas Operator Identificat JB; Blood Gas Sample Site Radial, right; Blood Gas Tidal Volume 0.45; Oxygen Device VENT
[2021-10-15 05:40] LABS: Basophils # 0.1 10^3/uL (0.0-0.1); Basophils % 0.5 %; Eosinophils # 0.1 10^3/uL (0.0-0.8); Eosinophils % 1.4 %; Hematocrit 41.4 % (42.0-52.0); Hemoglobin 13.7 g/dL (11.7-16.6); Lymphocytes # 0.3 10^3/uL (0.8-4.8); Lymphocytes % 3.7 %; Mean Corpuscular HGB Conc 33.1 g/dL (30.0-36.0); Mean Corpuscular Hemoglobin 31.1 pg (28.0-34.0); Mean Corpuscular Volume 93.9 fl (80-94); Mean Platelet Volume 10.7 fL (7.4-10.4); Monocytes # 0.2 10^3/uL (0.2-0.9); Monocytes % 1.6 %; Neutrophils # 8.14 10^3/uL (1.8-7.7); Neutrophils % 89.6 %; Nucleated Red Blood Cells % 0 %; Platelet Count 193 10^3/cmm (130-400); Red Blood Count 4.41 10^6/uL (4.1-5.3); Red Cell Distribution Width 14.5 % (12.1-15.1); White Blood Count 9.1 10^3/uL (4.0-10.0)
[2021-10-15 06:01] LABS: Procalcitonin 0.09 ng/mL (0-0.5)
[2021-10-15 06:13] LABS: Anion Gap 13.9 (5-19); Blood Urea Nitrogen 19 mg/dL (8-23); Calcium 8.5 mg/dL (8.5-10.5); Carbon Dioxide 29 mmol/L (22-29); Chloride 96 mmol/L (98-107); Glomerular Filtration Rate 136.1 mL/min (90-130); Glucose 176 mg/dL (65-115); Osmolality Calculated 285 mOsm/kg (285-295); Potassium 4.9 mmol/L (3.5-5.1); Sodium 134 mmol/L (136-145)
--- NOTE | 2021-10-15 06:24 | NUR.SHIFT ---
FiO2 increased to 80% to maintain O2 sat>88, levophed titrated to 1mcg/min, sedation gtt remain the same-see charting. VSS, no signs of distress at this time
--- NOTE | 2021-10-15 07:13 | PC.NURSE ---
Report received, assessment completed. VSS. Remains on levo, fentanyl, propofol and versed to R IJ per orders. Remains intubated, settings per RT. ETT at 25cm at lip. OGT in place, glucerna at 30ml/h, BS hypoactive, no residual noted at this time. Paul cath in place draining freely to BSD. Lung sounds CTA. No s/s of pain or SOB noted. Bilateral wrist restraints in place, released per orders and replaced. Will continue to monitor.
[2021-10-15 07:20] LABS: Glucose Point of Care 225 mg/dL (70-110)
[2021-10-15] MEDS: pantoprazole 40 mg SDV IVP (07:57)
[2021-10-15] MEDS: zinc gluconate 50 mg Tablet PO (07:57)
[2021-10-15] MEDS: sennosides-docusate Tablet 2 TAB PO (07:58)
[2021-10-15] MEDS: apixaban 5 mg Tablet 2.5 MG PO (07:58)
[2021-10-15] MEDS: ascorbic acid 500 mg Tablet 1000 MG PO ×2 (07:58→17:03)
[2021-10-15] MEDS: clopidogrel 75 mg Tablet PO (07:58)
[2021-10-15] MEDS: insulin lispro 100 unit/1 mL SUBCUT ×3 (07:59→17:03)
[2021-10-15] MEDS: insulin glargine 100 units/1 mL 30 UNIT SUBCUT (08:00)
[2021-10-15] MEDS: budesonide 0.5 mg/2 mL Neb 0.25 MG INHALATION ×2 (08:03→20:40)
--- NOTE | 2021-10-15 10:28 | PC.CHAP ---
Pastoral Care Encounter/Spiritual Assessment Type of Contact [] Declined calender inspector visit [] Patient/Family/Request visit [] Outpatient visit [] Follow-up visit [] Physician referral [] Code/Alert [x] Routine visit [] Staff referral [] Actively dying [] Patient sleeping [] Family support [] [] Out of room [] Palliative care [] [] Receiving care in room [] Pre-surgical visit [] Trauma [] Long length of stay [x] ICU visit [x] Other: isolated Relational/Emotional Strength [] Patient feels connected with others/family/visitors/staff [] Distress [] Loneliness/isolation [] Abandonment Spirituality of Patient [] Person of Sis [] Attends Alevism of their Sis [] Believes in Prayer [] Reads Bible or Faith materials [] There are Spiritual issues to be addressed Manager Pool Interventions [x] Prayer [] Active listening [] Non-anxious presence [] Spiritual/emotional support [] Crisis/trauma care [] Spiritual counseling [] Bereavement support [] Provided bereavement packet [] Provided Bible/devotional materials [] Provided toy/stuffed animal, coloring book to patient or family member [] Provided Communion [] Anointing/Winter [] Salvation [x] Completed spiritual assessment [] Other: Impact on Illness or Injury [] Angry [] Fearful [] Anxious [] Often cries [] Exhaustion [] Unable to work [] Unable to attend bahai [] Unable to walk/stand [] Unable to read [] Unable to drive [] Unable to eat/drink [] Unable to sleep [] Unable to be with family [] Patient intubated [] Other: Summary Time spent with patient
[2021-10-15 11:28] LABS: Glucose Point of Care 192 mg/dL (70-110)
--- NOTE | 2021-10-15 11:29 | PC.NURSE ---
BIS monitor applied per MD orders prior to resuming proning once pt is sedated and prepared. Versed at 6, fentanyl at 150, and propfol at 50 per order. BIS 35. Awaiting pharmacy delivery of nimbex for paralytic gtt. VSS at this time. Tube feeds stopped in preparation for proning per orders. Will monitor.
[2021-10-15] MEDS: levoFLOXacin 750 mg Tablet PO (12:01)
[2021-10-15] MEDS: cisatracurium 100 MG in sodium chloride 0.9% 50 ML IV (12:05)
--- NOTE | 2021-10-15 12:18 | PC.NURSE ---
Nimbex started at 0.3mcg/kg/min per orders. BIS 40, RR 20. VSS. Will monitor
--- NOTE | 2021-10-15 14:24 | PC.NURSE ---
Pt proned per staff. tolerated well. Nimbex at 0.9mcg/kg/min, sedation remains the same as earlier. VSS. No issues noted.
--- NOTE | 2021-10-15 15:38 | PM.PN ---
Subjective Subjective: Interval history: Patient was seen and examined, talk with the nurse and manager of training as well According to corporate meeting planner he will not get approval for tracheostomy and PEG tube placement at [facility], his FiO2 currently is at 80 We will touch base with ENT, Dr. Mckeon is also operations intelligence starting this Wednesday Positive fluid balance today No bowel movement yet Adequate urine output Afebrile No leukocytosis No thrombocytopenia Sputum culture growing yeast Chest x-ray which was done yesterday is unremarkable no signs of pneumothorax No signs of PE ABG showing PaO2 61 at FiO2 80% He has finished 4 cycles of proning, will try 2-3 more cycles of proning Enema for constipation today, his abdomen looks slightly distended His breath sounds were diminished on left side which improved after repositioning of his neck, his endotracheal tube size 8 is at 25 cm Still requiring levo, vasopressin, it is running at 1 Propofol at 50, fentanyl 150, Versed at 6 Patient is still breathing above the vent respiratory rate 20-26, Vitals/I&O/Wt Last Vital Signs Temp 97.7 F 10/15/21 12:00 Pulse 58 L 10/15/21 14:32 Resp 20 H 10/15/21 14:21 BP 94/58 10/15/21 12:00 Pulse Ox 80 L 10/15/21 14:21 10/15/21 10/15/21 10/15/21 06:59 14:59 22:59 Intake Total 1080.355 / 2019.429 542.139 / 542.139 Output Total 575 / 1175 Balance 505.355 / 844.429 542.139 / 542.139 Weight last 48 hrs Weight 67.387 kg Weight 62.3 kg Physical Exam Narrative: EXAM NARRATIVE: Intubated and sedated FiO2 80% PEEP 12 Minute ventilation 9 Left ear blister without exacerbation Right-sided triple-lumen catheter Paul catheter draining yellow urine Assisted bilateral breath sounds left was diminished which improved after repositioning of neck Abdomen slightly distended, bowel sounds very sluggish Lower extremity no edema Back was not examined Neuro exam is limited Urinary Catheter Management^: Paul: Cath Placed During This Visit: yes Reason for Continuing Indwelling Catheter: Accurate Measurement of Urinary Output in Critically Ill Patients Urinary Catheter Date of Insertion: 10/06/21 Urinary Catheter Time of Insertion: 13:33 Data : 10/15/21 04:48 10/15/21 04:48 A&P Assessment and plan (1) Adrenal insufficiency: Status: Acute (2) ARDS (adult respiratory distress syndrome): Status: Acute (3) Hypotension: Status: Acute (4) COVID-19: Status: Acute (5) COPD exacerbation: Status: Acute (6) Acute respiratory failure with hypoxia: Status: Acute (7) Major depressive disorder, recurrent, severe with psychotic symptoms: Status: Acute (8) Anxiety: Status: Acute (9) Diabetes mellitus type 2 in nonobese: Status: Acute (10) Essential hypertension: Status: Acute Additional A&P Information Persistent hypoxia related to COVID-19 Severe ARDS: FiO2 80% PEEP 12 status post Actemra, remdesivir Plan is to do 3 more cycles of proning, he has done 4 cycles already, he did respond to proning after 4 cycles, afebrile, no leukocytosis, no active signs of bacterial pneumonia, sputum culture growing yeast I have discussed case today with manager of training, will start paralytics again and start proning As per corporate meeting planner, his insurance will not approve tracheostomy or PEG tube placement at [facility], will touch base with ENT or Mike on Wednesday Repeated CTA chest: Rule out PE, repeat x-ray did not show pneumothorax Adrenal insufficiency: Currently on IV steroids Hypoglycemia: Improved, Glucerna running at 30 cc/h, feed to be resumed when he is supine for 8 hours Stop feeding during proning Decrease Dose of Lantus to 15 units from 30 units No severe electrolyte imbalance Positive fluid balance Hypotension most likely related to adrenal insufficiency, he is not septic, no signs of cardiogenic shock, he is not on any antihypertensive now, he was put on metoprolol and amlodipine on Wednesday for hypertension Guarded prognosis Tube feeding diet Full code Patient did not allow us to talk with his daughter, he has a brother who is not able to come to the hospital because of his multiple comorbid conditions, he is being updated Attestations Medical Necessity Statement*: Continue ICU management Time Spent in Patient Care: 16 - 35 minutes Coding Level of Care Code Acute Client Experience Specialist for Tyson Sanchez Diagnoses Adrenal insufficiency E27.40 ARDS (adult respiratory distress syndrome) J80 Hypotension I95.9 COVID-19 U07.1 COPD exacerbation J44.1 Acute respiratory failure with hypoxia J96.01 Major depressive disorder, recurrent, severe with psychotic symptoms F33.3 Anxiety F41.9 Diabetes mellitus type 2 in nonobese E11.9 Essential hypertension I10
--- NOTE | 2021-10-15 16:40 | PC.NURSE ---
milk and molasses enema given per orders. Tolerated well, awaiting results.
[2021-10-15 16:46] LABS: Glucose Point of Care 166 mg/dL (70-110)
--- NOTE | 2021-10-15 18:15 | PC.NURSE ---
Shift Note Frequent safety and comfort rounds continue. Orders and/or nursing care completed as indicated. Patient monitored for response to intervention and treatment(s). Education provided includes treatment plan, medications and oxygen weaning. Family verbalizes understanding. VSS, BIS 28, TOF 4/4. Enema effective with medium BM so far. No other issues noted. Will continue to monitor.
--- NOTE | 2021-10-15 20:10 | PC.NURSE ---
Patient's daughter Katiana , asked patient's nurse for information, she is not on contact list, this nurse as charge spoke with family and informed them to call admissions to check on getting added to contact list, or to have patient's contact call and give permission. Daughter was very upset and cussing at staff over phone throughout conversation and threatened to cynthia staff personally. Staff found in last progress note where HCP stated that patient did not allow staff to talk to daughter
[2021-10-15 20:26] LABS: Lactate Dehydrogenase 444 U/L (135-225)
[2021-10-15 21:03] LABS: Glucose Point of Care 208 mg/dL (70-110)
--- NOTE | 2021-10-15 21:03 | PC.NURSE ---
Katiana called unit to obtain information about patient. Katiana informed that at this time she is not listed as a person of contact for Julius and that we are unable to give her information. Progress note from today reads that patient did not wish us to give information to daughter. Daughter began yelling at staff, unable to deescalate the conversation-Katiana (daughter) transferred to transmitter engineer in charge.
[2021-10-16] VITALS (77 sets, daily range): BP systolic 77–126; BP diastolic 42–71; PULSE 42–70; RESP 20–25; TEMP 35.5–36.9; O2SAT 86–99
[2021-10-16] MEDS: lactulose oral liq 20 gm/30 mL UDC PO ×2 (01:06→11:49)
[2021-10-16] MEDS: hydrocortisone 100 mg/2 mL SDV IVP ×3 (01:06→23:44)
[2021-10-16] MEDS: ipratropium-albuterol 3 mL Neb INHALATION ×5 (02:56→21:54)
[2021-10-16] MEDS: propofol 1,000 MG/100 ML INJ 9.56 MG IV ×5 (03:51→23:28)
[2021-10-16 05:08] LABS: ABG PCO2 57.2 mmHg (35-45); ABG PH Result 7.37 (7.35-7.45); Arterial Blood Gas Hematocrit 44.4 % (42-52); Base Excess ABG 5.6 mmol/L (-2.0-2.0); Blood Gas Allen Test Pos; Blood Gas Operator Identificat JB; Blood Gas Sample Site Radial, left; Blood Gas Sample Type Arterial; Blood Gas Tidal Volume 0.45; HCO3 ABG 32.8 mmol/L (22-26); Oxygen Device VENT; PO2 ABG 57.5 mmHg (80.0-100.0)
[2021-10-16 05:46] LABS: Anion Gap 13.4 (5-19); Blood Urea Nitrogen 17 mg/dL (8-23); Calcium 7.9 mg/dL (8.5-10.5); Carbon Dioxide 27 mmol/L (22-29); Chloride 97 mmol/L (98-107); Glomerular Filtration Rate 217.3 mL/min (90-130); Glucose 132 mg/dL (65-115); Osmolality Calculated 279 mOsm/kg (285-295); Potassium 4.4 mmol/L (3.5-5.1); Sodium 133 mmol/L (136-145)
--- NOTE | 2021-10-16 06:10 | NUR.SHIFT ---
Shift Summary: Patient supine at 0530, to be proned at 1330 today. Levophed titrated off, sedation titrated to maintain ordered BIS. BIS, TOF(4/4 at 3), oral care, and turns done Q2H, patient tolerated. FiO2 at 70% at this time. Patient has had multiple small bowel movements through the night. No signs of distress at this time.
[2021-10-16 06:47] LABS: Glucose Point of Care 163 mg/dL (70-110)
--- NOTE | 2021-10-16 07:10 | PC.NURSE ---
Report received, assessment completed. Pt bradycardic in the 40's, BP with sys in high 80's. ETT in place, vent settings per RT. Pt supine, nimbex titrated off per this nurse. versed decreased to 4. Restraints reapplied per orders. Lung sounds CTA. Active bowel sounds noted. Offgoing nurse reports several pasty BM's. Paul cath draining freely to BSD. No s/s of pain or SOB noted. Will continue to monitor.
--- NOTE | 2021-10-16 07:19 | PM.PN ---
Subjective Subjective: Interval history: Yesterday after enema patient had couple of BM Positive fluid balance Given 1 dose of IV Lasix 20 mg today FiO2 60% Trinity guilliermondii Patient is afebrile finished 7 days on Levaquin, will DC today Continue IV steroids Off vasopressors now Currently on Versed at 4, propofol at 50 and fentanyl 150 Status post fifth cycle of proning which finished at 5 AM Paralytics turned off during supine Vitals/I&O/Wt Last Vital Signs Temp 97.6 F 10/16/21 04:00 Pulse 45 L 10/16/21 06:15 Resp 20 H 10/16/21 06:22 BP 89/53 10/16/21 06:15 Pulse Ox 97 10/16/21 06:22 10/15/21 10/16/21 10/16/21 22:59 06:59 14:59 Intake Total 360.390 / 902.529 492.647 / 1395.176 Output Total 400 / 400 450 / 850 Balance -39.610 / 502.529 42.647 / 545.176 Weight last 48 hrs Weight 67.273 kg Weight 67.387 kg Physical Exam Narrative: EXAM NARRATIVE: Is intubated and sedated Off paralytics for now Supine Abdomen looks less distended FiO2 60% On mechanical ventilator Bowel sounds present No edema Neuro exam limited Assisted bilateral breath sounds Left ear blister without exacerbation Paul cath draining concentrated urine Urinary Catheter Management^: Paul: Cath Placed During This Visit: yes Reason for Continuing Indwelling Catheter: Accurate Measurement of Urinary Output in Critically Ill Patients Urinary Catheter Date of Insertion: 10/06/21 Urinary Catheter Time of Insertion: 13:33 Data : 10/16/21 04:25 10/16/21 04:25 Micro: Microbiology 10/11/21 13:30 Gram Stain - Final Sputum - Expectorated Sputum Sputum Culture - Final Trinity guilliermondii A&P Assessment and plan (1) Adrenal insufficiency: Status: Acute (2) ARDS (adult respiratory distress syndrome): Status: Acute (3) Hypotension: Status: Acute (4) COVID-19: Status: Acute (5) COPD exacerbation: Status: Acute (6) Acute respiratory failure with hypoxia: Status: Acute (7) Anxiety: Status: Acute (8) Essential hypertension: Status: Acute (9) Diabetes mellitus type 2 in nonobese: Status: Acute Additional A&P Information Severe ARDS FiO2 60% Fifth cycle of proning completed today He will get feet and water flushes during his supine phase He is responsive to proning we will do 3 more cycles Discontinue Levaquin, finished 7 days, 10/16, Might go for tracheostomy in next 24 hours, we will keep him on IV Zosyn until this weekend Status post sal Pedraza No signs of PE Did talk with Dr. Silveira for tracheostomy, he will evaluate him After proning sessions he will need PEG tube placement as well Adrenal insufficiency Glucose, electrolytes and blood pressure responds well to IV steroids, Off vasopressors today Type 2 diabetes: Currently euglycemic I have decreased his Lantus regimen He became hyperglycemic when he was switched to p.o. steroids Tube feeding, Glucerna at 45 mL/h with 150 mL water flushes every 6 hours as per dietary recommendation Full code Guarded prognosis Brother updated DVT prophylaxis on hold in anticipation of surgical intervention for tracheostomy Constipation: Resolved with enema Attestations Medical Necessity Statement*: Placement to LTAC next week after tracheostomy and PEG tube placement if FiO2 between 50 to 60% and on 2 IVsmeds Time Spent in Patient Care: 16 - 35 minutes Coding Level of Care Code Acute Corporate Safety Director for g Fwd Diagnoses Adrenal insufficiency E27.40 ARDS (adult respiratory distress syndrome) J80 Hypotension I95.9 COVID-19 U07.1 COPD exacerbation J44.1 Acute respiratory failure with hypoxia J96.01 Anxiety F41.9 Essential hypertension I10 Diabetes mellitus type 2 in nonobese E11.9
[2021-10-16] MEDS: insulin lispro 100 unit/1 mL SUBCUT ×3 (07:29→17:12)
[2021-10-16] MEDS: FUROsemide 10 mg/mL SDV 2mL 20 MG IVP (07:29)
[2021-10-16 07:35] LABS: Basophils % 0.5 %; Eosinophils # 0.2 10^3/uL (0.0-0.8); Eosinophils % 3.7 %; Hematocrit 38.2 % (42.0-52.0); Hemoglobin 12.7 g/dL (11.7-16.6); Lymphocytes # 0.3 10^3/uL (0.8-4.8); Lymphocytes % 5.3 %; Mean Corpuscular HGB Conc 33.2 g/dL (30.0-36.0); Mean Corpuscular Hemoglobin 31.4 pg (28.0-34.0); Mean Corpuscular Volume 94.3 fl (80-94); Mean Platelet Volume 10.5 fL (7.4-10.4); Monocytes # 0.3 10^3/uL (0.2-0.9); Monocytes % 5.7 %; Neutrophils # 4.43 10^3/uL (1.8-7.7); Neutrophils % 78.8 %; Nucleated Red Blood Cells % 0 %; Platelet Count 186 10^3/cmm (130-400); Red Blood Count 4.05 10^6/uL (4.1-5.3); Red Cell Distribution Width 14.4 % (12.1-15.1); White Blood Count 5.6 10^3/uL (4.0-10.0)
[2021-10-16 07:38] LABS: Slide Review Slide Review Perform
[2021-10-16] MEDS: zinc gluconate 50 mg Tablet PO (08:04)
[2021-10-16] MEDS: insulin glargine 100 units/1 mL 15 UNIT SUBCUT (08:04)
[2021-10-16] MEDS: sennosides-docusate Tablet 2 TAB PO (08:04)
[2021-10-16] MEDS: clopidogrel 75 mg Tablet PO (08:05)
[2021-10-16] MEDS: pantoprazole 40 mg SDV IVP (08:05)
[2021-10-16] MEDS: ascorbic acid 500 mg Tablet 1000 MG PO ×2 (08:05→17:12)
[2021-10-16] MEDS: budesonide 0.5 mg/2 mL Neb 0.25 MG INHALATION ×2 (08:06→21:54)
--- NOTE | 2021-10-16 09:35 | PC.CHAP ---
Pastoral Care Encounter/Spiritual Assessment Type of Contact [] Declined warehouse supervisor visit [] Patient/Family/Request visit [] Outpatient visit [] Follow-up visit [] Physician referral [] Code/Alert [x] Routine visit [] Staff referral [] Actively dying [x] Patient sleeping [] Family support [] [] Out of room [] Palliative care [] [] Receiving care in room [] Pre-surgical visit [] Trauma [] Long length of stay [x] ICU visit [x] Other: patient still isolated... on vent Relational/Emotional Strength [] Patient feels connected with others/family/visitors/staff [] Distress [] Loneliness/isolation [] Abandonment Spirituality of Patient [] Person of Sis [] Attends Presybeterian of their Sis [] Believes in Prayer [] Reads Bible or Restorationist materials [] There are Spiritual issues to be addressed Can Striper Interventions [x] Prayer [] Active listening [] Non-anxious presence [] Spiritual/emotional support [] Crisis/trauma care [] Spiritual counseling [] Bereavement support [] Provided bereavement packet [] Provided Bible/devotional materials [] Provided toy/stuffed animal, coloring book to patient or family member [] Provided Communion [] Anointing/[place] [] Salvation [x] Completed spiritual assessment [] Other: Impact on Illness or Injury [] Angry [] Fearful [] Anxious [] Often cries [] Exhaustion [] Unable to work [] Unable to attend baptism [] Unable to walk/stand [] Unable to read [] Unable to drive [] Unable to eat/drink [] Unable to sleep [] Unable to be with family [] Patient intubated [] Other: Summary Time spent with patient x
[2021-10-16 11:31] LABS: Glucose Point of Care 161 mg/dL (70-110)
[2021-10-16] MEDS: levoFLOXacin 750 mg Tablet PO (11:49)
--- NOTE | 2021-10-16 12:04 | PM.CONSULT ---
Providers/Reason For Consult Consulting Physician/Specialty*: Hilton Silveira MD/ otolaryngology Reason for Consult*: Need for conversion to tracheotomy Attending Physician: Jesus Gilmore MD Primary Care Provider: Romina Schofield MD History of Present Illness History of Present Illness Julius Correa is a 61 year old male with Covid positive respiratory distress requiring intubation. He has been intubated now in excess of 2 weeks. I was called to see the patient in consultation to proceed with tracheotomy conversion. Review of Systems General: Reports: 10 or more systems reviewed and unremarkable except in HPI and below Narrative: I reviewed the entire chart in regards to his review of systems that was available. Additional information not obtainable as he is heavily sedated and intubated. Meds/Allergies Home Medications and Allergies Home Medications Medication Instructions Recorded Confirmed Last Taken Type hydroxyzine pamoate 25 mg PO TID@,0 PRN 10/31/20 09/30/21 10/29/20 History metoprolol tartrate 25 mg tablet 12.5 mg PO BID 30 Days #30 tab 05/02/21 09/30/21 Unknown Rx aripiprazole 400 mg intramuscular 400 mg IM Q28D #1 ea 06/25/21 09/30/21 Unknown Rx suspension,extended release albuterol sulfate 90 mcg/actuation 2 puff INHALATION Q6H PRN #18 g 08/03/21 09/30/21 Unknown Rx aerosol inhaler atorvastatin 40 mg tablet 40 mg PO DAILY 30 Days #30 tab 08/03/21 09/30/21 Unknown Rx blood sugar diagnostic #100 ea 08/03/21 09/30/21 Unknown Rx clopidogrel 75 mg tablet 75 mg PO DAILY 30 Days #30 tab 08/03/21 09/30/21 Unknown Rx insulin glargine 100 unit/mL 55 unit SUBCUT DAILY 30 Days #20 ml 08/03/21 09/30/21 Unknown Rx subcutaneous solution lisinopril 5 mg tablet 5 mg PO DAILY 30 Days #30 tab 08/03/21 09/30/21 Unknown Rx loratadine 10 mg tablet 10 mg PO DAILY PRN 30 Days #30 tab 08/03/21 09/30/21 Unknown Rx metformin 1,000 mg tablet See Rx Instructions .ROUTE 08/03/21 09/30/21 Unknown Rx .COMPLEX #30 tab pantoprazole 40 mg tablet,delayed 40 mg PO DAILY 30 Days #30 tab 08/03/21 09/30/21 Unknown Rx release sitagliptin 100 mg tablet 100 mg PO DAILY 30 Days #30 tab 08/03/21 09/30/21 Unknown Rx acarbose 100 mg tablet 100 mg PO BID 30 Days #60 tab 08/05/21 09/30/21 Unknown Rx omega-3 acid ethyl esters 1 gram See Rx Instructions .ROUTE 08/05/21 09/30/21 Unknown Rx capsule .COMPLEX #90 cap bupropion HCl 300 mg 24 hr tablet, 300 mg PO QAM #30 tab 08/07/21 09/30/21 Unknown Rx extended release duloxetine 30 mg capsule,delayed 30 mg PO DAILY #30 cap 08/07/21 09/30/21 Unknown Rx release duloxetine 60 mg capsule,delayed 60 mg PO DAILY@0900 #30 cap 08/07/21 09/30/21 Unknown Rx release quetiapine 100 mg tablet See Rx Instructions .ROUTE 08/07/21 09/30/21 Unknown Rx .COMPLEX #90 tab quetiapine 400 mg tablet 400 mg PO BEDTIME@2200 #30 tab 08/07/21 09/30/21 Unknown Rx blood glucose control, low #1 ea 08/11/21 09/30/21 Unknown Rx blood-glucose meter #1 ea 08/11/21 09/30/21 Unknown Rx isosorbide mononitrate 10 mg tablet 10 mg PO .COMPLEX #60 tab 08/28/21 09/30/21 Unknown Rx egzdqqnrvlyropx-skkgpewngqbnzui-DB 5 ml PO Q6H PRN #118 ml 09/25/21 09/30/21 Unknown Rx 2 mg-30 mg-10 mg/5 mL oral syrup aripiprazole [Abilify] 5 mg PO DAILY 09/30/21 09/30/21 Unknown History mirtazapine 7.5 mg PO DAILY 09/30/21 09/30/21 Unknown History Allergies Allergy/AdvReac Type Severity Reaction Status Date / Time No Known Allergies Allergy Verified 09/25/21 11:22 Current Medications Current Medications Generic Name Dose Route Start Last Admin Trade Name Freq PRN Reason Stop Dose Admin Acetaminophen 650 mg 09/29/21 20:29 10/06/21 12:18 Acetaminophen 325 Mg Tablet PO 650 mg Q6H PRN Administration Mild/Mod Pain Or Temp >/= 101 Albuterol/Ipratropium 3 ml 10/09/21 15:00 10/16/21 08:05 Ipratropium-Albuterol 3 Ml Neb INHALATION 3 ml Q6H.RESPIRATORY JACKIE Administration Amlodipine Besylate 10 mg 10/13/21 17:35 10/14/21 07:54 Amlodipine 10 Mg Tablet NG-TUBE 10 mg DAILY JACKIE Administration Apixaban 2.5 mg 10/14/21 21:00 10/15/21 07:58 Apixaban 5 Mg Tablet PO 2.5 mg BID@0900,2100 JACKIE Administration Artificial Tears 1 applic 10/08/21 13:04 10/12/21 19:58 Artificial Tears Op Oint 3.5 Gm EYE-BOTH 1 applic PRN PRN Administration DRY EYE(S) Ascorbic Acid 1,000 mg 09/30/21 09:00 10/16/21 08:05 Ascorbic Acid 500 Mg Tablet PO 1,000 mg BID JACKIE Administration Budesonide 0.25 mg 10/05/21 19:25 10/16/21 08:06 Budesonide 0.5 Mg/2 Ml Neb INHALATION 0.25 mg BID.RESPIRATORY JACKIE Administration Clopidogrel Bisulfate 75 mg 09/30/21 09:00 10/16/21 08:05 Clopidogrel 75 Mg Tablet PO 75 mg DAILY JACKIE Administration Dextrose 50 ml 09/29/21 20:29 10/14/21 07:53 Dextrose 50% Syringe 50 Ml IVP 50 ml PRN PRN Administration hypoglycemia protocol Protocol Duloxetine HCl 60 mg 09/30/21 09:00 10/05/21 08:36 Duloxetine 60 Mg Capsule PO 60 mg DAILY@0900 JACKIE Administration Furosemide 20 mg 10/16/21 07:30 10/16/21 07:29 Furosemide 10 Mg/Ml Sdv 2ml IVP 20 mg Q24H JACKIE Administration Hydrocortisone 10 mg 10/14/21 08:00 10/14/21 08:12 Hydrocortisone 10 Mg Tablet PO 10 mg BREAKFAST JACKIE Administration Hydrocortisone 5 mg 10/14/21 13:00 10/14/21 12:03 Hydrocortisone 10 Mg Tablet PO 5 mg 1300 JACKIE Administration Hydrocortisone Sodium Succinate 100 mg 10/14/21 12:30 10/16/21 11:49 Hydrocortisone 100 Mg/2 Ml Sdv IVP 100 mg Q12H JACKIE Administration Dexmedetomidine HCl 400 mcg/ 104 mls @ 0 mls/hr 10/05/21 17:15 10/08/21 13:39 Sodium Chloride IV Infused .Q0M JACKIE Titration Protocol Per Protocol Propofol 1,000 mg in 100 mls @ 0 mls/hr 10/08/21 11:00 10/16/21 08:19 Diprivan IV 50 mcg/kg/min .Q0M JACKIE 9.56 mls/hr Administration Protocol Per Protocol Fentanyl 1,000 mcg/ Sodium 100 mls @ 0 mls/hr 10/12/21 12:45 10/16/21 09:10 Chloride IV 125 mcg/hr .Q0M JACKIE 12.5 mls/hr Titration Protocol Per Protocol Midazolam HCl 100 mg/ Sodium 100 mls @ 0 mls/hr 10/14/21 06:00 10/16/21 06:47 Chloride IV 4 mg/hr .Q0M JACKIE 4 mls/hr Titration Protocol Per Protocol Norepinephrine Bitartrate 4 mg 254 mls @ 0 mls/hr 10/14/21 06:45 10/15/21 23:16 / Dextrose IV 0 mcg/min .Q0M JACKIE 0 mls/hr Titration Protocol Per Protocol Cisatracurium Besylate 100 mg/ 100 mls @ 0 mls/hr 10/15/21 11:30 10/16/21 06:47 Sodium Chloride IV 0 mcg/kg/min .Q0M JACKIE 0 mls/hr Titration Protocol Per Protocol Insulin Glargine 15 unit 10/16/21 09:00 10/16/21 08:04 Insulin Glargine 100 Units/1 Ml SUBCUT 15 unit DAILY JACKIE Administration Insulin Human Lispro 0 unit 10/01/21 18:00 10/16/21 11:49 Insulin Lispro 100 Unit/1 Ml SUBCUT 6 unit TIDWM JACKIE Administration Protocol Lactulose 20 gm 10/12/21 13:00 10/16/21 11:49 Lactulose Oral Liq 20 Gm/30 Ml Udc PO 20 gm Q12H JACKIE Administration Levofloxacin 750 mg 10/09/21 12:00 10/16/21 11:49 Levofloxacin 750 Mg Tablet PO 750 mg Q24H JACKIE Administration Protocol Lisinopril 10 mg 09/30/21 09:00 09/30/21 08:59 Lisinopril 10 Mg Tablet PO 10 mg DAILY JACKIE Administration Metoprolol Tartrate 25 mg 10/13/21 21:00 10/14/21 07:55 Metoprolol Tartrate 25 Mg Tablet PO 25 mg BID@0900,2100 JACKIE Administration Pantoprazole Sodium 40 mg 10/10/21 09:17 10/16/21 08:05 Pantoprazole 40 Mg Sdv IVP 40 mg DAILY JACKIE Administration Quetiapine Fumarate 300 mg 09/29/21 21:00 10/04/21 22:06 Quetiapine 300 Mg Tablet PO 300 mg BEDTIME JACKIE Administration Senna/Docusate Sodium 2 tab 10/14/21 09:00 10/16/21 08:04 Sennosides-Docusate Tablet PO 2 tab DAILY JACKIE Administration Zinc Gluconate 50 mg 09/30/21 09:00 10/16/21 08:04 Zinc Gluconate 50 Mg Tablet PO 50 mg DAILY JACKIE Administration PFSH Acute PFSH: Medical History Alcohol dependence, in remission Anxiety CAD (coronary artery disease) Chest pain COPD (chronic obstructive pulmonary disease) Diabetes mellitus type 2 in nonobese Enrolled in chronic care management Essential hypertension GERD (gastroesophageal reflux disease) Hypersomnia Intervertebral disc disorders with radiculopathy, lumbosacral region Major depressive disorder, recurrent, severe with psychotic symptoms Mixed hyperlipidemia Psychiatric care Unstable angina Surgical History S/P appendectomy S/P coronary angioplasty Family History Other Arthritis Asthma Cancer Social History Smoking and tobacco status: former smoker Quit status (tobacco): has quit using tobacco Year quit tobacco: DEC 2017 Second hand smoke exposure: Yes Alcohol intake: never Desire information about alcohol rehabilitation?: No Counseling given: No Desire information about substance/drug rehabilitation?: No Counseling given: No Lives independently: Yes Housing: House Marital status: service: No Current occupational status: unemployed and disabled Current gender identity: Male Vitals/I&O/Wt Last Vital Signs Temp 97.6 F 10/16/21 08:00 Pulse 46 L 10/16/21 08:00 Resp 25 H 10/16/21 11:25 BP 113/61 10/16/21 08:00 Pulse Ox 94 10/16/21 11:25 10/15/21 10/16/21 10/16/21 22:59 06:59 14:59 Intake Total 360.390 / 902.529 492.647 / 1395.176 179.689 / 179.689 Output Total 400 / 400 450 / 850 Balance -39.610 / 502.529 42.647 / 545.176 179.689 / 179.689 Weight last 48 hrs Weight 148 lb 5 oz Weight 148 lb 9 oz Physical Exam Narrative: EXAM NARRATIVE: When I attended the patient in ICU bed 9 he was heavily sedated and not able to respond at all. He was in seated position had up in bed. Endotracheal tube still in position and being ventilated accordingly. In the position that the patient was in I evaluated the neck. The patient has a very low larynx and the cricoid is barely above the level of the sternal notch. This may be able to be more accessible with the patient laying flat and with shoulder support at the time of the procedure. Otherwise anatomy in that area is unremarkable. Urinary Catheter Management^: Paul: Cath Placed During This Visit: yes Reason for Continuing Indwelling Catheter: Accurate Measurement of Urinary Output in Critically Ill Patients Urinary Catheter Date of Insertion: 10/06/21 Urinary Catheter Time of Insertion: 13:33 Data Micro: Micro: Microbiology 10/11/21 13:30 Gram Stain - Final Sputum - Expector ated Sputum Sputum Culture - F inal Trinity guillie rmondii A&P Assessment and plan (1) ARDS (adult respiratory distress syndrome): Assessment: This patient has multiple medical problems most important at this time is acute adult respiratory distress syndrome with COVID-19 and COPD exacerbation with acute respiratory failure and hypoxia. He therefore is in need of long-term ventilatory support. He has been intubated now for in excess of 2 weeks. He is in need of having that converted over to tracheotomy. Plan: We will need to contact the operating room to arrange for scheduled time tomorrow October 17, 2021. This delay is to allow for other treatment completion and to allow the effects of Plavix to wear off. I have discussed this plan with the patient's daughter and received consent and this was witnessed by 2 nurses. Consent form was signed and witnessed accordingly. I will notify the ICU so they can notify the daughter when the expected procedure will take place. Status: Acute (2) COVID-19: Status: Acute (3) COPD exacerbation: Status: Acute (4) Acute respiratory failure with hypoxia: Status: Acute Coding Level of Care Code New Pt Acute Cash Applications Coordinator for Chg Fwd Patient Type New History Problem Focused Exam Problem Focused Medical Decision Making Straight Forward Diagnoses ARDS (adult respiratory distress syndrome) J80 COVID-19 U07.1 COPD exacerbation J44.1 Acute respiratory failure with hypoxia J96.01
--- NOTE | 2021-10-16 14:20 | P.ANESASSM_ITS ---
Pre-Anesthetic Assessment Pre-Anesthetic Assessment: Height/Weight: Height 1.73 m Weight 67.273 kg Temp Pulse Resp BP Pulse Ox 95.9 F L 56 L 25 H 96/63 93 10/16/21 14:00 10/16/21 14:11 10/16/21 14:11 10/16/21 14:00 10/16/21 14:11 Preop Diagnosis: Worsening of chest pain suspicious of angina Proposed Procedure: Operation Date: 10/17/21 11:00 Proposed Procedures p Tracheostomy(Not Applicable) - Hilton Silveira MD Was Beta Cesar taken within 24 hours: N/A Was Clonidine taken within 24 hours: N/A Social: Social History: Alcohol and Tobacco (Former smoker ) Exam: Pre-Anes Outpt Exam: regular rate & rhythm Additional Exam Findings (including area of procedure): Intubated and sedated Airway: Additional comments: Intubated and sedated unable to asses Pulmonary: Pulmonary: COPD Comments: COVID positive. ARDS P/F < 100. Acute Respiratory failure. Intermittent proning CV/HEM: CV/HEM: CAD and HTN Comments: Anticoagulated on apixaban (last dose 10/15) and clopidogrel (last dose 10/16) : Comments: Constipation requiring enema Hepatic: Hepatic: None reported GI: GI: GERD Metabolic: Metabolic: DM Comments: Adrenal Insufficiency on hydrocortisone Hyponatremia Musc/skel: Musc/skel: None reported Neuropsych: Neuropsych: Anxiety and Depression Comments: Alcohol dependence hx Anesthetic Plan: ASA status: 4 Anesthesia: Anesthesia Evaluation and General Risk of > 500 ml blood loss (7ml/kg in children): No Other Pertinent Information: Discussed risk of anesthesia with patient's daughter Katiana Fofana and phone consent was verified with two bedside RNs. Meds/Allergies Current Medications: Current Medications Generic Name Dose Route Start Last Admin Trade Name Freq PRN Reason Stop Dose Admin Acetaminophen 650 mg 09/29/21 20:29 10/06/21 12:18 Acetaminophen 32 5 Mg Tablet PO 650 mg Q6H PRN Administration Mild/Mod Pain Or Temp >/= 101 Albuterol/Ipratrop ium 3 ml 10/09/21 15:00 10/16/21 14:09 Ipratropium-Albu terol 3 Ml Neb INHALATION 3 ml Q6H.RESPIRATORY S CH Administration Amlodipine Besylat e 10 mg 10/13/21 17:35 10/14/21 07:54 Amlodipine 10 Mg Tablet NG-TUBE 10 mg DAILY JACKIE Administration Apixaban 2.5 mg 10/14/21 21:00 10/15/21 07:58 Apixaban 5 Mg Ta blet PO 2.5 mg BID@0900,2100 JACKIE Administration Artificial Tears 1 applic 10/08/21 13:04 10/12/21 19:58 Artificial Tears Op Oint 3.5 Gm EYE-BOTH 1 applic PRN PRN Administration DRY EYE(S) Ascorbic Acid 1,000 mg 09/30/21 09:00 10/16/21 08:05 Ascorbic Acid 50 0 Mg Tablet PO 1,000 mg BID JACKIE Administration Budesonide 0.25 mg 10/05/21 19:25 10/16/21 08:06 Budesonide 0.5 M g/2 Ml Neb INHALATION 0.25 mg BID.RESPIRATORY S CH Administration Clopidogrel Bisulf ate 75 mg 09/30/21 09:00 10/16/21 08:05 Clopidogrel 75 M g Tablet PO 75 mg DAILY JACKIE Administration Dextrose 50 ml 09/29/21 20:29 10/14/21 07:53 Dextrose 50% Syr shanel 50 Ml IVP 50 ml PRN PRN Administration hypoglycemia prot ocol Protocol Duloxetine HCl 60 mg 09/30/21 09:00 10/05/21 08:36 Duloxetine 60 Mg Capsule PO 60 mg DAILY@0900 JACKIE Administration Furosemide 20 mg 10/16/21 07:30 10/16/21 07:29 Furosemide 10 Mg /Ml Sdv 2ml IVP 20 mg Q24H JACKIE Administration Hydrocortisone 10 mg 10/14/21 08:00 10/14/21 08:12 Hydrocortisone 1 0 Mg Tablet PO 10 mg BREAKFAST JACKIE Administration Hydrocortisone 5 mg 10/14/21 13:00 10/14/21 12:03 Hydrocortisone 1 0 Mg Tablet PO 5 mg 1300 JACKIE Administration Hydrocortisone Sod ium Succinate 100 mg 10/14/21 12:30 10/16/21 11:49 Hydrocortisone 1 00 Mg/2 Ml Sdv IVP 100 mg Q12H JACKIE Administration Dexmedetomidine HC l 400 mcg/ 104 mls @ 0 mls/h r 10/05/21 17:15 10/08/21 13:39 Sodium Chloride IV Infused .Q0M JACKIE Titration Protocol Per Protocol Propofol 1,000 mg in 100 m ls @ 0 mls/hr 10/08/21 11:00 10/16/21 12:59 Diprivan IV 50 mcg/kg/min .Q0M JACKIE 9.56 mls/hr Administration Protocol Per Protocol Fentanyl 1,000 mcg / Sodium 100 mls @ 0 mls/h r 10/12/21 12:45 10/16/21 09:10 Chloride IV 125 mcg/hr .Q0M JACKIE 12.5 mls/hr Titration Protocol Per Protocol Midazolam HCl 100 mg/ Sodium 100 mls @ 0 mls/h r 10/14/21 06:00 10/16/21 06:47 Chloride IV 4 mg/hr .Q0M JACKIE 4 mls/hr Titration Protocol Per Protocol Norepinephrine Bit artrate 4 mg 254 mls @ 0 mls/h r 10/14/21 06:45 10/15/21 23:16 / Dextrose IV 0 mcg/min .Q0M JACKIE 0 mls/hr Titration Protocol Per Protocol Cisatracurium Besy late 100 mg/ 100 mls @ 0 mls/h r 10/15/21 11:30 10/16/21 13:23 Sodium Chloride IV 0.5 mcg/kg/min .Q0M JACKIE 2.02 mls/hr Titration Protocol Per Protocol Insulin Glargine 15 unit 10/16/21 09:00 10/16/21 08:04 Insulin Glargine 100 Units/1 Ml SUBCUT 15 unit DAILY JACKIE Administration Insulin Human Lisp ro 0 unit 10/01/21 18:00 10/16/21 11:49 Insulin Lispro 1 00 Unit/1 Ml SUBCUT 6 unit TIDWM JACKIE Administration Protocol Lactulose 20 gm 10/12/21 13:00 10/16/21 11:49 Lactulose Oral L iq 20 Gm/30 Ml Udc PO 20 gm Q12H JACKIE Administration Lisinopril 10 mg 09/30/21 09:00 09/30/21 08:59 Lisinopril 10 Mg Tablet PO 10 mg DAILY JACKIE Administration Metoprolol Tartrat e 25 mg 10/13/21 21:00 10/14/21 07:55 Metoprolol Tartr ate 25 Mg Tablet PO 25 mg BID@0900,2100 JACKIE Administration Pantoprazole Sodiu m 40 mg 10/10/21 09:17 10/16/21 08:05 Pantoprazole 40 Mg Sdv IVP 40 mg DAILY JACKIE Administration Quetiapine Fumarat e 300 mg 09/29/21 21:00 10/04/21 22:06 Quetiapine 300 M g Tablet PO 300 mg BEDTIME JACKIE Administration Senna/Docusate Sod ium 2 tab 10/14/21 09:00 10/16/21 08:04 Sennosides-Docus ate Tablet PO 2 tab DAILY JACKIE Administration Zinc Gluconate 50 mg 09/30/21 09:00 10/16/21 08:04 Zinc Gluconate 5 0 Mg Tablet PO 50 mg DAILY JACKIE Administration PFSH Anesthesia PFSH: Medical History Alcohol dependence, in remission Anxiety CAD (coronary artery disease) Chest pain COPD (chronic obstructive pulmonary disease) Diabetes mellitus type 2 in nonobese Enrolled in chronic care management Essential hypertension GERD (gastroesophageal reflux disease) Hypersomnia Intervertebral disc disorders with radiculopathy, lumbosacral region Major depressive disorder, recurrent, severe with psychotic symptoms Mixed hyperlipidemia Psychiatric care Unstable angina Surgical History S/P appendectomy S/P coronary angioplasty Family History Other Arthritis Asthma Cancer Social History Smoking and tobacco status: former smoker Quit status (tobacco): has quit using tobacco Year quit tobacco: DEC 2017 Second hand smoke exposure: Yes Alcohol intake: never Desire information about alcohol rehabilitation?: No Counseling given: No Desire information about substance/drug rehabilitation?: No Counseling given: No Lives independently: Yes Housing: House Marital status: service: No Current occupational status: unemployed and disabled Current gender identity: Male Data Anesthesia CBC & Chem 7: 10/16/21 04:25 10/16/21 04:25 Other Labs: Laboratory Results - last 48 hr 10/14/21 10/14/21 10/15/21 17:27 21:07 04:48 WBC 9.1 RBC 4.41 Hgb 13.7 Hct 41.4 L MCV 93.9 MCH 31.1 MCHC 33.1 D RDW 14.5 Plt Count 193 MPV 10.7 H Neut % (Auto) 89.6 Lymph % (Auto) 3.7 [place] % (Auto) 1.6 Eos % (Auto) 1.4 Baso % (Auto) 0.5 Neut # (Auto) 8.14 H Lymph # (Auto) 0.3 L [place] # (Auto) 0.2 Eos # (Auto) 0.1 Baso # (Auto) 0.1 Nucleated RBC % (auto) 0 Nucleated RBCs # 0.0 Specimen Type Sample Site ABG pH ABG pCO2 ABG pO2 ABG HCO3 ABG Base Excess Roger Test Hematocrit O2 Delivery Device FiO2 Tidal Volume PEEP Brine Purifier ID Sodium Potassium Chloride Carbon Dioxide Anion Gap BUN Creatinine GFR Calculation Glucose POC Glucose 260 H 252 H Calculated Osmolality Calcium Lactate Dehydrogenase Procalcitonin 10/15/21 10/15/21 10/15/21 04:48 04:48 04:52 WBC RBC Hgb Hct MCV MCH MCHC RDW Plt Count MPV Neut % (Auto) Lymph % (Auto) [place] % (Auto) Eos % (Auto) Baso % (Auto) Neut # (Auto) Lymph # (Auto) [place] # (Auto) Eos # (Auto) Baso # (Auto) Nucleated RBC % (auto) Nucleated RBCs # Specimen Type Arterial Sample Site Radial, right ABG pH 7.37 ABG pCO2 53.8 H ABG pO2 61.0 L ABG HCO3 31.2 H ABG Base Excess 4.3 H Roger Test Pos Hematocrit 49.5 O2 Delivery Device Vent FiO2 80.0 Tidal Volume 0.45 PEEP 12.0 Brine Purifier ID Jason Sodium 134 L Potassium 4.9 Chloride 96 L Carbon Dioxide 29 Anion Gap 13.9 BUN 19 Creatinine 0.6 L GFR Calculation 136.1 H Glucose 176 H POC Glucose Calculated Osmolality 285 Calcium 8.5 Lactate Dehydrogenase 444 H Procalcitonin 0.09 10/15/21 10/15/21 10/15/21 07:06 11:14 16:31 WBC RBC Hgb Hct MCV MCH MCHC RDW Plt Count MPV Neut % (Auto) Lymph % (Auto) [place] % (Auto) Eos % (Auto) Baso % (Auto) Neut # (Auto) Lymph # (Auto) [place] # (Auto) Eos # (Auto) Baso # (Auto) Nucleated RBC % (auto) Nucleated RBCs # Specimen Type Sample Site ABG pH ABG pCO2 ABG pO2 ABG HCO3 ABG Base Excess Roger Test Hematocrit O2 Delivery Device FiO2 Tidal Volume PEEP Brine Purifier ID Sodium Potassium Chloride Carbon Dioxide Anion Gap BUN Creatinine GFR Calculation Glucose POC Glucose 225 H 192 H 166 H Calculated Osmolality Calcium Lactate Dehydrogenase Procalcitonin 10/15/21 10/16/21 10/16/21 20:59 04:25 04:25 WBC 5.6 RBC 4.05 L Hgb 12.7 Hct 38.2 L MCV 94.3 H MCH 31.4 MCHC 33.2 RDW 14.4 Plt Count 186 MPV 10.5 H Neut % (Auto) 78.8 Lymph % (Auto) 5.3 [place] % (Auto) 5.7 Eos % (Auto) 3.7 Baso % (Auto) 0.5 Neut # (Auto) 4.43 Lymph # (Auto) 0.3 L [place] # (Auto) 0.3 Eos # (Auto) 0.2 Baso # (Auto) 0.0 Nucleated RBC % (auto) 0 Nucleated RBCs # 0.0 Specimen Type Sample Site ABG pH ABG pCO2 ABG pO2 ABG HCO3 ABG Base Excess Roger Test Hematocrit O2 Delivery Device FiO2 Tidal Volume PEEP Brine Purifier ID Sodium 133 L Potassium 4.4 Chloride 97 L Carbon Dioxide 27 Anion Gap 13.4 BUN 17 Creatinine 0.4 L GFR Calculation 217.3 H Glucose 132 H POC Glucose 208 H Calculated Osmolality 279 L Calcium 7.9 L Lactate Dehydrogenase Procalcitonin 10/16/21 10/16/21 10/16/21 04:45 06:37 11:14 WBC RBC Hgb Hct MCV MCH MCHC RDW Plt Count MPV Neut % (Auto) Lymph % (Auto) [place] % (Auto) Eos % (Auto) Baso % (Auto) Neut # (Auto) Lymph # (Auto) [place] # (Auto) Eos # (Auto) Baso # (Auto) Nucleated RBC % (auto) Nucleated RBCs # Specimen Type Arterial Sample Site Radial, left ABG pH 7.37 ABG pCO2 57.2 H ABG pO2 57.5 L ABG HCO3 32.8 H ABG Base Excess 5.6 H Roger Test Pos Hematocrit 44.4 O2 Delivery Device Vent FiO2 70.0 Tidal Volume 0.45 PEEP 12.0 Brine Purifier ID Jason Sodium Potassium Chloride Carbon Dioxide Anion Gap BUN Creatinine GFR Calculation Glucose POC Glucose 163 H 161 H Calculated Osmolality Calcium Lactate Dehydrogenase Procalcitonin Micro: Microbiology 10/11/21 13:30 Gram Stain - Final Sputum - Expectorated Sputum Sputum Culture - Final Trinity [email or web address] Imaging/EKG/Other Data: Cath Report 11/03 Dr. Chavez Conclusions 1. No significant disease noted in the Left Main, LAD, Circumflex, or RCA coronary arteries. Patent previously placed mid RCA stent. 2. Indication for left heart cath: 3. Persistent chest pain despite of 4. optimal medical management in a patient with history of 5. prior stents ECHO 11/[address] Chavez CONCLUSIONS 1. Normal left ventricular size, systolic function and wall thickness, with no regional wall motion abnormalities. Left ventricular ejection fraction is estimated at 65 %. Normal diastolic function. 2. Normal right ventricular size and systolic function. 3. No significant valvular abnormality. 4. Normal pulmonary artery pressure. 5. When compared to old study dated 12/17/2013, there may not have been any significant change.
[2021-10-16] MEDS: piperacillin-tazobactam 3.375 GM in sodium chloride 0.9% (plus) 50 ML IV ×2 (15:53→23:28)
--- NOTE | 2021-10-16 17:33 | PC.NURSE ---
Addendum entered by Todd Rowley RN 10/16/21 17:59: field secretary spoke with pt's brother about consent for tracheostomy, brother said to contact daughter, Katiana. Katiana contacted and consent given to MD with nurses as witness. Original Note: Shift Note Frequent safety and comfort rounds continue. Orders and/or nursing care completed as indicated. Patient monitored for response to intervention and treatment(s). Education provided includes treatment plan, surgical consent for tracheostomy, and proning. Daughter verbalizes understanding. Pt proned at 1530 per staff x4. Tolerated well. VSS. Sedation and paralytic infusing per orders. No other issues noted. Paul cath draining freely to BSD. Will continue to monitor.
[2021-10-16 17:41] LABS: Glucose Point of Care 157 mg/dL (70-110)
[2021-10-16] MEDS: cisatracurium 100 MG in sodium chloride 0.9% 50 ML IV (21:17)
[2021-10-16 21:41] LABS: Glucose Point of Care 177 mg/dL (70-110)
[2021-10-17] VITALS (70 sets, daily range): BP systolic 86–140; BP diastolic 47–87; PULSE 41–96; RESP 15–24; TEMP 36.2–37.6; O2SAT 87–100
[2021-10-17] MEDS: ipratropium-albuterol 3 mL Neb INHALATION ×4 (02:46→20:14)
[2021-10-17] MEDS: propofol 1,000 MG/100 ML INJ 9.56 MG IV ×4 (03:29→23:38)
[2021-10-17 04:42] LABS: ABG PCO2 53.3 mmHg (35-45); ABG PH Result 7.39 (7.35-7.45); Arterial Blood Gas Hematocrit 44.8 % (42-52); Base Excess ABG 5.6 mmol/L (-2.0-2.0); Blood Gas Allen Test Pos; Blood Gas Operator Identificat JB; Blood Gas Sample Site Radial, right; Blood Gas Sample Type Arterial; Blood Gas Tidal Volume 0.45; HCO3 ABG 32.1 mmol/L (22-26); Oxygen Device VENT
[2021-10-17 05:08] LABS: Basophils % 0.5 %; Eosinophils # 0.1 10^3/uL (0.0-0.8); Eosinophils % 1.4 %; Hematocrit 38.6 % (42.0-52.0); Hemoglobin 12.4 g/dL (11.7-16.6); Lymphocytes # 0.3 10^3/uL (0.8-4.8); Lymphocytes % 4.1 %; Mean Corpuscular HGB Conc 32.1 g/dL (30.0-36.0); Mean Corpuscular Hemoglobin 31.1 pg (28.0-34.0); Mean Corpuscular Volume 96.7 fl (80-94); Mean Platelet Volume 10.3 fL (7.4-10.4); Monocytes # 0.4 10^3/uL (0.2-0.9); Monocytes % 6.2 %; Neutrophils # 5.33 10^3/uL (1.8-7.7); Neutrophils % 83.1 %; Nucleated Red Blood Cells % 0 %; Platelet Count 180 10^3/cmm (130-400); Red Blood Count 3.99 10^6/uL (4.1-5.3); Red Cell Distribution Width 14.5 % (12.1-15.1); White Blood Count 6.4 10^3/uL (4.0-10.0)
[2021-10-17 05:25] LABS: Anion Gap 11.7 (5-19); Blood Urea Nitrogen 20 mg/dL (8-23); Calcium 7.8 mg/dL (8.5-10.5); Carbon Dioxide 31 mmol/L (22-29); Chloride 96 mmol/L (98-107); Glomerular Filtration Rate 136.1 mL/min (90-130); Glucose 151 mg/dL (65-115); Osmolality Calculated 284 mOsm/kg (285-295); Potassium 4.7 mmol/L (3.5-5.1); Sodium 134 mmol/L (136-145)
[2021-10-17] MEDS: piperacillin-tazobactam 3.375 GM in sodium chloride 0.9% (plus) 50 ML IV ×3 (06:07→22:58)
[2021-10-17] MEDS: FUROsemide 10 mg/mL SDV 2mL 20 MG IVP ×2 (06:30→16:44)
--- NOTE | 2021-10-17 06:33 | NUR.SHIFT ---
Shift Summary: Patient supine at 0600, tolerated prone position. FiO2 60%. Required levophed temporarily, able to titrate off. Nimbex turned off when supine this AM, see charting. No signs of distress at this time, VSS.
[2021-10-17 07:00] LABS: Glucose Point of Care 160 mg/dL (70-110)
--- NOTE | 2021-10-17 07:02 | PC.NURSE ---
Report received, assessment completed. VSS. Pt bradycardic. ETT looks to be at 23cm at lip, will discuss with RT when in unit. Vent settings per RT. OGT in place, tube feeds held d/t trach placement scheduled at 1100. RIJ with propofol, versed and fentanyl infusing per orders. Lung sounds CTA, BS active. Paul cath draining freely to BSD. No s/s of pain or SOB noted. BIS in place, 34. Repositioned. Will monitor.
[2021-10-17] MEDS: insulin lispro 100 unit/1 mL SUBCUT (08:10)
[2021-10-17] MEDS: pantoprazole 40 mg SDV IVP (08:10)
[2021-10-17] MEDS: insulin glargine 100 units/1 mL 15 UNIT SUBCUT (08:10)
[2021-10-17] MEDS: budesonide 0.5 mg/2 mL Neb 0.25 MG INHALATION ×2 (08:20→20:14)
--- NOTE | 2021-10-17 08:39 | PC.NURSE ---
Pt taken off covid isolation per Dr. Gilmore.
--- NOTE | 2021-10-17 11:03 | W.PM.OPSUD ---
Surgery/Procedure H&P Update DATE OF PROCEDURE: October 17, 2021 DATE H&P PERFORMED: 10/17/21 H&P UPDATE INFORMATION: I have reviewed H&P completed within last 30 days, I have examined patient prior to procedure and No changes to prior documentation PREOP DIAGNOSIS: Worsening of chest pain suspicious of angina PLANNED PROCEDURE: Operation Date: 10/17/21 11:00 Proposed Procedures p Tracheostomy(Not Applicable) - Hilton Silveira MD
--- NOTE | 2021-10-17 11:34 | PC.NURSE ---
PT to surgery at 1125 with anesthesia and OR staff. Daughter here and in waiting room.
--- NOTE | 2021-10-17 12:20 | P.OP_ITS ---
Operative Report Date of procedure: October 17, 2021 Pre-op Diagnosis: Worsening of chest pain suspicious of angina/need for long- term ventilation Post-op diagnosis: same Post-op Findings: 8 [place] Shiley cuffed trach tube with inner cannula in place. Sutured to neck and Morrill strap in place. Procedure Done: Tracheotomy Pathology: none sent Surgeon: Hilton Silveira Anesthesia: General and Local Estimated blood loss (mL): 5 Complications: No complications encountered Findings: Patient has been ventilated with an 8 [place] endotracheal tube for more than 2 weeks. In need of conversion to tracheotomy for ventilation and pulmonary toilet. Condition: stable Disposition: PACU Brief History: 61-year-old male patient in ICU for acute respiratory distress syndrome and Covid requiring long-term intubation. Endotracheal tube in place for more than 2 weeks. In spite of being anticoagulated he needs to have his endotracheal tube converted to a tracheotomy tube. He is brought to the operating room at this time to undergo said procedure. I previously discussed this procedure with his daughter Julius Correa yesterday on the phone and obtained consent and this was witnessed by 2 nurses. The procedure was discussed in detail with the daughter. Risks and complications were discussed as well including bleeding infection scarring swelling bruising need for additional treatment and anesthetic risks associated with the procedure including heart attack stroke or not surviving the surgery. With these things understood informed consent was granted accordingly. Procedure: Description of procedure: The patient was placed on the operating t able in the supine position. Shoulder roll was placed under the shoulders. The neck was extended with still support of the head. The landmarks were addressed and identified and the area of the incision was cleansed with alcohol and then a total of 3.4 mL of 2% Xylocaine with 1-100,000 epinephrine was infiltrated subcutaneously and into the deeper tissue to the tracheal region. The patient was then prepped and draped in usual fashion. A timeout was accomplished identifying the patient date of plan procedure allergies fire risk and medications given. With all in agreement the procedure continued. A marking pen was used to outline the sternal notch and the cricoid and make sure that the incision was placed centrally. The cut mode of the Bovie was used to incise through the skin. Blended Bovie was then used with blunt dissection to cut through appropriate tissue and bipolar was used as well to coagulate smaller vessels. Larger vessels were clamped with medium clamps cut and moved out of the surgical site. As the dissection carried down the isthmus of the thyroid was removed to give good access to the tracheal cartilage without obstruction. The tracheal hook was placed between tracheal rings 1 and 2 and an incision was created with the needle tip Bovie into the trachea continuing to the lateral aspect bilaterally. Then the endotracheal tube was removed and the tracheostomy tube with cuff down was inserted and then went in good position the obturator was removed and replaced with the inner cannula which was then connected to the ventilatory support. The tracheostomy tube shield was sutured to the neck skin in a 4 quadrant suturing. This was done with 0 silk suture. Once that was stabilized the drapes over the head were removed and a dressing overlying the central line was removed and changed and replaced with a new dressing. Then the Morrill strap was attached to the tracheostomy tube appropriately and then tightened to the point of one finger under the strap to make sure it is not too tight. With that accomplished the patient was returned to anesthesia for wake- up and transport back to ICU. All went well with very little blood loss. Less than 5 mL was encountered during the procedure.
[2021-10-17 12:51] LABS: Glucose Point of Care 120 mg/dL (70-110)
--- NOTE | 2021-10-17 12:52 | P.PN_ITS ---
Subjective Subjective: Interval history: Patient is afebrile, no leukocytosis Today gas was done during proning session which shows PO2 80 on FiO2 60% When I saw him he was in supine position, PEEP 10, FiO2 60% Going for tracheostomy Note was left for anesthesia in his chart regarding adrenal insufficiency Patient has bradycardia which improved after paralytics are turned off He has been requiring vasopressors on and off, he was off vasopressors this morning I escalated his antibiotics because of his tracheostomy procedure today Overall positive net fluid balance, will give him 20 mg of IV Lasix Vitals/I&O/Wt Last Vital Signs Temp 97.1 F L 10/17/21 08:00 Pulse 44 L 10/17/21 08:30 Resp 22 H 10/17/21 12:42 BP 86/57 10/17/21 08:30 Pulse Ox 96 10/17/21 12:42 10/16/21 10/17/21 10/17/21 22:59 06:59 14:59 Intake Total 245.120 / 796.620 529.443 / 1326.063 165.721 / 165.721 Output Total 700 / 700 450 / 1150 Balance -454.880 / 96.620 79.443 / 176.063 165.721 / 165.721 Weight last 48 hrs Weight 31.383 kg Weight 67.273 kg Physical Exam Narrative: EXAM NARRATIVE: On telemetry bradycardia sinus bradycardia On sedatives Intubated, off paralytics Paul catheter draining concentrated urine Bilateral assisted breath sounds PEEP 10 FiO2 60 No worsening of left heel blister Clinically does not look fluid overloaded or extremely dehydrated Abdomen soft bowel sound present Neuro exam is limited Urinary Catheter Management^: Paul: Cath Placed During This Visit: yes Reason for Continuing Indwelling Catheter: Accurate Measurement of Urinary Output in Critically Ill Patients Urinary Catheter Date of Insertion: 10/06/21 Urinary Catheter Time of Insertion: 13:33 Data : 10/17/21 04:20 10/17/21 04:20 A&P Assessment and plan (1) Adrenal insufficiency: Status: Acute (2) ARDS (adult respiratory distress syndrome): Status: Acute (3) Hypotension: Status: Acute (4) COVID-19: Status: Acute (5) COPD exacerbation: Status: Acute (6) Acute respiratory failure with hypoxia: Status: Acute (7) Diabetes mellitus type 2 in nonobese: Status: Acute (8) COPD (chronic obstructive pulmonary disease): Status: Acute Qualifiers: COPD type: emphysema Emphysema type: centrilobular Qualified Code(s): J43.2 - Centrilobular emphysema Additional A&P Information Persistent hypoxia related to COVID-19 Severe ARDS Today FiO2 60% on PEEP 10 Awaiting tracheostomy by ENT today Escalated antibiotics to Zosyn He will get stress dose steroids during the procedure In total he finished 6 cycles of proning No signs of PE No signs of bacterial pneumonia Patient hypoxia does get worse during supine phase To avoid fluid overload I will give him IV Lasix 20 mg IV push x1 Adrenal insufficiency Has been requiring vasopressors on and off, Gradually wean off IV steroids Type 2 diabetes: I have decreased his Lantus, currently euglycemic, he gets Glucerna 45 cc/h with water flushes during supine phases Full code I have been updating brother, patient specifically told me not to update her daughter stating that she is not at good times with her and this was discussed with the brother as well DVT prophylaxis: On hold for anticipation of procedure today, will start anticoagulating agent 24 hours after the procedure We will start tube feed 8 to 10 hours after the procedure if ENT is okay with it Attestations Medical Necessity Statement*: Plan to send him to LTAC after PEG tube placement next week Time Spent in Patient Care: 16 - 35 minutes Coding Level of Care Code Acute Paid Internship for Chg Fwd Diagnoses Adrenal insufficiency E27.40 ARDS (adult respiratory distress syndrome) J80 Hypotension I95.9 COVID-19 U07.1 COPD exacerbation J44.1 Acute respiratory failure with hypoxia J96.01 Diabetes mellitus type 2 in nonobese E11.9 COPD (chronic obstructive pulmonary disease) J43.2 COPD type: emphysema Emphysema type: centrilobular
[2021-10-17] MEDS: lactulose oral liq 20 gm/30 mL UDC PO ×2 (13:00)
[2021-10-17] MEDS: hydrocortisone 100 mg/2 mL SDV IVP ×2 (13:00→23:38)
--- NOTE | 2021-10-17 13:16 | PC.NURSE ---
1230 Pt returned from surgery. 8.0 trach placed, tolerated well. Connected to vent and monitors. VSS. Vent settings per RT. Sedation remains the same. Levophed turned off. Will monitor.
--- NOTE | 2021-10-17 13:50 | ANE.PACU2 ---
Inpatient post-anesthesia follow up: Airway intact: Yes Vital signs: Temperature 97.1 F Pulse Rate [Therap y Changed] 68 Pulse Rate [Curren t] 93 Pulse Rate 51 Respiratory Rate [ Therapy 16 Changed] Respiratory Rate [ Current] 26 Respiratory Rate 22 Blood Pressure 124/70 Pulse Oximetry [Th erapy 91 Changed] Pulse Oximetry [Cu rrent] 92 Pulse Oximetry 87 Oxygen Delivery Me thod Mechanical Ventila tion Oxygen Flow Rate [ Therapy 40 Changed] Oxygen Flow Rate [ Current] 55 Oxygen Flow Rate 40 Fraction of Inspir ed Oxygen [ 75 Therapy Changed] Fraction of Inspir ed Oxygen [ 100 Current] Fraction of Inspir ed Oxygen 50 Hydration adequate: Yes Nausea and vomiting: No Pain level: 1 Mental status: Baseline Additional Comments: Trach to ICU
[2021-10-17] MEDS: propofol 1,000 MG/100 ML INJ 7.65 MG IV (13:55)
--- NOTE | 2021-10-17 15:26 | PC.NURSE ---
Tube feeds restarted per orders. 45ml/h with 150ml h20 flush q6h.
[2021-10-17 16:26] LABS: Glucose Point of Care 117 mg/dL (70-110)
[2021-10-17] MEDS: ascorbic acid 500 mg Tablet 1000 MG PO (17:10)
--- NOTE | 2021-10-17 17:54 | PC.NURSE ---
Shift Note Frequent safety and comfort rounds continue. Orders and/or nursing care completed as indicated. Patient monitored for response to intervention and treatment(s). Education provided includes treatment plan ,medications, trach placement and future LTAC placement. Daughter verbalizes understanding. VSS. Small amount of bleeding noted to trach site, cleaned and drain sponge placed. Repositioned per Staff. Paul draining freely. Sedation and ABT infusing per orders to RIJ CVL. Will continue to monitor.
[2021-10-18] VITALS (41 sets, daily range): BP systolic 91–171; BP diastolic 52–76; PULSE 56–92; RESP 16–30; TEMP 36.7–37.3; O2SAT 86–95
[2021-10-18 00:18] LABS: Glucose Point of Care 246 mg/dL (70-110)
[2021-10-18] MEDS: lactulose oral liq 20 gm/30 mL UDC PO ×2 (01:18→13:45)
[2021-10-18] MEDS: ipratropium-albuterol 3 mL Neb INHALATION ×4 (02:33→20:04)
[2021-10-18] MEDS: propofol 1,000 MG/100 ML INJ 9.56 MG IV (03:06)
[2021-10-18 04:22] LABS: ABG PH Result 7.52 (7.35-7.45); Arterial Blood Gas Hematocrit 45.7 % (42-52); Base Excess ABG 9.9 mmol/L (-2.0-2.0); Blood Gas Allen Test Pos; Blood Gas Operator Identificat JB; Blood Gas Sample Site Radial, right; Blood Gas Sample Type Arterial; Blood Gas Tidal Volume 0.45; HCO3 ABG 33.9 mmol/L (22-26); Oxygen Device VENT; PO2 ABG 43.7 mmHg (80.0-100.0)
[2021-10-18 05:38] LABS: Basophils # 0.1 10^3/uL (0.0-0.1); Basophils % 0.5 %; Eosinophils % 0.3 %; Hematocrit 41.2 % (42.0-52.0); Hemoglobin 13.4 g/dL (11.7-16.6); Lymphocytes # 0.3 10^3/uL (0.8-4.8); Lymphocytes % 2.7 %; Mean Corpuscular HGB Conc 32.5 g/dL (30.0-36.0); Mean Corpuscular Hemoglobin 30.8 pg (28.0-34.0); Mean Corpuscular Volume 94.7 fl (80-94); Mean Platelet Volume 10.4 fL (7.4-10.4); Monocytes # 0.6 10^3/uL (0.2-0.9); Monocytes % 5.5 %; Neutrophils # 9.67 10^3/uL (1.8-7.7); Neutrophils % 88.4 %; Nucleated Red Blood Cells % 0 %; Platelet Count 214 10^3/cmm (130-400); Red Blood Count 4.35 10^6/uL (4.1-5.3); Red Cell Distribution Width 14.9 % (12.1-15.1); White Blood Count 10.9 10^3/uL (4.0-10.0)
[2021-10-18] MEDS: piperacillin-tazobactam 3.375 GM in sodium chloride 0.9% (plus) 50 ML IV ×3 (06:07→22:33)
--- NOTE | 2021-10-18 06:16 | NUR.SHIFT ---
Shift Summary: Patient sedation increased to maintain vent management due to coughing and breath stacking. FiO2 70%. Patient did not require levophed this shift. Tolerated tube feeds. VSS. No active signs of distress at this time
[2021-10-18 06:17] LABS: Blood Urea Nitrogen 22 mg/dL (8-23); Calcium 7.9 mg/dL (8.5-10.5); Carbon Dioxide 30 mmol/L (22-29); Chloride 95 mmol/L (98-107); Glomerular Filtration Rate 136.1 mL/min (90-130); Glucose 236 mg/dL (65-115); Magnesium 2.1 mg/dL (1.7-2.3); Osmolality Calculated 289 mOsm/kg (285-295); Sodium 134 mmol/L (136-145)
[2021-10-18] MEDS: propofol 1,000 MG/100 ML INJ 11.47 MG IV ×2 (07:25→11:48)
[2021-10-18 07:41] LABS: Glucose Point of Care 258 mg/dL (70-110)
[2021-10-18] MEDS: insulin lispro 100 unit/1 mL SUBCUT ×3 (07:41→18:01)
[2021-10-18] MEDS: budesonide 0.5 mg/2 mL Neb 0.25 MG INHALATION ×2 (08:24→20:04)
[2021-10-18] MEDS: pantoprazole 40 mg SDV IVP (08:47)
[2021-10-18] MEDS: ascorbic acid 500 mg Tablet 1000 MG PO ×2 (08:48→18:01)
[2021-10-18] MEDS: fluconazole 100 mg Tablet PO (08:48)
[2021-10-18] MEDS: sennosides-docusate Tablet 2 TAB PO (08:48)
[2021-10-18] MEDS: zinc gluconate 50 mg Tablet PO (08:48)
[2021-10-18] MEDS: insulin glargine 100 units/1 mL 15 UNIT SUBCUT (08:48)
[2021-10-18 11:24] LABS: Glucose Point of Care 141 mg/dL (70-110)
[2021-10-18] MEDS: hydrocortisone 100 mg/2 mL SDV 50 MG IVP ×2 (11:29→23:23)
--- NOTE | 2021-10-18 12:59 | PC.SOCIAL ---
IMM Update pg 2 of IMM updated via phone w/ patients brother Odin.
--- NOTE | 2021-10-18 15:49 | P.PN_ITS ---
Subjective Subjective: Interval history: 2500ml, output, received 20 mg of Lasix yesterday off pressors Negative fluid balance Contraction alkalosis along respiratory alkalosis noted Hyperglycemia Patient is breathing above the vent currently on midazolam 6, fentanyl 175, propofol at 60 Patient was getting restless at night sedatives were increased overnight Mild secretions noted around the tracheostomy site, thick copious secretions Afebrile No leukocytosis Hemoglobin is stable after surgery De-escalate Zosyn tomorrow No bowel movement since Wednesday Currently on Glucerna 45 cc/h along water flushes 150 every 6h His Lantus dose was held yesterday, resumed at lower dose FiO2 70, PEEP 12 10/17 s/p 8 Italian Shiley cuffed trach tube with inner cannula in place Vitals/I&O/Wt Last Vital Signs Temp 98.2 F 10/18/21 12:00 Pulse 58 L 10/18/21 14:00 Resp 23 H 10/18/21 11:49 BP 101/53 10/18/21 12:00 Pulse Ox 94 10/18/21 12:00 10/18/21 10/18/21 10/18/21 06:59 14:59 22:59 Intake Total 1326.188 / 1936.304 334.114 / 334.114 Output Total 1500 / 2500 Balance -173.812 / -563.696 334.114 / 334.114 Weight last 48 hrs Weight 69.989 kg Weight 29.512 kg Weight 66.5 kg Weight 31.383 kg Physical Exam Narrative: EXAM NARRATIVE: Patient is intubated and sedated status post trach Trach collar size 8 Currently FiO2 70% PEEP 12 Bilateral assisted breath sounds Abdomen soft bowel sound present Lower extremity no edema Urine yellow-colored Left ear blister no acute worsening No sign of cellulitis S1, S2 heart rate has been ranging between 55-65 Urinary Catheter Management^: Paul: Cath Placed During This Visit: yes Reason for Continuing Indwelling Catheter: Accurate Measurement of Urinary Output in Critically Ill Patients Urinary Catheter Date of Insertion: 10/06/21 Urinary Catheter Time of Insertion: 13:33 Data : 10/18/21 04:10 10/18/21 04:10 A&P Assessment and plan (1) Adrenal insufficiency: Status: Acute (2) ARDS (adult respiratory distress syndrome): Status: Acute (3) Hypotension: Status: Acute (4) COVID-19: Status: Acute (5) COPD exacerbation: Status: Acute (6) Acute respiratory failure with hypoxia: Status: Acute (7) Status post tracheostomy: Status: Acute (8) Diabetes mellitus type 2 in nonobese: Status: Acute (9) COPD (chronic obstructive pulmonary disease): Status: Acute Qualifiers: COPD type: emphysema Emphysema type: centrilobular Qualified Code(s): J43.2 - Centrilobular emphysema (10) Anxiety: Status: Acute Additional A&P Information Persistent hypoxia/severe ARDS COVID-19 related hypoxic respiratory failure Finished 7 cycles of proning Status post tracheostomy / Status post Actemra, IV steroids, remdesivir Responsive to proning On empirical antibiotic coverage CTA ruled out PE PEEP 12, no signs of pneumothorax Plan to send him to LTAC after PEG tube placement Hyperglycemia: Resume his Lantus No electrolyte imbalance Respiratory and contraction alkalosis noted hold off on Lasix, Patient is breathing above the vent maxed on propofol, midazolam at 6 and fentanyl at 175, Adrenal insufficiency: Gradually wean off steroids Glucerna tube feeds with water flushes Guarded prognosis Full code Constipation: Couple bowel movements on Wednesday after enema Can discontinue isolation, post 21 days Attestations Medical Necessity Statement*: PEG tube placement and then transferred to LTAC Time Spent in Patient Care: less than 15 minutes Coding Level of Care Code Acute Cellular Tower Climber for Chg Fwd Diagnoses Adrenal insufficiency E27.40 ARDS (adult respiratory distress syndrome) J80 Hypotension I95.9 COVID-19 U07.1 COPD exacerbation J44.1 Acute respiratory failure with hypoxia J96.01 Status post tracheostomy Z93.0 Diabetes mellitus type 2 in nonobese E11.9 COPD (chronic obstructive pulmonary disease) J43.2 COPD type: emphysema Emphysema type: centrilobular Anxiety F41.9
[2021-10-18] MEDS: propofol 1,000 MG/100 ML INJ 25.2 MG IV ×3 (15:57→23:23)
[2021-10-18 17:59] LABS: Glucose Point of Care 179 mg/dL (70-110)
[2021-10-18 22:38] LABS: Glucose Point of Care 147 mg/dL (70-110)
[2021-10-19] VITALS (63 sets, daily range): BP systolic 90–149; BP diastolic 49–71; PULSE 54–86; RESP 18–26; TEMP 36.8–37.2; O2SAT 88–99
[2021-10-19] MEDS: ipratropium-albuterol 3 mL Neb INHALATION ×4 (01:59→20:07)
[2021-10-19] MEDS: lactulose oral liq 20 gm/30 mL UDC PO ×2 (02:01→12:29)
[2021-10-19] MEDS: propofol 1,000 MG/100 ML INJ 25.2 MG IV ×2 (02:51→06:12)
[2021-10-19 04:26] LABS: Basophils # 0.1 10^3/uL (0.0-0.1); Basophils % 0.6 %; Eosinophils # 0.4 10^3/uL (0.0-0.8); Eosinophils % 3.4 %; Hematocrit 38.2 % (42.0-52.0); Hemoglobin 12.4 g/dL (11.7-16.6); Lymphocytes # 0.3 10^3/uL (0.8-4.8); Lymphocytes % 2.6 %; Mean Corpuscular HGB Conc 32.5 g/dL (30.0-36.0); Mean Corpuscular Hemoglobin 31.5 pg (28.0-34.0); Mean Platelet Volume 10.4 fL (7.4-10.4); Monocytes # 0.6 10^3/uL (0.2-0.9); Monocytes % 5.3 %; Neutrophils # 10.23 10^3/uL (1.8-7.7); Neutrophils % 86.3 %; Nucleated Red Blood Cells % 0 %; Platelet Count 160 10^3/cmm (130-400); Red Blood Count 3.94 10^6/uL (4.1-5.3); White Blood Count 11.9 10^3/uL (4.0-10.0)
[2021-10-19 04:39] LABS: Anion Gap 12.4 (5-19); Blood Urea Nitrogen 20 mg/dL (8-23); Calcium 7.9 mg/dL (8.5-10.5); Carbon Dioxide 31 mmol/L (22-29); Chloride 96 mmol/L (98-107); Glomerular Filtration Rate 136.1 mL/min (90-130); Glucose 228 mg/dL (65-115); Magnesium 2.2 mg/dL (1.7-2.3); Osmolality Calculated 290 mOsm/kg (285-295); Potassium 4.4 mmol/L (3.5-5.1); Sodium 135 mmol/L (136-145); Triglycerides 180 mg/dL (0-150)
[2021-10-19] MEDS: piperacillin-tazobactam 3.375 GM in sodium chloride 0.9% (plus) 50 ML IV ×2 (06:07→17:29)
[2021-10-19] MEDS: budesonide 0.5 mg/2 mL Neb 0.25 MG INHALATION ×2 (08:05→20:07)
[2021-10-19] MEDS: zinc gluconate 50 mg Tablet PO (08:38)
[2021-10-19] MEDS: sennosides-docusate Tablet 2 TAB PO (08:38)
[2021-10-19] MEDS: ascorbic acid 500 mg Tablet 1000 MG PO ×2 (08:38→17:29)
[2021-10-19] MEDS: pantoprazole 40 mg SDV IVP (08:38)
[2021-10-19] MEDS: fluconazole 100 mg Tablet PO (08:38)
--- NOTE | 2021-10-19 08:57 | XRR_ITS ---
PROCEDURE INFORMATION: Exam: XR Chest Exam date and time: 10/19/2021 8:57 AM Age: 61 years old Clinical indication: Device placement; Other: Post trach tube TECHNIQUE: Imaging protocol: XR of the chest. Views: 1 view. Other technique: Frontal portable semiupright view of the chest. COMPARISON: CR XR chest 1V portable [id number] 10/14/2021 3:49 PM FINDINGS: Tubes, catheters and devices: The tracheostomy tube tip is approximately 6.5 cm above the matthew. The right internal jugular venous catheter tip is in the cavoatrial junction. The feeding tube enters the stomach with the tip off the limits of the image. EKG leads are present overlying the chest. Lungs: Stable heterogeneous air space opacities predominating in the mid-lower lung zones. The pulmonary vasculature is obscured by increased lung attenuation. Increased bibasilar partial atelectasis. Pleural spaces: Right apical pneumothorax measuring 2.9 cm. No pleural effusion. Heart/Mediastinum: The heart is normal in size and contour. Mediastinum: Stable. Bones/joints: Stable. XR/XR chest 1V portable [id number] IMPRESSION: 1. Right apical pneumothorax. 2. Stable bilateral pulmonary infiltrates, pneumonitis versus atypical pulmonary edema. Clinical correlation is recommended. 3. Increased bibasilar partial atelectasis. Radiation Dose CTDIVOL = (mGy): DLP = (mGy-cm)
[2021-10-19 09:00] LABS: Glucose Point of Care 220 mg/dL (70-110)
[2021-10-19] MEDS: insulin lispro 100 unit/1 mL SUBCUT ×2 (09:38→12:35)
[2021-10-19] MEDS: propofol 1,000 MG/100 ML INJ 21 MG IV ×3 (10:27→18:55)
[2021-10-19] MEDS: insulin glargine 100 units/1 mL 15 UNIT SUBCUT (10:29)
[2021-10-19 10:30] LABS: Alveolar-Arterial Oxygen Gradi 74.8 mmHg (5-10); Arterial Blood Gas Hematocrit 40.2 % (42-52); Base Excess ABG 8.1 mmol/L (-2.0-2.0); Blood Gas Allen Test Pos; Blood Gas Operator Identificat CAK; Blood Gas Sample Site Brachial, left; Blood Gas Sample Type Arterial; Blood Gas Tidal Volume 0.45; Carboxyhemoglobin 1.4 %THgb (0.4-20.1); HCO3 ABG 34.7 mmol/L (22-26); HGB O2 Sat 91.2 % (95-100); Ionized Calcium Level - ABG 1.2 mmol/L (1.1-1.4); Oxygen Device VENT; Oxygen Saturation ABG 93.4; PO2 ABG 67.2 mmHg (80.0-100.0); Potassium Level - ABG 4.1 mmol/L (3.5-5.0); Total Hemoglobin 13.1 g/dL (14-18)
[2021-10-19] MEDS: FUROsemide 10 mg/mL SDV 2mL 20 MG IVP (10:44)
[2021-10-19 11:04] LABS: Glucose Point of Care 161 mg/dL (70-110)
--- NOTE | 2021-10-19 11:40 | PC.NURSE ---
This AM patients o2 levels were in low 80's. Respiratory increased fio2 to 100%. Dr. Jean aware and order for chest xray was placed. New results of right sided pneumothorax at 15% was called to this nurse. and RT aware of results.
[2021-10-19 12:26] LABS: Glucose Point of Care 122 mg/dL (70-110)
[2021-10-19] MEDS: hydrocortisone 100 mg/2 mL SDV 50 MG IVP (12:28)
--- NOTE | 2021-10-19 13:09 | PM.PN ---
Subjective Subjective: Interval history: Worsening hypoxia, requested chest x-ray which showed 50% pneumothorax, fluid overloaded, patient is in positive fluid balance +4L We will give him 40 mg of Lasix now and 60mg at night Decrease feeding rate to 30 cc/h Off vasopressors Versed at 6, fentanyl 200 and propofol at 50 No bowel movement since Wednesday We will give 1 enema today FiO2 100%, PEEP decreased from 12 to 8 after we found about the pneumothorax this morning, wean off FiO2, requested blood gas this morning, goal PO2 around 60 Hyperglycemia with initiation of feeds Phosphorus 4 Magnesium 2.2 Potassium 4.4 Constipation On fluconazole for Trinity atypical species, afebrile, Sinus bradycardia improved Vitals/I&O/Wt Last Vital Signs Temp 99.0 F 10/19/21 07:00 Pulse 79 10/19/21 08:00 Resp 19 H 10/19/21 11:35 BP 114/63 10/19/21 08:00 Pulse Ox 96 10/19/21 11:35 10/18/21 10/19/21 10/19/21 22:59 06:59 14:59 Intake Total 3739.212 / 4073.326 1255.02 / 5328.346 369.084 / 369.084 Output Total 850 / 850 325 / 1175 Balance 2889.212 / 3223.326 930.02 / 4153.346 369.084 / 369.084 Weight last 48 hrs Weight 68.2 kg Weight 69.989 kg Weight 29.512 kg Weight 66.5 kg Physical Exam Narrative: EXAM NARRATIVE: Patient looks fluid overloaded right arm swelling greater than left Bilateral lower extremity edema FiO2 100% PEEP 8 Abdomen soft but distended bowel sound present Left heel blister seems to be showing good granulation tissue S1, S2 sinus rhythm Assisted bilateral breath sounds with rhonchi and crackles Palu catheter draining dilute urine Urinary Catheter Management^: Paul: Cath Placed During This Visit: yes Reason for Continuing Indwelling Catheter: Accurate Measurement of Urinary Output in Critically Ill Patients Urinary Catheter Date of Insertion: 10/06/21 Urinary Catheter Time of Insertion: 13:33 Data : 10/19/21 03:35 10/19/21 03:35 A&P Assessment and plan (1) Status post tracheostomy: Status: Acute (2) Adrenal insufficiency: Status: Acute (3) ARDS (adult respiratory distress syndrome): Status: Acute (4) Hypotension: Status: Acute (5) COVID-19: Status: Acute (6) COPD exacerbation: Status: Acute (7) Acute respiratory failure with hypoxia: Status: Acute (8) Pneumothorax: Status: Acute (9) Anxiety: Status: Acute (10) CAD (coronary artery disease): Status: Acute (11) Diabetes mellitus type 2 in nonobese: Status: Acute Additional A&P Information COVID-19 related severe ARDS Status post tracheostomy 12/ Status post Actemra, remdesivir and Decadron Status post 7 cycles of proning, he did respond very well to proning sessions however in supine phase his oxygen requirement does increase Today he is in positive fluid balance, We will give aggressive diuretics today, decrease tube feeding to 20 cc/h Apical pneumothorax noted on chest x-ray today, 50%, PEEP decreased from 12 to 8 Repeat chest x-ray tomorrow for pneumothorax monitoring, with high PEEP he is at high risk for deterioration, will update test deck supervisor Anmoln was added because of thick copious secretions which were noted around the tracheostomy collar, low-grade fever noted today I would continue it as prophylactic regimen for now Acute preserved ejection heart failure exacerbation Aggressive diuretics today Sinus bradycardia has improved which was secondary to use of paralytics and sedatives Repeat echo in the morning for EF monitoring Adrenal insufficiency: Gradually wean off steroids Type 2 diabetes: Hyperglycemic, optimize Lantus dose with tube feeding Lantus dose was decreased when he had hypoglycemic event when IV steroids were switched to p.o. Hypotension: Off vasopressors This was most likely related to adrenal insufficiency Cardiac prognosis Full code After placement of PEG tube he will be transferred to LTAC Constipation: Enema today Brother updated, patient before intubation told me to update his brother and not contact his daughter Attestations Medical Necessity Statement*: Continue ICU management Time Spent in Patient Care: 16 - 35 minutes Coding Level of Care Code Acute Operations Management Professionals for g Fwd Diagnoses Status post tracheostomy Z93.0 Adrenal insufficiency E27.40 ARDS (adult respiratory distress syndrome) J80 Hypotension I95.9 COVID-19 U07.1 COPD exacerbation J44.1 Acute respiratory failure with hypoxia J96.01 Pneumothorax J93.9 Anxiety F41.9 CAD (coronary artery disease) I25.10 Diabetes mellitus type 2 in nonobese E11.9
--- NOTE | 2021-10-19 14:29 | XRR_ITS ---
PROCEDURE INFORMATION: Exam: XR Chest Exam date and time: 10/19/2021 2:29 PM Age: 61 years old Clinical indication: Device placement; Chest tube; Additional info: Pneumothorax TECHNIQUE: Imaging protocol: XR of the chest. Views: 1 view. Other technique: Frontal portable semiupright view of the chest. COMPARISON: CR (CHEST, ) 10/19/2021 9:15 AM FINDINGS: Tubes, catheters and devices: The tracheostomy tube tip is approximately 6.5 cm above the matthew. EKG leads are present overlying the chest. Interval right chest tube placement entering the lateral lower chest with the tip near the medial apex. The right internal jugular venous catheter tip is in the cavoatrial junction. The feeding tube enters the stomach with the tip off the limits of the image. Lungs: There is interval increase in left lower lobe opacity further obscuring the left diaphragmatic and descending aortic shadows. The pulmonary vasculature is congested and ill-defined. Interval increase in airspace opacities bilaterally predominating in the mid to lower lung zones. Pleural spaces: Small-moderate left pleural effusion not excluded. Small right apical pneumothorax measuring 4.7 mm. Heart/Mediastinum: The heart is normal in size and contour. LPO rotation elongates the cardiac silhouette, exaggerating the heart size. Mediastinum: Stable. Vasculature: Moderate aortic arch atherosclerotic calcification without ectasia. Bones/joints: Stable. XR/XR chest 1V portable [id number] IMPRESSION: 1. Increased left lower lobe atelectasis/consolidation. 2. Pulmonary vascular congestion. 3. Increased bilateral alveolar pulmonary edema. 4. Small-moderate left pleural effusion not excluded. 5. Small right apical pneumothorax, significant interval decrease. Radiation Dose CTDIVOL = (mGy): DLP = (mGy-cm)
[2021-10-19] MEDS: FUROsemide 10 mg/mL SDV 4mL 40 MG IVP (14:51)
[2021-10-19 17:30] LABS: Glucose Point of Care 91 mg/dL (70-110)
--- NOTE | 2021-10-19 18:35 | PC.NURSE ---
chest tube was placed on right side this shift. Patient tolerated well.
[2021-10-19] MEDS: FUROsemide 10 mg/mL SDV 10mL 60 MG IVP (19:51)
[2021-10-20] VITALS (93 sets, daily range): BP systolic 90–138; BP diastolic 49–76; PULSE 56–85; RESP 15–21; TEMP 36.5–37.1; O2SAT 88–99
--- NOTE | 2021-10-20 00:37 | PM.CCN ---
Critical Care Event Note Critical Care Event Requested by hospitalist service on 10/19/21 to perform tube thoracostomy with indication of pneumothorax in the context of worsening respiratory status and positive pressure ventilation. Consent obtained from family. Patient history discussed. Imaging reviewed personally. Verified proper patient, side, and time out completed. Procedure performed without apparent complication with post placement xray personally reviewed showing improvement in pneumothorax though worseing of infiltrates. Osman Duke MD Emergency Medicine Critical Care Time Critical Care Time: Code activated: No Critical Care Time (min): 15 Procedures Chest Tube^ Chest Tube 1: Chest tube location: Mid-Axillary Chest ( right) Size of tube: 32 Chest tube procedure: Yes betadine prep (chlorapreps, multiple) and sterile drapes applied Tube sutured to skin: Yes Sterile dressing applied: Yes Anesthesia: 1% Lidocaine Volume anesthetic (ml): 5 Incision made with: #11 blade Post procedure: sutured to skin and sterile dressing applied Hidalgo of air heard: Yes Tube Drainage: fluid (serous appearing) Amount of initial drainage (ml): 50 Post procedure CXR?: Yes Patient tolerated procedure: Yes Coding Level of Care Code Acute Tar Heater Operator for Tyson Sanchez
[2021-10-20] MEDS: hydrocortisone 100 mg/2 mL SDV 50 MG IVP ×2 (00:51→11:51)
[2021-10-20] MEDS: piperacillin-tazobactam 3.375 GM in sodium chloride 0.9% (plus) 50 ML IV ×3 (00:51→16:01)
[2021-10-20] MEDS: lactulose oral liq 20 gm/30 mL UDC PO ×2 (00:53→13:49)
[2021-10-20] MEDS: ipratropium-albuterol 3 mL Neb INHALATION ×4 (02:20→20:04)
--- NOTE | 2021-10-20 04:00 | XRR_ITS ---
PROCEDURE INFORMATION: Exam: XR Chest Exam date and time: 10/20/2021 4:00 AM Age: 61 years old Clinical indication: Dyspnea; Additional info: Pneumothorax TECHNIQUE: Imaging protocol: XR of the chest. Views: 1 view. COMPARISON: CR (CHEST, ) 10/19/2021 3:32 PM FINDINGS: Tubes, catheters and devices: Tracheostomy tube, tip 5.6 cm above matthew. Nasogastric tube, tip below diaphragm and off image. Right internal jugular central venous line, tip overlying the upper superior vena cava. Right chest tube with tip overlying the right upper thorax. Lungs: Extensive mixed interstitial/alveolar opacities throughout both lungs, decreased from prior study. These may represent any combination of pulmonary edema and pneumonia. Pleural spaces: No visible pneumothorax. Small left pleural effusion, similar to prior study. Heart/Mediastinum: Unremarkable. No cardiomegaly. Bones/joints: No emergent findings identified. XR/XR chest 1V portable [id number] IMPRESSION: 1. Extensive mixed interstitial/alveolar opacities throughout both lungs, decreased from prior study. These may represent any combination of pulmonary edema and pneumonia. 2. Small left pleural effusion, similar to prior study. Radiation Dose CTDIVOL = (mGy): DLP = (mGy-cm)
[2021-10-20] MEDS: propofol 1,000 MG/100 ML INJ 21 MG IV ×6 (04:08→22:11)
[2021-10-20 04:38] LABS: ABG PH Result 7.52 (7.35-7.45); Arterial Blood Gas Hematocrit 42.5 % (42-52); Base Excess ABG 15.1 mmol/L (-2.0-2.0); Blood Gas Allen Test Pos; Blood Gas Sample Site Radial, right; Blood Gas Sample Type Arterial; Blood Gas Tidal Volume 0.45; HCO3 ABG 40.4 mmol/L (22-26); Oxygen Device VENT; PO2 ABG 57.2 mmHg (80.0-100.0)
[2021-10-20 04:42] LABS: Basophils # 0.1 10^3/uL (0.0-0.1); Basophils % 0.7 %; Eosinophils # 0.8 10^3/uL (0.0-0.8); Eosinophils % 6.8 %; Hematocrit 40.9 % (42.0-52.0); Hemoglobin 13.2 g/dL (11.7-16.6); Lymphocytes # 0.4 10^3/uL (0.8-4.8); Lymphocytes % 3.4 %; Mean Corpuscular HGB Conc 32.3 g/dL (30.0-36.0); Mean Corpuscular Hemoglobin 30.9 pg (28.0-34.0); Mean Corpuscular Volume 95.8 fl (80-94); Mean Platelet Volume 10.4 fL (7.4-10.4); Monocytes # 0.7 10^3/uL (0.2-0.9); Neutrophils # 9.73 10^3/uL (1.8-7.7); Neutrophils % 80.5 %; Nucleated Red Blood Cells % 0 %; Platelet Count 184 10^3/cmm (130-400); Red Blood Count 4.27 10^6/uL (4.1-5.3); Red Cell Distribution Width 15.3 % (12.1-15.1); White Blood Count 12.1 10^3/uL (4.0-10.0)
[2021-10-20 05:08] LABS: Anion Gap 16.1 (5-19); Blood Urea Nitrogen 17 mg/dL (8-23); Calcium 7.6 mg/dL (8.5-10.5); Carbon Dioxide 32 mmol/L (22-29); Chloride 94 mmol/L (98-107); Glomerular Filtration Rate 167.9 mL/min (90-130); Glucose 157 mg/dL (65-115); Lactate Dehydrogenase 413 U/L (135-225); Osmolality Calculated 291 mOsm/kg (285-295); Potassium 4.1 mmol/L (3.5-5.1); Sodium 138 mmol/L (136-145)
[2021-10-20 05:14] LABS: Procalcitonin 0.12 ng/mL (0-0.5)
[2021-10-20 07:23] LABS: Glucose Point of Care 174 mg/dL (70-110)
[2021-10-20] MEDS: insulin lispro 100 unit/1 mL SUBCUT ×2 (07:40→17:47)
[2021-10-20] MEDS: budesonide 0.5 mg/2 mL Neb 0.25 MG INHALATION ×2 (08:22→20:04)
[2021-10-20 08:26] LABS: Glucose Point of Care 122 mg/dL (70-110)
[2021-10-20] MEDS: fluconazole 100 mg Tablet PO (08:56)
[2021-10-20] MEDS: sennosides-docusate Tablet 2 TAB PO (08:56)
[2021-10-20] MEDS: sulfamethoxazole-trimeth DS 160-800 mg Tablet 1 TAB PO ×2 (08:56→17:46)
[2021-10-20] MEDS: pantoprazole 40 mg SDV IVP (08:56)
--- NOTE | 2021-10-20 09:45 | PC.SOCIAL ---
IMM Not Updated IMM Not updated; patient not anticipated to d/c within 48hours.
[2021-10-20] MEDS: insulin glargine 100 units/1 mL 15 UNIT SUBCUT (09:54)
[2021-10-20] MEDS: insulin glargine 100 units/1 mL 18 UNIT SUBCUT (09:55)
--- NOTE | 2021-10-20 10:35 | PC.CHAP ---
Pastoral Care Encounter/Spiritual Assessment Type of Contact [] Declined key account manager visit [] Patient/Family/Request visit [] Outpatient visit [] Follow-up visit [] Physician referral [] Code/Alert [x] Routine visit [] Staff referral [] Actively dying [] Patient sleeping [] Family support [] [] Out of room [] Palliative care [] [x] Receiving care in room [] Pre-surgical visit [] Trauma [] Long length of stay [x] ICU visit [] Other: Relational/Emotional Strength [] Patient feels connected with others/family/visitors/staff [] Distress [] Loneliness/isolation [] Abandonment Spirituality of Patient [] Person of Sis [] Attends Episcopalian of their Sis [] Believes in Prayer [] Reads Bible or Scientology materials [] There are Spiritual issues to be addressed Retail Area Manager Interventions [x] Prayer [] Active listening [] Non-anxious presence [] Spiritual/emotional support [] Crisis/trauma care [] Spiritual counseling [] Bereavement support [] Provided bereavement packet [] Provided Bible/devotional materials [] Provided toy/stuffed animal, coloring book to patient or family member [] Provided Communion [] Anointing/[place] [] Salvation [x] Completed spiritual assessment [] Other: Impact on Illness or Injury [] Angry [] Fearful [] Anxious [] Often cries [] Exhaustion [] Unable to work [] Unable to attend alevism [] Unable to walk/stand [] Unable to read [] Unable to drive [] Unable to eat/drink [] Unable to sleep [] Unable to be with family [] Patient intubated [] Other: Summary Time spent with patient
[2021-10-20 11:31] LABS: Glucose Point of Care 115 mg/dL (70-110)
--- NOTE | 2021-10-20 13:38 | PC.NURSE ---
Holliday colored purulent drainage was collected from trach site and sent to lab.
--- NOTE | 2021-10-20 14:50 | PM.PN ---
Subjective Subjective: Interval history: Seen this morning. Patient has sedated and has a trach. Yesterday he was given Lasix for 4 L positive fluid balance. He has diuresed well. He is in a negative balance 1500 today. Put out 3400 cc of urine. 140 cc total drainage from chest tube from yesterday with 40 cc overnight. Afebrile overnight. White count 12.1 today. Nursing staff has reported a lot of secretions from the ET tube site which are mainly bloody. 100% FiO2 PEEP of 8. He has been off Levophed but did require levo briefly last night for a couple of hours. Blood sugars are stable. Creatinine 0.5. For Trinity in sputum he has been treated with IV fluconazole x7 days. Plavix is held since yesterday in anticipation of PEG tube potentially on Wednesday. Fungal culture also sent along with PCP pneumonia PCR to lab. Patient is on Zosyn and Bactrim. Blood pressure has been stable heart rate stable as well. Fentanyl has come down to 150. Previously he was on 200. Chest tube in place. Feeds have been restarted at 20 cc/h. Vitals/I&O/Wt Last Vital Signs Temp 98.8 F 10/20/21 07:15 Pulse 77 10/20/21 14:40 Resp 19 H 10/20/21 14:30 BP 103/53 10/20/21 12:45 Pulse Ox 95 10/20/21 14:30 10/19/21 10/20/21 10/20/21 22:59 06:59 14:59 Intake Total 341.35 / 896.884 753.0 / 1649.884 921.95 / 921.95 Output Total 4277 / 4277 478 / 4755 500 / 500 Balance -3935.65 / -3380.116 275.0 / -3105.116 421.95 / 421.95 Weight last 48 hrs Weight 66.5 kg Weight 68.2 kg Physical Exam Narrative: EXAM NARRATIVE: General: Sedated, on ventilator, appears more euvolemic today. HEENT: Normocephalic, atraumatic, EOMI, breathing with the vent. FiO2 100%, PEEP 8 Cardio: Regular rate rhythm, n normal S1-S2, no gross murmurs. Respiratory: Rhonchi appreciated bilaterally, chest tube in place draining bloody liquid. 40 cc overnight. ET tube in place with slightly bloody secretions. No subcutaneous emphysema appreciated on palpation of shoulder and neck area. GI: Abdomen soft, bowel sounds positive Paul draining clear yellow urine Extremities: Nonedematous, no cyanosis noted. Urinary Catheter Management^: Paul: Cath Placed During This Visit: yes Reason for Continuing Indwelling Catheter: Accurate Measurement of Urinary Output in Critically Ill Patients Urinary Catheter Date of Insertion: 10/06/21 Urinary Catheter Time of Insertion: 13:33 Data : 10/20/21 04:07 10/20/21 04:07 A&P Assessment and plan (1) Pneumothorax: Status: Acute (2) Status post tracheostomy: Status: Acute (3) Adrenal insufficiency: Status: Acute (4) ARDS (adult respiratory distress syndrome): Status: Acute (5) COVID-19: Status: Acute (6) Diabetes mellitus type 2 in nonobese: Status: Acute (7) CAD (coronary artery disease): Status: Acute (8) COPD (chronic obstructive pulmonary disease): Status: Acute Qualifiers: COPD type: emphysema Emphysema type: centrilobular Qualified Code(s): J43.2 - Centrilobular emphysema Additional A&P Information COVID-19 related severe ARDS Status post tracheostomy 10/17 Status post Actemra, remdesivir and Decadron Status post 7 cycles of proning, he did respond very well to proning sessions however in supine phase his oxygen requirement does increase He was in positive fluid balance yesterday and was diuresed with Lasix. Lasix has been stopped since this morning. He is more euvolemic appearing today. We will restart feeds at 20 cc/h. Apical pneumothorax noted on chest x-ray status post chest tube placement 10/19/2021. PEEP of 8 today, FiO2 100%., Repeat chest x-ray tomorrow for pneumothorax monitoring, with high PEEP he is at high risk for deterioration, updated consultant luxury and auto. vice president [employer] (ex ) over the phone. Zosyn was added because of thick copious secretions which were noted around the tracheostomy collar, low-grade fever noted 10/19. Afebrile overnight however. Will culture secretions from ET tube site. Bactrim added for PCP prophylaxis. PCP PCR also sent. Acute preserved ejection heart failure exacerbation Aggressive diuretics 10/19. Sinus bradycardia has improved which was secondary to use of paralytics and sedatives Repeat echo in the morning for EF monitoring Adrenal insufficiency: Gradually wean off steroids Type 2 diabetes: Hyperglycemic, optimize Lantus dose with tube feeding Lantus dose was decreased when he had hypoglycemic event when IV steroids were switched to p.o. Continue Lantus 18 units daily. Hypotension: Off vasopressors This was most likely related to adrenal insufficiency Cardiac prognosis Full code After placement of PEG tube he will be transferred to LTAC Constipation: Enema was to be given yesterday but was unable to be given. He will get the enema today. Last bowel movement was Thursday 10/18. Brother updated, patient before intubation told me to update his brother and not contact his daughter. As per request of the brother the daughter was updated yesterday by Dr. Gilmore. She was also given an update today. She would like the patient to remain a full code at this time as she did not talk to her dad about his wishes prior. Patient carries a poor prognosis. Attestations Medical Necessity Statement*: Greater than 48-hour stay. Coding Level of Care Code Acute Photogrammetric Tech for Chg Fwd Diagnoses Pneumothorax J93.9 Status post tracheostomy Z93.0 Adrenal insufficiency E27.40 ARDS (adult respiratory distress syndrome) J80 COVID-19 U07.1 Diabetes mellitus type 2 in nonobese E11.9 CAD (coronary artery disease) I25.10 COPD (chronic obstructive pulmonary disease) J43.2 COPD type: emphysema Emphysema type: centrilobular
--- NOTE | 2021-10-20 17:20 | PC.NURSE ---
Enema given with no results.
--- NOTE | 2021-10-20 17:20 | PC.NURSE ---
No bloody secretions have been noted from trach this shift.
[2021-10-20 17:47] LABS: Glucose Point of Care 191 mg/dL (70-110)
[2021-10-21] VITALS (65 sets, daily range): BP systolic 93–125; BP diastolic 54–68; PULSE 56–77; RESP 14–21; TEMP 36.5–37.4; O2SAT 86–97
[2021-10-21] MEDS: piperacillin-tazobactam 3.375 GM in sodium chloride 0.9% (plus) 50 ML IV ×3 (00:28→15:46)
[2021-10-21] MEDS: hydrocortisone 100 mg/2 mL SDV 50 MG IVP ×2 (00:29→11:59)
[2021-10-21] MEDS: lactulose oral liq 20 gm/30 mL UDC PO ×2 (00:29→12:18)
--- NOTE | 2021-10-21 02:09 | PC.NURSE ---
Patient's TF turned off at midnight for possible PEG tube placement later this AM. Contacted climate change risk assessor re: stopping TF, checking BSG on patient. Advised to stop TF and monitor glucose to keep fluid balance negative.
[2021-10-21] MEDS: ipratropium-albuterol 3 mL Neb INHALATION ×4 (02:37→20:01)
[2021-10-21] MEDS: propofol 1,000 MG/100 ML INJ 21 MG IV ×5 (02:42→23:00)
--- NOTE | 2021-10-21 05:18 | PC.NURSE ---
I&O from continuous IV infusions calculated off of rate as IV pumps were not zeroed from previous shifts. Accurate as they were not titrated or needed titration to achieve optimal RASS.
[2021-10-21 06:06] LABS: Glucose Point of Care 154 mg/dL (70-110)
--- NOTE | 2021-10-21 06:35 | PC.NURSE ---
Patient kept deeply sedated for adequate ventilation. Bathed and cath care complete. AM labs noted.
--- NOTE | 2021-10-21 07:48 | XR_ITS ---
WS: [id number] Exam: XR chest 1V portable [id number] Date/Time of Exam: 10/21/2021 7:48 AM Reason For Exam: assess pneumothorax and chest tube Comparison 10/20/2021. Extensive bilateral interstitial and alveolar infiltrates are seen showing little change. The lungs a re fully inflated. A right-sided thoracostomy tube is unchanged in location. A tracheostomy tube is v isualized and appears to be in satisfactory position. A right IJ catheter is noted probably ending in the right atrium. Left basal pleural effusion is unchanged in appearance. The mediastinum is not wid ened. Regional bony structures are intact. Monitoring leads superimpose the chest. XR/XR chest 1V portable [id number] IMPRESSION: 1. Bilateral pulmonary infiltrates and left basal pleural effusion unchanged. 2. Right-sided thoracostomy tube unchanged in location. No pneumothorax is seen . 3. Central line, tracheostomy tube and enteric tube all in satisfactory positio n.
[2021-10-21 07:55] LABS: Glucose Point of Care 143 mg/dL (70-110)
[2021-10-21] MEDS: budesonide 0.5 mg/2 mL Neb 0.25 MG INHALATION ×2 (08:01→20:03)
[2021-10-21 08:45] LABS: Basophils % 0.5 %; Eosinophils # 0.5 10^3/uL (0.0-0.8); Eosinophils % 7.2 %; Hematocrit 36.8 % (42.0-52.0); Hemoglobin 11.8 g/dL (11.7-16.6); Lymphocytes # 0.4 10^3/uL (0.8-4.8); Lymphocytes % 5.6 %; Mean Corpuscular HGB Conc 32.1 g/dL (30.0-36.0); Mean Corpuscular Hemoglobin 31.4 pg (28.0-34.0); Mean Corpuscular Volume 97.9 fl (80-94); Mean Platelet Volume 10.3 fL (7.4-10.4); Monocytes # 0.5 10^3/uL (0.2-0.9); Monocytes % 7.2 %; Neutrophils # 5.83 10^3/uL (1.8-7.7); Nucleated Red Blood Cells % 0 %; Platelet Count 152 10^3/cmm (130-400); Red Blood Count 3.76 10^6/uL (4.1-5.3); Red Cell Distribution Width 15.2 % (12.1-15.1); White Blood Count 7.5 10^3/uL (4.0-10.0)
[2021-10-21 08:51] LABS: Glucose Point of Care 95 mg/dL (70-110)
[2021-10-21 08:51] LABS: Glucose Point of Care 110 mg/dL (70-110)
[2021-10-21] MEDS: insulin glargine 100 units/1 mL 18 UNIT SUBCUT (09:09)
[2021-10-21] MEDS: pantoprazole 40 mg SDV IVP (09:10)
[2021-10-21] MEDS: sennosides-docusate Tablet 2 TAB PO (09:10)
[2021-10-21 09:11] LABS: Alanine Aminotransferase 19 U/L (0-41); Albumin Level 2.6 g/dL (3.5-5.2); Alkaline Phosphatase 44 IU/L (40-130); Anion Gap 13.6 (5-19); Aspartate Amino Transferase 24 U/L (0-40); Blood Urea Nitrogen 18 mg/dL (8-23); Calcium 7.4 mg/dL (8.5-10.5); Carbon Dioxide 33 mmol/L (22-29); Chloride 97 mmol/L (98-107); Globulin 2.2 g/dL (1.3-4.6); Glomerular Filtration Rate 167.9 mL/min (90-130); Glucose 140 mg/dL (65-115); Osmolality Calculated 292 mOsm/kg (285-295); Potassium 4.6 mmol/L (3.5-5.1); Sodium 139 mmol/L (136-145); Total Bilirubin 0.4 mg/dL (0.15-1.2); Total Protein 4.8 g/dL (6.6-8.7)
[2021-10-21] MEDS: fluconazole 100 mg Tablet PO (09:11)
[2021-10-21] MEDS: insulin lispro 100 unit/1 mL SUBCUT ×2 (09:13→17:53)
[2021-10-21] MEDS: sulfamethoxazole-trimeth DS 160-800 mg Tablet 1 TAB PO ×2 (09:15→17:53)
[2021-10-21] MEDS: FUROsemide 10 mg/mL SDV 2mL 20 MG IVP (12:19)
--- NOTE | 2021-10-21 14:03 | PC.NURSE ---
This shift patient has had episodes of o2 sats in the low 80's. HOB elevated and suctioning done showing bright red blood.
--- NOTE | 2021-10-21 14:05 | PC.NURSE ---
Dr. Silveira called about serosanguineous drainage mixed with thick gonzales drainage. Stated that was an expected outcome and the site could be cleaned with hydrogen peroxide.
--- NOTE | 2021-10-21 15:25 | P.PN_ITS ---
Subjective Subjective: Interval history: Seen this AM. No acute events overnight. Chest tube drainage has cleared up. Now clear yellow fluid draining. Output total 180 cc since placement. Trach site has thick green yellow secretions. He is on propofol, fentanyl and versed this morning. Urine output 1500 cc. Vitals/I&O/Wt Last Vital Signs Temp 97.7 F 10/21/21 04:00 Pulse 63 10/21/21 15:04 Resp 15 10/21/21 15:04 BP 103/57 10/21/21 12:00 Pulse Ox 92 10/21/21 15:04 10/21/21 10/21/21 10/21/21 06:59 14:59 22:59 Intake Total 883.183 / 2664.566 443.8 / 443.8 Output Total 540 / 1126 Balance 343.183 / 1538.566 443.8 / 443.8 Weight last 48 hrs Weight 66.224 kg Weight 66.5 kg Physical Exam Narrative: EXAM NARRATIVE: General: Sedated, on ventilator, appears more euvolemic today. appears very ill and toxic HEENT: Normocephalic, atraumatic, EOMI, breathing with the vent. FiO2 90%, PEEP 8 Cardio: Regular rate rhythm, n normal S1-S2, no gross murmurs. Respiratory: Rhonchi appreciated bilaterally, chest tube in place draining clear yellow fluid. ET tube in place with green yellow copious secretions around insertion site. No subcutaneous emphysema appreciated on palpation of shoulder and neck area. GI: Abdomen soft, bowel sounds positive Paul draining clear yellow urine Extremities: Nonedematous, no cyanosis noted. Upper extremities have 1+ edema. Urinary Catheter Management^: Paul: Cath Placed During This Visit: yes Reason for Continuing Indwelling Catheter: Accurate Measurement of Urinary Output in Critically Ill Patients Urinary Catheter Date of Insertion: 10/06/21 Urinary Catheter Time of Insertion: 13:33 Data : 10/21/21 08:20 10/21/21 08:20 Micro: Microbiology 10/20/21 Unknown Gram Stain - Final Throat Wound Culture - Preliminary Staphylococcus sp coag neg A&P Assessment and plan (1) Pneumothorax: Status: Acute (2) Status post tracheostomy: Status: Acute (3) Adrenal insufficiency: Status: Acute (4) ARDS (adult respiratory distress syndrome): Status: Acute (5) COVID-19: Status: Acute (6) Diabetes mellitus type 2 in nonobese: Status: Acute (7) CAD (coronary artery disease): Status: Acute (8) COPD (chronic obstructive pulmonary disease): Status: Acute Qualifiers: COPD type: emphysema Emphysema type: centrilobular Qualified Code(s): J43.2 - Centrilobular emphysema Additional A&P Information COVID-19 related severe ARDS Status post tracheostomy 10/17 Status post Actemra, remdesivir and Decadron Status post 7 cycles of proning, he did respond very well to proning sessions however in supine phase his oxygen requirement does increase He was in positive fluid balance yesterday and was diuresed with Lasix. Lasix has been stopped since this morning. He is more euvolemic appearing today. Continue feeds at 20 cc/h. Apical pneumothorax noted on chest x-ray status post chest tube placement 10/19/2021. PEEP of 8 today, FiO2 100%., Repeat chest x-ray tomorrow for pneumothorax monitoring, with high PEEP he is at high risk for deterioration, updated applications intern over the phone. Zosyn was added because of thick copious secretions which were noted around the tracheostomy collar, low-grade fever noted 10/19. Afebrile overnight however. Culture secretions from ET tube site pending. Bactrim added for PCP prophylaxis. PCP PCR also sent. Will call Dr. Silveira ENT to have ET tube re-evaluated Consult Pulm Dr. Mckeon for chest tube management. Repeat xray shows pneumothorax is resolved. Dr. Mckeon recommended to have chest tube removed tomorrow. PEG not recommended at this time by Dr. Mckeon. WIll check Triglycerides since pt on propofol. Will add precedex since pt maxed on prop, fentanyl and versed. Hopefully can wean down drips with addition of precedex. RN updated in detail Lasix 20 IV today for upper extremity edema. Acute preserved ejection heart failure exacerbation Aggressive diuretics 10/19. Sinus bradycardia has improved which was secondary to use of paralytics and sed atives Repeat echo in the morning for EF monitoring Adrenal insufficiency: Gradually wean off steroids Type 2 diabetes: Hyperglycemic, optimize Lantus dose with tube feeding Lantus dose was decreased when he had hypoglycemic event when IV steroids were switched to p.o. Continue Lantus 18 units daily. Hypotension: Off vasopressors This was most likely related to adrenal insufficiency Cardiac prognosis Full code After placement of PEG tube he will be transferred to LTAC Constipation: Enema given 10/20. Last bowel movement was Thursday 10/18. No BM yet. Will order KUB. Brother updated, patient before intubation told me to update his brother and not contact his daughter. As per request of the brother the daughter was updated 10/20 and 10/[address] Gilmore. She would like the patient to remain a full code at this time as she did not talk to her dad about his wishes prior. Patient carries a poor prognosis. Attestations Medical Necessity Statement*: > 72 hour stay Critical Care Time: Critical Care Time (min): 25 Coding Level of Care Code Acute Numerical Analysis Group Manager for Chg Fwd Diagnoses Pneumothorax J93.9 Status post tracheostomy Z93.0 Adrenal insufficiency E27.40 ARDS (adult respiratory distress syndrome) J80 COVID-19 U07.1 Diabetes mellitus type 2 in nonobese E11.9 CAD (coronary artery disease) I25.10 COPD (chronic obstructive pulmonary disease) J43.2 COPD type: emphysema Emphysema type: centrilobular
[2021-10-21 16:30] LABS: Triglycerides 114 mg/dL (0-150)
[2021-10-21 17:39] LABS: Glucose Point of Care 108 mg/dL (70-110)
[2021-10-21 17:39] LABS: Glucose Point of Care 185 mg/dL (70-110)
--- NOTE | 2021-10-21 18:04 | USCV_ITS ---
Julius Correa Age: 61 Gender: M : 1960 Exam Date: 10/21/2021 06:27 Ordering Phys: Zora Bateman MD Technologist: Julee Pearce Exam Location: [facility] – [place] Indication: HEART FAILURE BP: 115 / 60 HR: 66 Rhythm: Sinus Technical Quality: Adequate MEASUREMENTS (Male / Female) Normal Values 2D ECHO LV Diastolic Diameter PLAX 4.3 cm 4.2 - 5.9 / 3.9 - 5.3 cm LV Systolic Diameter PLAX 3.3 cm IVS Diastolic Thickness 1.2 cm 0.6 - 1.0 / 0.6 - 0.9 cm IVS Systolic Thickness 1.8 cm LVPW Diastolic Thickness 1.5 cm 0.6 - 1.0 / 0.6 - 0.9 cm LVPW Systolic Thickness 1.8 cm LVOT Diameter 2.0 cm LV Ejection Fraction 2D Teich 46.0 % LV Ejection Fraction MOD 2C 40.8 % LV Ejection Fraction 2C AL 42.8 % LA Diameter 3.1 cm LA Width 2.3 cm LA Height 4.4 cm RA Width 3.0 cm RA Height 4.4 cm Aorta at Sinotubular Diameter 2.4 cm M-MODE Aortic Annulus Diameter 2.4 cm LA Ao Ratio MM 1.2 MV E Point Septal Separation 0.4 cm DOPPLER AV Peak Velocity 126.0 cm/s LVOT Peak Velocity 110.0 cm/s AV Area Cont Eq vti 3.3 cm squared AV Area Cont Eq pk 2.7 cm squared MV Peak Velocity 113.0 cm/s MV Area PHT 3.5 cm squared Mitral E to A Ratio 1.2 MV E' Velocity 51.5 cm/s Mitral E to MV E' Ratio 8.5 Mitral E to LV E' Lateral Ratio 7.8 Mitral E to LV E' Septal Ratio 9.5 TR Peak Velocity 257.1 cm/s TR Peak Gradient 26.4 mmHg TR Mean Velocity 209.2 cm/s TR Mean Gradient 18.8 mmHg TR Velocity Time Integral 80.2 cm TV Peak E Velocity 42.0 cm/s Right Atrial Pressure 3.0 mmHg Pulmonary Artery Systolic Pressu 29.4 mmHg PV Peak Velocity 100.0 cm/s RV Acceleration Time 0.1 s RV Ejection Time 0.3 s RV AcT/ET 0.2 FINDINGS Left Ventricle Normal left ventricular cavity size. Normal left ventricular wall thickness. Normal left ventricular systolic function. Left ventricular ejection fraction is estimated at 55 %. No regional wall motion abnormalities. Normal diastolic function. Right Ventricle Upper normal right ventricular size and mildly decreased systolic function. Right ventricular systolic pressure 29.4 mmHg. Right Atrium Normal right atrial size. Right atrial pressure estimated at 3 mmHg. Left Atrium Upper normal left atrial size. Mitral Valve Structurally normal mitral valve. No mitral valve stenosis. Trace mitral valve regurgitation. Aortic Valve Structurally normal trileaflet aortic valve. No aortic valve stenosis. No aortic valve regurgitation. Tricuspid Valve Structurally normal tricuspid valve. Trace to mild tricuspid valve regurgitation. Pulmonic Valve Pulmonic valve not well visualized. Trace pulmonary valve regurgitation. Pericardium No pericardial effusion. Aorta Normal size aortic root and proximal ascending aorta. Normal- sized inferior vena cava with greater than 50% respiratory variation. CONCLUSIONS 1. Normal left ventricular cavity size, wall thickness and normal left ventricular systolic function. Left ventricular ejection fraction is estimated at 55 %. No regional wall motion abnormalities. Normal diastolic function. 2. Upper normal right ventricular size and mildly decreased systolic function. 3. Trace to mild tricuspid valve regurgitation. 4. Pulmonary pressure estimated at 30 mmHg. 5. When compared to previous echocardiogram dated 11/01/2020, left ventricular right medical systolic function may have decreased somewhat. Jacqui Shay MD (Electronically Signed) Final Date: 21 October 2021 12:40 S
[2021-10-22] VITALS (62 sets, daily range): BP systolic 98–126; BP diastolic 48–78; PULSE 55–77; RESP 14–24; TEMP 37–37.5; O2SAT 85–99
[2021-10-22] MEDS: hydrocortisone 100 mg/2 mL SDV 50 MG IVP ×3 (00:22→23:13)
[2021-10-22] MEDS: piperacillin-tazobactam 3.375 GM in sodium chloride 0.9% (plus) 50 ML IV ×4 (00:22→23:13)
[2021-10-22] MEDS: lactulose oral liq 20 gm/30 mL UDC PO ×2 (00:22→12:08)
[2021-10-22] MEDS: ipratropium-albuterol 3 mL Neb INHALATION ×4 (03:02→20:20)
[2021-10-22] MEDS: propofol 1,000 MG/100 ML INJ 21 MG IV ×5 (04:02→21:44)
[2021-10-22 05:11] LABS: Basophils % 0.4 %; Eosinophils # 0.5 10^3/uL (0.0-0.8); Eosinophils % 6.7 %; Hematocrit 36.8 % (42.0-52.0); Hemoglobin 11.7 g/dL (11.7-16.6); Lymphocytes # 0.3 10^3/uL (0.8-4.8); Lymphocytes % 3.3 %; Mean Corpuscular HGB Conc 31.8 g/dL (30.0-36.0); Mean Corpuscular Hemoglobin 31.5 pg (28.0-34.0); Mean Corpuscular Volume 99.2 fl (80-94); Mean Platelet Volume 10.6 fL (7.4-10.4); Monocytes # 0.5 10^3/uL (0.2-0.9); Monocytes % 6.7 %; Neutrophils # 6.48 10^3/uL (1.8-7.7); Neutrophils % 81.4 %; Nucleated Red Blood Cells % 0 %; Platelet Count 164 10^3/cmm (130-400); Red Blood Count 3.71 10^6/uL (4.1-5.3); Red Cell Distribution Width 15.5 % (12.1-15.1)
[2021-10-22 05:36] LABS: Anion Gap 14.7 (5-19); Blood Urea Nitrogen 22 mg/dL (8-23); Calcium 7.8 mg/dL (8.5-10.5); Carbon Dioxide 33 mmol/L (22-29); Chloride 97 mmol/L (98-107); Glomerular Filtration Rate 136.1 mL/min (90-130); Glucose 118 mg/dL (65-115); Magnesium 2.2 mg/dL (1.7-2.3); Osmolality Calculated 294 mOsm/kg (285-295); Potassium 4.7 mmol/L (3.5-5.1); Sodium 140 mmol/L (136-145)
[2021-10-22 05:39] LABS: Glucose Point of Care 147 mg/dL (70-110)
[2021-10-22 06:14] LABS: Glucose Point of Care 114 mg/dL (70-110)
[2021-10-22 07:03] LABS: Glucose Point of Care 163 mg/dL (70-110)
[2021-10-22] MEDS: budesonide 0.5 mg/2 mL Neb 0.25 MG INHALATION ×2 (07:58→20:20)
[2021-10-22] MEDS: pantoprazole 40 mg SDV IVP (08:00)
[2021-10-22] MEDS: fluconazole 100 mg Tablet PO (08:00)
[2021-10-22] MEDS: sennosides-docusate Tablet 2 TAB PO (08:00)
[2021-10-22] MEDS: sulfamethoxazole-trimeth DS 160-800 mg Tablet 1 TAB PO ×2 (08:00→17:21)
[2021-10-22] MEDS: insulin glargine 100 units/1 mL 18 UNIT SUBCUT (08:01)
--- NOTE | 2021-10-22 10:39 | PC.CHAP ---
Pastoral Care Encounter/Spiritual Assessment Type of Contact [] Declined exhibition specialist visit [] Patient/Family/Request visit [] Outpatient visit [] Follow-up visit [] Physician referral [] Code/Alert [x] Routine visit [] Staff referral [] Actively dying [x] Patient sleeping [] Family support [] [] Out of room [] Palliative care [] [] Receiving care in room [] Pre-surgical visit [] Trauma [] Long length of stay [x] ICU visit [x] Other: patients door open... seems to be resting well Relational/Emotional Strength [] Patient feels connected with others/family/visitors/staff [] Distress [] Loneliness/isolation [] Abandonment Spirituality of Patient [] Person of Sis [] Attends Gnosticist of their Sis [] Believes in Prayer [] Reads Bible or Roman Catholic materials [] There are Spiritual issues to be addressed Lead Worker Of Housekeeping And Laundry Interventions [x] Prayer [] Active listening [] Non-anxious presence [] Spiritual/emotional support [] Crisis/trauma care [] Spiritual counseling [] Bereavement support [] Provided bereavement packet [] Provided Bible/devotional materials [] Provided toy/stuffed animal, coloring book to patient or family member [] Provided Communion [] Anointing/[place] [] Salvation [x] Completed spiritual assessment [] Other: Impact on Illness or Injury [] Angry [] Fearful [] Anxious [] Often cries [] Exhaustion [] Unable to work [] Unable to attend shinto [] Unable to walk/stand [] Unable to read [] Unable to drive [] Unable to eat/drink [] Unable to sleep [] Unable to be with family [] Patient intubated [] Other: Summary Time spent with patient
[2021-10-22 11:36] LABS: Glucose Point of Care 102 mg/dL (70-110)
--- NOTE | 2021-10-22 12:31 | PM.PN ---
Subjective Subjective: Interval history: Seen this AM. No acute events overnight. Chest tube drainage continues to be clear yellow. Trach site has thick secretions. Appears similar to yesterday. He is on propofol, fentanyl and versed this morning. Urine output 1300 cc. Pt does desaturate when sedation weaning tried. Medications: Reviewed: Yes Vitals/I&O/Wt Last Vital Signs Temp 98.8 F 10/22/21 08:00 Pulse 56 L 10/22/21 12:00 Resp 16 10/22/21 11:11 BP 106/52 10/22/21 12:00 Pulse Ox 93 10/22/21 12:00 10/21/21 10/22/21 10/22/21 22:59 06:59 14:59 Intake Total 503.733 / 8893.319 4111 / 2447.533 608.266 / 608.266 Output Total 700 / 700 400 / 1100 Balance -196.267 / 397.533 950 / 1347.533 608.266 / 608.266 Weight last 48 hrs Weight 65.771 kg Weight 66.224 kg Physical Exam Narrative: EXAM NARRATIVE: General: Sedated, on ventilator, appears euvolemic. appears very ill and toxic HEENT: Normocephalic, atraumatic, EOMI, breathing with the vent. FiO2 80%, PEEP 8 Cardio: Regular rate rhythm, n normal S1-S2, no gross murmurs. Respiratory: Rhonchi appreciated bilaterally, chest tube in place draining clear yellow fluid. ET tube has secretions around insertion site. GI: Abdomen soft, bowel sounds positive Paul draining clear yellow urine Extremities: Nonedematous, no cyanosis noted. Upper extremities have trace edema b/l. Improved compared to prior day. Urinary Catheter Management^: Paul: Cath Placed During This Visit: yes Reason for Continuing Indwelling Catheter: Accurate Measurement of Urinary Output in Critically Ill Patients Urinary Catheter Date of Insertion: 10/06/21 Urinary Catheter Time of Insertion: 13:33 Data : 10/22/21 04:10 10/22/21 04:10 Micro: Microbiology 10/20/21 Unknown Gram Stain - Final Throat Wound Culture - Preliminary Staphylococcus sp coag neg A&P Assessment and plan (1) Pneumothorax: Status: Acute (2) Status post tracheostomy: Status: Acute (3) Adrenal insufficiency: Status: Acute (4) ARDS (adult respiratory distress syndrome): Status: Acute (5) COVID-19: Status: Acute (6) Diabetes mellitus type 2 in nonobese: Status: Acute (7) CAD (coronary artery disease): Status: Acute (8) COPD (chronic obstructive pulmonary disease): Status: Acute Qualifiers: COPD type: emphysema Emphysema type: centrilobular Qualified Code(s): J43.2 - Centrilobular emphysema Additional A&P Information #Covid-19 related severe ARDS Status post tracheostomy 10/17 Status post Actemra, remdesivir and Decadron Status post 7 cycles of proning, he did respond very well to proning sessions however in supine phase his oxygen requirement does increase He was in positive fluid balance yesterday and was diuresed with Lasix. Lasix has been stopped since this morning. He is more euvolemic appearing today. Continue feeds at 20 cc/h. Apical pneumothorax noted on chest x-ray status post chest tube placement 10/19/2021. PEEP of 8 today, FiO2 100%., Repeat chest x-ray 10/21 for pneumothorax shows it resolved. Zosyn was added because of thick copious secretions which were noted around the tracheostomy collar, low-grade fever noted 10/19. Afebrile overnight however. Culture secretions from ET tube site pending. Bactrim added for PCP prophylaxis. PCP PCR also sent. Dr. Van evaluated trach and says it looks ok. Consult Pulm Dr. Mckeon for chest tube management 10/21. Repeat xray shows pneumothorax is resolved. PEG not recommended at this time by Dr. Mckeon. TG level ok. Discussed with family. Brother planning to come to hospital with patient's daughter to see patient probably tomorrow. Prognosis poor. #Acute preserved ejection heart failure exacerbation Aggressive diuretics 10/19. Sinus bradycardia has improved which was secondary to use of paralytics and sedatives Repeat echo in the morning for EF monitoring #Adrenal insufficiency: Gradually wean off steroids #Type 2 diabetes: Hyperglycemic, optimize Lantus dose with tube feeding Lantus dose was decreased when he had hypoglycemic event when IV steroids were switched to p.o. Continue Lantus 18 units daily. #Hypotension: Off vasopressors This was most likely related to adrenal insufficiency Full code Constipation: Enema given 10/20. Last bowel movement was Thursday 10/18. No BM yet. Brother updated, patient before intubation told me to update his brother and not contact his daughter. As per request of the brother the daughter was updated 10/20 and 10/[address] Gilmore. She would like the patient to remain a full code at this time as she did not talk to her dad about his wishes prior. I called brother to update today. He is planning to come to hospital with daughter to see patient. Will have a family meeting at that point. Patient carries a poor prognosis. Family Aware. Attestations Medical Necessity Statement*: Sedated on ventilator. Coding Level of Care Code Acute Manager Media for Chg Fwd Diagnoses Pneumothorax J93.9 Status post tracheostomy Z93.0 Adrenal insufficiency E27.40 ARDS (adult respiratory distress syndrome) J80 COVID-19 U07.1 Diabetes mellitus type 2 in nonobese E11.9 CAD (coronary artery disease) I25.10 COPD (chronic obstructive pulmonary disease) J43.2 COPD type: emphysema Emphysema type: centrilobular
--- NOTE | 2021-10-22 12:56 | PC.SOCIAL ---
IMM Not Updated IMM Not updated. Patient not anticipated to d/c within 48hours. A copy was left at bedside for family to review.
--- NOTE | 2021-10-22 15:41 | PC.NURSE ---
Suction removed from CT per MD. No issues noted. Family to meet with medical team tomorrow.
[2021-10-22 16:32] LABS: Glucose Point of Care 129 mg/dL (70-110)
--- NOTE | 2021-10-22 18:04 | PC.NURSE ---
Shift Note Frequent safety and comfort rounds continue. Orders and/or nursing care completed as indicated. Patient monitored for response to intervention and treatment(s). Education provided includes treatment plan and medications. Spoke with brother and provided update. VSS at this time. CT draining serous fluid to atrium. Trach site with sutures still in place, small amount of drainage noted. Paul cath drainiing freely. Will continue to monitor. Shift Note
[2021-10-22 23:28] LABS: Glucose Point of Care 113 mg/dL (70-110)
[2021-10-23] VITALS (56 sets, daily range): BP systolic 100–134; BP diastolic 54–76; PULSE 59–100; RESP 14–21; TEMP 36.7–37.7; O2SAT 88–100
[2021-10-23] MEDS: lactulose oral liq 20 gm/30 mL UDC PO ×2 (00:54→12:31)
[2021-10-23] MEDS: propofol 1,000 MG/100 ML INJ 21 MG IV ×7 (01:52→23:34)
[2021-10-23] MEDS: ipratropium-albuterol 3 mL Neb INHALATION ×4 (02:59→20:28)
[2021-10-23 05:04] LABS: Basophils % 0.3 %; Eosinophils # 0.4 10^3/uL (0.0-0.8); Eosinophils % 4.4 %; Hematocrit 36.6 % (42.0-52.0); Hemoglobin 11.4 g/dL (11.7-16.6); Lymphocytes # 0.3 10^3/uL (0.8-4.8); Lymphocytes % 3.7 %; Mean Corpuscular HGB Conc 31.1 g/dL (30.0-36.0); Mean Corpuscular Hemoglobin 31.1 pg (28.0-34.0); Mean Platelet Volume 10.4 fL (7.4-10.4); Monocytes # 0.6 10^3/uL (0.2-0.9); Monocytes % 6.8 %; Neutrophils # 7.18 10^3/uL (1.8-7.7); Neutrophils % 83.1 %; Nucleated Red Blood Cells % 0 %; Platelet Count 183 10^3/cmm (130-400); Red Blood Count 3.66 10^6/uL (4.1-5.3); Red Cell Distribution Width 15.6 % (12.1-15.1); White Blood Count 8.7 10^3/uL (4.0-10.0)
[2021-10-23 05:26] LABS: Anion Gap 16.9 (5-19); Blood Urea Nitrogen 20 mg/dL (8-23); Calcium 7.6 mg/dL (8.5-10.5); Carbon Dioxide 31 mmol/L (22-29); Chloride 96 mmol/L (98-107); Glomerular Filtration Rate 136.1 mL/min (90-130); Glucose 177 mg/dL (65-115); Magnesium 2.1 mg/dL (1.7-2.3); Osmolality Calculated 295 mOsm/kg (285-295); Potassium 4.9 mmol/L (3.5-5.1); Sodium 139 mmol/L (136-145)
[2021-10-23 05:28] LABS: Creatinine Clr Calc Pharmacy 120.0423
[2021-10-23] MEDS: insulin lispro 100 unit/1 mL SUBCUT ×3 (05:36→23:58)
[2021-10-23 05:48] LABS: Glucose Point of Care 184 mg/dL (70-110)
--- NOTE | 2021-10-23 06:26 | PC.NURSE ---
Patient turned minimally throughout shift d/t desaturations in oxygen while on 100% FIO2. Patient suctioned, repositioned to achieve >90% O2 saturations. CT dressing changed. Trach and mouth care performed according to policy. Sedation unchanged d/t noncompliance with the ventilator. AM labs noted.
--- NOTE | 2021-10-23 07:24 | PC.NURSE ---
Report received, assessment completed. VSS. Pt remains sedated and on ventilator. Vent settings per RT. Trach site c/d/i, with small amount of drainage noted. Pt repositioned after oral care performed. OGT in place with glucerna at 20ml/h. RIJ TL CVL with propofol, fentanyl and versed infusing per orders. Abd soft and nontender, bowel sounds hypoactive. Lung sounds coarse. Paul cath in place draining clear clint urine to BSD. R CT in place, no leak noted. Will monitor.
[2021-10-23] MEDS: piperacillin-tazobactam 3.375 GM in sodium chloride 0.9% (plus) 50 ML IV ×3 (07:54→23:35)
--- NOTE | 2021-10-23 08:00 | XR_ITS ---
WS: [id number] Exam: XR chest 1V portable [id number] Date/Time of Exam: 10/23/2021 5:28 AM Reason For Exam: follow up Comparison 10/21/2021. Small right apical pneumothorax has developed since the prior study. It is estimated at about 5%. Rig ht chest tube is i unchanged in position. Tracheostomy tube is in satisfactory position. An enteric t ube enters the stomach but the tip is not visible. Again noted are widespread interstitial infiltrate s in both lungs showing little change. Normal cardiomediastinal silhouette. There may be a small left pleural effusion. Monitoring leads superimpose the chest. Bony structures are intact. Right-sided IJ catheter appears to end near the expected region of the cavoatrial junction. XR/XR chest 1V portable [id number] IMPRESSION: 1. About 5% pneumothorax of the right upper lobe has developed since the prior study. 2. Diffuse interstitial infiltrates throughout both lungs unchanged. 3. Right chest tube unchanged in position.
--- NOTE | 2021-10-23 08:00 | P.PN_ITS ---
Subjective Subjective: Interval history: Seen this AM. No acute events overnight. Chest tube drainage continues to be clear yellow. Trach site has thick secretions. Family meeting in evening today with Dr. Mckeon being present. XR today shows 5% pneumothorax. Chest tube was clamped yesterday. Medications: Reviewed: Yes Vitals/I&O/Wt Last Vital Signs Temp 98.7 F 10/23/21 12:00 Pulse 65 10/23/21 14:48 Resp 19 H 10/23/21 14:48 BP 112/59 10/23/21 12:30 Pulse Ox 92 10/23/21 14:48 10/22/21 10/23/21 10/23/21 22:59 06:59 14:59 Intake Total 387.80 / 6082.470 0422.616 / 2871.390 487.733 / 487.733 Output Total 350 / 350 500 / 850 Balance 37.80 / 967.698 0967.616 / 2021.390 487.733 / 487.733 Weight last 48 hrs Weight 65.771 kg Weight 65.771 kg Physical Exam Narrative: EXAM NARRATIVE: General: Sedated, on ventilator, appears euvolemic. appears very ill and toxic HEENT: Normocephalic, atraumatic, EOMI, breathing with the vent. FiO2 80%, PEEP 10 Cardio: Regular rate rhythm, n normal S1-S2, no gross murmurs. Respiratory: Rhonchi appreciated bilaterally, chest tube in place draining clear yellow fluid. ET tube has secretions around insertion site. GI: Abdomen soft, bowel sounds positive. Paul draining clear yellow urine Extremities: Nonedematous, no cyanosis noted. Upper extremities have trace edema b/l. Improved compared to prior day. Urinary Catheter Management^: Paul: Cath Placed During This Visit: yes Reason for Continuing Indwelling Catheter: Accurate Measurement of Urinary Output in Critically Ill Patients Urinary Catheter Date of Insertion: 10/06/21 Urinary Catheter Time of Insertion: 13:33 Data : 10/23/21 04:23 10/23/21 04:23 Micro: Microbiology 10/20/21 Unknown Gram Stain - Final Throat Wound Culture - Final Staphylococcus epidermidis A&P Assessment and plan (1) Pneumothorax: Status: Acute (2) Status post tracheostomy: Status: Acute (3) Adrenal insufficiency: Status: Acute (4) ARDS (adult respiratory distress syndrome): Status: Acute (5) COVID-19: Status: Acute (6) Diabetes mellitus type 2 in nonobese: Status: Acute (7) CAD (coronary artery disease): Status: Acute (8) COPD (chronic obstructive pulmonary disease): Status: Acute Qualifiers: COPD type: emphysema Emphysema type: centrilobular Qualified Code(s): J43.2 - Centrilobular emphysema Additional A&P Information #Covid-19 related severe ARDS Status post tracheostomy 10/17 Status post Actemra, remdesivir and Decadron Status post 7 cycles of proning, he did respond very well to proning sessions however in supine phase his oxygen requirement does increase He was in positive fluid balance yesterday and was diuresed with Lasix. Lasix has been stopped since this morning. He is more euvolemic appearing today. Continue feeds at 20 cc/h. Apical pneumothorax noted on chest x-ray status post chest tube placement 10/19/2021. PEEP of 8 today, FiO2 100%., Repeat chest x-ray 10/21 for pneumothorax shows it resolved. Zosyn was added because of thick copious secretions which were noted around the tracheostomy collar, low-grade fever noted 10/19. Afebrile overnight however. Culture secretions from ET tube site growing staph epidermidis. Bactrim added for PCP prophylaxis. PCP PCR also sent. Dr. Van evaluated trach 10/21 and says it looks ok. Consult Pulm Dr. Mckeon for chest tube management 10/21. Repeat xray shows pneumothorax is resolved. PEG not recommended at this time by Dr. Mckeon. TG level ok. Discussed with family. Brother and daughter planning to come in today for family meeting to discuss goals of care. KUB ordered today to assess for ileus. No BM since 10/18. Prognosis poor. #Acute preserved ejection heart failure exacerbation -resolved Echo repeated.Normal left ventricular cavity size, wall thickness and normal left ventricular systolic function. Left ventricular ejection fraction is estimated at 55 %. No regional wall motion abnormalities. Normal diastolic function. When compared to previous echocardiogram dated 11/01/2020, left ventricular right medical systolic function may have decreased somewhat. #Adrenal insufficiency: Gradually wean off steroids #Type 2 diabetes: Hyperglycemic, optimize Lantus dose with tube feeding Lantus dose was decreased when he had hypoglycemic event when IV steroids were switched to p.o. Continue Lantus 18 units daily. #Hypotension: Off vasopressors This was most likely related to adrenal insufficiency Full code Constipation: Enema given 10/20. Last bowel movement was Thursday 10/18. No BM yet. Family meeting today evening. Patient carries a poor prognosis.. Attestations Medical Necessity Statement*: > 72 hour stay Coding Level of Care Code Acute Emergency Medical Service Coordinator for Chg Fwd Diagnoses Pneumothorax J93.9 Status post tracheostomy Z93.0 Adrenal insufficiency E27.40 ARDS (adult respiratory distress syndrome) J80 COVID-19 U07.1 Diabetes mellitus type 2 in nonobese E11.9 CAD (coronary artery disease) I25.10 COPD (chronic obstructive pulmonary disease) J43.2 COPD type: emphysema Emphysema type: centrilobular
[2021-10-23] MEDS: sennosides-docusate Tablet 2 TAB PO (08:01)
[2021-10-23] MEDS: sulfamethoxazole-trimeth DS 160-800 mg Tablet 1 TAB PO (08:01)
[2021-10-23] MEDS: pantoprazole 40 mg SDV IVP (08:02)
[2021-10-23] MEDS: fluconazole 100 mg Tablet PO (08:02)
[2021-10-23] MEDS: insulin glargine 100 units/1 mL 18 UNIT SUBCUT (08:07)
[2021-10-23] MEDS: budesonide 0.5 mg/2 mL Neb 0.25 MG INHALATION (08:10)
--- NOTE | 2021-10-23 09:11 | XR_ITS ---
WS: [id number] Exam: XR KUB portable [id number] Date/Time of Exam: 10/23/2021 9:11 AM Reason For Exam: r/o ileus No bowel obstruction or free air. Significant retained stool throughout the colon. Surgical clips in the right abdomen. No sign of organ enlargement. Bony structures are intact. 1.5 cm rounded calcifica tion superimposes the right iliac bone. Significance is undetermined. An NG tube appears to end in th e expected region of the gastric antrum. XR/XR KUB portable [id number] IMPRESSION: 1. No acute abdominal finding. Constipation. 2. NG tube noted probably ending in the region of the gastric antrum.
[2021-10-23 10:50] LABS: Glucose Point of Care 106 mg/dL (70-110)
[2021-10-23] MEDS: hydrocortisone 100 mg/2 mL SDV 50 MG IVP ×2 (12:31→23:35)
--- NOTE | 2021-10-23 13:01 | PC.NUTR ---
Nutrition note: Received order per Dr. aBteman to change TF formula to Pulmocare for increased kcal/ml. States to order Pulmocare at 25 ml/hr. Notified nursing. See full RD assessment for further details.
--- NOTE | 2021-10-23 13:04 | PC.NURSE ---
Tube feeds changed to pulmocare at 25ml/h per MD order.
--- NOTE | 2021-10-23 15:26 | PC.NURSE ---
CT connected to 20cm suction per MD order d/t increased pneumothorax. VSS. Will monitor.
--- NOTE | 2021-10-23 16:01 | P.PN_ITS ---
Subjective Subjective: Interval history: The patient was seen and examined. Currently he is on 80% oxygen. The patient is completely sedated with propofol and fentanyl at this point. Any attempt to reduce his sedation did not translate into meaningful improvement of his mental status. Review of his past radiologic data revealed significant worsening of emphysema and cystic changes along the bronchovascular bundle compared to 2018 when the patient presented to the hospital with COVID-19 this time. The patient is currently getting Bactrim for suspicion of PCP pneumonia. Chest x-ray this morning revealed 5% pneumothorax. I had an extensive discussion with his family members. His daughter and brother and a friend was present. I have explained to them his current clinical condition and low chances of recovery. At this point, the family would want to continue with the care and decide on future planning after 48 hours. Medications: Reviewed: Yes Vitals/I&O/Wt Last Vital Signs Temp 98.7 F 10/23/21 12:00 Pulse 65 10/23/21 14:48 Resp 19 H 10/23/21 14:48 BP 112/59 10/23/21 12:30 Pulse Ox 92 10/23/21 14:48 10/23/21 10/23/21 10/23/21 06:59 14:59 22:59 Intake Total 1770.616 / 2871.390 567.533 / 567.533 Output Total 500 / 850 Balance 1270.616 / 2021.390 567.533 / 567.533 Weight last 48 hrs Weight 145 lb Weight 145 lb Physical Exam Narrative: EXAM NARRATIVE: General: Patient is sedated, tracheostomy in place Neck: No JVD Respiratory: Auscultation: Reduced breath sound bilaterally, crackles at lung bases, minimal rhonchi Cardiovascular: Regular rate and rhythm, S1-S2 present, no murmur,no peripheral edema. Abdomen: Soft, nondistended, positive bowel sound Skin: No rash Neuro: Patient is sedated, unable to assess Urinary Catheter Management^: Paul: Cath Placed During This Visit: yes Reason for Continuing Indwelling Catheter: Accurate Measurement of Urinary Output in Critically Ill Patients Urinary Catheter Date of Insertion: 10/06/21 Urinary Catheter Time of Insertion: 13:33 Data : 10/23/21 04:23 10/23/21 04:23 Micro: Microbiology 10/20/21 Unknown Gram Stain - Final Throat Wound Culture - Final Staphylococcus epidermidis Attestation for Other Data: I personally reviewed and interpreted the following: Other data: I have reviewed the patient's laboratory, microbiologic and radiologic data. His chest x-ray revealed bilateral infiltrate essentially unchanged. No leukocytosis. Creatinine stable. Blood sugar controlled. A&P Assessment and plan (1) ARDS (adult respiratory distress syndrome): This is a 61-year-old gentleman with ARDS secondary to COVID-19. The patient tested positive for COVID-19 on September 25. He has been in the hospit al for more than 3 weeks. The patient still on full control mechanical ventilation. Currently he is on 80% FiO2. The patient is receiving empiric antibiotic therapy with Zosyn and Bactrim. He was also on fluconazole for positive Trinity culture from ET tube aspirate. I have reviewed the patient's previous radiologic data. From the history it appears that the patient had quit smoking in 2018. He did carry a diagnosis of COPD however I do not have any pulmonary function test available to evaluate for that.. [address] scan there had been a significant progression of emphysematous changes as well as cystic changes along the bronchovascular bundle. The pulmonary infiltrate that was present on the CT scan is also unlike COVID- 19. Based on this information, I do have concern with the patient is actually suffering from PCP pneumonia as well. Currently he is on low-dose Bactrim which will change to treatment dose for PCP. I will consider getting lower respiratory tract sample with a bronchoscopy in the future. Status: Acute (2) Status post tracheostomy: The patient underwent tracheostomy with the hope that we will be able to come down on the sedation however that has not happened. The patient is currently on high-dose propofol and 200 mcg of fentanyl an hour. I am going to start him on 150 mg of Seroquel at night. The patient used to take 300 mg at night at home. I am also restarting his SSRI. Hopefully this will help us come down on his sedation and help with her mental status. Status: Acute (3) Anxiety: Please see above. Status: Acute (4) Major depressive disorder, recurrent, severe with psychotic symptoms: See above. Status: Acute (5) Adrenal insufficiency: The patient had developed adrenal insufficiency suggested by hypotension, hyponatremia, hyperkalemia. Currently he is on hydrocortisone 50 mg twice a day. He is not on any pressors. Status: Acute (6) Pneumothorax: The patient developed pneumothorax following tracheostomy tube placement. Apparently the chest tube was clamped and the patient reactivated 5% pneumo thorax. For now, we will keep the chest tube open and see if the patient needs suction or waterseal is okay. I had an extensive discussion with the family members. We will reassess the situation in 48 hours. 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
[2021-10-23] MEDS: enoxaparin 40 mg/0.4 mL Syringe SUBCUT (16:06)
[2021-10-23 16:53] LABS: Glucose Point of Care 154 mg/dL (70-110)
--- NOTE | 2021-10-23 17:43 | PC.NURSE ---
Shift Note Frequent safety and comfort rounds continue. Orders and/or nursing care completed as indicated. Patient monitored for response to intervention and treatment(s). Education provided includes prognosis, treatment plan, and medications. Fmaily verbalizes understanding. They wish to continue current tx plan for the next 48hrs and reassess. Orders are to restart some home psych meds and attempt to decrease sedation to ascertain effectiveness. MD order to decrease versed first. PT desatted, requires suctioning and temporary increase in fio2 while repositioning. O2 sat improved. Vent alarm reported to RT. Sedation remains the same at this point. CT to LWS. OGT with pulmocare at 25ml/h per order. Abd distended. KUB performed, no new orders. Will continue to monitor.
[2021-10-23] MEDS: quetiapine 100 mg Tablet 150 MG PO (20:37)
[2021-10-24] VITALS (43 sets, daily range): BP systolic 103–158; BP diastolic 58–79; PULSE 55–112; RESP 17–24; TEMP 36.6–37.9; O2SAT 84–96
[2021-10-24] MEDS: lactulose oral liq 20 gm/30 mL UDC PO ×3 (00:02→20:22)
[2021-10-24 00:14] LABS: Glucose Point of Care 150 mg/dL (70-110)
[2021-10-24] MEDS: ipratropium-albuterol 3 mL Neb INHALATION ×3 (03:10→14:00)
[2021-10-24] MEDS: propofol 1,000 MG/100 ML INJ 21 MG IV ×5 (04:28→23:24)
[2021-10-24 04:48] LABS: ABG PH Result 7.36 (7.35-7.45); Alveolar-Arterial Oxygen Gradi 64.5 mmHg (5-10); Arterial Blood Gas Hematocrit 40.1 % (42-52); Base Excess ABG 11.4 mmol/L (-2.0-2.0); Blood Gas Allen Test Pos; Blood Gas Operator Identificat JB; Blood Gas Sample Type Arterial; Blood Gas Tidal Volume 0.45; Carboxyhemoglobin 1.8 %THgb (0.4-20.1); HCO3 ABG 39.9 mmol/L (22-26); HGB O2 Sat 87.1 % (95-100); Ionized Calcium Level - ABG 1.1 mmol/L (1.1-1.4); Methemoglobin 0.8 % (0.4-1.5); Oxygen Device VENT; Oxygen Saturation ABG 89.4; PO2 ABG 56.4 mmHg (80.0-100.0); Potassium Level - ABG 4.7 mmol/L (3.5-5.0); Total Hemoglobin 13.1 g/dL (14-18)
[2021-10-24 04:52] LABS: Blood Gas Sample Site Radial, right
[2021-10-24 04:53] LABS: ABG PCO2 71.1 mmHg (35-45)
[2021-10-24 05:20] LABS: Basophils % 0.4 %; Eosinophils # 0.3 10^3/uL (0.0-0.8); Eosinophils % 4.6 %; Hematocrit 34.7 % (42.0-52.0); Hemoglobin 10.8 g/dL (11.7-16.6); Lymphocytes # 0.4 10^3/uL (0.8-4.8); Lymphocytes % 5.6 %; Mean Corpuscular HGB Conc 31.1 g/dL (30.0-36.0); Mean Corpuscular Hemoglobin 31.3 pg (28.0-34.0); Mean Corpuscular Volume 100.6 fl (80-94); Mean Platelet Volume 10.7 fL (7.4-10.4); Monocytes # 0.5 10^3/uL (0.2-0.9); Monocytes % 7.6 %; Neutrophils # 5.59 10^3/uL (1.8-7.7); Neutrophils % 78.7 %; Nucleated Red Blood Cells % 0 %; Platelet Count 174 10^3/cmm (130-400); Red Blood Count 3.45 10^6/uL (4.1-5.3); Red Cell Distribution Width 15.4 % (12.1-15.1); White Blood Count 7.1 10^3/uL (4.0-10.0)
[2021-10-24 05:40] LABS: Anion Gap 6.9 (5-19); Blood Urea Nitrogen 18 mg/dL (8-23); Calcium 7.3 mg/dL (8.5-10.5); Carbon Dioxide 38 mmol/L (22-29); Chloride 96 mmol/L (98-107); Glomerular Filtration Rate 136.1 mL/min (90-130); Glucose 202 mg/dL (65-115); Magnesium 2.1 mg/dL (1.7-2.3); Osmolality Calculated 290 mOsm/kg (285-295); Potassium 4.9 mmol/L (3.5-5.1); Sodium 136 mmol/L (136-145)
[2021-10-24 05:45] LABS: Creatinine Clr Calc Pharmacy 120.0423
[2021-10-24] MEDS: insulin lispro 100 unit/1 mL SUBCUT ×2 (06:04→17:25)
[2021-10-24 06:09] LABS: Glucose Point of Care 196 mg/dL (70-110)
--- NOTE | 2021-10-24 06:14 | NUR.SHIFT ---
Shift Summary: FiO2 90% to maintain O2sat>85. Sedation remains the same.
[2021-10-24] MEDS: sennosides-docusate Tablet 2 TAB PO (08:40)
[2021-10-24] MEDS: duloxetine 60 mg Capsule PO (08:40)
[2021-10-24] MEDS: pantoprazole 40 mg SDV IVP (08:41)
[2021-10-24] MEDS: insulin glargine 100 units/1 mL 18 UNIT SUBCUT (08:42)
[2021-10-24 09:03] LABS: Glucose Point of Care 159 mg/dL (70-110)
--- NOTE | 2021-10-24 10:06 | PM.PN ---
Subjective Subjective: Interval history: Patient seen this morning. No change from yesterday regarding patient's mental status. Seroquel was added yesterday for him. An attempt was made to wean off sedation but patient became tachypneic. He does not follow any commands at this time. He also had a temperature spike yesterday night. His antibiotic has been escalated to imipenem at this time. Endotracheal aspirate has been sent to the lab. MRSA nares swab has been repeated. Blood gas reviewed. He is currently on IV Bactrim as well for PCP pneumonia. Vitals/I&O/Wt Last Vital Signs Temp 99 F 10/24/21 19:01 Pulse 72 10/24/21 16:05 Resp 18 10/24/21 17:17 BP 103/58 10/24/21 16:00 Pulse Ox 89 L 10/24/21 17:17 10/24/21 10/24/21 10/24/21 06:59 14:59 22:59 Intake Total 1372.5 / 2951.533 455.533 / 948.524 6408.667 / 2424.200 Output Total 580 / 980 380 / 380 Balance 792.5 / 1971.533 455.533 / 754.283 6113.667 / 2044.200 Weight last 48 hrs Weight 30.986 kg Weight 65.771 kg Physical Exam Narrative: EXAM NARRATIVE: General: Sedated, on ventilator, appears euvolemic. appears very ill and toxic, tracheostomy in place. HEENT: Normocephalic, atraumatic, EOMI, breathing with the vent. FiO2 80%, PEEP 10 Cardio: Regular rate rhythm, n normal S1-S2, no gross murmurs. Respiratory: Rhonchi appreciated bilaterally at bases, chest tube in place draining clear yellow fluid. ET tube has secretions around insertion site. GI: Abdomen soft, bowel sounds positive. Paul draining clear yellow urine Extremities: Nonedematous, no cyanosis noted. Upper extremities have trace edema b/l. Neuro: Sedated unable to assess. Urinary Catheter Management^: Paul: Cath Placed During This Visit: yes Reason for Continuing Indwelling Catheter: Accurate Measurement of Urinary Output in Critically Ill Patients Urinary Catheter Date of Insertion: 10/06/21 Urinary Catheter Time of Insertion: 13:33 Data : 10/24/21 04:20 10/24/21 04:20 Micro: Microbiology 10/24/21 13:05 Gram Stain - Final Sputum - Endotracheal Tube Aspirate 10/20/21 Unknown Gram Stain - Final Throat Wound Culture - Final Staphylococcus epidermidis A&P Assessment and plan (1) Pneumothorax: Status: Acute (2) Status post tracheostomy: Status: Acute (3) Adrenal insufficiency: Status: Acute (4) ARDS (adult respiratory distress syndrome): Status: Acute (5) COVID-19: Status: Acute (6) Diabetes mellitus type 2 in nonobese: Status: Acute (7) CAD (coronary artery disease): Status: Acute (8) COPD (chronic obstructive pulmonary disease): Status: Acute Qualifiers: COPD type: emphysema Emphysema type: centrilobular Qualified Code(s): J43.2 - Centrilobular emphysema Additional A&P Information #Covid-19 related severe ARDS #Hx of emphysema Status post tracheostomy 10/17 Status post Actemra, remdesivir and Decadron Status post 7 cycles of proning, he did respond very well to proning sessions however in supine phase his oxygen requirement does increase Continue feeds at 25 cc/h. Apical pneumothorax noted on chest x-ray status post chest tube placement 10/19/2021. PEEP of 10 today, FiO2 80%., Repeat chest x-ray 10/21 for pneumothorax shows it resolved. Repeat x-ray from today's does not show much of a change either. 10/24. Zosyn was added because of thick copious secretions which were noted around the tracheostomy collar, low-grade fever noted 10/23. Culture secretions from ET tube site growing staph epidermidis. Bactrim added for PCP prophylaxis. PCP PCR also sent. Dr. Van evaluated trach 10/21 and says it looks ok. Consult Pulm Dr. Mckeon for chest tube management 10/21. Repeat xray shows pneumothorax is resolved. PEG not recommended at this time by Dr. Mckeon. TG level ok. Patient is being treated empirically with Bactrim for PCP pneumonia. PCP PCR result is pending. We have escalated antibiotics to imipenem. We will stop Zosyn at this time. RN updated at bedside. We will try to wean off sedation. Seroquel increased to 300 nightly by pulmonology. Central line will also be replaced by pulmonology today. Prognosis poor. #Acute preserved ejection heart failure exacerbation -resolved Echo repeated.Normal left ventricular cavity size, wall thickness and normal left ventricular systolic function. Left ventricular ejection fraction is estimated at 55 %. No regional wall motion abnormalities. Normal diastolic function. When compared to previous echocardiogram dated 11/01/2020, left ventricular right medical systolic function may have decreased somewhat. #Adrenal insufficiency: Continue hydrocortisone 50 mg twice a day. Patient not on any pressors. #Type 2 diabetes: Hyperglycemic, optimize Lantus dose with tube feeding Lantus dose was decreased when he had hypoglycemic event when IV steroids were switched to p.o. Continue Lantus 18 units daily. #Hypotension: Off vasopressors This was most likely related to adrenal insufficiency Full code Constipation: Enema given 10/20. Last bowel movement was Thursday 10/18. No BM yet. KUB does show constipation. I will adjust his bowel regimen. Will order another enema and increase lactulose frequency Patient carries a poor prognosis.. Attestations Medical Necessity Statement*: Sedated, on ventilator Coding Level of Care Code Acute Business Solutions Consultant for [facility] Fwd Diagnoses Pneumothorax J93.9 Status post tracheostomy Z93.0 Adrenal insufficiency E27.40 ARDS (adult respiratory distress syndrome) J80 COVID-19 U07.1 Diabetes mellitus type 2 in nonobese E11.9 CAD (coronary artery disease) I25.10 COPD (chronic obstructive pulmonary disease) J43.2 COPD type: emphysema Emphysema type: centrilobular
--- NOTE | 2021-10-24 12:37 | PC.SOCIAL ---
IMM Not Updated IMM Not updated. Patient not anticipated to d/c within 48hours. A copy was left at bedside for family to review.
[2021-10-24] MEDS: hydrocortisone 100 mg/2 mL SDV 50 MG IVP (12:45)
--- NOTE | 2021-10-24 16:03 | XRR_ITS ---
PROCEDURE INFORMATION: Exam: XR Chest Exam date and time: 10/24/2021 4:03 PM Age: 61 years old Clinical indication: Device placement; Chest tube; Additional info: Chest tube maint. TECHNIQUE: Imaging protocol: XR of the chest. Views: 1 view. Total images: 1 COMPARISON: CR XR chest 1V portable [id number] 10/23/2021 5:34 AM FINDINGS: Tubes, catheters and devices: Stable right thoracotomy tube. Tracheostomy tube stable. Right internal jugular central venous catheter unchanged in position tip right atrium. EKG leads. Nasogastric tube tip below the diaphragm out of the field of view. Lungs: Bilateral diffuse ground-glass interstitial lung disease without visible consolidated alveolar airspace disease. Pleural spaces: No visible residual pneumothorax. Potential small left pleural effusion. Heart/Mediastinum: Cardiac structures and configuration stable. Bones/joints: Unremarkable. XR/XR chest 1V portable [id number] IMPRESSION: No interval change cardiopulmonary status.
[2021-10-24] MEDS: enoxaparin 40 mg/0.4 mL Syringe SUBCUT (16:27)
[2021-10-24 17:10] LABS: Glucose Point of Care 229 mg/dL (70-110)
--- NOTE | 2021-10-24 18:19 | ECG_ITS ---
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 Measurements Intervals [place] Rate: 70 P: 75 WI: 118 QRS: 66 QRSD: 108 T: 25 QT: 397 QTc: 429 Interpretive Statements SINUS RHYTHM WITH SHORT WI INTERVAL POSSIBLE LEFT ATRIAL ENLARGEMENT [-0.1mV P-WAVE IN V1/V2] Compared to ECG 11/01/2020 02:38:11 Short WI interval now present Electronically Signed On 10-25-2021 7:44:42 SCHOOL CHILD CARE ATTENDANT by Cyril Harris M.D. [email or web address]
--- NOTE | 2021-10-24 18:20 | PC.NURSE ---
Shift Note Frequent safety and comfort rounds continue. Orders and/or nursing care completed as indicated. Patient monitored for response to intervention and treatment(s). Education provided includes trach. Patient and/or practice representative verbalize understanding Central line removed after midline was placed. Will increase seroquel, versed is down to 3, fent at 150 and prop at 50. Will continue to monitor.
--- NOTE | 2021-10-24 18:33 | PM.PN ---
Subjective Subjective: Interval history: The patient was seen and examined. No significant change from yesterday regarding mental status. With reduction of sedation, the patient became tachypneic. He had not been following commands as usual. Patient had fever yesterday. The central line was removed. His antibiotic has been changed. Patient is currently receiving empiric therapy for PCP pneumonia. His blood gas revealed hypercapnia and hypoxia. The pH is okay. The electrolytes have been stable. The high bicarb level is consistent with chronic hypercapnic respiratory failure. Chest x-ray did not reveal any significant change. Medications: Reviewed: Yes Vitals/I&O/Wt Last Vital Signs Temp 97.9 F 10/24/21 16:00 Pulse 72 10/24/21 16:05 Resp 18 10/24/21 17:17 BP 103/58 10/24/21 16:00 Pulse Ox 89 L 10/24/21 17:17 10/24/21 10/24/21 10/24/21 06:59 14:59 22:59 Intake Total 1372.5 / 2951.533 455.533 / 731.235 0003.167 / 1801.700 Output Total 580 / 980 380 / 380 Balance 792.5 / 1971.533 455.533 / 455.533 966.167 / 1421.700 Weight last 48 hrs Weight 68 lb 5 oz Weight 145 lb Physical Exam Narrative: EXAM NARRATIVE: General: Patient is sedated, tracheostomy in place, no purposeful movement Neck: No JVD Respiratory: Auscultation: Reduced breath sound bilaterally, crackles at lung bases, minimal rhonchi Cardiovascular: Regular rate and rhythm, S1-S2 present, no murmur,no peripheral edema. Abdomen: Soft, nondistended, positive bowel sound Skin: No rash Neuro: Patient is sedated, unable to assess Urinary Catheter Management^: Paul: Cath Placed During This Visit: yes Reason for Continuing Indwelling Catheter: Accurate Measurement of Urinary Output in Critically Ill Patients Urinary Catheter Date of Insertion: 10/06/21 Urinary Catheter Time of Insertion: 13:33 Data : 10/24/21 04:20 10/24/21 04:20 Micro: Microbiology 10/24/21 13:05 Gram Stain - Final Sputum - Endotracheal Tube Aspirate 10/20/21 Unknown Gram Stain - Final Throat Wound Culture - Final Staphylococcus epidermidis Attestation for Other Data: I personally reviewed and interpreted the following: Other data: I have reviewed the patient laboratory, [place] and radiology data. A&P Assessment and plan (1) ARDS (adult respiratory distress syndrome): This is a 61-year-old gentleman with ARDS secondary to COVID-19. The patient tested positive for COVID-19 on September 25. He has been in the hospital for more than 3 weeks. The patient still on full control mechanical ventilation. Currently he is on 85% FiO2. The patient spiked a fever yesterday. His antibiotic has been changed, cultures have been obtained. We will continue with the Bactrim for the time being for PCP pneumonia. We are awaiting PCP PCR result. Status: Acute (2) Status post tracheostomy: Going to increase the Seroquel to 300 mg nightly. His QTC is 417. I am hoping will be able to titrate down the sedative medications. The patient can be on pressure support ventilation if that is more comfortable for him. Status: Acute (3) Major depressive disorder, recurrent, severe with psychotic symptoms: We have started the SSRI in addition to the Seroquel. Status: Acute (4) Adrenal insufficiency: The patient had developed adrenal insufficiency suggested by hypotension, hyponatremia, hyperkalemia. Currently he is on hydrocortisone 50 mg twice a day. He is not on any pressors. Status: Acute (5) Pneumothorax: No pneumothorax with the chest tube being on waterseal. Plan at this point is going to be supporting him over the weekend. We will talk to the family on Wednesday and decide on further course of action. Status: Acute Attestations Medical Necessity Statement*: Will defer to the primary team Coding Level of Care Code Acute Telemarketing Sales Representative for [facility] Fwd Diagnoses ARDS (adult respiratory distress syndrome) J80 Status post tracheostomy Z93.0 Major depressive disorder, recurrent, severe with psychotic symptoms F33.3 Adrenal insufficiency E27.40 Pneumothorax J93.9 Time Spent (min) 33
[2021-10-24] MEDS: quetiapine 100 mg Tablet 300 MG PO (20:22)
--- NOTE | 2021-10-24 20:43 | PC.NURSE ---
Adminstered a milk and molasses enema, patient unable to retain any of the enema. Patient O2 sat dropped to 74 while doing enema. Enema stopped and patient recovered. No stool obtained during enema
[2021-10-24 22:02] LABS: Fungitell 1-3-B Glucan Assay <31 pg/mL; Interpretation NEGATIVE
--- NOTE | 2021-10-24 22:18 | PC.NURSE ---
Patient heart rate(110-115) and respiratory rate(30s) increasing, patient O2 sat decreased 83-84. Sedation increased for vent management and patient comfort
[2021-10-25] VITALS (45 sets, daily range): BP systolic 99–142; BP diastolic 54–81; PULSE 70–104; RESP 16–28; TEMP 35.9–37.1; O2SAT 83–91
[2021-10-25] MEDS: insulin lispro 100 unit/1 mL SUBCUT ×4 (00:06→18:28)
[2021-10-25] MEDS: hydrocortisone 100 mg/2 mL SDV 50 MG IVP ×2 (00:06→12:00)
[2021-10-25 00:26] LABS: Glucose Point of Care 195 mg/dL (70-110)
[2021-10-25] MEDS: lactulose oral liq 20 gm/30 mL UDC PO ×4 (00:36→21:18)
[2021-10-25] MEDS: ipratropium-albuterol 3 mL Neb INHALATION ×5 (02:48→20:21)
[2021-10-25] MEDS: propofol 1,000 MG/100 ML INJ 21 MG IV ×5 (04:18→22:34)
[2021-10-25 04:24] LABS: Basophils # 0.1 10^3/uL (0.0-0.1); Basophils % 0.7 %; Eosinophils # 0.4 10^3/uL (0.0-0.8); Hematocrit 34.9 % (42.0-52.0); Lymphocytes # 0.4 10^3/uL (0.8-4.8); Lymphocytes % 4.3 %; Mean Corpuscular HGB Conc 31.5 g/dL (30.0-36.0); Mean Corpuscular Hemoglobin 31.2 pg (28.0-34.0); Mean Corpuscular Volume 98.9 fl (80-94); Mean Platelet Volume 10.7 fL (7.4-10.4); Monocytes # 0.7 10^3/uL (0.2-0.9); Monocytes % 7.3 %; Neutrophils # 7.14 10^3/uL (1.8-7.7); Neutrophils % 78.8 %; Nucleated Red Blood Cells % 0 %; Platelet Count 177 10^3/cmm (130-400); Red Blood Count 3.53 10^6/uL (4.1-5.3); Red Cell Distribution Width 15.2 % (12.1-15.1); White Blood Count 9.1 10^3/uL (4.0-10.0)
[2021-10-25 04:47] LABS: Blood Urea Nitrogen 14 mg/dL (8-23); Carbon Dioxide 29 mmol/L (22-29); Chloride 94 mmol/L (98-107); Glomerular Filtration Rate 167.9 mL/min (90-130); Glucose 190 mg/dL (65-115); Magnesium 2.1 mg/dL (1.7-2.3); Osmolality Calculated 280 mOsm/kg (285-295); Sodium 132 mmol/L (136-145)
[2021-10-25 04:49] LABS: Anion Gap 14.3 (5-19); Potassium 5.3 mmol/L (3.5-5.1)
[2021-10-25 05:39] LABS: Glucose Point of Care 171 mg/dL (70-110)
[2021-10-25] MEDS: pantoprazole 40 mg SDV IVP (08:03)
[2021-10-25] MEDS: sennosides-docusate Tablet 2 TAB PO (08:03)
[2021-10-25] MEDS: duloxetine 60 mg Capsule PO (08:03)
[2021-10-25] MEDS: insulin glargine 100 units/1 mL 18 UNIT SUBCUT (08:04)
[2021-10-25 12:16] LABS: Glucose Point of Care 216 mg/dL (70-110)
[2021-10-25] MEDS: nystatin 100,000 unit/mL UDC 5 mL 100000 UNIT PO ×3 (13:25→21:16)
[2021-10-25] MEDS: rocuronium 10 mg/mL INJ 5mL 70 MG IVP (14:28)
--- NOTE | 2021-10-25 14:46 | PC.NURSE ---
Addendum entered by Obdulia Solis RN 10/25/21 19:19: Tube feeding stopped and OG placed to low intermittent suction. Original Note: Conversation with Dr. Mike Mckeon called daughter regarding plan of care. At this time will be make the patient a DNR. Continue care at this time to allow family to see the patient. Will not removed support until 10/26 possibly.
--- NOTE | 2021-10-25 15:00 | P.PN_ITS ---
Subjective Subjective: Interval history: Seen this morning. No change in mental status compared to yesterday. Still on propofol, 175 fentanyl and 4 mg of Versed. Patient saturating 87% on 100% FiO2 and PEEP of 10. Chest tube freely draining clear yellow fluid. Labs reviewed today. No change compared to yesterday. Except that patient saturation are lower now on a higher amount of oxygen. Patient is deteriorating. Vitals/I&O/Wt Last Vital Signs Temp 97.7 F 10/25/21 08:00 Pulse 77 10/25/21 14:19 Resp 18 10/25/21 14:19 BP 125/74 10/25/21 12:00 Pulse Ox 85 L 10/25/21 14:19 10/25/21 10/25/21 10/25/21 06:59 14:59 22:59 Intake Total 1298.15 / 3992.500 907.9 / 907.9 Output Total 685 / 1065 Balance 613.15 / 2927.500 907.9 / 907.9 Weight last 48 hrs Weight 72 kg Weight 31.893 kg Weight 30.986 kg Physical Exam Narrative: EXAM NARRATIVE: General: Sedated, on ventilator, appears euvolemic. appears very ill and toxic, tracheostomy in place. HEENT: Normocephalic, atraumatic, FiO2 up 100% now, PEEP 10, saturation 97%. Cardio: Regular rate rhythm, n normal S1-S2, no gross murmurs. Respiratory: Rhonchi appreciated bilaterally at bases, chest tube in place draining clear yellow fluid. ET tube has secretions around insertion site. Coarse breath sounds. GI: Abdomen soft, bowel sounds positive. Paul draining clear yellow urine Extremities: Nonedematous, no cyanosis noted. Upper extremities have trace edema b/l. Neuro: Sedated unable to assess. Still no bowel movement. Urinary Catheter Management^: Paul: Cath Placed During This Visit: yes Reason for Continuing Indwelling Catheter: Accurate Measurement of Urinary Output in Critically Ill Patients Urinary Catheter Date of Insertion: 10/06/21 Urinary Catheter Time of Insertion: 13:33 Data : 10/25/21 03:40 10/25/21 03:40 Micro: Microbiology 10/24/21 13:05 Gram Stain - Final Sputum - Endotracheal Tube Aspirate Sputum Culture - Preliminary 10/24/21 10:15 MRSA Culture - Final Nose A&P Assessment and plan (1) Pneumothorax: Status: Acute (2) Status post tracheostomy: Status: Acute (3) Adrenal insufficiency: Status: Acute (4) ARDS (adult respiratory distress syndrome): Status: Acute (5) COVID-19: Status: Acute (6) Diabetes mellitus type 2 in nonobese: Status: Acute (7) CAD (coronary artery disease): Status: Acute (8) COPD (chronic obstructive pulmonary disease): Status: Acute Qualifiers: COPD type: emphysema Emphysema type: centrilobular Qualified Code(s): J43.2 - Centrilobular emphysema Additional A&P Information #Covid-19 related severe ARDS #Hx of emphysema Status post tracheostomy 10/17 Status post Actemra, remdesivir and Decadron Status post 7 cycles of proning, he did respond very well to proning sessions however in supine phase his oxygen requirement does increase Continue feeds at 25 cc/h. Apical pneumothorax noted on chest x-ray status post chest tube placement 10/19/2021. PEEP of 10 today, FiO2 80%., Repeat chest x-ray 10/21 for pneumothorax shows it resolved. Repeat x-ray from today's does not show much of a change either. 10/24. Zosyn was added because of thick copious secretions which were noted around the tracheostomy collar, low-grade fever noted 10/23. Culture secretions from ET tube site growing staph epidermidis. Bactrim added for PCP prophylaxis. PCP PCR also sent. Dr. Van evaluated trach 10/21 and says it looks ok. Pulmonology critical care on board. We will continue to coordinate care with their team. Patient is being treated empirically with Bactrim for PCP pneumonia. PCP PCR result is pending. Continue imipenem, IV Bactrim. We will continue to try to wean off sedation. Seroquel increased to 300 nightly by pulmonology. Central line replaced by pulmonology 10/24. Dr. Mckeon discussed patient's current status with Dr. Madrid today. Patient will now be a DNR. Family will be coming in tomorrow to see him. Prognosis poor. #Acute preserved ejection heart failure exacerbation -resolved Echo repeated.Normal left ventricular cavity size, wall thickness and normal left ventricular systolic function. Left ventricular ejection fraction is estimated at 55 %. No regional wall motion abnormalities. Normal diastolic function. When compared to previous echocardiogram dated 11/01/2020, left ventricular right medical systolic function may have decreased somewhat. #Adrenal insufficiency: Continue hydrocortisone 50 mg twice a day. Patient not on any pressors. #Type 2 diabetes: Hyperglycemic, optimize Lantus dose with tube feeding Lantus dose was decreased when he had hypoglycemic event when IV steroids were switched to p.o. Continue Lantus 18 units daily. #Hypotension: Off vasopressors This was most likely related to adrenal insufficiency DNR. Constipation: Enema given 10/20. Last bowel movement was Thursday 10/18. No BM yet. KUB does show constipation. I will adjust his bowel regimen. Enema ordered along with lactulose 20 every 10/24. Still no bowel movement. Patient carries a poor prognosis.. Attestations Medical Necessity Statement*: Greater than 48-hour stay. Coding Level of Care Code Acute Head Concierge for [facility] Fwd Diagnoses Pneumothorax J93.9 Status post tracheostomy Z93.0 Adrenal insufficiency E27.40 ARDS (adult respiratory distress syndrome) J80 COVID-19 U07.1 Diabetes mellitus type 2 in nonobese E11.9 CAD (coronary artery disease) I25.10 COPD (chronic obstructive pulmonary disease) J43.2 COPD type: emphysema Emphysema type: centrilobular
[2021-10-25] MEDS: morphine 4 mg/mL SDV 1 mL IVP (16:07)
[2021-10-25] MEDS: enoxaparin 40 mg/0.4 mL Syringe SUBCUT (16:07)
[2021-10-25 18:08] LABS: Glucose Point of Care 168 mg/dL (70-110)
[2021-10-25] MEDS: chlorhexidine gluconate 0.12% Btl 473 mL 15 ML MUCOUS MEM (18:10)
[2021-10-25] MEDS: quetiapine 100 mg Tablet 300 MG PO (21:18)
[2021-10-25 21:23] LABS: Glucose Point of Care 205 mg/dL (70-110)
[2021-10-26] VITALS (77 sets, daily range): BP systolic 104–148; BP diastolic 62–74; PULSE 79–97; RESP 19–27; TEMP 36.5–36.8; O2SAT 68–92
[2021-10-26] MEDS: hydrocortisone 100 mg/2 mL SDV 50 MG IVP ×2 (01:53→12:04)
[2021-10-26] MEDS: lactulose oral liq 20 gm/30 mL UDC PO ×3 (01:55→14:54)
[2021-10-26] MEDS: ipratropium-albuterol 3 mL Neb INHALATION ×3 (02:21→14:19)
[2021-10-26] MEDS: propofol 1,000 MG/100 ML INJ 21 MG IV ×3 (02:54→11:17)
[2021-10-26 04:35] LABS: Basophils # 0.1 10^3/uL (0.0-0.1); Basophils % 0.8 %; Eosinophils # 0.7 10^3/uL (0.0-0.8); Eosinophils % 6.4 %; Hematocrit 35.8 % (42.0-52.0); Hemoglobin 11.2 g/dL (11.7-16.6); Lymphocytes # 0.6 10^3/uL (0.8-4.8); Lymphocytes % 5.9 %; Mean Corpuscular HGB Conc 31.3 g/dL (30.0-36.0); Mean Corpuscular Hemoglobin 30.9 pg (28.0-34.0); Mean Corpuscular Volume 98.6 fl (80-94); Mean Platelet Volume 10.8 fL (7.4-10.4); Monocytes # 0.6 10^3/uL (0.2-0.9); Monocytes % 5.6 %; Neutrophils # 8.12 10^3/uL (1.8-7.7); Neutrophils % 75.1 %; Nucleated Red Blood Cells % 0 %; Platelet Count 200 10^3/cmm (130-400); Red Blood Count 3.63 10^6/uL (4.1-5.3); Red Cell Distribution Width 15.5 % (12.1-15.1); White Blood Count 10.8 10^3/uL (4.0-10.0)
[2021-10-26 04:50] LABS: Blood Urea Nitrogen 9 mg/dL (8-23); Calcium 6.8 mg/dL (8.5-10.5); Carbon Dioxide 34 mmol/L (22-29); Chloride 91 mmol/L (98-107); Glomerular Filtration Rate 167.9 mL/min (90-130); Glucose 192 mg/dL (65-115); Osmolality Calculated 274 mOsm/kg (285-295); Sodium 130 mmol/L (136-145)
[2021-10-26 05:19] LABS: Slide Review Slide Review Perform
[2021-10-26 06:51] LABS: Glucose Point of Care 182 mg/dL (70-110)
[2021-10-26] MEDS: pantoprazole 40 mg SDV IVP (08:04)
[2021-10-26] MEDS: nystatin 100,000 unit/mL UDC 5 mL 100000 UNIT PO ×2 (08:04→12:03)
[2021-10-26] MEDS: chlorhexidine gluconate 0.12% Btl 473 mL 15 ML MUCOUS MEM (08:05)
[2021-10-26] MEDS: sennosides-docusate Tablet 2 TAB PO (08:06)
[2021-10-26] MEDS: duloxetine 60 mg Capsule PO (08:06)
[2021-10-26] MEDS: insulin glargine 100 units/1 mL 18 UNIT SUBCUT (08:14)
--- NOTE | 2021-10-26 10:30 | PC.SOCIAL ---
IMM update IMM not updated as patient is in critically condition and family is coming in to make patient comfort care.
[2021-10-26 12:04] LABS: Glucose Point of Care 160 mg/dL (70-110)
[2021-10-26] MEDS: insulin lispro 100 unit/1 mL SUBCUT (12:14)
--- NOTE | 2021-10-26 14:26 | PM.PN ---
Subjective Subjective: Interval history: Seen this morning. Family will be coming in today for terminal wean. No change in status compared to yesterday for the patient. He is still on 100% FiO2 saturating 86 to 87%. Vitals/I&O/Wt Last Vital Signs Temp 97.7 F 10/26/21 04:00 Pulse 86 10/26/21 14:22 Resp 20 H 10/26/21 14:19 BP 138/65 10/26/21 12:45 Pulse Ox 88 L 10/26/21 14:19 10/25/21 10/26/21 10/26/21 22:59 06:59 14:59 Intake Total 1500.683 / 2408.583 956.467 / 3365.050 830.95 / 830.95 Output Total 910 / 910 320 / 1230 Balance 590.683 / 1498.583 636.467 / 2135.050 830.95 / 830.95 Weight last 48 hrs Weight 32.114 kg Weight 72 kg Weight 31.893 kg Physical Exam Narrative: EXAM NARRATIVE: General: Sedated, on ventilator, appears euvolemic. appears very ill and toxic, tracheostomy in place. FiO2 up 100% now, PEEP 10, saturation 86-87% Cardio: Regular rate rhythm, n normal S1-S2, no gross murmurs. Respiratory: Rhonchi appreciated bilaterally at bases, chest tube in place draining clear yellow fluid. ET tube has secretions around insertion site. Coarse breath sounds. GI: Abdomen soft, bowel sounds positive. Paul draining clear yellow urine Extremities: Nonedematous, no cyanosis noted. Upper extremities have trace edema b/l. Neuro: Sedated unable to assess. Still no bowel movement. Urinary Catheter Management^: Paul: Cath Placed During This Visit: yes Reason for Continuing Indwelling Catheter: Accurate Measurement of Urinary Output in Critically Ill Patients Urinary Catheter Date of Insertion: 10/06/21 Urinary Catheter Time of Insertion: 13:33 Data : 10/26/21 04:00 10/26/21 04:00 Micro: Microbiology 10/24/21 13:05 Gram Stain - Final Sputum - Endotracheal Tube Aspirate Sputum Culture - Final A&P Assessment and plan (1) Pneumothorax: Status: Acute (2) Status post tracheostomy: Status: Acute (3) Adrenal insufficiency: Status: Acute (4) ARDS (adult respiratory distress syndrome): Status: Acute (5) COVID-19: Status: Acute (6) Diabetes mellitus type 2 in nonobese: Status: Acute (7) CAD (coronary artery disease): Status: Acute (8) COPD (chronic obstructive pulmonary disease): Status: Acute Qualifiers: COPD type: emphysema Emphysema type: centrilobular Qualified Code(s): J43.2 - Centrilobular emphysema Additional A&P Information #Covid-19 related severe ARDS #Hx of emphysema Status post tracheostomy 10/17 Status post Actemra, remdesivir and Decadron Status post 7 cycles of proning, he did respond very well to proning sessions however in supine phase his oxygen requirement does increase Continue feeds at 25 cc/h. Apical pneumothorax noted on chest x-ray status post chest tube placement 10/19/2021. PEEP of 10 today, FiO2 80%., Repeat chest x-ray 10/21 for pneumothorax shows it resolved. Repeat x-ray from today's does not show much of a change either. 10/24. Zosyn was added because of thick copious secretions which were noted around the tracheostomy collar, low-grade fever noted 10/23. Culture secretions from ET tube site growing staph epidermidis. Bactrim added for PCP prophylaxis. PCP PCR also sent. Dr. Van evaluated trach 10/21 and says it looks ok. Pulmonology critical care on board. We will continue to coordinate care with their team. Patient is being treated empirically with Bactrim for PCP pneumonia. PCP PCR result is pending. Continue imipenem, IV Bactrim. We will continue to try to wean off sedation. Seroquel increased to 300 nightly by pulmonology. Central line replaced by pulmonology 10/24. Dr. Mckeon discussed patient's current status with daughter Julius today. DNR now. Family will be coming in today to make final decision. Prognosis poor. #Acute preserved ejection heart failure exacerbation -resolved Echo repeated.Normal left ventricular cavity size, wall thickness and normal left ventricular systolic function. Left ventricular ejection fraction is estimated at 55 %. No regional wall motion abnormalities. Normal diastolic function. When compared to previous echocardiogram dated 11/01/2020, left ventricular right medical systolic function may have decreased somewhat. #Adrenal insufficiency: Continue hydrocortisone 50 mg twice a day. Patient not on any pressors. #Type 2 diabetes: Hyperglycemic, optimize Lantus dose with tube feeding Lantus dose was decreased when he had hypoglycemic event when IV steroids were switched to p.o. Continue Lantus 18 units daily. #Hypotension: Off vasopressors This was most likely related to adrenal insufficiency DNR. Constipation: Enema given 10/20. Last bowel movement was Thursday 10/18. No BM yet. KUB does show constipation. I will adjust his bowel regimen. Enema ordered along with lactulose 20 every 10/24. Still no bowel movement. Patient carries a poor prognosis.. Attestations Medical Necessity Statement*: >24 hr Coding Level of Care Code Acute Test Engineering Manager for [facility] Fwd Diagnoses Pneumothorax J93.9 Status post tracheostomy Z93.0 Adrenal insufficiency E27.40 ARDS (adult respiratory distress syndrome) J80 COVID-19 U07.1 Diabetes mellitus type 2 in nonobese E11.9 CAD (coronary artery disease) I25.10 COPD (chronic obstructive pulmonary disease) J43.2 COPD type: emphysema Emphysema type: centrilobular
--- NOTE | 2021-10-26 17:09 | PC.NURSE ---
family here to request comfort care removed off vent placed on o2
--- NOTE | 2021-10-26 18:46 | P.DES_ITS ---
Discharge Providers DDS Date of Admission: 09/29/21 17:36 Date Summary Completed: 10/28/21 Attending Provider at Admission: Jesus Gilmore MD Time of : 17:25 Attending Provider at Discharge: Zora Bateman MD Primary Care Provider: Romina Schofield MD DS Diagnoses Hospital Diagnoses (1) Pneumothorax: (2) Status post tracheostomy: (3) Adrenal insufficiency: (4) ARDS (adult respiratory distress syndrome): (5) COVID-19: (6) Diabetes mellitus type 2 in nonobese: (7) CAD (coronary artery disease): (8) COPD (chronic obstructive pulmonary disease): Qualifiers: COPD type: emphysema Emphysema type: centrilobular Qualified Code(s): J43.2 - Centrilobular emphysema Reason for Visit Reason for Visit: low O2 in 70's during infusion Summary Date and Time of Date of : 10/26/21 Time of : 17:25 Summary Summary: Patient was admitted for covid 19 pneumonia. His hospital course was complicated by adrenal insufficiency. Patient was proned 7 times but oxygenation did not improve. Tracheostomy was performed and patient later on developed a pneumotho rax s/p chest tube. Due to repeated desaturation episodes patient was unable to be weaned from sedation. Eventually, due to lack of improvement, patient was made comfort care by family (Katiana, daughter). Patient's brother was also involved in decision making. Patient's case was followed by pulmonary critical care as well and they were actively involved in his management with the hospitalist team. Additional Data Family: at bedside Additional persons at bedside: nursing staff Attending/PCP notified?: I am attending Was code activated?: No Advance directives?: No Discharge Plan Discharge Patient Disposition: Condition: Stable Prescriptions: No Action isosorbide mononitrate 10 mg tablet 10 mg PO .COMPLEX Qty: 60 RF: 2 metoprolol tartrate 25 mg tablet 12.5 mg PO BID 30 Days Qty: 30 RF: 2 Hold Instructions: Doctor's Order Abilify Maintena 400 mg suspension,extended rel recon 400 mg IM Q28D Qty: 1 RF: 3 bupropion HCl [Wellbutrin XL] 300 mg tablet extended release 24 hr 300 mg PO QAM Qty: 30 RF: 2 duloxetine [Cymbalta] 30 mg capsule,delayed release(DR/EC) 30 mg PO DAILY Qty: 30 RF: 2 duloxetine 60 mg capsule,delayed release(DR/EC) 60 mg PO DAILY@0900 Qty: 30 RF: 2 quetiapine 100 mg tablet See Rx Instructions .ROUTE .COMPLEX Qty: 90 RF: 2 quetiapine 400 mg tablet 400 mg PO BEDTIME@2200 Qty: 30 RF: 2 kyameejiryvobjg-wyrapdlaq-MI [Bromfed DM] 2-30-10 mg/5 mL syrup 5 ml PO Q6H PRN (Reason: cold symptoms) Qty: 118 RF: 0 albuterol sulfate 90 mcg/actuation HFA aerosol inhaler 2 puff inhalation Q6H PRN (Reason: shortness of breath or wheezing) Qty: 18 RF: 2 atorvastatin 40 mg tablet 40 mg PO DAILY 30 Days Qty: 30 RF: 2 (DME) Accu-Chek Ernestina Plus test strp Strip See Rx Instructions .Route Qty: 100 RF: 12 clopidogrel 75 mg tablet 75 mg PO DAILY 30 Days Qty: 30 RF: 2 Lantus U-100 Insulin 100 unit/mL solution 55 unit SUBCUT DAILY 30 Days Qty: 20 RF: 2 lisinopril 5 mg tablet 5 mg PO DAILY 30 Days Qty: 30 RF: 2 metformin 1,000 mg tablet See Rx Instructions .ROUTE .COMPLEX Qty: 30 RF: 2 sitagliptin 100 mg tablet 100 mg PO DAILY 30 Days Qty: 30 RF: 2 pantoprazole 40 mg tablet,delayed release (DR/EC) 40 mg PO DAILY 30 Days Qty: 30 RF: 2 loratadine 10 mg tablet 10 mg PO DAILY PRN (Reason: allergy symptoms) 30 Days Qty: 30 RF: 2 omega-3 acid ethyl esters 1 gram capsule See Rx Instructions .ROUTE .COMPLEX Qty: 90 RF: 2 acarbose 100 mg tablet 100 mg PO BID 30 Days Qty: 60 RF: 2 (DME) True Metrix Level 1 Solution See Rx Instructions .Route Qty: 1 RF: 1 (DME) blood-glucose meter [True Metrix Air Glucose Meter] Misc See Rx Instructions .Route Qty: 1 RF: 0 Abilify 5 mg Tablet 5 mg PO DAILY RF: 0 mirtazapine 7.5 mg Tablet 7.5 mg PO DAILY RF: 0 hydroxyzine pamoate 25 mg capsule 25 mg PO TID@ PRN (Reason: itching, allergies, anxiety, or insomnia) RF: 0 DS Attestations Time Spent in /Discharge Care*: greater than 30 min Quality - AMI: AMI present?: No Quality - Stroke: CVA present?: No Symptom Onset Unknown: No Quality - VTE: VTE present?: No Deep Vein Thrombosis/Pulmonary Embolism Present on Admission: No Coding Level of Care Code Acute Business Technology Teacher for [facility] Fwd Diagnoses Pneumothorax J93.9 Status post tracheostomy Z93.0 Adrenal insufficiency E27.40 ARDS (adult respiratory distress syndrome) J80 COVID-19 U07.1 Diabetes mellitus type 2 in nonobese E11.9 CAD (coronary artery disease) I25.10 COPD (chronic obstructive pulmonary disease) J43.2 COPD type: emphysema Emphysema type: centrilobular
--- NOTE | 2021-10-26 19:10 | PC.NURSE ---
family here at 1700 to see pt moved to comfort care allow for visitingtime.. placed on blowby.. pt at 1725 off all meds. mts called no donor option at this time.
--- NOTE | 2021-10-26 21:01 | PC.NURSE ---
Waste: Versed gtt wasted 45 mL, Fentanyl gtt wasted 65 mL in per protocol in designated area witnessed by Charity Diaz admission discharge rn.
--- NOTE | 2021-10-26 21:03 | PC.NURSE ---
Patient at 17:25 with family at bedside. Report received from [facility] recovery operator helper, [facility] called and gave permission to release body. Family wished to use [facility]. This nurse called Home at [phone] at 18:43, they stated they would send someone to [facility]. Approx 20:20 Johnathon with [facility] with follow up call to confirm weight.
[2021-10-28 03:26] LABS: P. Jirovecii DNA QL PCR NOT DETECTED; P. Jirovecii DNA QL PCR Source SPUTUM
== END 2021-10-26 21:30 | disposition expired | DRG 3 ==
LOC: ER 15:22 → MEDSURG 18:11 → ICU 10-01 20:03 → MEDSURG 10-02 17:48 → ICU 10-05 18:02
PROVIDERS: Hospitalist; Internal Medicine Pulmonary Disease; Otolaryngology; Admitting Provider Internal Medicine; Emergency Provider Family Medicine; PCP Family Medicine; Visit Provider Internal Medicine
PROC: 0B110F4 Bypass Trachea to Cutaneous with Tracheostomy Device, Open Approach (ICD-10-PCS; principal; 2021-10-17 11:00)
DX: U07.1 COVID-19 (principal); J12.82 Pneumonia due to coronavirus disease 2019; I50.31 Acute diastolic (congestive) heart failure; J80 Acute respiratory distress syndrome; B59 Pneumocystosis; F33.9 Major depressive disorder, recurrent, unspecified; J96.12 Chronic respiratory failure with hypercapnia; J93.9 Pneumothorax, unspecified; E27.40 Unspecified adrenocortical insufficiency; E87.1 Hypo-osmolality and hyponatremia; E11.65 Type 2 diabetes mellitus with hyperglycemia; I11.0 Hypertensive heart disease with heart failure; F10.21 Alcohol dependence, in remission; F41.9 Anxiety disorder, unspecified; I25.10 Atherosclerotic heart disease of native coronary artery without angina pectoris; Z98.61 Coronary angioplasty status; J43.2 Centrilobular emphysema; E78.5 Hyperlipidemia, unspecified; Z87.891 Personal history of nicotine dependence; I95.9 Hypotension, unspecified; B95.7 Other staphylococcus as the cause of diseases classified elsewhere; Z66 Do not resuscitate; K59.00 Constipation, unspecified; E87.5 Hyperkalemia; D75.1 Secondary polycythemia; E86.0 Dehydration
CPT/HCPCS: 36415; 36416; 36569; 36592; 36600; 51702; 71045; 71275; 74018; 80048; 80051; 80053; 80061; 82330; 82533; 82550; 82570; 82803; 82805; 82962; 83605; 83615; 83735; 83930; 83935; 84100; 84145; 84300; 84443; 84478; 85025; 85378; 85730; 86140; 86403; 86850; 86900; 87040; 87070; 87075; 87077; 87186; 87205; 87449; 87641; 87798; 93005; 93306; 93970; 94002; 94003; 94640; 94660; 94664; 94799; 96365; 96372; 96375; 99285; C1751; C9113; J0610; J0743; J1100; J1644; J1650; J1720; J1815 ×2; J1940; J2060; J2250; J2270; J2543; J2704; J3010; J3262; J3490; J7050; J7626; J8499; Q9967